=== PATIENT | male | born 1940 | race Caucasian/White ===

== ENCOUNTER → 2016-04-14 | Outpatient (CLI) | payer OTHER ==
[~2016-04-14] MED LIST: ADULT LOW DOSE81 MG PO; ADVAIR 250-501 EACH IH; ADVAIR 250-501 EACH INH; AMBEREN; AMLODIPINE BESYL5 M1 PO; ASPIRIN EC81 M1 PO; ASPIRIN81 M2 PO; ATORVASTATIN CA40 MG PO; B-122500 MCG SUBLING; BACTRIM DS TAB1 EAC1 PO; BENICAR HCT 401 EAC1 PO; BENICAR HCT 401 EACH PO; BENICAR20 MG PO; CATAPRES PO; CHLORIDE; CIPROFLOXACIN500 M1 PO; CLARINEX5 MG; CLARINEX5 MG PO; CLONIDINE HCL0.2 M2 PO; CLONIDINE PO; CLONIDINE0.1 PO; COLACE100 MG PO; CRESTOR20 MG PO; CYCLOBENZAPRINE10 MG PO; DOXYCYCLINE HY100 MG PO; EFFIENT10 MG PO; ELIQUIS5 MG PO; FLEXERIL PO; FLOMAX0.4 MG PO; FLONASE 0.05%50 MCG NASAL; FUROSEMIDE 20 M20 M1 PO; FUROSEMIDE 80 M80 M1 PO; FUROSEMIDE 80 M80 MG PO; GLUCAGON EMERGEN1 MG; GLUCOPHAGE PO; GLUCOPHAGE1000 MG PO; HYDROCODON-ACE1 EAC7; HYDROCODON-ACE1 EAC7 PO; IMDUR PO; IMDUR120 MG PO; ISOMETHEPT-DIC1 EACH PO; ISOSORBIDE MON120 MG PO; K-LOR20 MEQ PO; LASIX 20 MG TAB20 MG PO; LASIX 80 MG TAB80 M1 PO; LEVEMIR; LEVEMIR SQ; LEVEMIR SUBQ; LIPITOR20 MG PO; LISINOPRIL10 MG PO; LISINOPRIL40 MG PO; LOPRESSOR25 PO; METOCLOPRAMIDE10 MG PO; MINIPRIN81 MG PO; MOBIC15 MG PO; MULTIVITAMINS; MULTIVITAMINS PO; NEURONTIN 300300 M1 PO; NEXIUM40 MG PO; NITROQUICK0.4 MG SL; NITROSTAT SL; NITROSTAT0.4 MG SUBLING; NORCO 5-325 TA1 EACH PO; NORTRIPTYLINE H10 M1 PO; NORVASC 5 MG TAB5 MG PO; NORVASC5 MG PO; NOVOLOG100 UNIT/1; NOVOLOG100 UNIT/1 SQ; NOVOLOG100 UNIT/1 SUBQ; OMEPRAZOLE20 M1 PO; OXYBUTYNIN 5 MG5 M1 PO; OXYCODONE-APAP1 EAC6 PO; PAMELOR10 MG PO; PERCOCET 10-321 EACH PO; PLAVIX 75 MG TA75 MG PO; POTASSIUM CHLO20 ME1 PO; POTASSIUM20 PO; PREDNISONE 20 M20 M1 PO; PRILOSEC40 MG PO; PROAIR HFA8.5 GM INH; PROBIOTIC1 EAC1 PO; RANEXA1000 MG PO; SANTYL OINTMENT30 G1 TP; SENNA PO; SINGULAIR 10 MG10 M1 PO; SOTALOL80 MG PO; TAMSULOSIN HCL0.4 M1 PO; TIZANIDINE HCL 22 M1 PO; TOPROL XL100 MG PO; TOPROL XL25 MG PO; TOPROL XL50 MG PO; TOVIAZ8 MG PO; TRAMADOL 50 MG50 MG PO; TYLENOL325 MG PO; ULTRAM 50MG TAB50 MG PO; VITAMIN B 12 SUBLING; VITAMIN B 6 PO; VITAMIN B-6 PO; VITAMIN B-6100 MG PO; VITAMINC500 PO; VYTORIN 10-401 EACH PO; WELLBUTRIN75 MG PO; XOPENEX HF1 UDINHALE IH; ZANAFLEX2 M1 PO; ZANAFLEX2 MG PO; ZPAK PO
== END ==
LOC: RAD 14:27
DX: R06.02 Shortness of breath (principal); I51.7 Cardiomegaly; J98.11 Atelectasis; R05 Cough

== ENCOUNTER → 2016-07-31 | Outpatient (CLI) | payer OTHER ==
[~2016-07-31] VITALS: Ht 167.6 cm; Wt 103.8 kg
[~2016-07-31] MED LIST changes: +PLAVIX 75 MG TA75 M1 PO; +XARELTO20 MG PO
--- NOTE | ~2016-07-31 | HPC ---
[facility] [address] [address] PAIN MANAGEMENT CONSULTATION Name: STEVENCATIA WEST Romy Room #: REG [facility] Debra.#: [id number] Admission: 07/31/16 Attend Phys: Jose Lyman DO Discharge: Date of : 40 Report #: [id number] THIS REPORT FOR: //name// CC: Thomas Lyman The patient is a 76-year-old gentleman, actually he has not been seen in the pain clinic since December. He has been treated for chronic pain concerns including lumbar radiculopathy status post decompressive laminectomy, myofascial pain requiring complex medication management. He has significant atherosclerotic peripheral vascular and coronary artery disease. Continued on Percocet 10/325 p.r.n., gabapentin 300 mg 1 in the morning and 2 at night, tramadol 50 mg p.r.n. with tizanidine for muscle spasm. He is on multiple blood thinners (Plavix, Xarelto). He has been started on Ranexa for ongoing angina. He returns to pain clinic today noting pain is primarily in low back and left knee. His balance is getting worse, he does use a cane or a walker. PHYSICAL EXAMINATION: Shows a pleasant 76-year-old gentleman, somewhat hard of hearing. BMI is 36.9 kg/m2. Vital signs are stable as noted on the EMR. Rises from the chair using armrest. Gait is tandem. Lower extremity strength is diminished. He is becoming more disabled, perhaps 3/5 to all muscle groups tested. Straight leg raise is negative. Patellar and Achilles reflexes are generally preserved. Diffuse low back tenderness. No discrete trigger points are noted. We reviewed the fact that opiate medications are being used to provide analgesia adequate to support activities of daily living, not attempting to achieve a specific pain score on the 0-10 Visual Analog Scale. The current opiate medications are providing sufficient analgesia to allow the patient to participate in activities of daily living. The patient is not exhibiting any aberrant behavior suggestive of drug diversion. The patient is not having any adverse reactions to medications. The patient is not suffering from daytime somnolence or mental acuity changes. The patient is managing opiate-induced constipation with appropriate mglu-guh-zznpaqa agents and dietary considerations. The patient was counseled on concern for caution with operating a motor vehicle while using opiate medications. A physical exam was performed and the patient's functional status was evaluated. All patients with back pain were advised against the bed rest greater than 4 days and were advised to return to normal activities. Pain score assessment was noted and the treatment plan was reviewed with the patient. All current medications, both prescribed and OTC were reviewed and reconciled on the electronic medical record. Tobacco screening was accomplished and smoking cessation was advised when indicated. BMI was noted and diet/exercise modification was recommended for all patients following outside normal parameters. [address] [address] PAIN MANAGEMENT CONSULTATION Name: CATIA HARRIS Romy Room #: REG CL Alfredo#: [id number] Admission: 07/31/16 Attend Phys: Jose Lyman DO Discharge: Date of : 40 Report #: [id number] I reviewed with the patient today their responsibilities to safeguard prescription medications, reviewed their responsibility to utilize medications only as prescribed by the physician. They are to seek and receive pain medications only from 1 physician group ([facility]). They are to use 1 pharmacy and keep the clinic informed if they change pharmacies. Their responsibilities include making followup visits in a timely fashion and to avoid abrupt discontinuation of medication usage. Their responsibilities further include bringing their medications (bottles from the pharmacy with residual pills) to the visit for possible confirmation of pill counts and the patient understands it is their responsibility to submit to random drug screens to ensure both that the medications prescribed are present, and that no other controlled substances are present. All prescriptions provided today were generated electronically. ASSESSMENT: Lumbar radiculopathy status post decompressive laminectomy, axial back pain, myofascial pain requiring complex medication management, comorbidities including atherosclerotic and peripheral vascular disease, on multiple blood thinners. RECOMMENDATION: After a long discussion today, we have elected to continue baseline pain medications unchanged including tizanidine 2 mg up to 4 times a day, oxycodone 10/325 up to t.i.d., tramadol 50 mg t.i.d. for moderate pain and gabapentin 300 mg b.i.d. I have taken the liberty of writing for 2 months of current medications. Follow up at that time, earlier if needed. <ELECTRONICALLY SIGNED> By: Jose Lyman DO 08/03/16 1538 1224 1541 Jose Lyman DO /nt
[2016-07-31 09:51] VITALS: BP 131/52
== END ==
LOC: PAIN 06:47
DX: M54.16 Radiculopathy, lumbar region (principal); M96.1 Postlaminectomy syndrome, not elsewhere classified; M54.5 Low back pain; I70.299 Other atherosclerosis of native arteries of extremities, unspecified extremity; R42 Dizziness and giddiness; M17.0 Bilateral primary osteoarthritis of knee

== ENCOUNTER → 2016-09-03 | Outpatient (CLI) | payer OTHER | LOC: CAT 10:07 | DX: S09.90XA Unspecified injury of head, initial encounter (principal); R60.0 Localized edema; X58.XXXA Exposure to other specified factors, initial encounter; Y93.89 Activity, other specified; Y92.89 Other specified places as the place of occurrence of the external cause; Y99.8 Other external cause status ==

== ENCOUNTER → 2016-10-27 | Outpatient (CLI) | payer OTHER ==
[2016-10-27 08:56] LABS: CREATININE 1.3 mg/dL (0.7-1.3)
== END ==
LOC: CAT 07:51
PROVIDERS: Nurse Practitioner
DX: Z01.818 Encounter for other preprocedural examination (principal); I51.7 Cardiomegaly; N18.3 Chronic kidney disease, stage 3 (moderate)

== ENCOUNTER → 2016-11-05 | Outpatient (CLI) | payer OTHER ==
[~2016-11-05] VITALS: Ht 182.9 cm; Wt 97.5 kg
[~2016-11-05] MED LIST changes: +NEURONTIN600 MG PO; +PROTONIX40 M1 PO
--- NOTE | ~2016-11-05 | CATHLAB ---
[facility] [address] [place] [address] INVASIVE PROCEDURE REPORT Name: CATIA HARRIS Romy Room #: REG [facility]#: [id number] Admission: 11/05/16 Attend Phys: Kishan Gudino MD Discharge: Date of : 40 Date of Service: 11/05/16 1623 Report #: [id number] THIS REPORT FOR: //name// APPROVED REPORT Patient Details Patient Status: In-Patient Room #: The patient is a 76 year-old male Event Personnel Kishan Gudino Broadcast Supervisor, Sofía Heart RN RN, Nahum Breen Monitor, Nahum Breen Monitor, Brett Gracia RN Indication Unstable angina , Valvular heart disease Risk Factors Hypercholesterolemia, Coronary Artery DiseaseHypertension Procedure Narrative The Right Groin^ was infiltrated with 1% Lidocaine subcutaneous anesthesia. A PINNACLE 4FR Sheath #[id number] sheath was inserted into the RFA^. Coronary angiography was performed using coronary diagnostic catheters. The right coronary system was accessed and visualized with a JR4 catheter. The left coronary system was accessed and visualized with a JL4 catheter. The left ventricle was accessed and visualized with a PIGTAIL catheter. Left ventricular/Aortic Valve gradient assessed via catheter pullback. Hemostasis was obtained with manual pressure following sheath removal without any complications. There was no hematoma. Intraoperative Conscious Sedation Sedation start time: 13:15 Case end Time: 13:37 Dose: 9347 mGy Diagnostic Cath Left Main No flow-limiting lesions LAD Patent stents in proximal/mid LAD with mild restenosis. There is mild diffuse disease in the distal LAD. Circumflex 100% proximal occlusion OM1 Patent SALAZAR graft to a moderate sized first OM vessel, supplies multiple branches as it travels down the lateral wall. Right Coronary 100% proximal occlusion [facility] [address] [place] [address] INVASIVE PROCEDURE REPORT Name: CATIA HARRIS Romy Room #: [facility]#: [id number] Admission: 11/05/16 Attend Phys: Kishan Gudino MD Discharge: Date of : 40 Date of Service: 11/05/16 1623 Report #: [id number] PDA Patent SVG with an end to side anastomosis to the PDA. The stents within the vein graft are patent with mild restenosis. After the anastomosis, there is both retrograde and antegrade flow. Left Ventriculography The left ventricular ejection fraction is estimated to be 60%. Hemodynamics The aortic pressure is 176/72 mmHg with a mean of 113 mmHg. The left ventricular pressure is 227/21 mmHg with a mean of mmHg. The left ventricular end diastolic pressure is 24 mmHg. Conclusion 1. Patent [place] LAD stents with mild restenosis. 2. Patent SALAZAR graft to a moderate size OM vessel. 3. Patent saphenous vein graft to a PDA, with mild restenosis within the stented area. 4. Severe aortic stenosis. 5. Normal LV systolic function. <ELECTRONICALLY SIGNED> By: Kishan Gudino MD 11/05/16 1623 22 22 Kishan Gudino MD /INF
--- NOTE | ~2016-11-05 | EKG ---
[address] [place] [address] ELECTROCARDIOGRAM REPORT Name: CATIA HARRIS Room #: REG [facility]#: [id number] Admission: 11/05/16 Attend Phys: Kishan Gudino MD Discharge: Date of : 40 Report #: [id number] THIS REPORT FOR: //name// [facility] Test Date: 2016-11-05 Test Time: 10:20:42 Pat Name: CATIA HARRIS Department: Room: Gender: M Pole Cutter: : 1940 Requested By: Kishan Gudino Order Number: [id number] MD: Anibal Shea Measurements Intervals [place] Rate: 72 P: -54 IA: 198 QRS: 84 QRSD: 110 T: -4 QT: 424 QTc: 465 Interpretive Statements Atrial fibrillation nonspecific ST and T wave abnormality Compared to ECG 03/17/2016 06:52:23 No significant change was found Electronically Signed On 11-06-2016 8:27:47 CDT by Anibal Shea [email or web address] <ELECTRONICALLY SIGNED> By: Anibal Shea MD, [facility] 11/06/16 0827 1020 1020 Anibal Shea MD, FACC /EPI
[2016-11-05 10:31] VITALS: BP 186/84
[2016-11-05 10:42] LABS: HEMATOCRIT 37.8 % (42.0-52.0); HEMOGLOBIN 12.7 gm/dL (14.0-18.0); MCH 29.5 pg (26.0-34.0); MCHC 33.5 g/dL (28.0-37.0); RBC 4.3 mil/uL (4.50-6.00); RDW 15.8 % (10.5-14.5); WBC 7.1 thou/uL (4.0-11.0)
[2016-11-05 11:02] LABS: CALCIUM 9.6 mg/dL (8.5-10.1); CREATININE 1.2 mg/dL (0.7-1.3)
== END | disposition home or self-care (01) ==
LOC: CATH 09:41
PROVIDERS: Internal Medicine Cardiovascular Disease
DX: I25.119 Atherosclerotic heart disease of native coronary artery with unspecified angina pectoris (principal); E78.00 Pure hypercholesterolemia, unspecified; I10 Essential (primary) hypertension

== ENCOUNTER 2016-11-23 05:08 | Inpatient (IN) | payer OTHER ==
[2016-11-17 15:27] LABS: HEMATOCRIT 34.8 % (42.0-52.0); HEMOGLOBIN 12.2 gm/dL (14.0-18.0); MCH 30.6 pg (26.0-34.0); MCHC 35.1 g/dL (28.0-37.0); RDW 15.5 % (10.5-14.5); URINE BILIRUBIN NEGATIVE (Negative); URINE BLOOD TRACE (Negative); URINE COLOR YELLOW; URINE GLUCOSE-RANDOM* NEGATIVE (Negative); URINE KETONES NEGATIVE (Negative); URINE LEUKOCYTES-REFLEX TRACE (Negative); URINE PROTEIN (DIPSTICK) NEGATIVE (Negative); URINE SPECIFIC GRAVITY <= 1.005 (1.003-1.035); URINE UROBILINOGEN 0.2 E.U./dl (0.2-1.0); WBC 7.9 thou/uL (4.0-11.0)
[2016-11-17 15:39] LABS: CALCIUM 9.7 mg/dL (8.5-10.1); POTASSIUM 3.3 mmol/L (3.5-5.1)
[2016-11-17 15:58] LABS: APTT 27.3 Seconds (24.5-32.8); PROTIME 9.8 Seconds (9.3-11.4)
[~2016-11-23] VITALS: Ht 167.6 cm; Wt 108.0 kg
--- NOTE | ~2016-11-23 | EKG ---
[address] [address] ELECTROCARDIOGRAM REPORT Name: CATIA HARRIS Romy Room #: 240-P ADM IN M.R.#: [id number] Admission: 12/01/16 Attend Phys: Ady Gao MD Discharge: Date of : 40 Report #: [id number] THIS REPORT FOR: //name// [facility] Test Date: 2016-12-02 Test Time: 06:36:14 Pat Name: CATIA HARRIS Department: Room: 240 P Gender: M Artist Suspect: ALEKSANDAR : 1940 Requested By: Grace Zhu Order Number: [id number] MD: Anibal Shea Measurements Intervals [place] Rate: 71 P: 0 VA: 196 QRS: 64 QRSD: 97 T: 232 QT: 372 QTc: 405 Interpretive Statements Atrial fibrillation Repol abnrm suggests ischemia, anterolateral Compared to ECG 11/05/2016 10:20:42 No significant change was found Electronically Signed On 12-02-2016 8:44:04 CDT by Anibal Shea [email or web address] <ELECTRONICALLY SIGNED> By: Anibal Shea MD, [facility] 12/02/16 0844 5 5 Anibal Shea MD, [facility] /EPI
--- NOTE | ~2016-11-23 | HC ---
[facility] [address] [place] [address] CONSULTATION Name: CATIA HARRIS Romy Room #: 240-P [facility] IN M.R.#: [id number] Admission: 12/01/16 Attend Phys: Ady Gao MD Discharge: Date of : 40 Report #: [id number] THIS REPORT FOR: //name// CC: Thomas Gao DATE OF SERVICE: 12/03/2016 REFERRING PROVIDER: Dr. Ady Gao REASON FOR CONSULTATION: Respiratory failure. HISTORY OF PRESENT ILLNESS: Our group was asked to see the patient this morning in consultation while hospitalized at [facility] in the ICU. The patient on the ventilator and placed overnight on mechanical ventilatory support relatively urgently. He is unable to give any history. History is taken from review of records and discussion with healthcare providers and sister and brother who are at bedside. He is a 76-year-old male without any significant past pulmonary history, possibly chronic obstructive pulmonary disease in the records who presented for aortic valve replacement due to severe aortic stenosis with valve area of 0.7 cm2. The patient has had prior sternotomy for coronary artery bypass graft prior to this. The patient's procedure was performed 2 days ago. The patient apparently extubated yesterday, developing worsening hypoxemic respiratory failure and altered mental status requiring intubation overnight. Chest radiograph had suggested worsening pulmonary edema. Nursing notes no suggestion of aspiration during the day or during the intubation. Minimal secretions coming from airway. The patient's hypoxemia is somewhat improved post intubation. He has been placed on a furosemide drip with some urine output noted. ALLERGIES: INCLUDE ADHESIVE TAPE, PENICILLINS AND BEXTRA. PAST MEDICAL HISTORY: 1. History of coronary artery disease with coronary artery bypass grafting in 1995. 2. History of aortic stenosis, status post aortic valve replacement on 12/01/2016. 3. History of lumbar laminectomy x 2. 4. History of chronic obstructive pulmonary disease, severity not quantified in the records available. 5. History of obstructive sleep apnea, on nocturnal CPAP by report. 6. History of gastroesophageal reflux disease. 7. Hyperlipidemia. 8. Hypertension. [facility] [address] [place] [address] CONSULTATION Name: CATIA HARRIS Romy Room #: 240-P [facility] IN M.R.#: [id number] Admission: 12/01/16 Attend Phys: Ady Gao MD Discharge: Date of : 40 Report #: [id number] OUTPATIENT MEDICATIONS: Included Toviaz, potassium chloride, probiotic, Colace, metformin, vitamin B12, Nitrostat p.r.n., Lasix 100 daily, Levemir insulin, Flomax, clonidine, p.r.n. albuterol, Advair 250/50 twice daily, Singulair, Flonase, Clarinex, isosorbide mononitrate, amlodipine, olmesartan, Ranexa, metoprolol, gabapentin and tramadol. SOCIAL HISTORY: The patient is a nonsmoker. FAMILY HISTORY: Unobtainable due to current status. REVIEW OF SYSTEMS: Otherwise, unobtainable from the patient due to his current neurologic status. PHYSICAL EXAMINATION: VITAL SIGNS: The patient has been afebrile, pulse in 80s times signs of atrial fibrillation, respiratory rate in the 20s, blood pressure 152/53. GENERAL: This is an elderly male, sedate, on mechanical ventilatory support. EENT: Reveals an 8.[address] with no significant oropharyngeal erythema noted. NECK: Supple, no lymphadenopathy. An IJ introducer in place. LUNGS: Some coarse breath sounds noted. CARDIOVASCULAR: Heart was regular. No murmurs appreciated. ABDOMEN: Soft, nontender. Mediastinal tube is noted to be in place. EXTREMITIES: With diminished pulses, right radial arterial line in place with some lower extremity edema noted. LABORATORY DATA: Chest x-ray revealed tubes and lines in good position. Significant widening of the mediastinum also noted. Some mild pulmonary infiltrates, right greater than left, noted with cephalization of flow suggestive of pulmonary edema and/or superimposed pulmonary infiltrate. White blood cell count is 17,000, hemoglobin 9, hematocrit 29, platelet count 75. Sodium 140, potassium 4.4, chloride 106, bicarbonate 25, BUN 34, creatinine 1.5, glucose 290, calcium is 9.3. Arterial blood gas on assist control, tidal volume of 600, PEEP of 8, rate of 18, FiO2 of 100% revealed pH 7.35, pCO2 of 42, pO2 of 87, bicarbonate 23. IMPRESSION: 1. Acute hypoxemic respiratory failure, likely related to pulmonary edema. Would check echocardiogram to reevaluate postoperative cardiac function given the above, continue with diuretics as planned. Consider the possibility the patient may have superimposed pneumonia. 2. Pulmonary infiltrates most consistent with pulmonary edema. 3. Status post aortic valve replacement. 4. Diabetes mellitus type 2. 5. History of asthma/chronic obstructive pulmonary disease. 6. Nutrition: No nutrition at this time and will withhold for the moment. [facility] [address] [place] [address] CONSULTATION Name: CATIA HARRIS Room #: 240-P ADM IN M.R.#: [id number] Admission: 12/01/16 Attend Phys: Ady Gao MD Discharge: Date of : 40 Report #: [id number] PLAN: As outlined above. We will follow along with you. Thank you for requesting our suggestions. Total critical care time 45 minutes, not including any procedures to this point. <ELECTRONICALLY SIGNED> By: Arslan Dang MD 12/03/16 1338 0927 1045 Arslan Dang MD /nt
--- NOTE | ~2016-11-23 | EKG ---
[address] [address] ELECTROCARDIOGRAM REPORT Name: CATIA HARRIS Romy Room #: 240-P ADM IN M.R.#: [id number] Admission: 12/01/16 Attend Phys: Ady Gao MD Discharge: Date of : 40 Report #: [id number] THIS REPORT FOR: //name// [facility] Test Date: 2016-12-03 Test Time: 02:37:30 Pat Name: CATIA HARRIS Department: Room: 240 P Gender: M Route Supervisor: jreif : 1940 Requested By: Ady Gao Order Number: [id number] MD: Anibal Shea Measurements Intervals [place] Rate: 78 P: AR: QRS: 78 QRSD: 102 T: 267 QT: 385 QTc: 439 Interpretive Statements Atrial fibrillation Nonspecific repol abnormality, diffuse leads Compared to ECG 12/02/2016 06:36:14 No significant change was found Electronically Signed On 12-03-2016 8:01:00 CDT by Anibal Shea [email or web address] <ELECTRONICALLY SIGNED> By: Anibal Shea MD, [facility] 12/03/16 0801 0237 023 Anibal Shea MD, [facility] /EPI
--- NOTE | ~2016-11-23 | HC ---
[facility] [place] [address] [place] [address] CONSULTATION Name: CATIA HARRIS Romy Room #: 207-P [facility] IN .R.#: [id number] Admission: 12/01/16 Attend Phys: Ady Gao MD Discharge: Date of : 40 Report #: [id number] THIS REPORT FOR: //name// CC: Thomas Gao DATE OF SERVICE: 12/11/2016 HISTORY OF PRESENT ILLNESS: The patient is a 76-year-old white male with history of coronary artery disease, prior coronary artery bypass graft 21 years ago with severe aortic stenosis. He was noted to have problems with exertional chest pain and had a fall, question syncope sustaining subdural hematomas 09/2016. He was admitted to [facility] and underwent an aortic valve replacement redo sternotomy 12/01/2016. He ended up needing to be re-intubated. He has been treated for pneumonia, hypernatremia with close involvement of Pulmonary Medicine as well as Nephrology and Infectious Disease. He is noted to have encephalopathy with decreased cognition. We are seeing him in rehabilitation medicine consultation. PAST MEDICAL HISTORY: Includes the prior coronary artery bypass grafting. He has a history of left total knee replacement, right total hip replacement, bilateral shoulder surgery, hypertension, diabetes mellitus with peripheral neuropathy requiring insulin, hyperlipidemia, COPD, GERD, subdural hematoma. MEDICATIONS: Please see the full medication listing. ALLERGIES: ADHESIVE TAPE, PENICILLIN, BEXTRA WITH VALDECOXIB. HABITS: No history of tobacco or alcohol abuse. FAMILY HISTORY: Mother was noted to have leukemia. SOCIAL HISTORY: Lives in a house with his brother, 2 steps in, utilized a walker premorbidly. REVIEW OF SYSTEMS: Did not offer any current complaints of chest pain, shortness of breath or abdominal discomfort. Did not complain of any focal extremity pain. PHYSICAL EXAMINATION: GENERAL: He is a 76-year-old male seen in the intensive care unit. He is in no obvious distress. VITAL SIGNS: Last recorded temperature 98.5, pulse 82, respirations 20, and blood pressure 134/67. NEUROLOGIC: He was sleepy, but was easily arousable. He is on nasal prong O2. He was correct regarding the place, incorrect regarding the year, partial [facility] [address] [place] [address] CONSULTATION Name: CATIA HARRIS Room #: 207-P [facility] IN .R.#: [id number] Admission: 12/01/16 Attend Phys: Ady Gao MD Discharge: Date of : 40 Report #: [id number] correct regarding the President. A bit cankerous, but does follow basic commands without difficulty. There is a definite latency to his responses and some decreased concentration. Facies appeared symmetric. Mid sternal incision is dressed. EXTREMITIES: He has functional range of motion of the upper extremities; 1+ distal upper extremity edema, appeared pitting. Strength is probably a grade 4- to 3+/5. Lower extremities, prior left knee incision. No focal calf swelling. He may have 1+ lower extremity edema. Functionally, he is max assist with sit to stand. Gait, mod assist to 5 steps with a front-wheeled walker. I would grade his lower extremity strength probably a 3+/5. ASSESSMENT: A 76-year-old white male with the following problem list: 1. Metabolic encephalopathy. 2. Severe aortic stenosis, status post bioprosthetic aortic valve replacement. 3. Respiratory arrest needing re-intubation. 4. 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 5. Hypernatremia. 6. Pneumonia. 7. Dysphagia. He is on a pureed diet with nectar-thickened liquids. 8. Coronary artery disease. 9. Hypertension. 10. Chronic obstructive pulmonary disease. PLAN: It is my understanding the patient has been transferred out of the ICU today. We would anticipate that he could be a good inpatient rehabilitation candidate as he further medically stabilizes. At this point, we will continue to follow along with you regarding his rehabilitation therapy needs. Thank you for asking us to assist in this patient's care. By: 1143 0150 Nahum Bonilla MD /
--- NOTE | ~2016-11-23 | O ---
[facility] [place] [address] OPERATIVE REPORT Name: CATIA HARRIS Room #: 207-P [facility] IN ..#: [id number] Admission: 12/01/16 Attend Phys: Ady Gao MD Discharge: 12/13/16 Date of : 40 Report #: [id number] THIS REPORT FOR: //name// CC: Thomas Gao DATE OF SERVICE: 12/01/2016 DATE OF SERVICE: 12/01/2016 PREOPERATIVE DIAGNOSES: 1. Severe aortic stenosis. 2. Severe left ventricular hypertrophy. FINAL DIAGNOSES: 1. Severe aortic stenosis. 2. Severe left ventricular hypertrophy. OPERATIVE PROCEDURE PERFORMED: 1. Redo sternotomy. 2. Aortic valve replacement with 23 mm Durant Magna Ease bovine pericardial bioprosthesis. SURGEON: Ady Gao MD DIESEL MAINTENANCE ELECTRICIAN: Nanda Hernandez MD ANESTHESIA: General. OPERATIVE INDICATIONS: The patient is a very pleasant 76-year-old male who has a known history of coronary artery disease and has undergone prior coronary bypass grafting approximately 21 years ago. The patient is now presented with symptoms of severe dyspnea on exertion and was found to have evidence of severe aortic stenosis. A long preop discussion was performed with the patient, he was amenable to proceeding with redo sternotomy for aortic valve replacement. Preoperative evaluation with left heart catheterization did show patent graft to the obtuse marginal vessel from a patent left internal mammary artery and also a saphenous vein graft to the right coronary artery system. OPERATIVE SUMMARY: The patient was brought to the operating room and placed on the OR table in supine position. After anesthesia was induced via the general endotracheal route and monitoring lines had been positioned, the patient was prepped and draped in sterile fashion with chlorhexidine. We reentered through the prior median sternotomy incision. The wires were dissected free from the [facility] [address] [place] [address] OPERATIVE REPORT Name: STEVENCATIA GONCALVES Room #: 207-P DIS IN [facility].#: [id number] Admission: 12/01/16 Attend Phys: Ady Gao MD Discharge: 12/13/16 Date of : 40 Report #: [id number] bone and were untwisted. We used an oscillating saw to go through the sternum utilizing the wires as a reference for the posterior table of the sternum. We then removed the wires and completed the sternotomy utilizing the oscillating saw. We then dissected the underside of the sternum from the heart. Sternal retractor was placed. Further dissection allowed exposure of the diaphragmatic surface of the heart, the right atrium and the aorta. We also attempted to dissect the pericardium off the anterior surface of the heart, but were ultimately limited by adhesions over on the left side of the heart. Heparin was given to anticoagulate the patient. Cannulae were placed in ascending aorta and one in the right atrium. Cardiopulmonary bypass was begun. Further dissection was performed. An antegrade cardioplegic cannula was positioned and a retrograde cardioplegic cannula was positioned. Under low flow conditions, the aortic crossclamp was placed and the heart was arrested with cold antegrade cardioplegia approximately 1 liter and then cold retrograde cardioplegia. We also cooled the patient to a temperature of 25 degrees Celsius as we elected not to gain control of the left internal mammary artery. Once diastolic arrest was achieved, we then placed our aortic root vent on suction and performed a transverse aortotomy underneath the takeoff of the right coronary artery graft. We exposed the valve. We found a highly calcified valve with fusion of the leaflets and poor leaflet mobility. The leaflets were excised and the annulus was debrided of all calcium. We sized the valve and selected a 23 mm Durant Magna Ease bovine pericardial valve. We then placed 2-0 Ethibond pledgeted sutures from the ventricular to the aortic side of the annulus. We brought the sutures up through the sewing rim of the valve. The valve was seated and then the sutures were securely tied utilizing core knots. We then inspected the valve and found everything to be satisfactory. The aortotomy was then closed in 2 layers with running 4-0 Prolene suture. At this point, during the closure, we began rewarming the patient. The patient was then placed in steep Trendelenburg and we performed de-airing maneuvers through the left ventricular apex with an 18 gauge needle while giving retrograde cardioplegia holding blood in the heart and ventilating the lungs. The retrograde cannula was removed similar de-airing maneuvers were performed again while giving antegrade warm cardioplegia and then under low flow conditions, the aorta crossclamp was released and again de-airing maneuvers were performed as mentioned above. The patient was then placed back in the supine position. Atrial and ventricular pacing wires were positioned. As the heart rewarmed, we were able to pace the heart. Three successive doses of calcium and a single dose of magnesium were given over 3-5 minute intervals. The patient was fully rewarmed to 36.8 degrees centigrade. Lungs were reinflated. De-airing was confirmed and the patient was weaned from cardiopulmonary bypass on a low dose Dobutrex infusion. Protamine was given to reverse the heparin, decannulation was effected. Once satisfactory hemostasis was achieved, we placed two 32-Wallisian chest tubes in the anterior mediastinum bringing them out through separate stab incisions. The sternum was closed with #7 wire. The fascia, subcutaneous and skin were closed in multiple layers with absorbable suture. [facility] [address] [address] OPERATIVE REPORT Name: STEVENCATIA Room #: 207-P [facility] IN M.R.#: [id number] Admission: 12/01/16 Attend Phys: Ady Gao MD Discharge: 12/13/16 Date of : 40 Report #: [id number] The procedure was completed and the patient was taken to the ICU in stable condition. Cardiopulmonary bypass time and crossclamp times are not available to me at the time of this dictation. <ELECTRONICALLY SIGNED> By: Ady Gao MD 12/19/16 1311 1137 1227 Ady Gao MD /nt
--- NOTE | ~2016-11-23 | EKG ---
[address] [address] ELECTROCARDIOGRAM REPORT Name: STEVENCATIA Room #: 240-P ADM IN M.R.#: [id number] Admission: 12/01/16 Attend Phys: Ady Gao MD Discharge: Date of : 40 Report #: [id number] THIS REPORT FOR: //name// [facility] Test Date: 2016-12-11 Test Time: 08:43:09 Pat Name: CATIA HARRIS Department: Room: 240 P Gender: M Area Supervisor: : 1940 Requested By: Grace Richmond Order Number: [id number] MD: Anibal Shea Measurements Intervals [place]son Rate: 84 P: ND: QRS: 54 QRSD: 99 T: 228 QT: 387 QTc: 458 Interpretive Statements Atrial fibrillation Abnormal T, consider ischemia, diffuse leads Compared to ECG 12/03/2016 02:37:30 No significant change was found Electronically Signed On 12-11-2016 8:50:39 CDT by Anibal Shea [email or web address] <ELECTRONICALLY SIGNED> By: Anibal Shea MD, [facility] 12/11/16 0850 2 2 Anibal Shea MD, [facility] /EPI
--- NOTE | ~2016-11-23 | 2DMMODE ---
[facility] [place] [address] 2 D/M-MODE ECHOCARDIOGRAM Name: CATIA HARRIS Romy Room #: 240-P [facility] IN ..#: [id number] Admission: 12/01/16 Attend Phys: Ady Gao, Discharge: Date of : 40 Date of Service: 12/03/16 1620 Report #: [id number] THIS REPORT FOR: //name// APPROVED REPORT Study performed: 12/03/2016 11:26:04 EXAM: Comprehensive 2D, Doppler, and color-flow Echocardiogram Patient Location: ICU Room #: 240 Status: routine BSA: 2.06 HR: 81 bpm BP: 136/43 mmHg Other Information Study Quality: Poor Indications COPD Diabetes CAD Hypertension/HDD S^P AVR 23 mm Durant Magna Ease Bovine valve Echo Enhancing Agent Indication: Endocardial border delineation Agent(s) / Amount(s) Used: Optison 3 cc 2D Dimensions LVOT Diam: 22.94 (18-24mm) Pulmonary Valve PV Peak Yoel.: 0.90 m/s PV Peak Gr.: 3.22 mmHg Left Ventricle The left ventricle is normal size. Unable to assess LV wall thickness. The left ventricular systolic function appears to be grossly normal. Unable to rule out segmental wall motion abnormalities. This study is not technically sufficient to allow evaluation of the LV diastolic function. Right Ventricle The right ventricle is now well visualized [facility] [address] [place] [address] 2 D/M-MODE ECHOCARDIOGRAM Name: CATIA HARRIS Room #: 240-P ADM IN M.R.#: [id number] Admission: 12/01/16 Attend Phys: Ady aGo, Discharge: Date of : 40 Date of Service: 12/03/16 1620 Report #: [id number] Atria Left atrium is not well visualized. Right atrium is not well visualized. Aortic Valve The prosthetic aortic valve is not well visualized but appears to be functioning normal. No aortic regurgitation is present. Mitral Valve Mitral valve is not well visualized. Tricuspid Valve The tricuspid valve is not well visualized. Pulmonic Valve Pulmonic valve is not well visualized. Great Vessels Aortic root is not well visualized. The IVC was not visualized Pericardium There is no pericardial effusion. <Conclusion> Technically difficult study. Limited study. The left ventricle is normal size. The LV systolic function appears grossly normal, unable to rule out segmental wall motion abnormalities. The right ventricle is not well visualized Left atrium is not well visualized. The prosthetic aortic valve is not well visualized but appears to be functioning normal. Mitral valve is not well visualized. There is no pericardial effusion. <ELECTRONICALLY SIGNED> By: Kishan Gudino MD 12/03/16 1620 162 1620 Kishan Gudino MD /MARNIE
--- NOTE | ~2016-11-23 | HC ---
[facility] [place] [address] CONSULTATION Name: STEVENCATIA WEST Romy Room #: 240-P [facility] IN ..#: [id number] Admission: 12/01/16 Attend Phys: Ady Gao MD Discharge: Date of : 40 Report #: [id number] THIS REPORT FOR: //name// CC: Thomas Gao DATE OF SERVICE: 12/07/2016 REASON FOR CONSULTATION: Hypernatremia. HISTORY OF PRESENT ILLNESS: A 76-year-old gentleman was admitted for an aortic valve replacement with bioprosthetic device, performed on 12/01. This had been a redo sternotomy, 21 years status post coronary artery bypass surgery. Two days postoperatively, the patient developed respiratory failure, pulmonary edema, plus minus aspiration, was reintubated and has been on the ventilator in the ICU since that time. Chest x-ray had shown right lower lobe pneumonia. This is gradually improved. He has begun on tube feedings and over the course of several days, his serum sodium went from low normal up to 158 today and renal consultation was called. Of note, renal function has been reasonably stable with a recent serum creatinine of 1.2. Other electrolytes also being relatively unremarkable, although with ongoing IV looped diuretic, the serum CO2 has gone up to 34. PAST MEDICAL HISTORY: He had a previous coronary bypass, history of COPD, history of type 2 diabetes mellitus, the rather severe aortic stenosis as mentioned with aortic valve replacement on 12/01/2016, previous lumbar laminectomy and a history of sleep apnea as well as hypertension. CURRENT MEDICATIONS: List has included furosemide, although that was recently stopped; Flomax, Claritin, Singulair, potassium, tramadol, all on hold; amiodarone 200 mg b.i.d.; aspirin 325 mg daily; Lipitor 40 mg daily; metformin 1000 mg b.i.d.; Lopressor 25 mg b.i.d.; amlodipine 5 mg daily; Ranexa 1000 mg daily. FAMILY HISTORY: Please see old charts. SOCIAL HISTORY: Please see old charts. REVIEW OF SYSTEMS: Cannot be taken, the patient is unresponsive on the ventilator and sedated in the ICU. PHYSICAL EXAMINATION: GENERAL: This is a comatose, sedated patient on the ventilator in the ICU. SKIN: Unremarkable. SKELETAL: Shows him to be well developed, well nourished, nonobese. HEENT: Extraocular movements cannot be tested. Pupils are reactive. [address] [address] CONSULTATION Name: CATIA HARRIS Room #: 240-P [facility] IN [facility]#: [id number] Admission: 12/01/16 Attend Phys: Ady Gao MD Discharge: Date of : 40 Report #: [id number] Endotracheal tube is in place. NECK: Supple. CHEST: Coarse with some rhonchi. HEART: Regular. ABDOMEN: Soft and nontender. EXTREMITIES: Show no edema, no sinuses. LABORATORY DATA: Hemoglobin is 9. Sodium is 158, potassium 4, chloride 118, bicarbonate 34, creatinine 1.2, BUN 33, albumin 3. ASSESSMENT: Hypernatremia. The patient presents as hyperosmolar. He has been getting hypertonic tube feedings. He has not been administered adequate free water. The ability for free water conservation has also been inhibited by the administration of IV furosemide and all this together has led to the hypernatremia. We will try to give him some free water down the orogastric tube, although he has not been absorbing well. Currently, the tube feeds on hold. I will have to give him some D5W. Sugars may be a problem and insulin will have to be adjusted. <ELECTRONICALLY SIGNED> By: Daniel Castro MD 12/09/16 1122 1148 1609 Daniel Castro MD /nt
--- NOTE | ~2016-11-23 | S ---
[facility] [place] [address] SURGICAL PATH RPT PROCEDURE Name: NOEL HARRIS Room #: 240-P ADM IN M.R.#: [id number] Admission: 12/01/16 Date of : 40 Discharge: Report #: [id number] Path Case #: [id number] PATHOLOGY REPORT COLLECTION DATE: 12/01/2016 RECEIVED DATE: 12/01/2016 SUBMITTING PHYS: Dr. Ady Gao OTHER PHYS: Dr. Nanda Hernandez M.D. Dr. Thomas Zuleta SPECIMEN(S) RECEIVED: A.Aortic valve * * * * * * * * * * * * FINAL DIAGNOSIS: Heart valve, aortic, removal: - Portions of heart valve with degenerative changes and calcifications. (SKM/db; 12/04/2016) PATHOLOGIST: Linda Zimmerman M.D. REPORT ELECTRONICALLY SIGNED BY: Linda Zimmerman M.D. DATE/TIME: 12/04/2016 14:52 * * * * * * * * * * * * GROSS PATHOLOGY: The specimen is received in formalin, labeled "Noel Harris, aortic valve" are two intact valve leaflets and multiple fragments of geronimo membranous tissue measuring 4.0 x 2.2 x 0.6 cm in aggregate. Multiple fragments are remarkable for a geronimo-yellow, irregular calcifications measuring up to 1.0 cm in greatest dimension. No additional abnormalities are noted. Litigation Manager sections are submitted in cassette A1 after fixation and decalcification. (JWP; 12/02/2016) CLINICAL HISTORY: Aortic stenosis INITIAL CPT CODE(S): A; 00376, 80362 Professional services performed by [facility], [address] [address]. Technical services performed by [facility], [address] [place] [address], [address], [place] [address]. [address] [address] SURGICAL PATH RPT PROCEDURE Name: NOEL HARRIS Room #: 240-P ADM IN .R.#: [id number] Admission: 12/01/16 Date of : 40 Discharge: Report #: [id number] Path Case #: [id number] [address] PHONE: [phone] DIRECTOR: Allan Ureña M.D. * * * END OF REPORT * * *
--- NOTE | ~2016-11-23 | HC ---
[facility] [place] [address] CONSULTATION Name: CATIA HARRIS Romy Room #: 207-P [facility] IN ..#: [id number] Admission: 12/01/16 Attend Phys: Ady Gao MD Discharge: 12/13/16 Date of : 40 Report #: [id number] THIS REPORT FOR: //name// CC: Thomas Gao INFECTIOUS DISEASES CONSULTATION REASON FOR CONSULTATION: I was asked to evaluate concerning leukocytosis following aortic valve replacement. HISTORY OF PRESENT ILLNESS: The patient is a 76-year-old who was admitted for aortic valve replacement. He underwent bioprosthetic replacement on 12/[address] Ady Gao. He has underlying history of coronary artery disease and COPD along with diabetes. Postoperatively, has failed to come off the ventilator. Yesterday had increased infiltrates in the right lower lobe. He has had intermittent leukocytosis initially after surgery and it improved only to rebound again today. Moderate amount of sputum production. Has central venous catheter in his right neck with chest tubes in place. He has had increased gastric residuals from his NG tube. Remains on an FiO2 of 30%. He has had no skin breakdown. No diarrhea. Has an indwelling Manning catheter. Kidney function has been relatively stable. He has developed hypernatremia, which has improved with fluid changes. He is currently off antibiotics. PAST MEDICAL HISTORY: Coronary artery bypass grafting, coronary artery disease, COPD, diabetes, aortic stenosis, lumbar laminectomy, obstructive sleep apnea. ALLERGIES: ADHESIVE TAPE, PENICILLIN, BEXTRA. MEDICATIONS: As noted on his MAR, which was reviewed. FAMILY HISTORY: Noncontributory. SOCIAL HISTORY: He is a nonsmoker, no significant alcohol intake reported. REVIEW OF SYSTEMS: As noted above with no further additions. The patient was sedated. PHYSICAL EXAMINATION: VITAL SIGNS: Temperature is 100.1 axillary, heart rate 89, blood pressure 150/58, orally intubated on an FiO2 of 30%. The right IJ catheter in place, on propofol and Cardene drip. Sternum dressing intact and dry. Chest tube sites unremarkable. CHEST: Coarse, right greater than left. CARDIOVASCULAR: Heart was regular with crisp valve sounds. ABDOMEN: Mildly distended, no masses or hepatosplenomegaly. EXTREMITIES: Unremarkable. The patient did move all extremities. He was [address] [address] CONSULTATION Name: CATIA HARRIS Room #: [address] [place] [address]#: [id number] Admission: 12/01/16 Attend Phys: Ady Gao MD Discharge: 12/13/16 Date of : 40 Report #: [id number] sedated. LABORATORY STUDIES: Sodium 158, potassium 4.2, bicarb at 34, creatinine 1.2, BUN 33, bilirubin 0.7, alk phos 53, ALT 14, albumin 3. Hemoglobin 9; WBC 14.7; platelet count 149,000; 80% neutrophils; 6% bands. Sputum culture pending. Chest x-ray: Improved right lung base with persistent interstitial changes. IMPRESSION: A 76-year-old, postoperative day #7, bioprosthetic aortic valve replacement for aortic stenosis with respiratory failure. Increased leukocytosis, concerned about aspiration pneumonia as a cause. Other consideration would be intra-abdominal process considering gastroparesis and likely ileus. PLAN: Recommend awaiting sputum culture. We will screen blood cultures, urinalysis and begin empiric antibiotics pending these studies. Follow his CBC. We will adjust medications pending results. <ELECTRONICALLY SIGNED> By: Asa Jay MD 12/16/16 1427 1651 00 Asa Jay MD /nt
[2016-12-01 07:31] LABS: CALCIUM 9.3 mg/dL (8.5-10.1); CREATININE 1.3 mg/dL (0.7-1.3)
[2016-12-01 09:42] VITALS: BP 182/89
[2016-12-01 14:22] LABS: POC BE 5 mmol/L (-2.0 to +3.0); POC CA IONIZED 4.5 mg/dL (4.5-5.3); POC FiO2 80 %; POC GLUCOSE 151 mg/dL (70-99); POC HCO3 28.5 mmol/L (22.0-26.0); POC HEMOGLOBIN 9.5 g/dL (14.0-18.0); POC POTASSIUM 3.3 mmol/L (3.5-5.1); POC SODIUM 138 mmol/L (136-145); POC pCO2 36.1 mmHg (35.0-45.0); POC pH 7.505 (7.360-7.450)
[2016-12-01 14:22] LABS: POC BE 4 mmol/L (-2.0 to +3.0); POC CA IONIZED 4.6 mg/dL (4.5-5.3); POC FiO2 1 %; POC GLUCOSE 178 mg/dL (70-99); POC HCO3 31.4 mmol/L (22.0-26.0); POC HEMOGLOBIN 9.5 g/dL (14.0-18.0); POC POTASSIUM 3.2 mmol/L (3.5-5.1); POC SODIUM 134 mmol/L (136-145); POC pCO2 70.6 mmHg (35.0-45.0); POC pH 7.257 (7.360-7.450)
[2016-12-01 14:22] LABS: POC BE 1 mmol/L (-2.0 to +3.0); POC CA IONIZED 4.8 mg/dL (4.5-5.3); POC FiO2 60 %; POC GLUCOSE 176 mg/dL (70-99); POC HCO3 29.2 mmol/L (22.0-26.0); POC HEMOGLOBIN 9.9 g/dL (14.0-18.0); POC POTASSIUM 3.2 mmol/L (3.5-5.1); POC SODIUM 136 mmol/L (136-145); POC pCO2 72.5 mmHg (35.0-45.0); POC pH 7.213 (7.360-7.450)
[2016-12-01 14:22] LABS: POC BE 6 mmol/L (-2.0 to +3.0); POC CA IONIZED 4.8 mg/dL (4.5-5.3); POC FiO2 100 %; POC GLUCOSE 225 mg/dL (70-99); POC HCO3 30.1 mmol/L (22.0-26.0); POC HEMOGLOBIN 11.2 g/dL (14.0-18.0); POC POTASSIUM 3.8 mmol/L (3.5-5.1); POC SODIUM 135 mmol/L (136-145); POC pCO2 45.8 mmHg (35.0-45.0); POC pH 7.426 (7.360-7.450)
[2016-12-01 14:22] LABS: POC BE 2 mmol/L (-2.0 to +3.0); POC CA IONIZED 5.2 mg/dL (4.5-5.3); POC FiO2 1 %; POC GLUCOSE 193 mg/dL (70-99); POC HCO3 30.5 mmol/L (22.0-26.0); POC HEMOGLOBIN 11.2 g/dL (14.0-18.0); POC POTASSIUM 3.5 mmol/L (3.5-5.1); POC SODIUM 137 mmol/L (136-145); POC pCO2 82.3 mmHg (35.0-45.0); POC pH 7.176 (7.360-7.450)
[2016-12-01 14:27] LABS: POC BE 6 mmol/L (-2.0 to +3.0); POC CA IONIZED 4.5 mg/dL (4.5-5.3); POC FiO2 60 %; POC GLUCOSE 171 mg/dL (70-99); POC HCO3 29.4 mmol/L (22.0-26.0); POC HEMOGLOBIN 9.9 g/dL (14.0-18.0); POC POTASSIUM 3.3 mmol/L (3.5-5.1); POC SODIUM 137 mmol/L (136-145); POC pCO2 40.2 mmHg (35.0-45.0); POC pH 7.473 (7.360-7.450)
[2016-12-01 14:27] LABS: POC BE 5 mmol/L (-2.0 to +3.0); POC CA IONIZED 4.6 mg/dL (4.5-5.3); POC FiO2 40 %; POC GLUCOSE 181 mg/dL (70-99); POC HCO3 29.9 mmol/L (22.0-26.0); POC HEMOGLOBIN 9.2 g/dL (14.0-18.0); POC POTASSIUM 3.5 mmol/L (3.5-5.1); POC SODIUM 137 mmol/L (136-145); POC pCO2 50.9 mmHg (35.0-45.0); POC pH 7.377 (7.360-7.450)
[2016-12-01 14:27] LABS: POC BE 5 mmol/L (-2.0 to +3.0); POC CA IONIZED 4.4 mg/dL (4.5-5.3); POC FiO2 100 %; POC GLUCOSE 135 mg/dL (70-99); POC HCO3 28.6 mmol/L (22.0-26.0); POC HEMOGLOBIN 8.5 g/dL (14.0-18.0); POC POTASSIUM 3.5 mmol/L (3.5-5.1); POC SODIUM 136 mmol/L (136-145); POC pCO2 40.8 mmHg (35.0-45.0); POC pH 7.454 (7.360-7.450)
[2016-12-01 14:27] LABS: POC BE 2 mmol/L (-2.0 to +3.0); POC FiO2 100 %; POC GLUCOSE 114 mg/dL (70-99); POC HCO3 26.3 mmol/L (22.0-26.0); POC HEMOGLOBIN 9.5 g/dL (14.0-18.0); POC POTASSIUM 3.3 mmol/L (3.5-5.1); POC SODIUM 138 mmol/L (136-145); POC pCO2 38.1 mmHg (35.0-45.0); POC pH 7.448 (7.360-7.450)
[2016-12-01 14:27] LABS: POC BE 3 mmol/L (-2.0 to +3.0); POC CA IONIZED 5.9 mg/dL (4.5-5.3); POC FiO2 100 %; POC GLUCOSE 124 mg/dL (70-99); POC HEMOGLOBIN 7.8 g/dL (14.0-18.0); POC POTASSIUM 3.4 mmol/L (3.5-5.1); POC SODIUM 137 mmol/L (136-145); POC pCO2 37.9 mmHg (35.0-45.0); POC pH 7.462 (7.360-7.450)
[2016-12-01 14:27] LABS: POC BE 6 mmol/L (-2.0 to +3.0); POC CA IONIZED 7.5 mg/dL (4.5-5.3); POC FiO2 100 %; POC GLUCOSE 123 mg/dL (70-99); POC HCO3 29.6 mmol/L (22.0-26.0); POC HEMOGLOBIN 7.8 g/dL (14.0-18.0); POC POTASSIUM 3.7 mmol/L (3.5-5.1); POC SODIUM 135 mmol/L (136-145); POC pCO2 43.5 mmHg (35.0-45.0); POC pH 7.441 (7.360-7.450)
[2016-12-01 14:46] LABS: HEMATOCRIT 28.4 % (42.0-52.0); HEMOGLOBIN 9.6 gm/dL (14.0-18.0); MCH 30.2 pg (26.0-34.0); MCV 88.9 fL (80.0-100.0); RBC 3.19 mil/uL (4.50-6.00); RDW 15.8 % (10.5-14.5); WBC 18.2 thou/uL (4.0-11.0)
[2016-12-01 14:55] LABS: CALCIUM 10.6 mg/dL (8.5-10.1); CREATININE 1.3 mg/dL (0.7-1.3); POTASSIUM 3.5 mmol/L (3.5-5.1)
[2016-12-01 15:18] LABS: ABG SAMPLE TYPE ARTERIAL; BE(vivo) -5.1 mmol/L (-2 to +3); HCO3 20.3 mmol/L (22.0-26.0); LACTATE 2.59 mmol/L (0.5-2.0); O2(CT) 13.8 mL/dL (15.0-23.0); PCO2 38.9 mmHg (35.0-45.0); PO2 71.4 mmHg (80.0-100.0); pH 7.336 (7.360-7.450); sO2 93.5 % (92.0-98.0); tCO2 21.5 mmol/L (24.0-30.0)
[2016-12-01 15:19] LABS: ABG COMMENT CMV; STICK SITE ALINE; TIDAL VOLUME 650 ml
[2016-12-01 18:52] LABS: ABG SAMPLE TYPE ARTERIAL; BE(vivo) -3.4 mmol/L (-2 to +3); HCO3 22.3 mmol/L (22.0-26.0); LACTATE 2.82 mmol/L (0.5-2.0); O2(CT) 14.4 mL/dL (15.0-23.0); O2Hb 95.8 % (92.0-98.0); PCO2 42.9 mmHg (35.0-45.0); PO2 102.5 mmHg (80.0-100.0); STICK SITE ALINE; pH 7.334 (7.360-7.450); sO2 97.3 % (92.0-98.0); tCO2 23.6 mmol/L (24.0-30.0)
[2016-12-01 18:53] LABS: ABG COMMENT CMV; TIDAL VOLUME 650 ml
[2016-12-01 18:54] LABS: ABG SAMPLE TYPE VENOUS; BE(vivo) -3.8 mmol/L (-2 to +3); HCO3 22.6 mmol/L (22.0-26.0); LACTATE 2.81 mmol/L (0.5-2.0); O2(CT) 9.6 mL/dL (15.0-23.0); O2Hb VENOUS 63.7 (65.0-85.0); PCO2 VENOUS 46.7 mmHg (41.0-51.0); PO2 VENOUS 37.4 mmHg (35.0-45.0); sO2 VENOUS 65.3 % (65.0-85.0); tCO2 24.1 mmol/L (24.0-30.0)
[2016-12-01 18:55] LABS: ABG COMMENT CMV; STICK SITE CVP; TIDAL VOLUME 650 ml
[2016-12-01 19:16] LABS: APTT 27.6 Seconds (24.5-32.8); INR 1.1; PROTIME 10.8 Seconds (9.3-11.4)
[2016-12-01 19:29] LABS: ABG SAMPLE TYPE ARTERIAL; BE(vivo) -4.9 mmol/L (-2 to +3); HCO3 20.8 mmol/L (22.0-26.0); LACTATE 2.85 mmol/L (0.5-2.0); O2(CT) 14.2 mL/dL (15.0-23.0); O2Hb 94.5 % (92.0-98.0); PCO2 40.9 mmHg (35.0-45.0); PO2 88.3 mmHg (80.0-100.0); sO2 96.1 % (92.0-98.0)
[2016-12-01 19:32] LABS: Pressure Support 6 cm H20; STICK SITE ALINE; pH 7.324 (7.360-7.450)
[2016-12-01 19:42] LABS: HEMATOCRIT 29.3 % (42.0-52.0); HEMOGLOBIN 10.2 gm/dL (14.0-18.0); MCH 30.7 pg (26.0-34.0); MCHC 34.6 g/dL (28.0-37.0); MCV 88.5 fL (80.0-100.0); RBC 3.31 mil/uL (4.50-6.00); RDW 15.7 % (10.5-14.5); WBC 16.1 thou/uL (4.0-11.0)
[2016-12-01 19:53] LABS: CALCIUM 10.1 mg/dL (8.5-10.1); CREATININE 1.6 mg/dL (0.7-1.3); POTASSIUM 4.3 mmol/L (3.5-5.1)
[2016-12-01 20:44] LABS: ABG SAMPLE TYPE ARTERIAL; BE(vivo) -2.7 mmol/L (-2 to +3); LACTATE 2.68 mmol/L (0.5-2.0); O2(CT) 13.3 mL/dL (15.0-23.0); O2Hb 88.9 % (92.0-98.0); PO2 64.7 mmHg (80.0-100.0); pH 7.337 (7.360-7.450); sO2 91.4 % (92.0-98.0); tCO2 24.4 mmol/L (24.0-30.0)
[2016-12-01 20:45] LABS: STICK SITE ALINE
[2016-12-02] VITALS (18 sets, daily range): BP systolic 85–149; BP diastolic 44–104
[2016-12-02 05:21] LABS: HEMATOCRIT 29.8 % (42.0-52.0); HEMOGLOBIN 9.8 gm/dL (14.0-18.0); MCH 29.6 pg (26.0-34.0); MCHC 32.8 g/dL (28.0-37.0); MCV 90.1 fL (80.0-100.0); RBC 3.3 mil/uL (4.50-6.00); RDW 16.2 % (10.5-14.5); WBC 15.6 thou/uL (4.0-11.0)
[2016-12-02 05:36] LABS: CALCIUM 9.9 mg/dL (8.5-10.1); CREATININE 1.4 mg/dL (0.7-1.3); POTASSIUM 4.4 mmol/L (3.5-5.1)
[2016-12-02 07:32] LABS: ABG SAMPLE TYPE ARTERIAL; BE(vivo) -2.7 mmol/L (-2 to +3); HCO3 22.7 mmol/L (22.0-26.0); O2(CT) 13.9 mL/dL (15.0-23.0); O2Hb 90.4 % (92.0-98.0); PCO2 41.4 mmHg (35.0-45.0); PO2 66.9 mmHg (80.0-100.0); pH 7.356 (7.360-7.450); sO2 92.6 % (92.0-98.0); tCO2 23.9 mmol/L (24.0-30.0)
[2016-12-02 07:33] LABS: Face Shield 80 %; STICK SITE LINE
[2016-12-02 20:38] LABS: ABG SAMPLE TYPE ARTERIAL; BE(vivo) -1.4 mmol/L (-2 to +3); HCO3 22.3 mmol/L (22.0-26.0); O2(CT) 12.8 mL/dL (15.0-23.0); O2Hb 85.6 % (92.0-98.0); PCO2 33.8 mmHg (35.0-45.0); PO2 50.8 mmHg (80.0-100.0); STICK SITE LINE; pH 7.437 (7.360-7.450); sO2 87.6 % (92.0-98.0); tCO2 23.3 mmol/L (24.0-30.0)
[2016-12-03] VITALS (27 sets, daily range): BP systolic 89–154; BP diastolic 42–87
[2016-12-03 01:07] LABS: GLYCOHEMOGLOBIN (HGB A1C) 6.3 % (4.8-5.6)
[2016-12-03 01:34] LABS: ABG SAMPLE TYPE ARTERIAL; BE(vivo) -2.9 mmol/L (-2 to +3); HCO3 22.3 mmol/L (22.0-26.0); LACTATE 1.39 mmol/L (0.5-2.0); O2(CT) 11.9 mL/dL (15.0-23.0); PCO2 40.7 mmHg (35.0-45.0); pH 7.357 (7.360-7.450); sO2 80.3 % (92.0-98.0); tCO2 23.6 mmol/L (24.0-30.0)
[2016-12-03 01:35] LABS: Face Shield 80 %; O2Hb 77.4 % (92.0-98.0); STICK SITE LINE
[2016-12-03 03:12] LABS: ABG SAMPLE TYPE ARTERIAL; BE(vivo) -4.8 mmol/L (-2 to +3); HCO3 21.4 mmol/L (22.0-26.0); LACTATE 1.66 mmol/L (0.5-2.0); O2(CT) 13.2 mL/dL (15.0-23.0); O2Hb 90.7 % (92.0-98.0); PCO2 44.5 mmHg (35.0-45.0); PO2 71.2 mmHg (80.0-100.0); sO2 92.7 % (92.0-98.0); tCO2 22.8 mmol/L (24.0-30.0)
[2016-12-03 03:13] LABS: STICK SITE LINE; TIDAL VOLUME 550 ml
[2016-12-03 05:07] LABS: ABG SAMPLE TYPE ARTERIAL; BE(vivo) -2.5 mmol/L (-2 to +3); HCO3 22.9 mmol/L (22.0-26.0); LACTATE 1.99 mmol/L (0.5-2.0); O2(CT) 13.6 mL/dL (15.0-23.0); O2Hb 94.9 % (92.0-98.0); PCO2 42.1 mmHg (35.0-45.0); pH 7.353 (7.360-7.450); sO2 96.2 % (92.0-98.0); tCO2 24.2 mmol/L (24.0-30.0)
[2016-12-03 05:08] LABS: STICK SITE LINE; TIDAL VOLUME 600 ml
[2016-12-03 05:55] LABS: HEMATOCRIT 28.5 % (42.0-52.0); HEMOGLOBIN 9.2 gm/dL (14.0-18.0); MCH 29.6 pg (26.0-34.0); MCHC 32.4 g/dL (28.0-37.0); MCV 91.4 fL (80.0-100.0); RBC 3.12 mil/uL (4.50-6.00); RDW 16.6 % (10.5-14.5)
[2016-12-03 06:11] LABS: CALCIUM 9.3 mg/dL (8.5-10.1); CREATININE 1.5 mg/dL (0.7-1.3); POTASSIUM 4.4 mmol/L (3.5-5.1)
[2016-12-03 10:36] LABS: ABG SAMPLE TYPE ARTERIAL; BE(vivo) -3.2 mmol/L (-2 to +3); HCO3 22.9 mmol/L (22.0-26.0); LACTATE 2.06 mmol/L (0.5-2.0); O2(CT) 14.8 mL/dL (15.0-23.0); O2Hb 98.5 % (92.0-98.0); PCO2 46.2 mmHg (35.0-45.0); PO2 280.2 mmHg (80.0-100.0); sO2 99.6 % (92.0-98.0); tCO2 24.4 mmol/L (24.0-30.0)
[2016-12-03 10:38] LABS: STICK SITE LINE; pH 7.314 (7.360-7.450)
[2016-12-03 10:40] LABS: TIDAL VOLUME 500 ml
[2016-12-03 11:47] LABS: CALCIUM 9.2 mg/dL (8.5-10.1); CREATININE 1.7 mg/dL (0.7-1.3); MAGNESIUM 2.2 mg/dL (1.8-2.4); POTASSIUM 4.6 mmol/L (3.5-5.1)
[2016-12-03 17:35] LABS: CALCIUM 9.1 mg/dL (8.5-10.1); CREATININE 1.7 mg/dL (0.7-1.3); POTASSIUM 4.5 mmol/L (3.5-5.1)
[2016-12-04] VITALS (25 sets, daily range): BP systolic 101–157; BP diastolic 49–93
[2016-12-04 04:43] LABS: HEMOGLOBIN 8.7 gm/dL (14.0-18.0); MCH 30.6 pg (26.0-34.0); MCHC 33.6 g/dL (28.0-37.0); MCV 91.1 fL (80.0-100.0); RBC 2.85 mil/uL (4.50-6.00); RDW 16.8 % (10.5-14.5); WBC 11.6 thou/uL (4.0-11.0)
[2016-12-04 04:54] LABS: CALCIUM 8.9 mg/dL (8.5-10.1); CREATININE 1.6 mg/dL (0.7-1.3); MAGNESIUM 2.1 mg/dL (1.8-2.4); POTASSIUM 3.8 mmol/L (3.5-5.1)
[2016-12-04 07:41] LABS: ABG SAMPLE TYPE ARTERIAL; BE(vivo) -0.4 mmol/L (-2 to +3); HCO3 25.3 mmol/L (22.0-26.0); LACTATE 1.18 mmol/L (0.5-2.0); O2(CT) 13.6 mL/dL (15.0-23.0); O2Hb 97.8 % (92.0-98.0); PO2 147.2 mmHg (80.0-100.0); STICK SITE LINE; TIDAL VOLUME 500 ml; pH 7.358 (7.360-7.450); sO2 98.8 % (92.0-98.0); tCO2 26.7 mmol/L (24.0-30.0)
[2016-12-05] VITALS (8 sets, daily range): BP systolic 109–157; BP diastolic 55–77
[2016-12-05 04:48] LABS: ABG SAMPLE TYPE ARTERIAL; BE(vivo) 1.6 mmol/L (-2 to +3); HCO3 27.1 mmol/L (22.0-26.0); O2(CT) 12.9 mL/dL (15.0-23.0); O2Hb 96.4 % (92.0-98.0); PO2 109.3 mmHg (80.0-100.0); pH 7.379 (7.360-7.450); sO2 97.9 % (92.0-98.0); tCO2 28.6 mmol/L (24.0-30.0)
[2016-12-05 04:49] LABS: STICK SITE ALINE; TIDAL VOLUME 500 ml
[2016-12-05 05:21] LABS: HEMATOCRIT 24.2 % (42.0-52.0); HEMOGLOBIN 8.3 gm/dL (14.0-18.0); MCHC 34.4 g/dL (28.0-37.0); MCV 89.9 fL (80.0-100.0); RBC 2.69 mil/uL (4.50-6.00); RDW 16.6 % (10.5-14.5); WBC 7.9 thou/uL (4.0-11.0)
[2016-12-05 05:34] LABS: CALCIUM 9.1 mg/dL (8.5-10.1); CREATININE 1.4 mg/dL (0.7-1.3); POTASSIUM 3.7 mmol/L (3.5-5.1)
[2016-12-06] VITALS (31 sets, daily range): BP systolic 101–173; BP diastolic 49–87
[2016-12-06 05:14] LABS: HEMATOCRIT 24.3 % (42.0-52.0); HEMOGLOBIN 8.1 gm/dL (14.0-18.0); MCH 30.4 pg (26.0-34.0); MCHC 33.5 g/dL (28.0-37.0); MCV 90.8 fL (80.0-100.0); RBC 2.67 mil/uL (4.50-6.00); RDW 16.4 % (10.5-14.5); WBC 8.6 thou/uL (4.0-11.0)
[2016-12-06 05:23] LABS: CALCIUM 9.1 mg/dL (8.5-10.1); CREATININE 1.1 mg/dL (0.7-1.3); POTASSIUM 3.5 mmol/L (3.5-5.1)
[2016-12-06 11:38] LABS: ABG COMMENT C-PAP; ABG SAMPLE TYPE ARTERIAL; BE(vivo) 3.6 mmol/L (-2 to +3); LACTATE 1.42 mmol/L (0.5-2.0); O2(CT) 13.2 mL/dL (15.0-23.0); O2Hb 92.6 % (92.0-98.0); PCO2 36.2 mmHg (35.0-45.0); PO2 68.6 mmHg (80.0-100.0); Pressure Support 5 cm H20; STICK SITE LINE; pH 7.491 (7.360-7.450); sO2 95.1 % (92.0-98.0); tCO2 28.1 mmol/L (24.0-30.0)
[2016-12-07] VITALS (41 sets, daily range): BP systolic 121–168; BP diastolic 50–82
[2016-12-07 05:13] LABS: ABG SAMPLE TYPE ARTERIAL; BE(vivo) 6.8 mmol/L (-2 to +3); LACTATE 1.29 mmol/L (0.5-2.0); O2(CT) 12.4 mL/dL (15.0-23.0); O2Hb 95.2 % (92.0-98.0); PO2 84.5 mmHg (80.0-100.0); pH 7.476 (7.360-7.450); sO2 96.9 % (92.0-98.0); tCO2 32.3 mmol/L (24.0-30.0)
[2016-12-07 05:14] LABS: STICK SITE LINE; TIDAL VOLUME 500 ml
[2016-12-07 05:48] LABS: HEMATOCRIT 25.8 % (42.0-52.0); HEMOGLOBIN 8.5 gm/dL (14.0-18.0); MCV 90.9 fL (80.0-100.0); RBC 2.84 mil/uL (4.50-6.00); RDW 16.3 % (10.5-14.5); WBC 9.9 thou/uL (4.0-11.0)
[2016-12-07 05:54] LABS: CALCIUM 9.1 mg/dL (8.5-10.1); CREATININE 1.1 mg/dL (0.7-1.3); POTASSIUM 3.5 mmol/L (3.5-5.1)
[2016-12-08] VITALS (43 sets, daily range): BP systolic 117–166; BP diastolic 49–87
[2016-12-08 05:29] LABS: ABG SAMPLE TYPE ARTERIAL; BE(vivo) 6.5 mmol/L (-2 to +3); HCO3 29.7 mmol/L (22.0-26.0); LACTATE 1.23 mmol/L (0.5-2.0); O2(CT) 13.7 mL/dL (15.0-23.0); O2Hb 93.9 % (92.0-98.0); PCO2 37.3 mmHg (35.0-45.0); PO2 73.4 mmHg (80.0-100.0); STICK SITE L.BRACHIAL; pH 7.519 (7.360-7.450); sO2 96.1 % (92.0-98.0); tCO2 30.9 mmol/L (24.0-30.0)
[2016-12-08 05:30] LABS: TIDAL VOLUME 500 ml
[2016-12-08 05:42] LABS: HEMATOCRIT 27.4 % (42.0-52.0); MCH 29.7 pg (26.0-34.0); MCV 90.1 fL (80.0-100.0); PLATELET COUNT 149 thou/uL (150-400); RBC 3.04 mil/uL (4.50-6.00); RDW 16.8 % (10.5-14.5); WBC 14.7 thou/uL (4.0-11.0)
[2016-12-08 05:44] LABS: MANUAL DIFF YES
[2016-12-08 05:50] LABS: CREATININE 1.2 mg/dL (0.7-1.3); TOTAL BILIRUBIN 0.7 mg/dL (<0.1-1.0); TOTAL PROTEIN 6.9 g/dL (6.4-8.2)
[2016-12-08 08:42] LABS: ABSOLUTE NEUTROPHILS 12.6 thou/uL (1.4-8.2); METAMYELOCYTES 1 %; TOTAL CELL COUNT 100
[2016-12-08 08:43] LABS: ANISOCYTOSIS 1+; HYPOCHROMASIA 2+; PLATELET ESTIMATE NORMAL; POLYCHROMASIA 2+
[2016-12-08 17:52] LABS: URINE BILIRUBIN NEGATIVE (Negative); URINE BLOOD 3+ (Negative); URINE COLOR YELLOW; URINE GLUCOSE-RANDOM* NEGATIVE (Negative); URINE KETONES TRACE (Negative); URINE LEUKOCYTES-REFLEX NEGATIVE (Negative); URINE PROTEIN (DIPSTICK) 1+ (Negative); URINE UROBILINOGEN 0.2 E.U./dl (0.2-1.0)
[2016-12-08 18:01] LABS: CASTS None Seen /LPF (None Seen); CRYSTALS None Seen /LPF (None Seen); SQUAMOUS 0-3 Few /LPF (0-3); URINE RBC >20 Many /HPF (0-2); URINE WBC-REFLEX 6-15 Few /HPF (0-5)
[2016-12-09] VITALS (64 sets, daily range): BP systolic 112–164; BP diastolic 52–128
[2016-12-09 05:23] LABS: HEMATOCRIT 27.4 % (42.0-52.0); HEMOGLOBIN 8.8 gm/dL (14.0-18.0); MCH 29.3 pg (26.0-34.0); MCHC 32.2 g/dL (28.0-37.0); MCV 90.9 fL (80.0-100.0); RBC 3.01 mil/uL (4.50-6.00); RDW 16.5 % (10.5-14.5); WBC 12.1 thou/uL (4.0-11.0)
[2016-12-09 05:30] LABS: ABG SAMPLE TYPE ARTERIAL; BE(vivo) 7.2 mmol/L (-2 to +3); HCO3 30.4 mmol/L (22.0-26.0); LACTATE 1.51 mmol/L (0.5-2.0); O2(CT) 12.7 mL/dL (15.0-23.0); O2Hb 92.9 % (92.0-98.0); PCO2 37.6 mmHg (35.0-45.0); PO2 69.9 mmHg (80.0-100.0); pH 7.526 (7.360-7.450); sO2 95.6 % (92.0-98.0); tCO2 31.6 mmol/L (24.0-30.0)
[2016-12-09 05:31] LABS: STICK SITE R.RADIAL
[2016-12-09 05:32] LABS: FIO2 30 %; TIDAL VOLUME 0.509 ml
[2016-12-09 05:53] LABS: ALBUMIN 2.7 g/dL (3.4-5.0); CALCIUM 9.6 mg/dL (8.5-10.1); CREATININE 1.1 mg/dL (0.7-1.3); PHOSPHORUS 3.3 mg/dL (2.5-4.9); POTASSIUM 3.9 mmol/L (3.5-5.1)
[2016-12-09 09:14] LABS: ABG SAMPLE TYPE ARTERIAL; BE(vivo) 7.5 mmol/L (-2 to +3); HCO3 31.1 mmol/L (22.0-26.0); LACTATE 2.14 mmol/L (0.5-2.0); O2(CT) 12.8 mL/dL (15.0-23.0); PO2 73.9 mmHg (80.0-100.0); STICK SITE R.RADIAL; pH 7.509 (7.360-7.450); tCO2 32.4 mmol/L (24.0-30.0)
[2016-12-09 09:15] LABS: ABG COMMENT CPAP X 1 HR; Pressure Support 8 cm H20
[2016-12-10] VITALS (26 sets, daily range): BP systolic 111–161; BP diastolic 47–125
[2016-12-10 05:22] LABS: ABG SAMPLE TYPE ARTERIAL; BE(vivo) 4.4 mmol/L (-2 to +3); HCO3 28.6 mmol/L (22.0-26.0); LACTATE 1.25 mmol/L (0.5-2.0); PO2 86.1 mmHg (80.0-100.0); Pressure Support 12 cm H20; STICK SITE R.BRACHIAL; pH 7.461 (7.360-7.450); tCO2 29.8 mmol/L (24.0-30.0)
[2016-12-10 06:23] LABS: HEMATOCRIT 25.2 % (42.0-52.0); HEMOGLOBIN 8.4 gm/dL (14.0-18.0); MCH 30.1 pg (26.0-34.0); MCHC 33.2 g/dL (28.0-37.0); MCV 90.6 fL (80.0-100.0); RBC 2.78 mil/uL (4.50-6.00); RDW 16.4 % (10.5-14.5); WBC 9.4 thou/uL (4.0-11.0)
[2016-12-10 06:42] LABS: ALBUMIN 2.5 g/dL (3.4-5.0); CALCIUM 8.8 mg/dL (8.5-10.1); CREATININE 1.1 mg/dL (0.7-1.3); PHOSPHORUS 3.9 mg/dL (2.5-4.9); POTASSIUM 3.7 mmol/L (3.5-5.1)
[2016-12-11] VITALS (22 sets, daily range): BP systolic 128–194; BP diastolic 37–79
[2016-12-11 05:21] LABS: HEMATOCRIT 26.6 % (42.0-52.0); HEMOGLOBIN 8.5 gm/dL (14.0-18.0); MCH 29.1 pg (26.0-34.0); MCHC 32.1 g/dL (28.0-37.0); MCV 90.7 fL (80.0-100.0); RBC 2.93 mil/uL (4.50-6.00); RDW 16.1 % (10.5-14.5); WBC 10.1 thou/uL (4.0-11.0)
[2016-12-11 05:33] LABS: CALCIUM 8.4 mg/dL (8.5-10.1); CREATININE 1.3 mg/dL (0.7-1.3); POTASSIUM 3.2 mmol/L (3.5-5.1)
[2016-12-12 02:51] LABS: HEMATOCRIT 26.5 % (42.0-52.0); HEMOGLOBIN 8.6 gm/dL (14.0-18.0); MCH 29.1 pg (26.0-34.0); MCHC 32.4 g/dL (28.0-37.0); MCV 89.8 fL (80.0-100.0); RBC 2.95 mil/uL (4.50-6.00); RDW 15.9 % (10.5-14.5); WBC 12.1 thou/uL (4.0-11.0)
[2016-12-12 03:05] LABS: ALBUMIN 2.4 g/dL (3.4-5.0); CALCIUM 8.4 mg/dL (8.5-10.1); CREATININE 1.2 mg/dL (0.7-1.3); PHOSPHORUS 2.9 mg/dL (2.5-4.9); POTASSIUM 3.5 mmol/L (3.5-5.1)
[2016-12-12 03:08] VITALS: BP 142/40
[2016-12-12 07:50] VITALS: BP 145/64
[2016-12-12 11:55] VITALS: BP 94/55
[2016-12-12 15:20] VITALS: BP 145/86
[2016-12-12 19:33] VITALS: BP 174/65
[2016-12-12 23:25] VITALS: BP 157/67
[2016-12-13 04:03] VITALS: BP 163/46
[2016-12-13 07:40] VITALS: BP 135/66
[2016-12-13 11:30] VITALS: BP 155/43
[2016-12-13] MEDS ORDERED: LASIX 40 MG TAB40 M1 PO (13:20)
[2016-12-13] MEDS ORDERED: LOPRESSOR25 PO (13:20)
[2016-12-13] MEDS ORDERED: K-DUR 20 MEQ T20 MEQ PO (13:20)
[2016-12-13] MEDS ORDERED: ASPIRIN325 PO (13:20)
[2016-12-13] MEDS ORDERED: LANTUS SUBQ (13:20)
[2016-12-13] MEDS ORDERED: AMLODIPINE BESY10 MG PO (13:20)
== END 2016-12-13 14:54 | DRG 219 ==
LOC: TBA 05:08 → PRE 05:08 → ICU 12-01 05:08 → TBA 12-01 05:08 → PRE 12-01 09:28 → ICU 12-01 15:43 → 2N 12-11 18:19
PROVIDERS: Family Medicine; Internal Medicine Nephrology; Internal Medicine Pulmonary Disease; Nurse Practitioner; Specialist; Student in an Organized Health Care Education/Training Program; Thoracic Surgery (Cardiothoracic Vascular Surgery)
PROC: 0BH17EZ Insertion of Endotracheal Airway into Trachea, Via Natural or Artificial Opening (ICD-10-PCS; principal; 2016-12-01)
PROC: 30233L1 Transfusion of Nonautologous Fresh Plasma into Peripheral Vein, Percutaneous Approach (ICD-10-PCS; principal; 2016-12-01)
PROC: 30233K1 Transfusion of Nonautologous Frozen Plasma into Peripheral Vein, Percutaneous Approach (ICD-10-PCS; principal; 2016-12-01)
PROC: 5A1955Z Respiratory Ventilation, Greater than 96 Consecutive Hours (ICD-10-PCS; principal; 2016-12-01)
PROC: 02RF08Z Replacement of Aortic Valve with Zooplastic Tissue, Open Approach (ICD-10-PCS; principal; 2016-12-01)
PROC: 5A09457 Assistance with Respiratory Ventilation, 24-96 Consecutive Hours, Continuous Positive Airway Pressure (ICD-10-PCS; 2016-12-09)
PROC: 02HV33Z Insertion of Infusion Device into Superior Vena Cava, Percutaneous Approach (ICD-10-PCS; 2016-12-10)
DX: I35.0 Nonrheumatic aortic (valve) stenosis (principal); G93.41 Metabolic encephalopathy; J69.0 Pneumonitis due to inhalation of food and vomit; J96.01 Acute respiratory failure with hypoxia; E87.0 Hyperosmolality and hypernatremia; N17.9 Acute kidney failure, unspecified; D62 Acute posthemorrhagic anemia; J44.9 Chronic obstructive pulmonary disease, unspecified; Z96.652 Presence of left artificial knee joint; Z96.641 Presence of right artificial hip joint; E11.42 Type 2 diabetes mellitus with diabetic polyneuropathy; E78.5 Hyperlipidemia, unspecified; K21.9 Gastro-esophageal reflux disease without esophagitis; R13.10 Dysphagia, unspecified; N40.0 Benign prostatic hyperplasia without lower urinary tract symptoms; I25.119 Atherosclerotic heart disease of native coronary artery with unspecified angina pectoris; H91.90 Unspecified hearing loss, unspecified ear; R26.9 Unspecified abnormalities of gait and mobility; I50.9 Heart failure, unspecified; I11.0 Hypertensive heart disease with heart failure; D69.6 Thrombocytopenia, unspecified; I48.0 Paroxysmal atrial fibrillation; D72.829 Elevated white blood cell count, unspecified; Z95.1 Presence of aortocoronary bypass graft; G47.33 Obstructive sleep apnea (adult) (pediatric); Z91.048 Other nonmedicinal substance allergy status; Z79.4 Long term (current) use of insulin; Z79.84 Long term (current) use of oral hypoglycemic drugs; Z79.82 Long term (current) use of aspirin; Z79.51 Long term (current) use of inhaled steroids; Z79.899 Other long term (current) drug therapy; Z95.5 Presence of coronary angioplasty implant and graft; Z90.49 Acquired absence of other specified parts of digestive tract; Z91.81 History of falling; Z88.0 Allergy status to penicillin; Z88.8 Allergy status to other drugs, medicaments and biological substances; Z80.6 Family history of leukemia
CPT/HCPCS: 10078; 10081; 27000; 47000; 47001; 47002; 47297; 47335; 48888; 50010; 50011; 50409; 50456; 50497; 50662; 51932; 52131; 52314; 53000; 53327; 53358; 55022; 56524; 56525; 56526; 56527; 56528; 56531; 56533; 56534; 56660; 57080; 57081; 57093; 62110; 62950; 64029; 65002; 65003; 65020; 65043; 65090; 83006

== ENCOUNTER 2016-12-13 10:23 | Inpatient (IN) | payer OTHER ==
[~2016-12-13] VITALS: Ht 182.9 cm; Wt 96.6 kg
--- NOTE | ~2016-12-13 | 2DMMODE ---
[facility] [address] [place] [address] 2 D/M-MODE ECHOCARDIOGRAM Name: CATIA HARRIS Room #: 514-P [facility] IN ..#: [id number] Admission: 12/13/16 Attend Phys: Nahum Bonilla, Discharge: Date of : 40 Date of Service: 12/16/16 1452 Report #: [id number] THIS REPORT FOR: //name// APPROVED REPORT Study performed: 12/16/2016 11:14:47 EXAM: Comprehensive 2D, Doppler, and color-flow Echocardiogram Patient Location: Echo lab Room #: [facility] Status: routine BSA: 2.20 HR: 81 bpm BP: 123/57 mmHg Other Information Study Quality: Fair Indications AVR 2D Dimensions RVDd: 43.94 mm LVEF(%): 61.20 (>50%) IVSd: 14.87 (7-11mm) LVOT Diam: 23.06 (18-24mm) LVDd: 47.75 mm PWd: 15.03 (7-11mm) Ascending Ao: 34.01 (22-36mm) LVDs: 32.08 (25-40mm) Aortic Root: 28.75 mm IVC: 22.00 mm Arteaga's LVEF: 61.20 % Volumes Left Atrial Volume (Systole) Single Plane 4CH: 126.93 mL Single Plane 2CH: 85.57 mL LA ESV Index: 55.00 mL/m2 Aortic Valve AoV Peak Yoel.: 3.39 m/s AO Peak Gr.: 37.77 mmHg LVOT Max P.95 mmHg AO Mean Gr.: 19.25 mmHg LVOT Mean P.43 mmHg AO V2 Mean: 2.13 m/s LVOT Max V: 1.41 m/s AO V2 VTI: 56.34 cm LVOT Mean V: 0.97 m/s ERIK (VTI): 2.11 cm2 LVOT V1 VTI: 28.54 cm ERIK Vmax: 1.73 cm2 SV (LVOT): 119.14 mL [facility] [email or web address] [address] 2 D/M-MODE ECHOCARDIOGRAM Name: CATIA HARRIS Room #: 514-P [facility].#: [id number] Admission: 12/13/16 Attend Phys: Nahum Bonilla, Discharge: Date of : 40 Date of Service: 12/16/16 1452 Report #: [id number] Mitral Valve MV Decel. Time: 178.98 ms MV E Max Yoel.: 1.16 m/s IVRT: 87.66 ms Pulmonary Valve PV Peak Yoel.: 1.42 m/s PV Peak Gr.: 8.09 mmHg Pulmonary Vein P Vein S: 0.17 m/s P Vein A: 0.16 m/s P Vein D: 0.55 m/s P Vein A Dur.: 83.0 msec P Vein S/D Ratio: 0.31 Tricuspid Valve TR Peak Yoel.: 3.08 m/s RAP Estimate: 10.00 mmHg TR Peak Gr.: 38.21 mmHg PA Pressure: 48.00 mmHg Left Ventricle The left ventricle is normal size. Moderate concentric left ventricular hypertrophy. Left ventricular systolic function is normal. LVEF is 65-70%. This study is not technically sufficient to allow evaluation of the LV diastolic function. Right Ventricle Right ventricle is dilated. The right ventricular systolic function is normal. Atria Left atrium is dilated. Right atrium is dilated. Aortic Valve 23 mm Durant Magna Ease Bovine Pericardial valve Trace aortic regurgitation. Mitral Valve The mitral valve is normal in structure. Mild mitral regurgitation. No evidence of mitral valve stenosis. Tricuspid Valve The tricuspid valve is normal in structure. There is trace to mild tricuspid regurgitation. The right atrial pressure is estimated at 10 mmHg. There is moderate pulmonary hypertension. Pulmonic Valve The pulmonary valve is normal in structure. Trace pulmonic [place] [id number] 2 D/M-MODE ECHOCARDIOGRAM Name: CATIA HARRIS Romy Room #: 514-P [facility] IN M.R.#: [id number] Admission: 12/13/16 Attend Phys: Nahum Bonilla, Discharge: Date of : 40 Date of Service: 12/16/16 1452 Report #: [id number] regurgitation. Estimated PAP was 48 mmHg. Great Vessels The aortic root is normal in size. IVC is dilated and collapses <50% with inspiration. Pericardium There is no pericardial effusion. <Conclusion> The left ventricle is normal size. Moderate concentric left ventricular hypertrophy. Left ventricular systolic function is normal. Right ventricle is dilated. Left atrium is dilated. 23 mm Durant Magna Ease Bovine Pericardial valve Trace aortic regurgitation. Mild mitral regurgitation. There is trace to mild tricuspid regurgitation. The right atrial pressure is estimated at 10 mmHg. There is moderate pulmonary hypertension. <ELECTRONICALLY SIGNED> By: Kishan Gudino MD 12/16/16 1452 145 145 Kishan Gudino MD /INF
--- NOTE | ~2016-12-13 | EKG ---
[address] [facility] [place] [address] ELECTROCARDIOGRAM REPORT Name: CATIA HARRIS Room #: 514-P ADM IN M.R.#: [id number] Admission: 12/13/16 Attend Phys: Nahum Bonilla MD Discharge: Date of : 40 Report #: [id number] THIS REPORT FOR: //name// [facility] Test Date: 2016-12-17 Test Time: 10:02:49 Pat Name: CATIA HARRIS Department: Room: 514 P Gender: M Patient Service Rep: ALEKSANDAR : 1940 Requested By: Kishan Gudino Order Number: [id number] MD: Measurements Intervals Oriental Rate: 81 P: WI: QRS: 61 QRSD: 98 T: 246 QT: 381 QTc: 443 Interpretive Statements Atrial fibrillation Repol abnrm suggests ischemia, lateral leads Compared to ECG 12/11/2016 08:43:09 Early repolarization now present T-wave abnormality no longer present Possible ischemia still present [email or web address] By: 1002 1002 Epiphany EpiphanyMD /EPI
--- NOTE | ~2016-12-13 | PLAN ---
[facility] [place] [address] REHAB UNIT PLAN OF CARE Name: CATIA HARRIS Romy Room #: 511-P [facility] IN M.R.#: [id number] Admission: 12/13/16 Attend Phys: Nahum Bonilla MD Discharge: 12/29/16 Date of : 40 Report #: [id number] THIS REPORT FOR: //name// CC: Nahum Zuleta DATE OF SERVICE: 12/16/2016 SUBJECTIVE: The patient is seen back today in followup. He had some increased shortness of breath with some pulmonary infiltrates yesterday, thought to be consistent with congestive heart failure. His therapy was held as per Cardiology, he was given some IV Lasix. He is feeling better today. OBJECTIVE: Last recorded temperature 37, pulse 75, respirations 18, blood pressure 138/54. He is alert, pleasant. Sternal incision appears to be intact. No focal calf swelling. He is moderate assist to [id number]-qf-[id number] transfers. He last ambulated 5 feet moderate assist with a front-wheeled walker. In occupational therapy, lower body dressing was max assist. In speech therapy, he was noted to have moderate comprehensive deficits and he is on a pureed diet with nectar thickened liquids. ASSESSMENT: 1. Metabolic encephalopathy. 2. Severe aortic stenosis, status post bioprosthetic aortic valve replacement. 3. Dysphagia, still on thickened liquids. 4. Congestive heart failure, given IV Lasix yesterday. 5. Respiratory arrest, which needed reintubation acutely. 6. 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 7. Hypernatremia. 8. Pneumonia. 9. Chronic obstructive pulmonary disease. 10. Hypertension. PLAN: The overall plan of care is based on the preadmission screen, post-admission physician evaluation and information garnered from therapy assessments: 1. Estimated length of stay is probably at least 2 weeks and likely longer. 2. Medical prognosis is reasonably good. 3. Anticipated interventions includes the interdisciplinary acute inpatient rehabilitation program with PT, OT, Speech, rehab nursing assisting regarding medication management, skin care prophylaxis, bowel and bladder issues and nursing education. The multiple industrial rehabilitation consultant physicians are following as well as the rest of the interdisciplinary rehabilitation team. 4. Anticipated functional outcomes would be for the patient to become modified independent with transfers, mobility, ADLs, cognition as well as swallowing, so that he can [place] [address] REHAB UNIT PLAN OF CARE Name: CATIA HARRIS Romy Room #: 511-P [facility] IN ..#: [id number] Admission: 12/13/16 Attend Phys: Nahum Bonilla MD Discharge: 12/29/16 Date of : 40 Report #: [id number] 5. Discharge destination would be back home where he lives in a house with his brother. 6. Expected therapy by discipline includes PT, OT and Speech 1 hour per day, each five days a week throughout the duration of the acute inpatient rehabilitation stay. Again he did miss some therapy yesterday 12/15/2016 secondary to the congestive heart failure. <ELECTRONICALLY SIGNED> By: Nahum Bonilla MD 12/30/16 1232 0908 0004 Nahum Bonilla MD /[facility]
--- NOTE | ~2016-12-13 | H ---
[facility] [place] [address] HISTORY AND PHYSICAL Name: CATIA HARRIS Romy Room #: 511-P [facility] IN ..#: [id number] Admission: 12/13/16 Attend Phys: Nahum Bonilla MD Discharge: 12/29/16 Date of : 40 Report #: [id number] THIS REPORT FOR: //name// CC: Nahum Zuleta DATE OF SERVICE: 12/13/2016 HISTORY AND PHYSICAL/POST-ADMISSION PHYSICIAN EVALUATION HISTORY OF PRESENT ILLNESS: The patient is a 76-year-old white male with a prior history of coronary artery disease, coronary artery bypass grafting 21 years ago with severe aortic stenosis. He was noted to have problems with exertional chest pain and was admitted to [facility] and ended up undergoing an aortic valve replacement with redo sternotomy on 12/01/2016. He needed to be reintubated and was treated for pneumonia, hypernatremia with close involvement of Pulmonary Medicine as well as Nephrology and Infectious Disease. He was noted to have an encephalopathy with decreased cognition. He was noted to have significant functional mobility and ADL deficits as well as cognitive and swallowing deficits with dysphagia, on a pureed diet with nectar thickened liquids. He has now been admitted for acute in-hospital inpatient rehabilitation. PAST MEDICAL HISTORY: Includes the prior coronary artery bypass grafting. He has a history of a left total knee replacement, right total hip replacement, bilateral shoulder surgery, hypertension, diabetes mellitus with peripheral neuropathy requiring insulin, hyperlipidemia, COPD, GERD, subdural hematoma apparently back in 09/2015. PAST SURGICAL HISTORY: As noted above. MEDICATIONS: Please see the full medication listing. Each of these medications was individually reconciled and included his vitamins, herbal supplements, etc. ALLERGIES: ADHESIVE TAPE, PENICILLIN, BEXTRA. HABITS: No history of tobacco or alcohol abuse. FAMILY HISTORY: Mother was noted to have leukemia. SOCIAL HISTORY: Lives in a house with his brother, 2 steps in. Utilized a walker premorbidly. REVIEW OF SYSTEMS: Did not offer any current complaints of chest pain, shortness of breath or abdominal discomfort. Did not complain of any focal extremity pain. [facility] [address] [place] [address] HISTORY AND PHYSICAL Name: CATIA HARRIS Romy Room #: 511-P [facility] IN [facility].#: [id number] Admission: 12/13/16 Attend Phys: Nahum Bonilla MD Discharge: 12/29/16 Date of : 40 Report #: [id number] PHYSICAL EXAMINATION: GENERAL: A 76-year-old white male in no obvious distress. He is alert this morning. VITAL SIGNS: Last recorded temperature is 98.1, pulse 62, respirations 18, blood pressure 122/51. HEENT: Appeared to be benign. NEUROLOGIC: There is a definite latency to his responses, somewhat easily distractable. We will follow basic 1 step commands. CHEST: Sounded clear overall to auscultation, midline sternal incision appears to be healing well. CARDIOVASCULAR: Sounded regular rate and rhythm. ABDOMEN: Bowel sounds positive, nontender, somewhat obese. GENITOURINARY AND RECTAL: Deferred. EXTREMITIES: Functional range of motion of the upper extremities. Strength is grade 4-/5. DTRs are trace to 1. In his lower extremities, there is functional range of motion, strength is a grade 4-/5. He is transferring with assistance. He does need some cues with functional mobility. ASSESSMENT: 1. Metabolic encephalopathy. 2. Severe aortic stenosis status post bioprosthetic aortic valve replacement. 3. Dysphagia. 4. Respiratory arrest, needing reintubation. 5. Diabetes mellitus with history of peripheral neuropathy, insulin dependent. 6. Hypernatremia. 7. Pneumonia. 8. Chronic obstructive pulmonary disease. 9. Hypertension. 10. Pureed diet with nectar thickened liquids. PLAN: The patient is admitted for acute in-hospital inpatient rehabilitation. From a post-admission physician evaluation perspective, there are no relevant changes since the preadmission screening. Please see the review of prior medical and functional conditions and comorbidities. As far as his current functional condition, he is at a much lower functional level and has been needing max assist with basic transfers up to max assist of 2. He is currently being assessed here on the rehab [place]. As far as risk of complications, please see the above comorbidities. My initial plan of care involves the interdisciplinary acute inpatient rehabilitation program with the goal of maximizing the patient's functional independence, so that he can hopefully return back to his prior living situation. Measurable functional goals would be for the patient to become modified independent with transfers, mobility and ADLs at least at a walker level as he was before as well as improvement of his cognition and swallowing. Prognosis is reasonably good [address] [address] HISTORY AND PHYSICAL Name: STEVENCATIA WEST Romy Room #: 511-P [facility] IN ..#: [id number] Admission: 12/13/16 Attend Phys: Nahum Bonilla MD Discharge: 12/29/16 Date of : 40 Report #: [id number] with estimated length of stay probably at least 2 weeks. We will need to see how he does. Potential barriers would include his multiple medical comorbidities and decreased functional status. The patient meets diagnostic criteria for an acute in-hospital inpatient rehabilitation stay. He meets medical necessity criteria and has the multiple medical comorbidities as noted above. He does have the tolerance for an acute in-hospital inpatient rehabilitation stay and has appropriate discharge goals back to the home setting. <ELECTRONICALLY SIGNED> By: Nahum Bonilla MD 12/30/16 1227 0826 1145 Nahum Bonilla MD /[facility]
--- NOTE | ~2016-12-13 | HC ---
[facility] [place] [address] CONSULTATION Name: CATIA HARRIS Room #: 511-P [facility] IN ..#: [id number] Admission: 12/13/16 Attend Phys: Nahum Bonilla MD Discharge: Date of : 40 Report #: [id number] THIS REPORT FOR: //name// CC: Nahum Zuleta DATE OF SERVICE: 12/19/2016 AGE: 76. ATTENDING PHYSICIAN: Nahum Bonilla M.D. CUT LACE MACHINE OPERATOR: Cristian Mitchell, Ph.D. CLINICAL PRESENTATION: The patient is a 76-year-old male admitted to the rehab unit at [facility] for comprehensive inpatient rehabilitation program to improve functional mobility and activities of daily living and self-care and mental status secondary to impairment from a metabolic encephalopathy. He was admitted to the hospital and underwent an aortic valve replacement with redo of sternotomy on 12/01/2016. The patient required reintubation and treated for pneumonia and hypernatremia. His diagnoses include encephalopathy with variability in cognitive functioning. PAST MEDICAL HISTORY: Includes prior coronary artery bypass grafting, history of left total knee replacement, right total hip replacement, bilateral shoulder surgery, hypertension, diabetes mellitus with peripheral neuropathy, hyperlipidemia, COPD, GERD and a subdural hematoma in September 2015. A complete description of his medical condition and history along with medications can be found in his medical record. Neuropsychological consultation was requested to provide assistance in the assessment of cognitive and emotional status and to provide recommendations and services. The patient has been living with his brother. He has an 8th grade education. He had no and has no children. 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 He reports longstanding difficulty with reading. TECHNIQUES UTILIZED: Clinical interview, review of medical records, staff consultation and behavioral observation, mini mental status exam 2 standard version and clock drawing. EXAMINATION FINDINGS: The patient was alert and cooperative with the assessment. There is no evidence of aphasia. His thoughts are logical and goal oriented. There is no evidence of thought disorder. He does not report auditory or visual hallucinations. He denies subjective anxiety or depression. He indicates that his appetite, energy level and cognition are within normal [facility] [address] [place] [address] CONSULTATION Name: CATIA HARRIS Room #: 511-P [facility] IN .R.#: [id number] Admission: 12/13/16 Attend Phys: Nahum Bonilla MD Discharge: Date of : 40 Report #: [id number] limits. The patient had a good memory of events leading up to his heart surgery. Approximately 10-day period of amnesia in which he does not her remember daily or current events at that time. He reports being alert and oriented at this time and able to indicate his current location. His performance on the MMSE 2 brief version is within normal limits with a raw score of 15/16. He was 3/3 for initial registration and 5/5 for orientation to time and place. He was 2/3 correct for immediate recall after a brief time delay and distraction. Performance on the MMSE 2 was within normal limits with a raw score of 24/26. The patient was 1/5 for serial 7's. He was unable to copy a simple geometric design. The patient also indicates having an inability to read. He was able to accurately dictate a sentence. TECHNIQUES UTILIZED: Mild neurocognitive disorder, unspecified, without behavior disorder. RECOMMENDATIONS: The patient was driving. However, at this time, visual-spatial functioning appears very poor. Driving should be delayed pending a behind the wheel driving evaluation. Deficits in visual spatial organization, attention/concentration and executive functioning are suggested. Thank you very much for allowing me to provide the consultation on this patient. <ELECTRONICALLY SIGNED> By: Cristian Mitchell, PhD 12/26/16 1300 1323 0416 Cristian Mithcell, PhD /nt
[2016-12-13] MEDS ORDERED: K-DUR 20 MEQ T20 MEQ PO (13:20)
[2016-12-13] MEDS ORDERED: LANTUS SUBQ (13:20)
[2016-12-13] MEDS ORDERED: LOPRESSOR25 PO (13:20)
[2016-12-13] MEDS ORDERED: LASIX 40 MG TAB40 M1 PO (13:20)
[2016-12-13] MEDS ORDERED: ASPIRIN325 PO (13:20)
[2016-12-13] MEDS ORDERED: AMLODIPINE BESY10 MG PO (13:20)
[2016-12-13 15:55] LABS: ALBUMIN 2.9 g/dL (3.4-5.0); CALCIUM 9.2 mg/dL (8.5-10.1); CREATININE 1.1 mg/dL (0.7-1.3); PHOSPHORUS 2.5 mg/dL (2.5-4.9)
[2016-12-13 19:16] VITALS: BP 152/58
[2016-12-13 21:32] VITALS: BP 147/72
[2016-12-14 05:03] VITALS: BP 122/51
[2016-12-14 06:39] LABS: HEMATOCRIT 24.4 % (42.0-52.0); HEMOGLOBIN 8.2 gm/dL (14.0-18.0); MCHC 33.5 g/dL (28.0-37.0); MCV 89.7 fL (80.0-100.0); RBC 2.72 mil/uL (4.50-6.00); RDW 16.1 % (10.5-14.5)
[2016-12-14 06:47] LABS: CALCIUM 8.7 mg/dL (8.5-10.1); POTASSIUM 4.2 mmol/L (3.5-5.1)
[2016-12-14 20:00] VITALS: BP 149/49
[2016-12-14 20:45] VITALS: BP 142/69
[2016-12-15 20:32] VITALS: BP 138/54
[2016-12-16 06:52] LABS: HEMATOCRIT 24.4 % (42.0-52.0); HEMOGLOBIN 8.3 gm/dL (14.0-18.0); MCH 30.4 pg (26.0-34.0); MCHC 34.2 g/dL (28.0-37.0); MCV 88.8 fL (80.0-100.0); PLATELET COUNT 190 thou/uL (150-400); RBC 2.75 mil/uL (4.50-6.00); RDW 15.9 % (10.5-14.5); WBC 11.1 thou/uL (4.0-11.0)
[2016-12-16 06:58] LABS: MANUAL DIFF YES
[2016-12-16 07:07] LABS: ALBUMIN 2.8 g/dL (3.4-5.0); CALCIUM 9.4 mg/dL (8.5-10.1); CREATININE 1.1 mg/dL (0.7-1.3); MAGNESIUM 1.7 mg/dL (1.8-2.4); POTASSIUM 4.5 mmol/L (3.5-5.1); TOTAL BILIRUBIN 0.5 mg/dL (<0.1-1.0); TOTAL PROTEIN 6.5 g/dL (6.4-8.2)
[2016-12-16 08:00] VITALS: BP 123/57
[2016-12-16 08:25] LABS: ABSOLUTE NEUTROPHILS 8.3 thou/uL (1.4-8.2); ATYPICAL LYMPHS 1 %; METAMYELOCYTES 1 %; MYELOCYTES 1 %; NUCLEATED RBCS 1 /100WBC; POLYCHROMASIA 1+; TOTAL CELL COUNT 100
[2016-12-16 08:26] LABS: ANISOCYTOSIS 2+; MACROCYTES 1+; MICROCYTES 1+
[2016-12-16] MEDS ORDERED: CEFDINIR300 MG PO (13:44)
[2016-12-16] MEDS ORDERED: LASIX 40 MG TAB40 M1 PO (13:44)
[2016-12-16 20:03] VITALS: BP 141/59
[2016-12-17 06:18] LABS: CALCIUM 9.6 mg/dL (8.5-10.1); POTASSIUM 4.4 mmol/L (3.5-5.1)
[2016-12-17 08:00] VITALS: BP 118/60
[2016-12-17 20:00] VITALS: BP 140/44
[2016-12-18 06:36] LABS: MCV 89.1 fL (80.0-100.0); RDW 16.8 % (10.5-14.5); WBC 10.9 thou/uL (4.0-11.0)
[2016-12-18 06:38] LABS: HEMATOCRIT 25.5 % (42.0-52.0); HEMOGLOBIN 8.7 gm/dL (14.0-18.0); MCH 30.4 pg (26.0-34.0); MCHC 34.2 g/dL (28.0-37.0); PLATELET COUNT 193 thou/uL (150-400); RBC 2.86 mil/uL (4.50-6.00)
[2016-12-18 06:41] LABS: MANUAL DIFF YES
[2016-12-18 06:46] LABS: ALBUMIN 2.9 g/dL (3.4-5.0); CALCIUM 9.5 mg/dL (8.5-10.1); CREATININE 1.2 mg/dL (0.7-1.3); MAGNESIUM 1.6 mg/dL (1.8-2.4); POTASSIUM 4.1 mmol/L (3.5-5.1); TOTAL BILIRUBIN 0.4 mg/dL (<0.1-1.0); TOTAL PROTEIN 6.5 g/dL (6.4-8.2)
[2016-12-18 08:08] LABS: ABSOLUTE NEUTROPHILS 8.4 thou/uL (1.4-8.2); METAMYELOCYTES 3 %; TOTAL CELL COUNT 100
[2016-12-18 08:09] LABS: ANISOCYTOSIS 1+; POLYCHROMASIA SLIGHT
[2016-12-18 13:11] LABS: CALCIUM 9.8 mg/dL (8.5-10.1); CREATININE 1.4 mg/dL (0.7-1.3); POTASSIUM 4.5 mmol/L (3.5-5.1)
[2016-12-18 20:00] VITALS: BP 121/48
[2016-12-18 20:15] VITALS: BP 121/48
[2016-12-19 07:36] VITALS: BP 138/40
[2016-12-19 20:41] VITALS: BP 141/66
[2016-12-20 08:00] VITALS: BP 153/60
[2016-12-20 10:46] VITALS: BP 153/60
[2016-12-20 14:39] LABS: CALCIUM 8.8 mg/dL (8.5-10.1); CREATININE 1.3 mg/dL (0.7-1.3); POTASSIUM 4.1 mmol/L (3.5-5.1)
[2016-12-20 19:07] VITALS: BP 142/58
[2016-12-21 04:01] LABS: HEMATOCRIT 26.4 % (42.0-52.0); HEMOGLOBIN 8.8 gm/dL (14.0-18.0); MCH 29.6 pg (26.0-34.0); MCHC 33.2 g/dL (28.0-37.0); PLATELET COUNT 187 thou/uL (150-400); RBC 2.97 mil/uL (4.50-6.00); RDW 17.2 % (10.5-14.5); WBC 7.7 thou/uL (4.0-11.0)
[2016-12-21 04:04] LABS: MANUAL DIFF YES
[2016-12-21 04:08] LABS: CALCIUM 8.9 mg/dL (8.5-10.1); CREATININE 1.1 mg/dL (0.7-1.3)
[2016-12-21 08:00] VITALS: BP 108/47
[2016-12-21 08:25] LABS: ABSOLUTE NEUTROPHILS 5.9 thou/uL (1.4-8.2); ANISOCYTOSIS SLIGHT; OVALOCYTES FEW; POIKILOCYTOSIS SLIGHT; POLYCHROMASIA SLIGHT; TOTAL CELL COUNT 100
[2016-12-21 19:44] VITALS: BP 137/60
[2016-12-22 08:00] VITALS: BP 135/61
[2016-12-22 20:32] VITALS: BP 145/70
[2016-12-23 07:37] VITALS: BP 129/55
[2016-12-23 20:10] VITALS: BP 147/72
[2016-12-24 08:34] VITALS: BP 135/61
[2016-12-24 20:00] VITALS: BP 162/69
[2016-12-25 09:08] VITALS: BP 137/45
[2016-12-25 15:21] VITALS: BP 121/66
[2016-12-25 19:33] VITALS: BP 120/87
[2016-12-26 08:00] VITALS: BP 128/45
[2016-12-26 20:08] VITALS: BP 112/50
[2016-12-27 05:06] LABS: HEMATOCRIT 24.9 % (42.0-52.0); HEMOGLOBIN 8.4 gm/dL (14.0-18.0); MCH 29.8 pg (26.0-34.0); MCHC 33.6 g/dL (28.0-37.0); MCV 88.6 fL (80.0-100.0); RBC 2.82 mil/uL (4.50-6.00); RDW 17.1 % (10.5-14.5); WBC 5.3 thou/uL (4.0-11.0)
[2016-12-27 05:22] LABS: ALBUMIN 2.9 g/dL (3.4-5.0); CALCIUM 8.8 mg/dL (8.5-10.1); CREATININE 1.1 mg/dL (0.7-1.3); PHOSPHORUS 4.3 mg/dL (2.5-4.9); POTASSIUM 4.1 mmol/L (3.5-5.1)
[2016-12-27 08:00] VITALS: BP 117/51
[2016-12-27 19:34] VITALS: BP 128/52
[2016-12-28 08:51] VITALS: BP 143/66
[2016-12-28] MEDS ORDERED: ATORVASTATIN CA40 MG PO (12:05)
[2016-12-28] MEDS ORDERED: ALBUTEROL2.5 MG/31 INH (12:05)
[2016-12-28] MEDS ORDERED: PULMICORT0.5 MG/21 INH (12:05)
[2016-12-28] MEDS ORDERED: DEMADEX 2020 MG/1 TA PO (12:05)
[2016-12-28 14:12] VITALS: BP 143/66
[2016-12-28 14:41] VITALS: BP 143/66
[2016-12-28 20:17] VITALS: BP 172/74
[2016-12-29 09:07] VITALS: BP 136/91
[2016-12-29] MEDS ORDERED: NEBULIZER (15:26)
[2016-12-29 15:58] VITALS: BP 143/66
[2016-12-30] MEDS ORDERED: PERCOCET 10-321 EACH PO (13:08)
== END 2016-12-29 15:58 | disposition home health service (06) | DRG 70 ==
LOC: ENTRNSPT 12-29 15:35 → EDTRNSPTSTS 12-29 15:40
PROVIDERS: Hospitalist; Internal Medicine Cardiovascular Disease; Internal Medicine Endocrinology, Diabetes & Metabolism; Nurse Practitioner; Nurse Practitioner Family; Physical Medicine & Rehabilitation
DX: G93.41 Metabolic encephalopathy (principal); J96.01 Acute respiratory failure with hypoxia; J15.6 Pneumonia due to other Gram-negative bacteria; E87.0 Hyperosmolality and hypernatremia; J44.0 Chronic obstructive pulmonary disease with (acute) lower respiratory infection; J98.11 Atelectasis; E46 Unspecified protein-calorie malnutrition; I50.30 Unspecified diastolic (congestive) heart failure; I35.0 Nonrheumatic aortic (valve) stenosis; R13.10 Dysphagia, unspecified; E11.42 Type 2 diabetes mellitus with diabetic polyneuropathy; I11.0 Hypertensive heart disease with heart failure; G31.84 Mild cognitive impairment of uncertain or unknown etiology; I25.10 Atherosclerotic heart disease of native coronary artery without angina pectoris; Z96.652 Presence of left artificial knee joint; Z96.641 Presence of right artificial hip joint; E78.5 Hyperlipidemia, unspecified; K21.9 Gastro-esophageal reflux disease without esophagitis; G47.33 Obstructive sleep apnea (adult) (pediatric); E83.42 Hypomagnesemia; I48.0 Paroxysmal atrial fibrillation; K59.00 Constipation, unspecified; D64.9 Anemia, unspecified; Z79.4 Long term (current) use of insulin; Z95.2 Presence of prosthetic heart valve; Z95.1 Presence of aortocoronary bypass graft; Z88.8 Allergy status to other drugs, medicaments and biological substances; Z88.0 Allergy status to penicillin; Z80.6 Family history of leukemia; Z68.28 Body mass index [BMI] 28.0-28.9, adult
CPT/HCPCS: 10092; 10112

== ENCOUNTER → 2017-01-13 | Outpatient (CLI) | payer OTHER ==
[~2017-01-13] MED LIST changes: +ALBUTEROL2.5 MG/31 INH; +AMLODIPINE BESY10 MG PO; +ASPIRIN325 PO; +CEFDINIR300 MG PO; +DEMADEX 2020 MG/1 TA PO; +K-DUR 20 MEQ T20 MEQ PO; +LANTUS SUBQ; +LASIX 40 MG TAB40 M1 PO; +NEBULIZER; +PULMICORT0.5 MG/21 INH
== END ==
LOC: RAD 07:24
DX: I50.9 Heart failure, unspecified (principal); I51.7 Cardiomegaly; J44.9 Chronic obstructive pulmonary disease, unspecified; Z95.2 Presence of prosthetic heart valve

== ENCOUNTER → 2017-06-14 | Outpatient (CLI) | payer OTHER ==
[~2017-06-14] MED LIST changes: +ASPIR 8181 MG PO; +CLOPIDOGREL75 MG PO; +COREG25 MG PO; +OLMESARTAN-HCT1 EAC2 PO; +TRIAMCINOLONE A80 G2 TOP; +VALACYCLOVIR1000 MG PO; +XARELTO15 MG PO
== END ==
LOC: NUC 11:26
DX: I20.8 Other forms of angina pectoris (principal); I11.0 Hypertensive heart disease with heart failure; I50.9 Heart failure, unspecified; E78.5 Hyperlipidemia, unspecified; I48.91 Unspecified atrial fibrillation; E11.9 Type 2 diabetes mellitus without complications

== ENCOUNTER → 2017-06-16 | Outpatient (CLI) | payer OTHER ==
[~2017-06-16] VITALS: Ht 180.3 cm; Wt 90.7 kg
--- NOTE | ~2017-06-16 | CATHLAB ---
[facility] [place] [address] INVASIVE PROCEDURE REPORT Name: CATIA HARRIS Romy Room #: REG [facility]#: [id number] Admission: 06/16/17 Attend Phys: Kishan Gudino MD Discharge: Date of : 40 Date of Service: 06/16/17 1459 Report #: [id number] THIS REPORT FOR: //name// APPROVED REPORT Patient Details Patient Status: Out-Patient Room #: The patient is a 77 year-old male Event Personnel Nicolette Palma RN RN, Bibiana Finch RN RN, Nahum Breen [place], Nancy RTR, MELT ROOM OPERATOR Monitor, Kishan Gudino Manager Of Community Relations Procedures Performed Art Access - R femoral artery* 83085 Initial Mod Sed Same Phys/QHP Gr5y 475213 Left Heart Cath Coronaries, Bypass Grafts [id number] LHCCORCABG Hemostasis with Manual pressure Indication Positive stress test, Chest pain Risk Factors Peripheral Vascular Disease, Hypercholesterolemia, Coronary Artery DiseaseHypertension, Diabetes Previous Procedures/Diagnoses Previous CABGPrevious PCI, Previous Valve Surgery, Previous LA Procedure Narrative The Right Groin^ was infiltrated with 1% Lidocaine subcutaneous anesthesia. A PINNACLE 4FR Sheath #[id number] sheath was inserted into the RFA^. Coronary angiography was performed using coronary diagnostic catheters. The right coronary system was accessed and visualized with a JR4 catheter. The left coronary system was accessed and visualized with a JL4 catheter. Left ventricular/Aortic Valve gradient assessed via catheter pullback. Hemostasis was obtained with manual pressure following sheath removal without any complications. The patient tolerated the procedure well and there were no complications associated with the procedure. There was no hematoma. Intraoperative Conscious Sedation Sedation start time: 09:34 Case end Time: 09:55 [facility] [address] [place] [address] INVASIVE PROCEDURE REPORT Name: CATIA HARRIS Romy Room #: REG [facility]#: [id number] Admission: 06/16/17 Attend Phys: Kishan Gduino MD Discharge: Date of : 40 Date of Service: 06/16/17 1459 Report #: [id number] Fentanyl 25 mcg Versed 1 mg Fluoro Time: 7.10 minutes Dose: DAP 8143.70 cGycm2 1110 mGy Contrast Type and Amount: Visipaque 70 ml Diagnostic Cath LAD The proximal LAD has prior stents, patent with mild restenosis, 30%. There is mild disease in the mid segment, but no evidence for flow limiting lesions throughout the LAD. Diagonal 1 Small-caliber vessel, mild disease. Circumflex Occluded proximally. OM1 There is a patent SALAZAR graft with an end-to-side anastomosis to OM1, antegrade flow fills several branches originating from OM1. Right Coronary Occluded proximally. There is a patent saphenous vein graft with an end to side anastomosis to the PDA. There are multiple stents throughout the vein graft, generally appears to be patent with mild to moderate restenosis, 30-40%. The ostium of the vein graft has a moderate occlusion, 40%. After the anastomosis, there is both antegrade flow to the distal PDA and retrograde flow to several posterior lateral branches. Left Ventriculography Left Ventriculography was not performed. An LVEDP was measured and there is no gradient across the bioprosthetic aortic valve. Hemodynamics The aortic pressure is 170/71 mmHg with a mean of 108 mmHg. The left ventricular pressure is 168/18 mmHg with a mean of mmHg. The left ventricular end diastolic pressure is 30 mmHg. Conclusion 1. Patent stents in the [place] LAD with mild restenosis. 2. Patent SALAZAR graft with an end to side anastomosis to OM1. 3. Patent stents in the saphenous vein graft to the PDA/RPL, with mild to moderate restenosis. 4. Recommend medical therapy. <ELECTRONICALLY SIGNED> By: Kishan Gudino MD 06/16/17 1459 1459 1459 Kishan Gudino MD /INF
--- NOTE | ~2017-06-16 | EKG ---
[address] [employer] [place] [address] ELECTROCARDIOGRAM REPORT Name: CATIA HARRIS Room #: REG [facility]#: [id number] Admission: 06/16/17 Attend Phys: Kishan Gudino MD Discharge: Date of : 40 Report #: [id number] THIS REPORT FOR: //name// [facility] Test Date: 2017-06-16 Test Time: 07:15:32 Pat Name: CATIA HARIRS Department: Room: Gender: Meter Tester Primary: Amarilys PRO : 1940 Requested By: Kishan Gudino Order Number: [id number] MD: Anibal Shea Measurements Intervals [place] Rate: 66 P: [place]: QRS: 70 QRSD: 106 T: -31 QT: 429 QTc: 450 Interpretive Statements Atrial fibrillation Borderline T abnormalities, inferior leads Compared to ECG 02/24/2017 10:32:02 No significant changes Electronically Signed On 06-16-2017 8:19:09 WILL CALL CLERK by Anibal Shea [email or web address] <ELECTRONICALLY SIGNED> By: Anibal Shea MD, MERGED WITH [facility] 06/16/17 0819 4 4 Anibal Shea MD, FACC /EPI
[2017-06-16 07:15] VITALS: BP 152/73
[2017-06-16 07:29] LABS: HEMATOCRIT 34.4 % (42.0-52.0); HEMOGLOBIN 11.5 gm/dL (14.0-18.0); MCH 29.3 pg (26.0-34.0); MCHC 33.3 g/dL (28.0-37.0); MCV 87.9 fL (80.0-100.0); RBC 3.91 mil/uL (4.50-6.00); WBC 5.6 thou/uL (4.0-11.0)
[2017-06-16 07:39] LABS: CALCIUM 9.7 mg/dL (8.5-10.1); CREATININE 1.3 mg/dL (0.7-1.3); POTASSIUM 4.1 mmol/L (3.5-5.1)
== END | disposition home or self-care (01) ==
LOC: CATH 06:53
PROVIDERS: Internal Medicine Cardiovascular Disease
DX: I25.118 Atherosclerotic heart disease of native coronary artery with other forms of angina pectoris (principal); E11.51 Type 2 diabetes mellitus with diabetic peripheral angiopathy without gangrene; E78.00 Pure hypercholesterolemia, unspecified; I10 Essential (primary) hypertension; Z95.1 Presence of aortocoronary bypass graft; I21.3 ST elevation (STEMI) myocardial infarction of unspecified site; Z98.890 Other specified postprocedural states; Z95.5 Presence of coronary angioplasty implant and graft; Z90.49 Acquired absence of other specified parts of digestive tract; J44.9 Chronic obstructive pulmonary disease, unspecified; Z82.49 Family history of ischemic heart disease and other diseases of the circulatory system; E66.9 Obesity, unspecified; I48.91 Unspecified atrial fibrillation; I35.8 Other nonrheumatic aortic valve disorders

== ENCOUNTER 2017-07-19 09:19 | Observation (INO) | payer OTHER ==
[~2017-07-19] VITALS: Ht 182.9 cm; Wt 93.0 kg
--- NOTE | ~2017-07-19 | EKG ---
[address] [address] ELECTROCARDIOGRAM REPORT Name: CATIA HARRIS Room #: REG [facility]#: [id number] Admission: 07/19/17 Attend Phys: Kishan Gudino MD Discharge: Date of : 40 Report #: [id number] THIS REPORT FOR: //name// [facility] Test Date: 2017-07-19 Test Time: 13:53:36 Pat Name: CATIA HARRIS Department: Room: Gender: Learning Specialist: Amarilys PRO : 1940 Requested By: Kishan Gudino Order Number: [id number] MD: Oscar Cueto Measurements Intervals [place] Rate: 75 P: [place]: QRS: 83 QRSD: 101 T: 40 QT: 395 QTc: 442 Interpretive Statements Atrial fibrillation Borderline right axis deviation Borderline repolarization abnormality Baseline wander in lead(s) V3 Compared to ECG 06/16/2017 07:15:32 T-wave abnormality no longer present Electronically Signed On 07-19-2017 17:13:32 CDT by Oscar Cueto [email or web address] <ELECTRONICALLY SIGNED> By: Oscar Cueto MD 07/19/17 1713 1353 1353 Oscar Cueto MD /EPI
--- NOTE | ~2017-07-19 | EKG ---
[address] [address] ELECTROCARDIOGRAM REPORT Name: CATIA HARRIS Room #: REG [facility]#: [id number] Admission: 07/19/17 Attend Phys: Kishan Gudino MD Discharge: Date of : 40 Report #: [id number] THIS REPORT FOR: //name// [facility] Test Date: 2017-07-19 Test Time: 09:58:44 Pat Name: CATIA HARRIS Department: Room: Gender: M Equipment Engineer: : 1940 Requested By: Kishan Gudino Order Number: [id number] MD: Oscar Cueto Measurements Intervals [place] Rate: 61 P: [place]: QRS: 85 QRSD: 101 T: QT: 385 QTc: 388 Interpretive Statements Atrial fibrillation Borderline right axis deviation Borderline repolarization abnormality Compared to ECG 06/16/2017 07:15:32 T-wave abnormality no longer present Electronically Signed On 07-19-2017 17:11:20 CDT by Oscar Cueto [email or web address] <ELECTRONICALLY SIGNED> By: Oscar Cueto MD 07/19/17 1711 D: [id number] Oscar Cueto MD /[facility]
--- NOTE | ~2017-07-19 | CATHLAB ---
[facility] [address] [place] [address] INVASIVE PROCEDURE REPORT Name: CATIA HARRIS Room #: REG [facility]#: [id number] Admission: 07/19/17 Attend Phys: Kishan Gudino MD Discharge: Date of : 40 Date of Service: 07/19/17 1433 Report #: [id number] THIS REPORT FOR: //name// APPROVED REPORT Study performed: 07/19/2017 10:21:34 Patient Details Patient Status: Out-Patient Room #: The patient is a 77 year-old male Event Personnel Kishan Gudino Claims Examiner, Brett Gracia RN, Nahum Breen Monitor, Lesli Trejo Scrub Procedures Performed JORDIN Revasc Graft Single RCA C9604 SVGREVSING Indication Unstable angina , Chest pain Risk Factors Obesity, Peripheral Vascular Disease, HypercholesterolemiaPhysical Activity, Coronary Artery DiseaseHypertension, Diabetes Previous Procedures/Diagnoses Previous CABGPrevious PCI, Previous Valve Surgery Procedure Narrative The Right Wrist^ was infiltrated with 1% Lidocaine subcutaneous anesthesia. A TRANSRADIAL SLENDER 6F GLIDESHEATH KIT #[id number] sheath was inserted into the Right Radial Artery^. Coronary angiography was performed using coronary diagnostic catheters. The right coronary system was accessed and visualized with a LAUNCHER 6FR AL2 #[id number] catheter. Closure device was deployed with a Fr REG VASC BAND. The patient tolerated the procedure well and there were no complications associated with the procedure. There was no hematoma. The diagnostic cardiac catheterization was performed on June 16, 2017. Please review the report for full details of his coronary anatomy. He presents for staged angioplasty involving the saphenous vein graft to the PDA secondary to ongoing angina despite maximal antianginal therapy. Intraoperative Conscious Sedation Sedation start time: 11 Case end Time: [facility] [address] [email or web address] [address] INVASIVE PROCEDURE REPORT Name: STEVENCATIA Romy Room #: [facility]#: [id number] Admission: 07/19/17 Attend Phys: Kishan Gudino MD Discharge: Date of : 40 Date of Service: 07/19/17 1433 Report #: [id number] 12.34 Fentanyl 100 mcg Versed 2 mg Fluoro Time: 20.41 minutes Dose: 2652 mGy Contrast Type and Amount: Omnipaque 190 ml Hemodynamics The aortic pressure is 178/72 mmHg with a mean of 112 mmHg. PCI Technique Lesion Anticoagulation was achieved with Angiomax. Patient was preloaded with Plavix. Percutaneous coronary intervention was performed on the distal anastomotic site of the SVG to PDA. The lesion stenosis prior to intervention was 85% with STUART 3 flow. A LAUNCHER 6FR AL2 #[id number] Guide Catheter was used to engage the ostium. A Luge Wire .014 x 182CM #[id number] Interventional Guidewire was used to cross the lesion. BALLOON DILATION A Balloon catheter Euphora RX 2.5 x 10 #[id number] was inserted and inflated up to 8.00atm for 19seconds. Additional Inflation: 8.00atm for 13seconds. STENT DEPLOYMENT A drug-eluting stent RESOLUTE RX 2.5 X 12 #[id number] was inserted and inflated up to 10.00atm for 24seconds. POST STENT DEPLOYMENT BALLOON DILATION A Balloon catheter Euphora NC RX 2.5 x 8 #[id number] was inserted and inflated up to 18.00atm for 28seconds. Additional Inflation: 18.00atm for 19seconds. Final angiography reveals 5 % stenosis with STUART 3 flow. PCI Technique Lesion 2 Percutaneous Coronary Intervention was performed on the Ostium of the SVG to the PDA.. Patient was preloaded with Plavix. Percutaneous coronary intervention was performed on the ostium of the SVG to the PDA.. The lesion stenosis prior to intervention was 70% with STUART 3 flow. A LAUNCHER 6FR AL2 #861884 Guide Catheter was used to engage the ostium. A Luge Wire .014 x 182CM #[id number] Interventional Guidewire was used to cross the lesion. Stent Deployment A drug-eluting stent RESOLUTE RX 3.0 X 12 #[id number] was inserted and [address] [address] INVASIVE PROCEDURE REPORT Name: CATIA HARRIS [id number] Admission: 07/19/17 Attend Phys: Kishan Gudino MD Discharge: Date of : 40 Date of Service: 07/19/17 1433 Report #: [id number] inflated up to 12.00atm for 23seconds. Additional Inflation: 18 atmatm for 18seconds. After the initial inflation, the balloon was removed slightly to dilate the ostium, inflated up to 18 luis felipe. Final angiography reveals 5 % stenosis with STUART 3 flow. Conclusion 1. Successful insertion of a drug-eluting stent into the distal anastomotic site of the SVG to the PDA. 2. Successful insertion of a drug-eluting stent into the ostium of the SVG to the PDA. 3. Recommend dual antiplatelet therapy. <ELECTRONICALLY SIGNED> By: Kishan Gudino MD 07/19/17 1433 1433 1433 Kishan Gudino MD /INF
--- NOTE | ~2017-07-19 | EKG ---
[address] [address] ELECTROCARDIOGRAM REPORT Name: STEVENCATIA Room #: 202-[facility].#: [id number] Admission: 07/19/17 Attend Phys: Kishan Gudino MD Discharge: 07/20/17 Date of : 40 Report #: [id number] THIS REPORT FOR: //name// [facility] Test Date: 2017-07-20 Test Time: 06:24:29 Pat Name: CATIA HARRIS Department: Room: 202 Gender: M Senior Benefits Manager: ALEKSANDAR : 1940 Requested By: Kishan Gudino Order Number: [id number] MD: Anibal Shea Measurements Intervals [place] Rate: 66 P: CT: QRS: 88 QRSD: 100 T: 257 QT: 414 QTc: 434 Interpretive Statements Atrial fibrillation Borderline right axis deviation Nonspecific ST segment abnormality Compared to ECG 07/19/2017 13:53:36 No significant change was found Electronically Signed On 07-20-2017 17:43:19 CDT by Anibal Shea [email or web address] <ELECTRONICALLY SIGNED> By: Anibal Shea MD, [facility] 07/20/17 1743 3 3 Anibal Shea MD, [facility] /EPI
--- NOTE | ~2017-07-19 | D ---
[facility] [place] [address] DISCHARGE SUMMARY Name: CATIA HARRIS Romy Room #: 202-P [facility] M.R.#: [id number] Admission: 07/19/17 Attend Phys: Kishan Gudino MD Discharge: Date of : 40 Report #: [id number] THIS REPORT FOR: //name// CC: Thomas Gudino DATE OF SERVICE: 07/20/2017 FINAL DIAGNOSES: 1. Unstable angina, status post percutaneous coronary intervention. 2. History of aortic stenosis, status post AVR. 3. Coronary artery disease, status post coronary artery bypass graft. 4. Diabetes mellitus. 5. Hypertension. 6. Atrial fibrillation. 7. History of subdural hematoma, attributed to gait instability. 8. Sleep apnea. 9. Esophageal stricture, status post dilatation. HOSPITAL COURSE: Please see the diagnostic cardiac catheterization from June for full details of his coronary anatomy. He was found to have a severe occlusion of the vein graft to the PDA, medical therapy was initially recommended. He had been on maximal antianginal agents, but still reported having chest discomfort with mild levels of physical exertion. He was brought in electively for a staged angioplasty. He underwent placement of a stent to the distal anastomotic site of the SVG to the PDA. The ostium of the vein graft also had a severe occlusion, undergoing placement of a drug-eluting stent. This was all done via the right radial artery approach. He remains clinically stable overnight, denies any chest pains. The plan is to discharge the patient on same medications. However, he has a history of subdural hematoma, attributed to gait instability and falling at home and hitting a cabinet. He had been on aspirin and anticoagulation therapy at that time, which was discontinued upon discharge. He will be sent home on aspirin and Plavix due to his stent. He will continue his other medications including metformin, albuterol, metoprolol, amlodipine, insulin, atorvastatin, torsemide, Ranexa and other medications. He is given instructions for followup in the office. <ELECTRONICALLY SIGNED> By: Kishan Gudino MD 07/20/17 0849 0821 0846 Kishan Gudino MD /nt
[~2017-07-19 09:19] MED LIST changes: -ASPIR 8181 MG PO; -CLOPIDOGREL75 MG PO; -COREG25 MG PO; -OLMESARTAN-HCT1 EAC2 PO; -TRIAMCINOLONE A80 G2 TOP; -VALACYCLOVIR1000 MG PO
[2017-07-19 09:41] VITALS: BP 163/71
[2017-07-19 10:02] LABS: HEMATOCRIT 33.4 % (42.0-52.0); HEMOGLOBIN 11.2 gm/dL (14.0-18.0); MCHC 33.6 g/dL (28.0-37.0); MCV 89.2 fL (80.0-100.0); RBC 3.75 mil/uL (4.50-6.00); RDW 16.6 % (10.5-14.5); WBC 7.9 thou/uL (4.0-11.0)
[2017-07-19 10:10] LABS: CALCIUM 9.9 mg/dL (8.5-10.1); CREATININE 1.1 mg/dL (0.7-1.3); POTASSIUM 4.4 mmol/L (3.5-5.1)
[2017-07-19 10:12] LABS: INR 1.1; PROTIME 11.2 Seconds (9.3-11.4)
[2017-07-19 20:45] VITALS: BP 162/75
[2017-07-20 04:55] VITALS: BP 152/70
[2017-07-20 05:32] LABS: ALBUMIN 3.4 g/dL (3.4-5.0); CALCIUM 9.5 mg/dL (8.5-10.1); CREATININE 1.1 mg/dL (0.7-1.3); POTASSIUM 3.9 mmol/L (3.5-5.1); TOTAL BILIRUBIN 0.6 mg/dL (<0.1-1.0); TOTAL PROTEIN 6.5 g/dL (6.4-8.2); TROPONIN-I 0.25 ng/mL (<0.06)
[2017-07-20 05:34] LABS: HEMATOCRIT 32.3 % (42.0-52.0); MCH 30.3 pg (26.0-34.0); MCHC 34.1 g/dL (28.0-37.0); MCV 88.8 fL (80.0-100.0); RBC 3.64 mil/uL (4.50-6.00); RDW 16.8 % (10.5-14.5); WBC 8.6 thou/uL (4.0-11.0)
[2017-07-20] MEDS ORDERED: CLOPIDOGREL75 MG PO (08:08)
[2017-07-20] MEDS ORDERED: XARELTO15 MG PO (08:10)
[2017-07-20] MEDS ORDERED: ASPIR 8181 MG PO (08:10)
[2017-07-20 08:30] VITALS: BP 141/72
[2017-07-20 10:43] VITALS: BP 141/72
== END 2017-07-20 11:26 | disposition home or self-care (01) ==
LOC: CATH 09:19 → 2N 20:44 → ENTRNSPT 07-20 11:18 → EDTRNSPTSTS 07-20 11:22 → 2N 07-20 11:26
PROVIDERS: Internal Medicine Cardiovascular Disease
DX: I25.110 Atherosclerotic heart disease of native coronary artery with unstable angina pectoris (principal); I10 Essential (primary) hypertension; K22.2 Esophageal obstruction; E78.00 Pure hypercholesterolemia, unspecified; R60.9 Edema, unspecified; I48.0 Paroxysmal atrial fibrillation; E11.42 Type 2 diabetes mellitus with diabetic polyneuropathy; K21.9 Gastro-esophageal reflux disease without esophagitis; E78.5 Hyperlipidemia, unspecified; R26.9 Unspecified abnormalities of gait and mobility; G47.33 Obstructive sleep apnea (adult) (pediatric); Z99.89 Dependence on other enabling machines and devices; Z95.1 Presence of aortocoronary bypass graft; Z95.2 Presence of prosthetic heart valve
CPT/HCPCS: 10081

== ENCOUNTER 2018-03-29 06:44 | Observation (INO) | payer OTHER ==
[~2018-03-29] VITALS: Ht 182.9 cm; Wt 109.3 kg
--- NOTE | ~2018-03-29 | EKG ---
[address] [address] ELECTROCARDIOGRAM REPORT Name: CATIA HARRIS Room #: 201-[facility].#: [id number] Admission: 03/29/18 Attend Phys: Kishan Gudino MD Discharge: Date of : 40 Report #: [id number] THIS REPORT FOR: //name// [facility] Test Date: 2018-03-29 Test Time: 12:59:30 Pat Name: CATIA HARRIS Department: Room: 201 P Gender: M Bullard Machine Operator: Amarilys PRO : 1940 Requested By: Kishan Gudino Order Number: [id number] MD: Anibal Shea Measurements Intervals [place] Rate: 93 P: [place]: QRS: 92 QRSD: 108 T: -48 QT: 393 QTc: 489 Interpretive Statements Atrial fibrillation Right axis deviation Nonspecific ST and T wave abnormality Borderline prolonged QT interval Compared to ECG 03/29/2018 07:15:24 No significant change was found Electronically Signed On 03-29-2018 17:23:57 HYDRAULIC JACK OPERATOR by Anibal Shea [email or web address] <ELECTRONICALLY SIGNED> By: Anibal Shea MD, [facility] 03/29/18 1723 1259 1259 Anibal Shea MD, [facility] /EPI
--- NOTE | ~2018-03-29 | EKG ---
[address] [address] ELECTROCARDIOGRAM REPORT Name: CATIA HARRIS Romy Room #: [facility]#: [id number] Admission: 03/29/18 Attend Phys: Kishan Gudino MD Discharge: Date of : 40 Report #: [id number] THIS REPORT FOR: //name// [facility] Test Date: 2018-03-29 Test Time: 07:15:24 Pat Name: CATIA HARRIS Department: Room: Gender: Senior Cyber Security Analyst: Amarilys PRO : 1940 Requested By: Kishan Gudino Order Number: [id number] MD: Anibal Shea Measurements Intervals [place] Rate: 65 P: [place]: QRS: 84 QRSD: 106 T: -42 QT: 442 QTc: 460 Interpretive Statements Atrial fibrillation Nonspecific ST segment abnormality Compared to ECG 07/20/2017 06:24:29 No significant change was found Electronically Signed On 03-29-2018 8:34:38 TESTER OPERATOR HELPER by Anibal Shea [email or web address] <ELECTRONICALLY SIGNED> By: Anibal Shea MD, [facility] 03/29/18 0834 0715 4 Anibal Shea MD, [facility] /EPI
--- NOTE | ~2018-03-29 | CATHLAB ---
[facility] [address] [employer] [place] [place] [address] INVASIVE PROCEDURE REPORT Name: CATIA HARRIS Romy Room #: 201-P [facility]#: [id number] Admission: 03/29/18 Attend Phys: Kishan Gudino MD Discharge: Date of : 40 Date of Service: 03/29/18 1730 Report #: [id number] THIS REPORT FOR: //name// APPROVED REPORT Study performed: 03/29/2018 07:12:39 Patient Details Patient Status: Out-Patient Room #: The patient is a 77 year-old male Event Personnel Kishan Gudino Zipper Joiner, Chase Harris RN RN, Lesli Trejo Sandifer, David Monitor Procedures Performed Left Heart Cath Coronaries, Bypass Grafts 2062105 LHCCORCABG JORDIN Revasc Graft Single PDA C9604 SVGREVSING Indication Dyspnea, Unstable angina , Chest pain Risk Factors Peripheral Vascular Disease, HypercholesterolemiaPhysical Activity, Coronary Artery DiseaseHypertension, Diabetes Previous Procedures/Diagnoses Previous CABGPrevious PCI, Previous Valve Surgery Procedure Narrative The Right Groin^ was infiltrated with 1% Lidocaine subcutaneous anesthesia. A PINNACLE 4FR Sheath #[id number] sheath was inserted into the RFA^. Coronary angiography was performed using coronary diagnostic catheters. The right coronary system was accessed and visualized with a JR4 catheter. The left coronary system was accessed and visualized with a JL4 catheter. Left ventricular/Aortic Valve gradient assessed via catheter pullback. Closure device was deployed with a 6 Fr MYNXGRIP 6/7F #[id number]. Intraoperative Conscious Sedation Sedation start time: 8.37 Case end Time: 10.10 Fentanyl 50 mcg Versed 1 mg Fluoro Time: 32.17 minutes [address] [place] [address] [place] [address] INVASIVE PROCEDURE REPORT Name: CATIA HARRIS Room #: 201-P [facility].#: [id number] Admission: 03/29/18 Attend Phys: Kishan Gudino MD Discharge: Date of : 40 Date of Service: 03/29/18 1730 Report #: [id number] Dose: DAP 80677 cGycm2 3445 mGy Contrast Type and Amount: Omnipaque 240 ml Coronary Angiography The patient's coronary anatomy is right dominant. Diagnostic Cath LAD There are stents in the proximal segment of the LAD, patent with mild restenosis. The remaining segments of the LAD did not have any flow-limiting lesions. Diagonal 1 Small-caliber vessel. Circumflex Occluded at the proximal segment. OM1 There is a patent SALAZAR graft with an end-to-side anastomosis to OM1. After the anastomosis, the OM vessel is patent and supplies several branches as it travels down the lateral wall. Right Coronary Occluded at the proximal segment. R PDA There is a saphenous vein graft with an end to side anastomosis to the proximal PDA. There are patent stents in the ostial/proximal and mid segments of the vein graft. There is a stent at the distal anastomotic site with severe restenosis, at least 80-90%. RPLV This is filled via retrograde blood flow from the vein graft to the PDA. Left Ventriculography Left Ventriculography was not performed. An LVEDP was measured and there is no gradient across the outflow tract. Hemodynamics The aortic pressure is 203/91 mmHg with a mean of 124 mmHg. The left ventricular pressure is 213/32 mmHg with a mean of mmHg. The left ventricular end diastolic pressure is 37 mmHg. There was no gradient across the aortic valve upon pullback. Pullback from the left ventricle to the aorta revealed no gradient across the aortic valve. PCI Technique Lesion Anticoagulation was achieved with Angiomax Drip. Percutaneous coronary intervention was performed on the distal anastomotic site of the SVG to PDA. The lesion stenosis prior to intervention was 90% with STUART 3 flow. A LAUNCHER 6FR MP1 #044524 Guide Catheter was used to engage the ostium. A Luge Wire .014 x 182CM #115124 Interventional Guidewire was used to cross the lesion. BALLOON DILATION A Balloon catheter Sprinter OTW 2.5 x 12 #[id number] was inserted and [facility] [address] [place] [address] INVASIVE PROCEDURE REPORT Name: CATIA HARRIS Room #: 201-P [facility] IN ..#: [id number] Admission: 03/29/18 Attend Phys: Kishan Gudino MD Discharge: Date of : 40 Date of Service: 03/29/18 1730 Report #: [id number] inflated up to 18.00atm for 37seconds. Additional Inflation: 12.00atm for 19seconds. The stent is located at the distal segment of the SVG and extends into the PDA. STENT DEPLOYMENT A drug-eluting stent 2.75mm x 15mm EluNir RX was inserted and inflated up to 10.00atm for 17seconds. Additional Inflation: 15.00atm for 13seconds. POST STENT DEPLOYMENT BALLOON DILATION A Balloon catheter Euphora NC RX 2.75 x 8 #[id number] was inserted and inflated up to 18.00atm for 22seconds. Additional Inflation: 20.00atm for 16seconds. Final angiography reveals 5 % stenosis with STUART 3 flow. Conclusion 1. Successful insertion of a drug-eluting stent into the severe, restenotic lesion at the distal anastomotic site of the SVG to the PDA. 2. Patent stents in the proximal LAD with mild restenosis. 3. Patent SALAZAR graft to OM1. 4. Recommend dual antiplatelet therapy and aggressive risk factor management. <ELECTRONICALLY SIGNED> By: Kishan Gudino MD 03/29/181729 29 29 Kishan Gudino MD /INF
--- NOTE | ~2018-03-29 | EKG ---
[address] [address] ELECTROCARDIOGRAM REPORT Name: CATIA HARRIS Room #: 201-P [facility]..#: [id number] Admission: 03/29/18 Attend Phys: Kishan Gudino MD Discharge: Date of : 40 Report #: [id number] THIS REPORT FOR: //name// [facility] Test Date: 2018-03-30 Test Time: 07:27:57 Pat Name: CATIA HARRIS Department: Room: 201 P Gender: M Freight Dispatcher: GR : 1940 Requested By: Kishan Gudino Order Number: [id number] MD: Anibal Shea Measurements Intervals [place] Rate: 68 P: [place]: QRS: 87 QRSD: 112 T: QT: 440 QTc: 469 Interpretive Statements Atrial fibrillation Ventricular premature complex Nonspecific ST segment abnormality Compared to ECG 03/29/2018 12:59:30 Ventricular premature complex(es) now present Electronically Signed On 03-30-2018 8:00:09 SOLE BLACKER by Anibal Shea [email or web address] <ELECTRONICALLY SIGNED> By: Anibal Shea MD, [facility] 03/30/18 0800 D: 12/726 6 Anibal Shea MD, FACC /EPI
--- NOTE | ~2018-03-29 | D ---
[facility] [place] [address] DISCHARGE SUMMARY Name: CATIA HARRIS Romy Room #: 201-P [facility]venido Fuentes#: [id number] Admission: 03/29/18 Attend Phys: Kishan Gudino MD Discharge: 03/30/18 Date of : 40 Report #: [id number] THIS REPORT FOR: //name// CC: Thomas Gudino DATE OF SERVICE: 03/30/2018 FINAL DIAGNOSES: 1. Unstable angina, status post coronary intervention. 2. History of coronary artery bypass grafting. 3. Coronary artery disease with multiple coronary angioplasty procedures. 4. Aortic valve replacement. 5. Paroxysmal atrial fibrillation. 6. Subdural hematoma. 7. Diabetes mellitus. 8. Gait instability with falls. 9. Hypertension. 10. Hypercholesterolemia. 11. Restrictive lung disease. HOSPITAL COURSE: Please see the original H and P for full details. The patient presented with recurrent unstable angina. Please see the cardiac catheterization report for full details. There was a patent SALAZAR graft to a moderate size OM1 vessel. The [place] LAD is patent with stents in the proximal segment. The stents are patent with mild restenosis. There are multiple stents in the vein graft to the PDA that are patent. However, there is a stent at the distal anastomotic site that was severely restenosed. Angioplasty was performed with placement of a drug-eluting stent. He remained stable overnight and will be discharged home today. DISPOSITION: He will continue with aspirin and Plavix, Lipitor 40 mg, Coreg 25 b.i.d., clonidine 0.1 b.i.d., torsemide 40 mg daily, Imdur 60 mg, Ranexa therapy and insulin. He is given instructions for followup in the office. <ELECTRONICALLY SIGNED> By: Kishan Gudino MD 04/01/1822 Kishan Gudino MD /nt
[~2018-03-29 06:44] MED LIST changes: +ASPIR 8181 MG PO; +CLOPIDOGREL75 MG PO; +COREG25 MG PO; +OLMESARTAN-HCT1 EAC2 PO; +TRIAMCINOLONE A80 G2 TOP; +VALACYCLOVIR1000 MG PO
[2018-03-29] MEDS ORDERED: CLONIDINE0.1 PO (07:25)
[2018-03-29] MEDS ORDERED: IMDUR 60 MG TAB60 M1 PO (07:26)
[2018-03-29] MEDS ORDERED: NITROGLYCERIN0.4 MG SUBLING (07:29)
[2018-03-29 07:46] VITALS: BP 167/74
[2018-03-29 10:45] VITALS: BP 159/90
[2018-03-29 15:31] VITALS: BP 139/60
[2018-03-29 16:02] VITALS: BP 154/79
[2018-03-29 19:07] VITALS: BP 167/65
[2018-03-29 20:45] VITALS: BP 139/60
[2018-03-30 00:45] VITALS: BP 157/49
[2018-03-30 04:30] VITALS: BP 169/74
[2018-03-30 04:44] LABS: ALBUMIN 3.4 g/dL (3.4-5.0); CALCIUM 9.7 mg/dL (8.5-10.1); CREATININE 1.3 mg/dL (0.7-1.3); POTASSIUM 3.9 mmol/L (3.5-5.1); TOTAL BILIRUBIN 0.5 mg/dL (<0.1-1.0); TOTAL PROTEIN 6.8 g/dL (6.4-8.2); TROPONIN-I 0.44 ng/mL (<0.06)
[2018-03-30 04:57] LABS: MCHC 33.3 g/dL (28.0-37.0); MCV 90.1 fL (80.0-100.0); RDW 16.4 % (10.5-14.5); WBC 8.4 thou/uL (4.0-11.0)
[2018-03-30 07:35] VITALS: BP 154/70
[2018-03-30 10:19] VITALS: BP 169/74
== END 2018-03-30 11:54 | disposition home or self-care (01) ==
LOC: CATH 06:44 → 2N 10:55 → CATH 12:18 → ENTRNSPT 03-30 11:00 → EDTRNSPTSTS 03-30 11:27 → 2N 03-30 11:54
PROVIDERS: Internal Medicine Cardiovascular Disease
DX: I25.110 Atherosclerotic heart disease of native coronary artery with unstable angina pectoris (principal); I48.0 Paroxysmal atrial fibrillation; E11.9 Type 2 diabetes mellitus without complications; S06.5X9A Traumatic subdural hemorrhage with loss of consciousness of unspecified duration, initial encounter; X58.XXXA Exposure to other specified factors, initial encounter; Y93.89 Activity, other specified; Y92.89 Other specified places as the place of occurrence of the external cause; Y99.8 Other external cause status; R26.9 Unspecified abnormalities of gait and mobility; I10 Essential (primary) hypertension; E78.00 Pure hypercholesterolemia, unspecified; J98.4 Other disorders of lung; Z95.2 Presence of prosthetic heart valve; Z95.1 Presence of aortocoronary bypass graft

== ENCOUNTER 2018-08-30 06:52 | Observation (INO) | payer OTHER ==
[~2018-08-30] VITALS: Ht 180.3 cm; Wt 90.2 kg
[~2018-08-30 06:52] MED LIST changes: +IMDUR 60 MG TAB60 M1 PO; +NITROGLYCERIN0.4 MG SUBLING
[2018-08-30 07:32] LABS: HEMATOCRIT 38.3 % (42.0-52.0); HEMOGLOBIN 12.8 gm/dL (14.0-18.0); MCH 30.7 pg (26.0-34.0); MCHC 33.5 g/dL (28.0-37.0); MCV 91.7 fL (80.0-100.0); RBC 4.18 mil/uL (4.50-6.00); WBC 6.6 thou/uL (4.0-11.0)
[2018-08-30 07:41] LABS: CALCIUM 10.4 mg/dL (8.5-10.1); CREATININE 1.4 mg/dL (0.7-1.3); POTASSIUM 4.2 mmol/L (3.5-5.1)
[2018-08-30] MEDS ORDERED: LEVEMIR SUBQ (07:42)
[2018-08-30] MEDS ORDERED: LOPRESSOR25 PO (07:45)
[2018-08-30] MEDS ORDERED: MULTIPLE VITAM1 EAC2 PO (07:48)
[2018-08-30 07:59] VITALS: BP 161/65
--- NOTE | 2018-08-30 08:03 | EKG ---
[address] [address] ELECTROCARDIOGRAM REPORT Name: STEVENCATIA GONCALVES Room #: REG [facility]#: [id number] ������������������ Admission: 08/30/18 ������������������ Attend Phys: Kishan Gudino MD Discharge: ������������������ Date of : 40 Report #: [id number] ����������������������������������������������������������������� [id number] THIS REPORT FOR: //name// [facility] Test Date: 2018-08-30 Test Time: 07:25:29 Pat Name: CATIA HARRIS Department: Room: Gender: M Movie Theater Usher: [facility] : 1940 Requested By: Kishan Gudino Order Number: [id number] MD: Oscar Cueto Measurements Intervals [place] Rate: 69 P: [place]: QRS: 62 QRSD: 107 T: 33 QT: 416 QTc: 446 Interpretive Statements Atrial fibrillation Ventricular premature complex Compared to ECG 03/30/2018 07:27:57 No significant changes Electronically Signed On 08-30-2018 8:03:21 CDT by Oscar Cueto [email or web address] ��������������������������������������������� <ELECTRONICALLY SIGNED> ���������������������������������������� By: Oscar Cueto MD ��������������������������������������������� 08/30/18 08 0725 4 Oscar Cueto MD /MAYI
--- NOTE | 2018-08-30 18:48 | NUR ---
TO UNIT AT 1340, AMBULATED FROM STRETCHER TO BED. PLACED ON MONITOR, AFIB IN 50'S. R GROIN SITE CDI, NO HEMATOMA NOTES. NO COMPLAINTS OF PAIN, NAUSEA OR DIZZINESS. VOIDS PER URINAL WITHOUT DIFFICULTY.
--- NOTE | 2018-08-30 18:51 | NUR ---
RIGHT GROIN SITE IS CDI, NO HEMATOMA. PATIENT ABLE TO GET OOB TO CHAIR WITHOUT DIFFICULTY. USES CANE FOR STABILITY. AFIB ON MONITOR. NO COMPLAINTS OF PAIN, NAUSEA OR DIZZINESS
[2018-08-30 20:00] VITALS: BP 162/49
[2018-08-31 00:27] VITALS: BP 142/64
--- NOTE | 2018-08-31 03:51 | NUR ---
ASSUMED PT CARE AT 1900. PT A/OX4, VITAL SIGNS STABLE, SBP ELEVATED IN 160'S, MEDICATION GIVEN. ASSESSMENT CHARTED. NO COMPLAINTS OF PAIN. RIGHT GROIN SITE CLEAN, DRY, INTACT. WALKED IN HALLWAY BEFORE BED. TOLERATED ACTIVITY APPROPRIATELY. RESTED WELL THROUGH THE NIGHT. CALLS APPROPRIATELY. PROGRESSING WELL TOWARD PLAN OF CARE. WILL CONTINUE TO MONITOR.
[2018-08-31 04:45] VITALS: BP 166/43
[2018-08-31 04:54] LABS: HEMATOCRIT 35.7 % (42.0-52.0); MCH 31.1 pg (26.0-34.0); MCHC 33.6 g/dL (28.0-37.0); MCV 92.5 fL (80.0-100.0); RBC 3.86 mil/uL (4.50-6.00); RDW 16.1 % (10.5-14.5); WBC 8.4 thou/uL (4.0-11.0)
[2018-08-31 05:09] LABS: ALBUMIN 3.6 g/dL (3.4-5.0); CALCIUM 9.6 mg/dL (8.5-10.1); CREATININE 1.3 mg/dL (0.7-1.3); POTASSIUM 3.9 mmol/L (3.5-5.1); TOTAL BILIRUBIN 0.5 mg/dL (<0.1-1.0); TOTAL PROTEIN 6.7 g/dL (6.4-8.2)
[2018-08-31 07:38] VITALS: BP 161/64
--- NOTE | 2018-08-31 08:14 | CATHLAB ---
[facility] [address] [place] [address] INVASIVE PROCEDURE REPORT Name: STEVENCATIA Room #: 211-P [facility] IN ..#: [id number] ������������� Admission: 08/30/18 ������������� Attend Phys: Kishan Gudino MD Discharge: ��� ������������� ��� Date of : 40 Date of Service: 08/31/18 0813 �� Report #: [id number] �������� ��������������������������������������������[id number] THIS REPORT FOR: //name// APPROVED REPORT Study performed: 08/30/2018 09:18:27 Patient Details Patient Status: Out-Patient Room #: The patient is a 78 year-old male Event Personnel Kishan Gudino Paint Factory Worker, Brett Gracia RN, Maya, Lesli Monitor, Heraclio Doe RTR Scrub Procedures Performed Art Access - R femoral artery* 01641 Initial Mod Sed Same Phys/QHP Gr5y 016973 86085 Mod Sed Same Phys/QHP Ea 653376 Left Heart Cath Coronaries, Bypass Grafts 4593058 LHCCORCABG JORDIN Place w/wo Plasty Single LAD 789277 Hemostasis w/ Mynx Indication Dyspnea, Unstable angina , Chest pain Risk Factors Hypercholesterolemia, Coronary Artery DiseaseHypertension, Diabetes Previous Procedures/Diagnoses Previous CABGPrevious PCI, Previous Valve Surgery Procedure Narrative The patient was brought electively to the Cardiac Catheterization Laboratory and was prepped and draped in a sterile manner. The Right Groin^ was infiltrated with 1% Lidocaine subcutaneous anesthesia. A PINNACLE 4FR Sheath #[id number] sheath was inserted into the RFA^. Coronary angiography was performed using coronary diagnostic catheters. The left coronary system was accessed and visualized with a JL 4 catheter. The left ventricle was accessed and visualized with a 4FR MP A2 #[id number] catheter. Left ventricular/Aortic Valve gradient assessed via catheter pullback. Pre-demployment femoral angiogram was performed . Closure device was deployed with a 6 Fr Mynx. The patient tolerated the procedure well and there were no complications associated with the procedure. There was no hematoma. Intraoperative Conscious Sedation [facility] [address] [place] [address] INVASIVE PROCEDURE REPORT Name: CATIA HARRIS Romy Room #: 211-P [facility] IN [facility]#: [id number] ������������� Admission: 08/30/18 ������������� Attend Phys: Kishan Gudino MD Discharge: ��� ������������� ��� Date of : 40 Date of Service: 08/31/18 0813 �� Report #: [id number] �������� ��������������������������������������������[id number] Sedation start time: 09:29 Case end Time: 10:26 Fentanyl 100 mcg Versed 2 mg Fluoro Time: 17.17 minutes Dose: DAP 84178.00 cGycm2 1915 mGy Contrast Type and Amount: Visipaque 190 ml Coronary Angiography The patient's coronary anatomy is right dominant. Diagnostic Cath LAD There are overlapping stents in the proximal segment of the LAD with moderate restenosis, 50%. In the mid segment of LAD, there is a severe, de kimnai stenosis, of 80%. Circumflex This vessel is occluded at the proximal segment. OM1 There is a patent SALAZAR graft with an end to side anastomosis to the first obtuse marginal artery. After the anastomosis, there is both retrograde and antegrade flow. Right Coronary The RCA is a dominant vessel, known to have a total occlusion. R PDA There is a patent saphenous vein graft with an end-to-side anastomosis to the PDA. After the anastomosis, there is both retrograde and antegrade filling of the distal RCA branches. Within the vein graft, there are multiple stents in the proximal, mid and distal segments with mild to moderate restenosis, 40%. Left Ventriculography Left Ventriculography was not performed. Ejection Fraction was 60% based off patient's Nuclear Cardiac Stress Test. An LVEDP was measured and there is no gradient across the outflow tract. Hemodynamics The aortic pressure is 181/71 mmHg with a mean of 77 mmHg. The left ventricular pressure is 198/16 mmHg with a mean of mmHg. The left ventricular end diastolic pressure is 21 mmHg. PCI Technique Lesion Percutaneous coronary intervention was performed on the mid left anterior descending artery segment. The lesion stenosis prior to intervention was 80% with STUART 3 flow. A VISTA 6FR XB 3.5 #722702 Guide Catheter was used to engage the ostium. A Luge Wire .014 x 182CM #[id number] Interventional Guidewire was used to cross the lesion. [facility] [address] [place] [address] INVASIVE PROCEDURE REPORT Name: CATIA HARRIS Room #: 211-P [facility] IN M.R.#: [id number] ������������� Admission: 08/30/18 ������������� Attend Phys: Kishan Gudino MD Discharge: ��� ������������� ��� Date of : 40 Date of Service: 08/31/18 0813 �� Report #: [id number] �������� ��������������������������������������������[id number] BALLOON DILATION A Balloon catheter Euphora RX 2.0 x12 #[id number] was inserted and inflated up to 8.00atm for 10seconds. Additional Inflation: 8.00atm for 17seconds. Additional Inflation: 8.00atm for 30seconds. STENT DEPLOYMENT A drug-eluting stent RESOLUTE BERTIN RX 2.5 X 18 #[id number] was inserted and inflated up to 12.00atm for 22seconds. Additional Inflation: 16.00atm for 13seconds. POST STENT DEPLOYMENT BALLOON DILATION A Balloon catheter Euphora NC RX 2.75 x 12 #[id number] was inserted and inflated up to 16.00atm for 20seconds. Additional Inflation: 18.00atm for 10seconds. Final angiography reveals 0 % stenosis with STUART 3 flow. Conclusion 1. Successful insertion of a drug-eluting stent into the mid segment of the LAD. 2. Moderate restenosis in the proximal LAD stents. 3. Patent SALAZAR graft to OM1. 4. Patent SVG to the PDA, with mild to moderate restenosis. 5. Recommend dual antibiotic therapy and aggressive risk factor management. ��������������������������������������������� <ELECTRONICALLY SIGNED> ���������������������������������������� By: Kishan Gudino MD ��������������������������������������������� 08/31/18812 2 2 Kishan Gudino MD /INF
--- NOTE | 2018-08-31 09:37 | EKG ---
[address] [address] ELECTROCARDIOGRAM REPORT Name: CATIA HARRIS Room #: 211-P [facility]..#: [id number] ������������������ Admission: 08/30/18 ������������������ Attend Phys: Kishan Gudino MD Discharge: ������������������ Date of : 40 Report #: [id number] ����������������������������������������������������������������� [id number] THIS REPORT FOR: //name// [facility] Test Date: 2018-08-30 Test Time: 18:33:09 Pat Name: CATIA HARRIS Department: Room: 211 P Gender: M Material Crew Supervisor: Brent YOST : 1940 Requested By: Kishan Gudino Order Number: [id number] MD: Kishan Gudino Measurements Intervals [place] Rate: 50 P: [place]: QRS: 89 QRSD: 106 T: 40 QT: 485 QTc: 443 Interpretive Statements Atrial fibrillation Borderline right axis deviation Nonspecific ST segment abnormalities Compared to ECG 08/30/2018 07:25:29 Ventricular premature complex(es) no longer present Electronically Signed On 08-31-2018 9:37:14 CDT by Kishan Gudino [email or web address] ��������������������������������������������� <ELECTRONICALLY SIGNED> ���������������������������������������� By: Kishan Gudino MD ��������������������������������������������� 08/31/18 0937 D: [id number] 32 Kishan Gudino MD /MAYI
--- NOTE | 2018-08-31 09:39 | EKG ---
[address] [address] ELECTROCARDIOGRAM REPORT Name: CATIA HARRIS Room #: 211-P [facility]..#: [id number] ������������������ Admission: 08/30/18 ������������������ Attend Phys: Kishan Gudino MD Discharge: ������������������ Date of : 40 Report #: [id number] ����������������������������������������������������������������� [id number] THIS REPORT FOR: //name// [facility] Test Date: 2018-08-31 Test Time: 07:23:00 Pat Name: CATIA HARRIS Department: Room: 211 P Gender: M Profile Grinder: SAMM : 1940 Requested By: Kishan Gudino Order Number: [id number] MD: Kishan Gudino Measurements Intervals [place] Rate: 65 P: [place]: QRS: 87 QRSD: 105 T: 109 QT: 452 QTc: 470 Interpretive Statements Atrial fibrillation Ventricular premature complex Probable left ventricular hypertrophy Nonspecific T abnormalities, lateral leads Compared to ECG 08/30/2018 07:25:29 T-wave abnormality now present Electronically Signed On 08-31-2018 9:38:59 CDT by Kishan Gudino [email or web address] ��������������������������������������������� <ELECTRONICALLY SIGNED> ���������������������������������������� By: Kishan Gudino MD ��������������������������������������������� 08/31/18 0938 0723 2 Kishan Gudino MD /MAYI
[2018-08-31 11:39] VITALS: BP 89/44
[2018-08-31 11:52] VITALS: BP 89/44
--- NOTE | 2018-08-31 13:26 | NUR ---
Assumed pt care at 7am.Pt in bed resting without c/o.Assessment completed.vss. Am meds given with breakfast and well tolerated.Dr Gudino here, dc order noted. Pt wanted to go home after lunch.Dc summary compiled and reviewed with pt. Pt c/o headache hydrocodone given with relief.Saline lock dc'd and at 1335,pt dc home in [place] with family.
--- NOTE | 2018-09-01 15:10 | D ---
[facility] [place] [address] [place] [address] DISCHARGE SUMMARY Name: STEVENCATIA WEST Romy Room #: 211-P [facility] B[facility] Fuentes#: [id number] Admission: 08/30/18 ������������������ Attend Phys: Kishan Gudino MD Discharge: 08/31/18 ������������������ Date of : 40 Report #: [id number] THIS REPORT FOR: //name// CC: Thomas Gudino DATE OF SERVICE: 08/31/2018 FINAL DIAGNOSES: 1. Unstable angina, status post percutaneous coronary intervention. 2. Coronary artery disease with previous coronary artery bypass graft and previous PCI procedures. 3. History of aortic valve replacement. 4. Atrial fibrillation. 5. Congestive heart failure/diastolic dysfunction. 6. History of diabetes mellitus. 7. History of hypertension. 8. History of hypercholesterolemia. 9. Gait instability, history of fall with subsequent subdural hematoma. 10. History of restrictive lung disease. HOSPITAL COURSE: Please see the original H and P for full details. The patient has a history of multiple PCI procedures and bypass surgery. He again presented with unstable angina. Please see the cardiac catheterization report for full details. There is a severe, de kimani lesion in the mid segment of the LAD. Angioplasty was performed with placement of one drug-eluting stent. He has remained stable overnight with ambulation. He denies any further episodes of chest pains. He will continue with aspirin and Plavix therapy. FINAL DISPOSITION: He will continue with his other medications listed in his MAR. He is given instructions for followup in the office within the next few weeks. ��������������������������������������������� <ELECTRONICALLY SIGNED> ���������������������������������������� By: Kishan Gudino MD ��������������������������������������������� 09/01/18 1510 0834 0926 Kishan Gudino MD /nt
== END 2018-08-31 13:20 | disposition home or self-care (01) ==
LOC: CATH 06:52 → 2N 15:43 → ENTRNSPT 08-31 13:13 → 2N 08-31 13:20
PROVIDERS: ADMIT Internal Medicine Cardiovascular Disease
DX: I25.110 Atherosclerotic heart disease of native coronary artery with unstable angina pectoris (principal); I48.91 Unspecified atrial fibrillation; I11.0 Hypertensive heart disease with heart failure; I50.9 Heart failure, unspecified; E11.9 Type 2 diabetes mellitus without complications; E78.00 Pure hypercholesterolemia, unspecified; R26.89 Other abnormalities of gait and mobility; R06.00 Dyspnea, unspecified; Z95.4 Presence of other heart-valve replacement; Z87.09 Personal history of other diseases of the respiratory system

== ENCOUNTER → 2018-12-15 | Outpatient (CLI) | payer OTHER ==
[~2018-12-15] VITALS: Ht 180.3 cm; Wt 90.7 kg
[~2018-12-15] MED LIST changes: +HUMALOG100 UNIT/1 SUBQ; +MULTIPLE VITAM1 EAC2 PO
[2018-12-15 07:38] VITALS: BP 183/75
[2018-12-15 07:59] LABS: HEMATOCRIT 35.3 % (42.0-52.0); HEMOGLOBIN 11.9 gm/dL (14.0-18.0); MCH 31.3 pg (26.0-34.0); MCHC 33.7 g/dL (28.0-37.0); MCV 92.9 fL (80.0-100.0); RBC 3.8 mil/uL (4.50-6.00); RDW 15.1 % (10.5-14.5); WBC 6.6 thou/uL (4.0-11.0)
[2018-12-15 08:06] LABS: CALCIUM 9.6 mg/dL (8.5-10.1); CREATININE 1.6 mg/dL (0.7-1.3); POTASSIUM 4.5 mmol/L (3.5-5.1)
--- NOTE | 2018-12-15 08:37 | EKG ---
[place] [address] [facility] [employer] [place] [address] ELECTROCARDIOGRAM REPORT Name: STEVENCATIA GONCALVES Room #: REG [facility]#: [id number] ������������������ Admission: 12/15/18 ������������������ Attend Phys: Kishan Gudino MD Discharge: ������������������ Date of : 40 Report #: [id number] ����������������������������������������������������������������� [id number] THIS REPORT FOR: //name// [facility] Test Date: 2018-12-15 Test Time: 07:44:27 Pat Name: CATIA HARRIS Department: Room: Gender: M Certified Cytotechnologist: [facility] : 1940 Requested By: Kishan Gudino Order Number: [id number] MD: Anibal Shea Measurements Intervals [place] Rate: 61 P: ID: QRS: 72 QRSD: 109 T: -13 QT: 451 QTc: 455 Interpretive Statements Sinus rhythm Nonspecific ST segment abnormality Compared to ECG 08/31/2018 07:23:00 Ventricular premature complex(es) no longer present Electronically Signed On 12-15-2018 8:37:42 CDT by Anibal Shea [email or web address] ��������������������������������������������� <ELECTRONICALLY SIGNED> ���������������������������������������� By: Anibal Shea MD, [facility] ��������������������������������������������� 12/15/18 0837 0744 3 Anibal Shea MD, FACC /EPI
--- NOTE | 2018-12-15 16:23 | CATHLAB ---
[facility] [place] [address] INVASIVE PROCEDURE REPORT Name: STEVENCATIA Room #: REG [facility]#: [id number] ������������� Admission: 12/15/18 ������������� Attend Phys: Kishan Gudino MD Discharge: ��� ������������� ��� Date of : 40 Date of Service: 12/15/18 1623 �� Report #: [id number] �������� ��������������������������������������������[id number] THIS REPORT FOR: //name// APPROVED REPORT Study performed: 12/15/2018 09:24:07 Patient Details Patient Status: Out-Patient Room #: The patient is a 78 year-old male Event Personnel Kishan Gudino Skilled Nursing Facility Counselor, Pam Ricks RN RN, Marcelo Mancera RTR Scrub, Francine Arias RTR Scrub, Adrianne Potter RTR Monitor Procedures Performed Art Access - R femoral artery* Coronaries Angiography and Bypass Grafts 597597 CORCABG 71522 Initial Mod Sed Same Phys/QHP Gr5y 494014 98199 Mod Sed Same Phys/QHP Ea 626206 Indication Dyspnea, Unstable angina , Chest pain Risk Factors Cerebrovascular DiseasePeripheral Vascular Disease, Chronic Lung DiseaseHypercholesterolemiaPhysical Activity, Coronary Artery DiseaseHypertension, Diabetes Previous Procedures/Diagnoses Previous CABGPrevious CVAPrevious PCI, Previous [place] Procedure Narrative The Right Groin^ was infiltrated with 1% Lidocaine subcutaneous anesthesia. A PINNACLE 4FR Sheath #[id number] sheath was inserted into the RFA^. Coronary angiography was performed using coronary diagnostic catheters. The left coronary system was accessed and visualized with a JL4 catheter. Hemostasis was obtained with manual pressure following sheath removal without any complications. The patient tolerated the procedure well and there were no complications associated with the procedure. There was no hematoma. Intraoperative Conscious Sedation Sedation start time: 9:47 Case end Time: 10:[address] [address] INVASIVE PROCEDURE REPORT Name: CATIA HARRIS Room #: [facility]#: [id number] ������������� Admission: 12/15/18 ������������� Attend Phys: Kishan Gudino MD Discharge: ��� ������������� ��� Date of : 40 Date of Service: 12/15/18 1623 �� Report #: [id number] �������� ��������������������������������������������[id number] Fentanyl 50 mcg Versed 1 mg Fluoro Time: 8.10 minutes Dose: DAP 8450.00 cGycm2 2422 mGy Contrast Type and Amount: Visipaque 90 ml Coronary Angiography The patient's coronary anatomy is right dominant. [place] Artery Percent Stenosis Left Main: % Prox LAD: % Mid/Distal LAD: % Circumflex: 100 % RCA: 100 % Ramus: % Diagnostic Cath Left Main There is a large caliber vessel, patent with no flow-limiting lesions. LAD There are overlapping stents in the ostial/proximal segment, with moderate restenosis, 50-60%. There is a patent stent in the midsegment of the LAD. OM1 There is a patent SALAZAR graft with an end to side anastomosis to OM1. After the anastomosis, there is antegrade flow to a moderate size OM1 vessel, which supplies multiple branches as it travels a lateral wall. R PDA There is an SVG with an end-to-side anastomosis to the PDA. There are multiple stents throughout the vein graft. There is a stent in the ostium of the vein graft with severe restenosis, 90%. The distal anastomotic site, there is a severe restenotic lesion, 90%. Left Ventriculography Left Ventriculography was not performed. Hemodynamics The aortic pressure is 190/73 mmHg with a mean of 65 mmHg. Conclusion 1. Severe restenotic lesions involving the ostial/proximal segment and distal anastomotic segment of the SVG to the PDA. Recommend laser atherectomy. 2. Patent SALAZAR graft to OM1. 3. Moderate stenosis in the stents in the ostial/proximal segment of the LAD. 4. There is a patent stent in the mid segment of the LAD. [address] [address] INVASIVE PROCEDURE REPORT Name: CATIA HARRIS Room #: REG [facility]#: [id number] ������������� Admission: 12/15/18 ������������� Attend Phys: Kishan Gudino MD Discharge: ��� ������������� ��� Date of : 40 Date of Service: 12/15/18 1623 �� Report #: [id number] �������� ��������������������������������������������[id number] 5. Recommend aggressive risk factor management. The patient will return for a staged laser atherectomy procedure. ��������������������������������������������� <ELECTRONICALLY SIGNED> ���������������������������������������� By: Kishan Gudino MD ��������������������������������������������� 12/15/18 1623 1623 1623 Kishan Gudino MD /INF
== END | disposition home or self-care (01) ==
LOC: CATH 06:35
PROVIDERS: Internal Medicine Cardiovascular Disease
DX: I25.700 Atherosclerosis of coronary artery bypass graft(s), unspecified, with unstable angina pectoris (principal); T82.855A Stenosis of coronary artery stent, initial encounter; I11.0 Hypertensive heart disease with heart failure; I50.9 Heart failure, unspecified; E11.40 Type 2 diabetes mellitus with diabetic neuropathy, unspecified; E78.00 Pure hypercholesterolemia, unspecified; J44.9 Chronic obstructive pulmonary disease, unspecified; I73.9 Peripheral vascular disease, unspecified; D64.9 Anemia, unspecified; I25.2 Old myocardial infarction; G47.30 Sleep apnea, unspecified; E78.5 Hyperlipidemia, unspecified; N40.0 Benign prostatic hyperplasia without lower urinary tract symptoms; K21.9 Gastro-esophageal reflux disease without esophagitis; I48.91 Unspecified atrial fibrillation; I48.92 Unspecified atrial flutter; Z79.01 Long term (current) use of anticoagulants; Z79.4 Long term (current) use of insulin; E66.09 Other obesity due to excess calories; Z90.49 Acquired absence of other specified parts of digestive tract; Z95.1 Presence of aortocoronary bypass graft; Z98.890 Other specified postprocedural states; Z96.641 Presence of right artificial hip joint; Z79.899 Other long term (current) drug therapy; Z96.652 Presence of left artificial knee joint; Z88.0 Allergy status to penicillin; Z88.8 Allergy status to other drugs, medicaments and biological substances; Z79.82 Long term (current) use of aspirin

== ENCOUNTER 2018-12-20 07:05 | Observation (INO) | payer OTHER ==
[~2018-12-20] VITALS: Ht 167.6 cm; Wt 97.5 kg
[2018-12-20 07:41] LABS: HEMATOCRIT 35.8 % (42.0-52.0); MCH 30.8 pg (26.0-34.0); MCHC 33.6 g/dL (28.0-37.0); MCV 91.7 fL (80.0-100.0); RBC 3.9 mil/uL (4.50-6.00); RDW 14.9 % (10.5-14.5); WBC 5.7 thou/uL (4.0-11.0)
[2018-12-20 07:46] VITALS: BP 182/86
[2018-12-20 07:51] LABS: CALCIUM 9.4 mg/dL (8.5-10.1); CREATININE 1.6 mg/dL (0.7-1.3); POTASSIUM 4.3 mmol/L (3.5-5.1)
[2018-12-20 07:54] LABS: PROTIME 10.4 Seconds (9.3-11.4)
--- NOTE | 2018-12-20 16:41 | CATHLAB ---
[facility] [address] [place] [address] INVASIVE PROCEDURE REPORT Name: STEVENCATIA Romy Room #: [facility]#: [id number] ������������� Admission: 12/20/18 ������������� Attend Phys: Kishan Gudino MD Discharge: ��� ������������� ��� Date of : 40 Date of Service: 12/20/18 1641 �� Report #: [id number] �������� ��������������������������������������������[id number] THIS REPORT FOR: //name// APPROVED REPORT Study performed: 12/20/2018 09:48:10 Patient Details Patient Status: Out-Patient Room #: The patient is a 78 year-old male Event Personnel Kishan Gudino Transportation Planning Technician, Brett Gracia RN, Tawanna Lyman RN RN, Zachary Doe RTR Jamshid Lozano David Monitor Procedures Performed Atherectomy w/wo Plasty Addl PDA [id number] ATHADDL JORDIN Revasc Graft Single PDA C9604 SVGREVSING Indication Dyspnea, Unstable angina , Chest pain Risk Factors Cerebrovascular DiseasePeripheral Vascular Disease, HypercholesterolemiaPhysical Activity, Coronary Artery DiseaseHypertensionRenal Failure, Diabetes Previous Procedures/Diagnoses Previous CABGPrevious PCI, Previous Femoral Procedure, Previous [place] Procedure Narrative The Right Groin^ was infiltrated with 1% Lidocaine subcutaneous anesthesia. A PINNACLE 6FR Sheath #[id number] sheath was inserted into the RFA^. Coronary angiography was performed using coronary diagnostic catheters. The patient tolerated the procedure well and there were no complications associated with the procedure. Intraoperative Conscious Sedation Fentanyl mcg Versed mg Fluoro Time: 27.22 minutes Dose: DAP 08679.[address] [address] INVASIVE PROCEDURE REPORT Name: STEVENCATIA GONCALVES Room #: REG CL [facility]#: [id number] ������������� Admission: 12/20/18 ������������� Attend Phys: Kishan Gudino MD Discharge: ��� ������������� ��� Date of : 40 Date of Service: 12/20/18 1641 �� Report #: [id number] �������� ��������������������������������������������[id number] Coronary Angiography The patient's coronary anatomy is right dominant. Diagnostic Cath Right Coronary The patient had a recent cardiac catheterization performed for unstable angina. Angiography revealed severe restenotic lesions involving the ostium and distal anastomosis of the saphenous vein graft to the PDA. He presents today for a staged angioplasty procedure involving laser atherectomy and stent placement. Hemodynamics The aortic pressure is 142/55 mmHg with a mean of 87 mmHg. PCI Technique Lesion Percutaneous coronary intervention was performed on the distal anastomotic site of the SVG to the PDA.. The lesion stenosis prior to intervention was 95% with STUART 3 flow. A VISTA 6FR MPA 1 #379880 Guide Catheter was used to engage the ostium. A Luge Wire .014 x 182CM #[id number] Interventional Guidewire was used to cross the lesion. BALLOON DILATION 0.9 LASER WAS USED WITH 2 PASSES AT THE LESION SITE AT THE DISTAL ANASTOMOSIS. STENT DEPLOYMENT A drug-eluting stent XIENCE VERONIQUE RX 2.5 X 12 #[id number] was inserted and inflated up to 12atm for 11seconds. Additional Inflation: 16.00atm for 13seconds. POST STENT DEPLOYMENT BALLOON DILATION A Balloon catheter Euphora NC RX 2.75 x 12 #[id number] was inserted and inflated up to 18.00atm for 18seconds. Additional Inflation: 20atm for 36seconds. Final angiography reveals 5 % stenosis with STUART 3 flow. PCI Technique Lesion 2 Percutaneous coronary intervention was performed on the ostial/proximal segment of the SVG to the PDA.. The lesion stenosis prior to intervention was 90% with STUART 3 flow. A VISTA 6FR MPA 1 #417877 Guide Catheter was used to engage the ostium. A Luge Wire .014 x 182CM #563893 Interventional Guidewire was used to cross the lesion. [facility] [address] [place] [address] INVASIVE PROCEDURE REPORT Name: CATIA HARRIS Room #: REG [facility]#: [id number] ������������� Admission: 12/20/18 ������������� Attend Phys: Kishan Gudino MD Discharge: ��� ������������� ��� Date of : 40 Date of Service: 12/20/18 1641 �� Report #: [id number] �������� ��������������������������������������������[id number] Balloon Dilation A Balloon catheter ANGIOSCULPT RX 3.0MM X 10MM SCORING BALLOON #[id number] was inserted and inflated up to 18.00atm for 61seconds. Additional Inflation: 18.00atm for 48seconds. 0.9 LASER ATHERECTOMY WAS PERFORMED WITH MULTIPLE PASSES AT THE OSTIAL/PROXIMAL SITE. An angiosculpt balloon was inflated at the lesion site. Stent Deployment A drug-eluting stent XIENCE VERONIQUE RX 4.0 X 12 #[id number] was inserted and inflated up to 14.00atm for 28seconds. Additional Inflation: 18.00atm for 20seconds. Final angiography reveals 0 % stenosis with STUART 3 flow. PCI Technique Lesion 3 Percutaneous coronary intervention was performed on the midsegment of the SVG to the PDA.. The lesion stenosis prior to intervention was 70% with STUART 3 flow. A VISTA 6FR MPA 1 #023084 Guide Catheter was used to engage the ostium. A Luge Wire .014 x 182CM #398524 Interventional Guidewire was used to cross the lesion. Stent Deployment A drug-eluting stent XIENCE VERONIQUE RX 3.0 X 15 #[id number] was inserted and inflated up to 20atm for 26seconds. Final angiography reveals 0 % stenosis with STUART 3 flow. Conclusion 1. Successful PCI involving laser atherectomy and placement of drug-eluting stents into the ostial/proximal and distal anastomotic site of the SVG to the PDA. 2. The patient remained hemodynamically stable during the procedure. 3. Recommend dual antiplatelet therapy and aggressive risk factor management. ��������������������������������������������� <ELECTRONICALLY SIGNED> ���������������������������������������� By: Kishan Gudino MD ��������������������������������������������� 12/20/181640 40 40 Kishan Gudino MD /INF
[2018-12-20 17:00] VITALS: BP 171/70
--- NOTE | 2018-12-20 19:12 | NUR ---
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 Jovany BAEZ CDI. NO COMPLAINTS OF PAIN, POST CATH VITAL SIGN FLOW SHEET IN CHART, WILL CONTINUE TO MONITOR
[2018-12-20 19:58] VITALS: BP 137/59
--- NOTE | 2018-12-21 03:00 | NUR ---
ASSESSMENT CHARTED. VSS. SR-SB ON MONITOR. PT DENIES CP, N/V, DIZZINESS, SOA. OFF BED REST. ST BY WITH WALKER TO BATHROOM STEADY. R GROIN CDI NO HEMATOMA. SLEEPING WELL. WILL CONTINUE TO MONITOR AND WITH POC.
[2018-12-21 04:45] VITALS: BP 134/49
[2018-12-21 05:44] LABS: HEMATOCRIT 35.9 % (42.0-52.0); HEMOGLOBIN 12.1 gm/dL (14.0-18.0); MCHC 33.6 g/dL (28.0-37.0); MCV 92.3 fL (80.0-100.0); RBC 3.89 mil/uL (4.50-6.00); RDW 15.3 % (10.5-14.5); WBC 8.1 thou/uL (4.0-11.0)
[2018-12-21 06:09] LABS: ALBUMIN 3.5 g/dL (3.4-5.0); CALCIUM 9.3 mg/dL (8.5-10.1); CREATININE 1.4 mg/dL (0.7-1.3); POTASSIUM 3.8 mmol/L (3.5-5.1); TOTAL BILIRUBIN 0.5 mg/dL (<0.1-1.0); TOTAL PROTEIN 7.2 g/dL (6.4-8.2)
[2018-12-21 06:12] LABS: TROPONIN-I 3.01 ng/mL (<0.06)
[2018-12-21 07:31] VITALS: BP 146/79
--- NOTE | 2018-12-21 07:55 | EKG ---
[address] [place] [address] ELECTROCARDIOGRAM REPORT Name: CATIA HARRIS Room #: 202-P [facility]#: [id number] ������������������ Admission: 12/20/18 ������������������ Attend Phys: Kishan Gudino MD Discharge: ������������������ Date of : 40 Report #: [id number] ����������������������������������������������������������������� [id number] THIS REPORT FOR: //name// [facility] Test Date: 2018-12-20 Test Time: 07:31:09 Pat Name: CATIA HARRIS Department: Room: [facility] Gender: M Pet Groomer: Amarilys PRO : 1940 Requested By: Kishan Gudino Order Number: [id number] MD: Anibal Shea Measurements Intervals [place] Rate: 69 P: [place]: QRS: 81 QRSD: 113 T: -51 QT: 436 QTc: 467 Interpretive Statements Atrial fibrillation Nonspecific ST segment abnormality No previous ECGs available for comparison Electronically Signed On 12-21-2018 7:55:09 CDT by Anibal Shea [email or web address] ��������������������������������������������� <ELECTRONICALLY SIGNED> ���������������������������������������� By: Anibal Shea MD, [facility] ��������������������������������������������� 12/21/18 0755 0731 07 Anibal Shea MD, FACC /EPI
--- NOTE | 2018-12-21 08:15 | EKG ---
[address] [place] [address] ELECTROCARDIOGRAM REPORT Name: CATIA HARRIS Room #: 202-P [facility]#: [id number] ������������������ Admission: 12/20/18 ������������������ Attend Phys: Kishan Gudino MD Discharge: ������������������ Date of : 40 Report #: [id number] ����������������������������������������������������������������� [id number] THIS REPORT FOR: //name// [facility] Test Date: 2018-12-20 Test Time: 15:43:51 Pat Name: CATIA HARRIS Department: Room: [facility] Gender: M Resident Services Director: Brent YOST : 1940 Requested By: Kishan Gudino Order Number: [id number] MD: Anibal Shea Measurements Intervals [place] Rate: 82 P: [place]: QRS: 97 QRSD: 117 T: -22 QT: 411 QTc: 480 Interpretive Statements Atrial fibrillation with occasional premature ventricular complexes Nonspecific ST segment abnormality Compared to ECG 12/15/2018 07:44:27 Premature ventricular complexes are now present Electronically Signed On 12-21-2018 8:14:41 CDT by Anibal Shea [email or web address] ��������������������������������������������� <ELECTRONICALLY SIGNED> ���������������������������������������� By: Anibal Shea MD, [facility] ��������������������������������������������� 12/21/18 0814 1543 1543 Anibal Shea MD, [facility] /EPI
--- NOTE | 2018-12-21 08:24 | EKG ---
[address] [place] [address] ELECTROCARDIOGRAM REPORT Name: CATIA HARRIS Room #: 202-P [facility]..#: [id number] ������������������ Admission: 12/20/18 ������������������ Attend Phys: Kishan Gudino MD Discharge: ������������������ Date of : 40 Report #: [id number] ����������������������������������������������������������������� [id number] THIS REPORT FOR: //name// [facility] Test Date: 2018-12-21 Test Time: 07:45:15 Pat Name: CATIA HARRIS Department: Room: 202 P Gender: M Outside Cutter: SAMM : 1940 Requested By: Kishan Gudino Order Number: [id number] MD: Anibal Shea Measurements Intervals [place] Rate: 69 P: [place]: QRS: 75 QRSD: 115 T: -9 QT: 426 QTc: 457 Interpretive Statements Atrial fibrillation Probable LVH with secondary repol abnrm Compared to ECG 12/15/2018 07:44:27 Premature ventricular complexes are no longer present Electronically Signed On 12-21-2018 8:24:11 CDT by Anibal Shea [email or web address] ��������������������������������������������� <ELECTRONICALLY SIGNED> ���������������������������������������� By: Anibal Shea MD, [facility] ��������������������������������������������� 12/21/1824 4 Anibal Shea MD, [facility] /EPI
[2018-12-21 10:49] VITALS: BP 146/79
--- NOTE | 2018-12-21 11:04 | NUR ---
ASSESSMENT CHARTED - MEDS PER JUN - SSI INSULIIN GIVEN ORDERED FOR BLOOD SUGAR. [facility] DIET AND FLUIDS. NO CO'S OF PAIN OR NAUSEA. GROIN SITE STABLE. SEEN BY [facility] NURSE THIS AM - PT HOME - MIONITOR AND IV REMOVED PRIOR TO DISCHARGE - PT LEAVING UNIT VIA WHEELCHAIR - HOME VIA PVT VEHICLE ACCOMPANIED BY BROTHER . NO CO'S AT TIME OF D/C.
--- NOTE | 2018-12-22 08:55 | HC ---
[facility] [place] [address] CONSULTATION Name: CATIA HARRIS Romy Room #: 202-P [facility] Bienvenido Fuentes#: [id number] Admission: 12/20/18 ������������������ Attend Phys: Kishan Gudino MD Discharge: 12/21/18 ������������������ Date of : 40 Report #: [id number] THIS REPORT FOR: //name// CC: ADONAY Gudino DATE OF SERVICE: 12/21/2018 CONSULTING PHYSICIAN: Dr. Diaz. REASON FOR CONSULTATION: Uncontrolled type 2 diabetes mellitus. HISTORY OF PRESENT ILLNESS: This is a 78-year-old male patient who has medical background significant for multiple medical issues including type 2 diabetes mellitus, hypertension, hyperlipidemia as well as coronary artery disease. The patient seems to have had multiple coronary arterial stent placements in the past and was admitted yesterday where 3 stents were placed as well. When questioned about his diabetes history, he indicated that he has had diabetes mellitus for over 30 years and indicated that his home based regimen consists of Levemir insulin at a dose of 8 units q.p.m. in addition to Humalog insulin and going by sliding scale before meals and ranging between 8 and 12 units before meals. Additionally, the patient takes metformin 500 mg b.i.d. The patient notes that his morning blood glucose values are typically well controlled and tend to be around 100 mg/dL. He notes that his blood glucose values during the day tend to remain under 180 mg/dL. The patient does seem to recall having had occasional episodes of hypoglycemia, some of which sounded severe enough to warrant hospitalization or at least on ER presentation. The patient is not aware of issues pertaining to diabetic retinopathy, but appears to have had difficulties with cataract. The patient is not aware of history of diabetic nephropathy and denies dealing with paresthesias or numbness affecting his upper or lower extremities. The patient is also known to have hypertension and hyperlipidemia. REVIEW OF SYSTEMS: CONSTITUTIONAL: Occasional issues with fatigue and tiredness, but no fever, chills or changes in body weight. HEENT: Negative for sinus pain, earaches or ear drainage. PULMONARY: Negative for cough, hemoptysis, but noted for occasional shortness of breath. CARDIAC: Intermittent chest discomfort, palpitations, but not syncope or presyncope. GASTROINTESTINAL: No abdominal pain, nausea, vomiting or significant change in bowel movement frequency. NEUROLOGY: Negative for loss of consciousness, headaches and seizure activity. [address] [address] CONSULTATION Name: CATIA HARRIS Room #: 202-P [facility] Bienvenido Fuentes#: [id number] Admission: 12/20/18 ������������������ Attend Phys: Kishan Gudino MD Discharge: 12/21/18 ������������������ Date of : 40 Report #: [id number] PSYCHIATRIC: Negative for delusions, hallucinations. SKIN: Negative for ulceration, itching or discoloration. Otherwise, review of systems noncontributory other than those mentioned in HPI. PAST MEDICAL HISTORY: Type 2 diabetes mellitus as noted above, cataract, eye disease, hypertension, hyperlipidemia, chronic kidney disease, coronary artery disease, status post stent placement as noted above. Atrial fibrillation, history of aortic valve replacement, congestive heart failure, diastolic dysfunction, history of subdural hematoma due to a fall. History of restrictive lung disease. CURRENT MEDICATIONS: Aspirin 81 mg daily, atorvastatin 40 mg daily, carvedilol 25 mg b.i.d., Plavix 75 mg daily, Demadex 40 mg daily, Flomax 0.4 mg b.i.d., Humalog supplemental scale, Imdur 60 mg daily, losartan 100 mg daily, Singulair 10 mg daily, Norvasc 10 mg daily, pantoprazole 40 mg daily. At home, the patient takes Levemir insulin 8 units q.p.m., Humalog at a dose of 8-12 units t.i.d. a.c. based on sliding scale as well as metformin 500 mg b.i.d. ALLERGIES: No known drug allergies. FAMILY HISTORY: Noted for a form of skin cancer. SOCIAL HISTORY: The patient has never been , has no children. Denies use of tobacco or alcohol. He lives with his brother. PHYSICAL EXAMINATION: GENERAL: Pleasant male patient who is not in apparent distress. He was sitting up having breakfast. VITAL SIGNS: Blood pressure is 146/79 mmHg, heart rate is 55 beats per minute, respirations 18 per minute, temperature 36.7 degrees. CONSTITUTIONAL: He appears comfortable, not in apparent distress. HEENT: Anicteric sclerae. Intact extraocular motions. NECK: Supple without JVD, carotid bruits or lymphadenopathy. I do not appreciate thyromegaly. CHEST: Noted for limited air entry bilaterally with scattered rales, but no wheezes or rhonchi. HEART: Regular rate and rhythm without murmurs or gallops. ABDOMEN: Soft and lax without tenderness or organomegaly, has active bowel sounds. EXTREMITIES: Lower extremities is noted for trace ankle edema, some stasis dermatitis changes over both lower extremities, faint pedal pulses, but no skin breaks, ulcerations or other deformities. NEUROLOGIC: Awake, alert and oriented to time, place and person. The remainder of his examination is nonfocal. PSYCHIATRIC: Appropriate and interactive. Normal mood and affect. MUSCULOSKELETAL: No deformities and apparent full range of motion. [facility] [address] [place] [address] CONSULTATION Name: CATIA HARRIS Room #: 202-P [facility]#: [id number] Admission: 12/20/18 ������������������ Attend Phys: Kishan Gudino MD Discharge: 12/21/18 ������������������ Date of : 40 Report #: [id number] LABORATORY DATA: White blood count 8.1, hemoglobin 12.1, hematocrit 35.9, platelets 179. Sodium 140, potassium 3.8, chloride 104, carbon dioxide 27, anion gap 9, BUN 33, creatinine 1.4, GFR 49, glucose 80, calcium 9.3, total bilirubin 0.5, AST 13, alkaline phosphatase 48. Troponin 3.01, albumin 3.5, yesterday's glucose was 241 and 334. ASSESSMENT AND PLAN: 1. Type 2 diabetes mellitus. As noted above, the patient has a fairly longstanding history of type 2 diabetes mellitus, but with seemingly good level of control at home as per his reported blood glucose values. During this admission, the patient was understandably taken off his usual regimen and covered only with Humalog supplemental scale. Yesterday, he was noted to have severe hyperglycemia, but again this is happening in the context of not being on his usual regimen. That said, I am inclined to maintain the patient on the same home based regimen of Levemir insulin 8 units q.p.m., Humalog meal coverage with scale approach at the same rate as well as metformin 500 mg b.i.d., especially that his GFR has mostly been above 60 over the past few years. I asked the patient to monitor his blood glucose closely at home and document these so that we can review when he returns to follow up in 2-3 weeks from now in the office setting. I would likely do a hemoglobin A1c at that point in time to figure out more about his overall level of control. 2. Hypertension. The patient's level of blood pressure control is adequate on the current regimen. He is to continue with that as per the recommendations of Cardiology. 3. Hyperlipidemia. The patient is currently on atorvastatin therapy at 40 mg daily. He is certainly warranted for aggressive lipid control on the basis of his diabetic state and significant background for coronary artery disease. I certainly appreciate this consultation by Dr. Diaz. ��������������������������������������������� <ELECTRONICALLY SIGNED> ���������������������������������������� By: Huseyin Hannon MD ��������������������������������������������� 12/22/18 0855 0855 2314 Huseyin Hannon MD /nt
--- NOTE | 2018-12-23 08:32 | D ---
[facility] [place] [address] DISCHARGE SUMMARY Name: CATIA HARRIS Romy Room #: 202-P [facility] Bienvenido Fuentes#: [id number] Admission: 12/20/18 ������������������ Attend Phys: Kishan Gudino MD Discharge: 12/21/18 ������������������ Date of : 40 Report #: [id number] THIS REPORT FOR: //name// CC: Thomas Gudino DATE OF SERVICE: 12/21/2018 FINAL DIAGNOSES: 1. Unstable angina, status post percutaneous coronary intervention. 2. History of coronary artery bypass grafting and multiple PCI procedures. 3. Diabetes mellitus. 4. Chronic atrial fibrillation. 5. Intracranial hemorrhage. 6. Gait instability. 7. Hypertension. 8. Hypercholesterolemia. 9. Chronic kidney disease. HOSPITAL COURSE: Please see the original H and P for full details. The patient presented with unstable angina. He had a recent cardiac catheterization revealing severe restenotic lesions involving the ostium and distal anastomosis of the SVG to the PDA. He presented electively for a staged angioplasty procedure. He underwent laser atherectomy of both areas and placement of drug-eluting stents. He has remained stable overnight. He will be discharged home on metformin, insulin, tamsulosin, albuterol, Advair, Singulair, Flonase, amlodipine, Lipitor 40 mg daily, Lasix 40 mg daily, Ranexa, Plavix 75 mg daily, aspirin once a day, Coreg 25 mg b.i.d., olmesartan, Imdur and insulin. He is scheduled for followup in the office. ��������������������������������������������� <ELECTRONICALLY SIGNED> ���������������������������������������� By: Kishan Gudino MD ��������������������������������������������� 12/23/18 0832 0810 1621 Kishan Gudino MD /nt
== END 2018-12-21 11:16 | disposition home or self-care (01) ==
LOC: CATH 07:05 → 2N 16:58 → ENTRNSPT 12-21 11:04 → EDTRNSPTSTS 12-21 11:08 → 2N 12-21 11:16
PROVIDERS: ADMIT Internal Medicine Cardiovascular Disease
DX: I25.110 Atherosclerotic heart disease of native coronary artery with unstable angina pectoris (principal); E11.9 Type 2 diabetes mellitus without complications; I10 Essential (primary) hypertension; E78.5 Hyperlipidemia, unspecified; Z79.82 Long term (current) use of aspirin; Z79.01 Long term (current) use of anticoagulants; Z79.4 Long term (current) use of insulin

== ENCOUNTER 2018-12-28 08:01 | Outpatient (CLI) | payer OTHER ==
[~2018-12-28] VITALS: Ht 182.9 cm; Wt 96.3 kg
[2018-12-28] VITALS (7 sets, daily range): BP systolic 140–181; BP diastolic 62–84
[2018-12-28 08:53] LABS: HEMATOCRIT 33.7 % (42.0-52.0); HEMOGLOBIN 11.3 gm/dL (14.0-18.0); MCH 30.9 pg (26.0-34.0); MCHC 33.5 g/dL (28.0-37.0); MCV 92.3 fL (80.0-100.0); RBC 3.65 mil/uL (4.50-6.00); RDW 15.3 % (10.5-14.5); WBC 5.7 thou/uL (4.0-11.0)
--- NOTE | 2018-12-28 08:57 | EKG ---
[address] [address] ELECTROCARDIOGRAM REPORT Name: CATIA HARRIS Room #: [facility]#: [id number] Admission: 12/28/18 Attend Phys: Kishan Gudino MD Discharge: Date of : 40 Report #: [id number] THIS REPORT FOR: //name// [facility] Test Date: 2018-12-28 Test Time: 08:37:15 Pat Name: CATIA HARRIS Department: Room: Gender: Avionics Supervisor: Amarilys PRO : 1940 Requested By: Kishan Gudino Order Number: [id number] MD: Anibal Shea Measurements Intervals [place] Rate: 75 P: -56 [place]: 300 QRS: 77 QRSD: 126 T: -57 QT: 432 QTc: 483 Interpretive Statements Atrial fibrillation Nonspecific intraventricular conduction delay Compared to ECG 12/21/2018 07:45:15 No significant change was found Electronically Signed On 12-28-2018 8:57:14 CDT by Anibal Shea [email or web address] <ELECTRONICALLY SIGNED> By: Anibal Shea MD, [facility] 12/28/18 0857 D: 09836 6 Anibal Shea MD, FACC /EPI
[2018-12-28 09:01] LABS: CALCIUM 9.8 mg/dL (8.5-10.1); CREATININE 1.8 mg/dL (0.7-1.3); POTASSIUM 4.2 mmol/L (3.5-5.1)
--- NOTE | 2018-12-28 17:16 | CATHLAB ---
[facility] [address] [place] [address] INVASIVE PROCEDURE REPORT Name: CATIA HARRIS Room #: 214-P [facility]#: [id number] Admission: 12/28/18 Attend Phys: Kishan Gudino MD Discharge: Date of : 40 Report #: [id number] THIS REPORT FOR: //name// APPROVED REPORT Study performed: 12/28/2018 13:44:34 Patient Details Patient Status: Out-Patient Room #: The patient is a 78 year-old male Event Personnel Kishan Gudino Software Development Manager, Brett Gracia RN, Zachary Doe RTR Scrub, Mita Martinez RTR Scrub, Nahum Breen Monitor Procedures Performed Coronaries Angiography and Bypass Grafts 907741 CORCABG Atherectomy w/wo Plasty Sgl LAD 9060259 ATHSINGLE JORDIN Place w/wo Plasty Single LAD 003867 Indication Dyspnea, Unstable angina , Chest pain Risk Factors Chronic Lung DiseaseHypercholesterolemiaPhysical Activity, Coronary Artery DiseaseHypertensionRenal Failure, Diabetes Previous Procedures/Diagnoses Previous CABGPrevious CVAPrevious PCI, Previous Femoral ProcedurePrevious Valve Surgery, Previous NV Procedure Narrative The Left Wrist^ was infiltrated with 1% Lidocaine subcutaneous anesthesia. A PINNACLE 6FR Sheath #[id number] sheath was inserted into the LFA^. Coronary angiography was performed using coronary diagnostic catheters. The right coronary system was accessed and visualized with a 5FR IM #[id number] AR MOD #[id number] catheter. Closure device was deployed with a 6 Fr MYNXGRIP 6/7F #[id number]. The patient tolerated the procedure well and there were no complications associated with the procedure. Intraoperative Conscious Sedation Sedation start time: 14.15 Case end Time: 15.20 [facility] [place] [address] INVASIVE PROCEDURE REPORT Name: STEVEN,CATIA Romy Room #: 214-P [facility]#: [id number] Admission: 12/28/18 Attend Phys: Kishan Gudino MD Discharge: Date of : 40 Report #: [id number] Fentanyl 100 mcg Versed 2 mg Fluoro Time: 20.41 minutes Dose: DAP 57814 cGycm2 2348 mGy Contrast Type and Amount: Visipaque 190 ml Diagnostic Cath LAD There is a severe restenosis in the proximal LAD stent. OM1 There is a patent SALAZAR graft with an end-to-side anastomosis to OM1. R PDA There is a patent SVG with an end-to-side anastomosis to the PDA. Left Ventriculography Left Ventriculography was not performed. Hemodynamics The aortic pressure is 175/72 mmHg with a mean of 104 mmHg. PCI Technique Lesion Percutaneous coronary intervention was performed on the proximal left anterior descending artery segment. The lesion stenosis prior to intervention was 80% with STUART 3 flow. A VISTA 6FR XB 3.5 #[id number] Guide Catheter was used to engage the ostium. A Luge Wire .014 x 182CM #[id number] Interventional Guidewire was used to cross the lesion. BALLOON DILATION A Balloon catheter ANGIOSCULPT OTW 3.0MM X 100MM SCORING BALLOON #[id number] was inserted and inflated up to 18.00atm for 46seconds. Additional Inflation: 18.00atm for 42seconds. Prior to balloon angioplasty, laser atherectomy was performed 0.9,LASER-2 PASSES 80/80, 1 PASS 80/80 30% CONTRAST STENT DEPLOYMENT A drug-eluting stent XIENCE VERONIQUE RX 3.25 X 18 #[id number] was inserted and inflated up to 18.00atm for 21seconds. POST STENT DEPLOYMENT BALLOON DILATION A Balloon catheter TREK NC RX 3.5 X 15 #[id number] was inserted and inflated up to 18.00atm for 23seconds. Additional Inflation: 18.00atm for 22seconds. Final angiography reveals 10 % stenosis with STUART 3 flow. [facility] [address] [place] [address] INVASIVE PROCEDURE REPORT Name: CATIA HARRIS Room #: 214-P [facility]#: [id number] Admission: 12/28/18 Attend Phys: Kishan Gudino MD Discharge: Date of : 40 Report #: [id number] Conclusion 1. Successful laser atherectomy, angiosculpt scoring balloon and placement of a drug-eluting stent into the proximal LAD restenotic lesion. 2. Patent SALAZAR graft to OM1. 3. Patent SVG to the PDA. 4. Recommend dual antiplatelet therapy and aggressive risk factor management. <ELECTRONICALLY SIGNED> By: Kishan Gudino MD 12/28/181715 15 15 Kishan Gudino MD /INF
--- NOTE | 2018-12-28 17:33 | NUR ---
PT ADMITED FROM NIGHT MONITOR. ADMISSION HX AND ASSESSMENT COMPLETED. ORDERS NOTED. RIGHT GROIN INCISION C/D/I. NO HEMATOMA NOTED. HIGH BP. SCHEDULED BP MEDS GIVEN. NO CONCERNS AT THIS TIME. WILL CONTINUE TO MONITOR.
[2018-12-29 00:15] VITALS: BP 148/55
[2018-12-29 04:43] VITALS: BP 122/63
[2018-12-29 05:34] LABS: ALBUMIN 3.5 g/dL (3.4-5.0); CALCIUM 9.6 mg/dL (8.5-10.1); CREATININE 1.6 mg/dL (0.7-1.3); POTASSIUM 4.3 mmol/L (3.5-5.1); TOTAL BILIRUBIN 0.4 mg/dL (<0.1-1.0); TOTAL PROTEIN 6.8 g/dL (6.4-8.2)
[2018-12-29 05:37] LABS: HEMATOCRIT 33.2 % (42.0-52.0); HEMOGLOBIN 11.1 gm/dL (14.0-18.0); MCH 30.9 pg (26.0-34.0); MCHC 33.4 g/dL (28.0-37.0); MCV 92.6 fL (80.0-100.0); RBC 3.58 mil/uL (4.50-6.00); RDW 15.4 % (10.5-14.5); WBC 8.1 thou/uL (4.0-11.0)
--- NOTE | 2018-12-29 06:07 | NUR ---
ASSUME CARE 1900. PT/VITALS STABLE. DENIES ANY PAIN. TOLERATES ACTIVITY WELL. UP TO BATHROOM WITH WALKER AND STB ASSIST. ASSESSMENT CHARTED. PROGRESSING WELL WITH POC. LEFT GROIN SITE CDI. NO BRUISING OR HEMATOMA NOTED. EXTREMITY IS PINK AND WARM. PT IN AFIB WITH HR IN THE 60s AND 80s WHEN AWAKE, AND 40s TO 50s, WITH SOMETIMES DEEPING DOWN TO THE 30s, DURING SLEEP. PLAN IS POSSIBLE DISCHARGE TODAY. WILL CONTINUE TO MONITOR AND FOLLOW WIHT POC
--- NOTE | 2018-12-29 07:22 | EKG ---
[address] [place] [address] ELECTROCARDIOGRAM REPORT Name: CATIA HARRSI Room #: 214-P [facility]#: [id number] Admission: 12/28/18 Attend Phys: Kishan Gudino MD Discharge: Date of : 40 Report #: [id number] THIS REPORT FOR: //name// [facility] Test Date: 2018-12-28 Test Time: 19:19:06 Pat Name: CATIA HARRIS Department: Room: Gender: M Overlock Collar Setter: Brent YOST : 1940 Requested By: Kishan Gudino Order Number: [id number] MD: Anibal Shea Measurements Intervals [place] Rate: 71 P: [place]: QRS: 83 QRSD: 116 T: -70 QT: 395 QTc: 430 Interpretive Statements Atrial fibrillation Ventricular premature complex Nonspecific ST segment abnormality Compared to ECG 12/28/2018 08:37:15 Ventricular premature complex(es) now present Electronically Signed On 12-29-2018 7:22:06 CDT by Anibal Shea [email or web address] <ELECTRONICALLY SIGNED> By: Anibal Shea MD, [facility] 12/29/18 0722 18 18 Anibal Shea MD, [facility]AC /EPI
[2018-12-29 08:00] VITALS: BP 142/61
[2018-12-29 10:40] VITALS: BP 142/61
[2018-12-29 12:00] VITALS: BP 102/35
--- NOTE | 2018-12-29 12:51 | NUR ---
ASSESSMENT CHARTED. PT ALERT AND ORIENTED. RECEIVED PRN PAIN MED WITH PARTIAL RELIEF. BRUISES NOTED ON THE RIGHT GROIN INCISION. SEEN BY DR. TATE. ORDERS GIVEN TO DISCHARGE PT TO HOME. DISCHARGE INSTRUCTIONS GIVEN TO PT. PT VERBERLIZED UNDERSTANDING.
--- NOTE | 2018-12-29 16:39 | EKG ---
[address] [place] [address] ELECTROCARDIOGRAM REPORT Name: CATIA HARRIS [id number] Admission: 12/28/18 Attend Phys: Kishan Gudino MD Discharge: 12/29/18 Date of : 40 Report #: [id number] THIS REPORT FOR: //name// [facility] Test Date: 2018-12-29 Test Time: 07:28:53 Pat Name: CATIA HARRIS Department: Room: 214 P Gender: M Agent Producer: SAMM : 1940 Requested By: Kishan Gudino Order Number: [id number] MD: Oscar Cueto Measurements Intervals [place] Rate: 44 P: [place]: QRS: 80 QRSD: 113 T: -65 QT: 437 QTc: 374 Interpretive Statements Atrial fibrillation Ventricular premature complex Probable left ventricular hypertrophy Nonspecific T abnormalities, inferior leads Electronically Signed On 12-29-2018 16:39:31 CDT by Oscar Cueto [email or web address] <ELECTRONICALLY SIGNED> By: Oscar Cueto MD 12/29/18 1639 0728 7 Oscar Cueto MD /MAYI
--- NOTE | 2019-01-02 08:04 | D ---
[facility] [place] [address] DISCHARGE SUMMARY Name: STEVEN,CATIA Romy Room #: DEP BELA Fuentes#: [id number] Admission: 12/28/18 Attend Phys: Kishan Gudino MD Discharge: 12/29/18 Date of : 40 Report #: [id number] THIS REPORT FOR: //name// CC: Thomas Gudino DATE OF SERVICE: 12/29/2018 FINAL DIAGNOSES: 1. Acute coronary syndrome, status post percutaneous coronary intervention. 2. History of coronary artery bypass grafting and multiple PCI procedures. 3. Diabetes mellitus. 4. Chronic atrial fibrillation. 5. Intracranial hemorrhage. 6. Chronic kidney disease. 7. Gait instability. 8. Hypertension. 9. Hypercholesterolemia. 10. Edema. HOSPITAL COURSE: Please see the original H and P for full details. He had just undergone laser atherectomy and stent placement to re-stenotic lesions in the saphenous vein graft to the PDA. He complained of recurrent chest pains. He underwent a cardiac catheterization, the saphenous vein graft to the PDA was patent. Both sites at the ostium and distal anastomoses were intact. There are overlapping stents in the proximal LAD, with severe restenosis. He underwent laser atherectomy, angioscope balloon dilatation and placement of one drug-eluting stent. He remained stable overnight. He has some atypical pains, not related to ischemia. He is stable for discharge. He will continue on his insulin regimen, metformin, Plavix 75 mg daily, aspirin once a day, Lipitor 40 mg daily, Coreg 25 mg twice a day, olmesartan, Imdur, Advair, amlodipine and aspirin. He will be given instructions for followup in the office. <ELECTRONICALLY SIGNED> By: Kishan Gudino MD 01/02/19 0804 [id number] 1341 Kishan Gudino MD /nt
== END 2018-12-29 13:15 | disposition home or self-care (01) ==
LOC: CATH 08:01 → 2N 16:36 → ENTRNSPT 12-29 12:58 → EDTRNSPTSTS 12-29 13:01 → CATH 12-29 13:15
PROVIDERS: Internal Medicine Cardiovascular Disease
DX: R07.9 Chest pain, unspecified (principal); T82.855A Stenosis of coronary artery stent, initial encounter; I20.0 Unstable angina; R06.00 Dyspnea, unspecified; E11.9 Type 2 diabetes mellitus without complications; N40.0 Benign prostatic hyperplasia without lower urinary tract symptoms; E78.5 Hyperlipidemia, unspecified; J44.9 Chronic obstructive pulmonary disease, unspecified; G47.30 Sleep apnea, unspecified; K21.9 Gastro-esophageal reflux disease without esophagitis; I48.91 Unspecified atrial fibrillation; I11.0 Hypertensive heart disease with heart failure; I50.9 Heart failure, unspecified; Z98.890 Other specified postprocedural states; Z95.1 Presence of aortocoronary bypass graft; Z95.5 Presence of coronary angioplasty implant and graft; Z90.49 Acquired absence of other specified parts of digestive tract; Z79.4 Long term (current) use of insulin; Z88.0 Allergy status to penicillin; Z88.8 Allergy status to other drugs, medicaments and biological substances; Z79.82 Long term (current) use of aspirin; Z79.899 Other long term (current) drug therapy
CPT/HCPCS: 10081

== ENCOUNTER 2019-02-20 09:37 | Observation (INO) | payer OTHER ==
[~2019-02-20] VITALS: Ht 180.3 cm; Wt 97.1 kg
[2019-02-20 10:23] VITALS: BP 159/82
[2019-02-20 10:25] LABS: HEMATOCRIT 33.9 % (42.0-52.0); MCH 29.3 pg (26.0-34.0); MCHC 32.4 g/dL (28.0-37.0); MCV 90.5 fL (80.0-100.0); PLATELET COUNT 216 thou/uL (150-400); RBC 3.75 mil/uL (4.50-6.00); WBC 7.2 thou/uL (4.0-11.0)
[2019-02-20 10:32] LABS: CALCIUM 10.3 mg/dL (8.5-10.1); CREATININE 1.2 mg/dL (0.7-1.3); POTASSIUM 4.3 mmol/L (3.5-5.1)
[2019-02-20 10:37] LABS: PROTIME 10.9 Seconds (9.3-11.4)
[2019-02-20 10:38] LABS: ALBUMIN 3.7 g/dL (3.4-5.0); TOTAL BILIRUBIN 0.5 mg/dL (<0.1-1.0); TOTAL PROTEIN 7.8 g/dL (6.4-8.2)
[2019-02-20 10:56] LABS: ABSOLUTE NEUTROPHILS 4.8 thou/uL (1.4-8.2); PLATELET ESTIMATE NORMAL
[2019-02-20 20:36] VITALS: BP 176/64
--- NOTE | 2019-02-20 21:15 | NUR ---
PATIENT ADMITTED TO 204 FROM TELEPHONE SWITCHBOARD OPERATOR POST INSERTION OF SINGLE CHAMBER VVIR PACEMAKER WITH THE RATE OF 70 AT 1640 FOR BRADYCARDIA WITH AFIB. PATIENT ATTACHED TO MONITORS, SHOWING AFIB AND SWELLING AT INSERTION SITE NOTED. ICE PACK APPLIED. PATIENT VOIDING WITHOUT DIFFICULTY. PAIN MED GIVEN FOR C/O INCISIONAL PAIN. PATIENT REMINDED NOT TO LIE ON SURGICAL SIDE. PATIENT UPDATED TO POC AND REASSURANCE GIVEN, VERBALIZED UNDERSTANDING.
[2019-02-21 00:12] VITALS: BP 155/68
--- NOTE | 2019-02-21 04:52 | NUR ---
pt resting quietly in bed incision cdi, vss, occasional paced beats, prn pain meds given for c/o oncisional pain in left shoulder, immobilizer on, will con't to monitor per ppoc.
[2019-02-21 05:50] VITALS: BP 147/59
[2019-02-21 08:40] VITALS: BP 158/57
--- NOTE | 2019-02-21 09:17 | NUR ---
Assess due to pt with 2 pt nutrition risk at admit. S/P pacemaker. Wt are actually above past usual wts of 200-210 lb. Diet newly advanced, but needs carb control added with hx DM. BG 180-208. Low nutrition risk
[2019-02-21] MEDS ORDERED: BENICAR40 MG PO (11:01)
[2019-02-21] MEDS ORDERED: COREG6.25 MG PO (11:11)
[2019-02-21 11:41] VITALS: BP 159/67
[2019-02-21 12:14] VITALS: BP 158/59
--- NOTE | 2019-02-21 13:34 | NUR ---
ASSUMED CARE AT SHIFT CHANGE, ALERT AND ORIENTED X4. VPACED ON THE MONITOR, AND VSS. LT UPPER CHEST INCISION WELL APPROXIMATED, AND DRY. DISCHARGE AND MEDICATION INSTRUCTIONS GIVEN TO PATIENT, AND PATIENT DISCHARGED HOME.
--- NOTE | 2019-03-13 14:08 | P ---
[facility] [place] [address] PROCEDURE REPORT Name: CATIA HARRIS Room #: 204-P [facility] M..#: [id number] Admission: 02/20/19 Attend Phys: Oscar Cueto MD Discharge: 02/21/19 Date of : 40 Report #: [id number] THIS REPORT FOR: //name// CC: Thomas Cueto PREOPERATIVE DIAGNOSIS: Bradycardia. POSTOPERATIVE DIAGNOSIS: Bradycardia. HISTORY: The patient is a patient with a history of permanent atrial fibrillation and a bradycardic ventricular response. He is here for pacemaker implantation. ANESTHESIA: The patient underwent MAC anesthesia with no anesthesia related complications. DESCRIPTION OF PROCEDURE: The patient underwent informed consent. We discussed the details of the procedure including the risks, which include but not limited to bleeding, infection, vascular damage, cardiac perforation, pneumothorax. He understood these risks and is willing to proceed. The patient was brought to EP laboratory in fasting and sedated state, prepped and draped in a sterile fashion. He received IV antibiotics and underwent a venogram showing patency of left axillary vein. Next, lidocaine was injected at the incision site. Incision was made, pocket was created over the prepectoral fascia. Access was obtained once the left axillary vein with sheaths positioned using the modified Seldinger technique. Next, a lead was positioned in the right ventricular apex with adequate pacing and sensing thresholds. Lead was sutured to prepectoral fascia. Device was connected. Pocket irrigated with vancomycin solution. The pocket was closed in 2 layers using 2-0 for the deep layer, 3-0 for the middle layer. Surgical glue was placed outer skin layer. The patient awoke neurologically and hemodynamically intact. No complications and no significant bleed. Implanted pacemaker is a [employer] model #1272, serial #[id number]. The ventricular lead is [employer] model #2088TC, 58 cm, serial #[id number]. The RV lead demonstrated R-wave of 11.3 millivolts, pacing impedance of 40 ohms, pacing threshold 0.5 volts at 0.4 milliseconds. The device was programmed to the VVIR 60-130 mode. CONCLUSIONS: Successful pacemaker implantation. <ELECTRONICALLY SIGNED> By: Oscar Cueto MD 03/13/19 1408 1340 1542 Oscar Cueto MD /nt
== END 2019-02-21 14:20 | disposition home or self-care (01) ==
LOC: CATH 09:37 → 2N 17:07 → CATH 17:08 → ENTRNSPT 02-21 13:46 → 2N 02-21 14:20
PROVIDERS: ADMIT Internal Medicine Cardiovascular Disease
DX: R00.1 Bradycardia, unspecified (principal); I25.10 Atherosclerotic heart disease of native coronary artery without angina pectoris; E11.9 Type 2 diabetes mellitus without complications; I10 Essential (primary) hypertension; E78.5 Hyperlipidemia, unspecified; I48.91 Unspecified atrial fibrillation; I35.0 Nonrheumatic aortic (valve) stenosis; J98.4 Other disorders of lung; I25.2 Old myocardial infarction; Z95.1 Presence of aortocoronary bypass graft; Z79.899 Other long term (current) drug therapy
CPT/HCPCS: 62110; 62900; 70005

== ENCOUNTER → 2019-05-23 | Outpatient (CLI) | payer OTHER ==
[~2019-05-23] MED LIST changes: +BENICAR40 MG PO; +COREG6.25 MG PO
== END ==
LOC: SJCVC 14:28
DX: Z45.018 Encounter for adjustment and management of other part of cardiac pacemaker (principal); R94.31 Abnormal electrocardiogram [ECG] [EKG]; I48.20 Chronic atrial fibrillation, unspecified; R00.1 Bradycardia, unspecified; I25.810 Atherosclerosis of coronary artery bypass graft(s) without angina pectoris; I48.0 Paroxysmal atrial fibrillation; I11.0 Hypertensive heart disease with heart failure; I50.9 Heart failure, unspecified; E78.5 Hyperlipidemia, unspecified; E11.40 Type 2 diabetes mellitus with diabetic neuropathy, unspecified; K21.9 Gastro-esophageal reflux disease without esophagitis; Z95.4 Presence of other heart-valve replacement; Z79.4 Long term (current) use of insulin; Z79.82 Long term (current) use of aspirin; Z79.899 Other long term (current) drug therapy; Z95.1 Presence of aortocoronary bypass graft

== ENCOUNTER → 2019-06-08 | Outpatient (CLI) | payer OTHER | LOC: SJCVC 16:15 | DX: I45.2 Bifascicular block (principal); R94.31 Abnormal electrocardiogram [ECG] [EKG]; I13.0 Hypertensive heart and chronic kidney disease with heart failure and stage 1 through stage 4 chronic kidney disease, or unspecified chronic kidney disease; I25.119 Atherosclerotic heart disease of native coronary artery with unspecified angina pectoris; I50.33 Acute on chronic diastolic (congestive) heart failure; R06.00 Dyspnea, unspecified; I48.91 Unspecified atrial fibrillation; E11.22 Type 2 diabetes mellitus with diabetic chronic kidney disease; N18.9 Chronic kidney disease, unspecified; E78.5 Hyperlipidemia, unspecified; M19.90 Unspecified osteoarthritis, unspecified site; Z79.01 Long term (current) use of anticoagulants; Z79.4 Long term (current) use of insulin; Z79.82 Long term (current) use of aspirin; Z79.899 Other long term (current) drug therapy; Z95.0 Presence of cardiac pacemaker; Z95.2 Presence of prosthetic heart valve; Z96.653 Presence of artificial knee joint, bilateral; Z96.642 Presence of left artificial hip joint; Z98.890 Other specified postprocedural states ==

== ENCOUNTER → 2019-06-15 | Outpatient (CLI) | payer OTHER | LOC: SJCVC 09:03 | DX: I11.0 Hypertensive heart disease with heart failure (principal); I50.32 Chronic diastolic (congestive) heart failure ==

== ENCOUNTER → 2019-09-07 | Outpatient (CLI) | payer OTHER | LOC: SJCVC 13:00 | DX: I11.0 Hypertensive heart disease with heart failure (principal); I50.33 Acute on chronic diastolic (congestive) heart failure; I25.10 Atherosclerotic heart disease of native coronary artery without angina pectoris; E78.00 Pure hypercholesterolemia, unspecified; E11.9 Type 2 diabetes mellitus without complications; K21.9 Gastro-esophageal reflux disease without esophagitis; M16.12 Unilateral primary osteoarthritis, left hip; Z95.0 Presence of cardiac pacemaker; Z79.82 Long term (current) use of aspirin; Z79.4 Long term (current) use of insulin; Z79.899 Other long term (current) drug therapy ==

== ENCOUNTER → 2019-09-29 | Outpatient (CLI) | payer OTHER | LOC: SJCVCIMAG 10:26 | PROVIDERS: ATTEND Internal Medicine Cardiovascular Disease | DX: I08.1 Rheumatic disorders of both mitral and tricuspid valves (principal); I25.810 Atherosclerosis of coronary artery bypass graft(s) without angina pectoris; I13.0 Hypertensive heart and chronic kidney disease with heart failure and stage 1 through stage 4 chronic kidney disease, or unspecified chronic kidney disease; E11.22 Type 2 diabetes mellitus with diabetic chronic kidney disease; N18.9 Chronic kidney disease, unspecified; I50.32 Chronic diastolic (congestive) heart failure; E11.40 Type 2 diabetes mellitus with diabetic neuropathy, unspecified; E78.00 Pure hypercholesterolemia, unspecified; K21.9 Gastro-esophageal reflux disease without esophagitis; Z95.1 Presence of aortocoronary bypass graft; Z95.0 Presence of cardiac pacemaker; Z98.61 Coronary angioplasty status; Z95.2 Presence of prosthetic heart valve; Z79.899 Other long term (current) drug therapy; Z79.4 Long term (current) use of insulin ==

== ENCOUNTER → 2019-12-22 | Outpatient (CLI) | payer OTHER | LOC: SJCVC 11:57 | PROVIDERS: ATTEND Internal Medicine Cardiovascular Disease | DX: I25.10 Atherosclerotic heart disease of native coronary artery without angina pectoris (principal); I48.91 Unspecified atrial fibrillation; I48.92 Unspecified atrial flutter; I13.0 Hypertensive heart and chronic kidney disease with heart failure and stage 1 through stage 4 chronic kidney disease, or unspecified chronic kidney disease; E11.22 Type 2 diabetes mellitus with diabetic chronic kidney disease; N18.9 Chronic kidney disease, unspecified; I50.32 Chronic diastolic (congestive) heart failure; E11.40 Type 2 diabetes mellitus with diabetic neuropathy, unspecified; E78.00 Pure hypercholesterolemia, unspecified; Z79.899 Other long term (current) drug therapy; Z95.0 Presence of cardiac pacemaker ==

== ENCOUNTER → 2020-03-05 | Outpatient (CLI) | payer OTHER | LOC: LAB 03-04 07:27 | PROVIDERS: ATTEND Internal Medicine Cardiovascular Disease | DX: Z01.812 Encounter for preprocedural laboratory examination (principal); Z20.828 Contact with and (suspected) exposure to other viral communicable diseases ==

== ENCOUNTER → 2020-03-15 | Outpatient (CLI) | payer OTHER ==
[~2020-03-15] MED LIST changes: +BENZONATATE200 MG PO; +CARVEDILOL6.25 M1 PO; +ISOSORBIDE MONO30 M1 PO; +LEVEMIR100 UNIT/1 SUBQ; +LIPITOR40 MG PO; +PROTONIX40 M2 PO; +TORSEMIDE20 MG PO; +VITAMIN B12-FO1 EAC1 PO
== END ==
LOC: LAB 10:00
PROVIDERS: ATTEND Podiatrist
DX: Z01.812 Encounter for preprocedural laboratory examination (principal); Z20.828 Contact with and (suspected) exposure to other viral communicable diseases

== ENCOUNTER 2020-03-20 10:47 | Day surgery (SDC) | payer OTHER ==
[~2020-03-20] VITALS: Ht 182.9 cm; Wt 87.5 kg
[2020-03-20 11:41] LABS: HEMATOCRIT 26.4 % (42.0-52.0); HEMOGLOBIN 8.4 gm/dL (14.0-18.0)
[2020-03-20 11:45] LABS: CALCIUM 9.3 mg/dL (8.5-10.1); CREATININE 2.4 mg/dL (0.7-1.3); POTASSIUM 5.2 mmol/L (3.5-5.1)
[2020-03-20 13:35] VITALS: BP 136/65
[2020-03-20 15:45] VITALS: BP 143/63
[2020-03-20 17:50] LABS: HEMATOCRIT 25.7 % (42.0-52.0); HEMOGLOBIN 8.2 gm/dL (14.0-18.0); MCH 28.3 pg (26.0-34.0); MCV 88.7 fL (80.0-100.0); RBC 2.9 mil/uL (4.50-6.00); RDW 17.3 % (10.5-14.5); WBC 5.4 thou/uL (4.0-11.0)
[2020-03-20 18:15] LABS: ALBUMIN 3.3 g/dL (3.4-5.0); CALCIUM 9.2 mg/dL (8.5-10.1); CREATININE 2.2 mg/dL (0.7-1.3); POTASSIUM 5.4 mmol/L (3.5-5.1); TOTAL BILIRUBIN 0.2 mg/dL (0.2-1.0); TOTAL PROTEIN 6.7 g/dL (6.4-8.2)
--- NOTE | 2020-03-20 18:18 | NUR ---
PT ARRIVED ON UNIT, RATES PAIN 8/10. NURSE GAVE MORPHINE 2MG IV, PT REPORTS PAIN IS BETTER. TOLERATING DIET WELL NO N/V NOTED. LEFT FOOT WRAPPED WITH CASSANDRA BANDAGE ELEVATED ON PILLOW. RIGHT HAND IV/SL. SKIN INTACT, FALL PRECAUTIONS IN PLACE. SCDS, ROSAURA APPLIED. WILL CONTINUE TO MONITOR.
[2020-03-20 19:10] VITALS: BP 135/62
--- NOTE | 2020-03-21 01:32 | NUR ---
ASSUMED PT CARE AT SHIFT CHANGE FROM RONNELL (SUNIL-RN). PT IV WAS INFILTRATED AT SHIFT CHANGE. NEW IV (22 G) PLACED IN PT'S RIGHT WRIST BY CHARGE (CLEMENTINE). PT HAS A DRESSING WITH CASSANDRA BANDAGE ON HIS FEET. DRESSING C/D/I. VSS. PT VOICES THAT [facility]SI PAIN IN AN . PAIN MANAGED BY ORAL HYDROCODONE AND IV MORPHINE. FALL BUNDLE IN PLACE. CALL LIGHT IN REACH. PT CALLS OUT APPROPRIATELY. PT IS RESTING IN HIS ROOM. WILL CONTINUE TO MONITOR.
[2020-03-21 04:13] VITALS: BP 148/72
--- NOTE | 2020-03-21 05:16 | NUR ---
I HAVE REVIEWED THE DOCUMENTATION BY TERRENCE LEWIS AND I CONCUR WITH THE REASSESSMENT.
[2020-03-21 05:46] LABS: HEMATOCRIT 27.5 % (42.0-52.0); HEMOGLOBIN 8.8 gm/dL (14.0-18.0); MCH 28.3 pg (26.0-34.0); MCV 88.5 fL (80.0-100.0); PLATELET COUNT 198 thou/uL (150-400); RBC 3.11 mil/uL (4.50-6.00); WBC 6.2 thou/uL (4.0-11.0)
[2020-03-21 05:55] LABS: CALCIUM 9.3 mg/dL (8.5-10.1); CREATININE 2.1 mg/dL (0.7-1.3); MAGNESIUM 2.1 mg/dL (1.8-2.4); POTASSIUM 5.6 mmol/L (3.5-5.1)
[2020-03-21 06:08] LABS: % SATURATION 13 % (20-39); IRON 34 ug/dL (65-175); TIBC 258 ug/dL (250-450)
[2020-03-21 06:37] LABS: FOLIC ACID 20.3 ng/mL (8.6-58.9)
[2020-03-21 08:00] VITALS: BP 160/63
[2020-03-21 09:14] LABS: ABSOLUTE NEUTROPHILS 4.7 thou/uL (1.4-8.2); PLATELET ESTIMATE NORMAL
--- NOTE | 2020-03-21 12:46 | NUR ---
ASSESSMENT: CM REVIEWED CHART. PT IS S/P AMPUTATION OF LEFT HALLUX. PT REPORTS LIVING AT HOME ALONE NOW THAT HIS BROTHER IS . PT REPORTS TAHT HE LIVES IN A HOUSE. PT REPORTS TWO STEPS TO ENTER THE HOME AND ABOUT 12-14 STEPS TO THE BASEMENT WHERE THE LAUNDRY IS. PT REPORTS THAT HE HAS A WALKER AT HOME FOR AMBULATION. PT ALSO HAS A GRAB BAR AND SHOWER CHAIR. PT STATES THAT HE HAS BEEN TO [facility] IN THE PAST AND STATES HE WOULD NOT MIND GOING BACK THERE. PT REPORTS HAVING [facility] IN THE PAST. [facility] HAS BEEN CONSULTED TO SEE PT. PT REPORTS HE WOULD PREFER [facility] AND IF NOT HE WANTS TO CONSIDER [facility]. CM NOTIFIED [facility]. PT REQUESTED CM CALL HIS COUSIN MELQUIADES TO UPDATE. CM SPOKE WITH MELQUIADES WHO IS REQUESTING PT GET REHAB SHE STATES HE IS NOW HOME ALONE AND THE FAMILY ALL LIVES ABOUT 1-2 HOURS AWAY. CM WILL CONTINUE TO FOLLOW TO ASSIST NEEDED.
[2020-03-21 16:13] VITALS: BP 163/75
--- NOTE | 2020-03-21 19:14 | NUR ---
PT IS AOX4, VSS, PAIN CONTROLLED WITH PAIN ANALGESIC. NO S/S OF DISTRESS. PT WORKING WITH PHYSICAL THERAPY. LEFT FOOT DRESSING CDI, CALL LIGHT IN REACH.
[2020-03-21 19:35] VITALS: BP 138/53
--- NOTE | 2020-03-22 03:09 | NUR ---
ASSUMED PT CARE FROM RONNELL DormanDAY-RN). PT IS A&OX4 WITH MOMENTS OF CONFUSION. PT IS RUNNING A LOW GRADE TEMP. RE CHECKED AND TEMP IS RESOLVED. PT HAS A LEFT WRIST IV WITH FLUIDS RUNNING. PT HAS REDNESS ON HIS LEFT LEG. DRESSING ON LEFT FOOT IS C/D/I. DR DELEON CHECKED ON PT AND STARTED AN ANTBX REGIMEN. PT VOICES HE IS IN PAIN AT A 8 OUT OF 10. ORAL AND IV PAIN MEDS GIVEN. PT IS NOW RESTING IN IN HIS ROOM. HOURLY ROUNDS PERFORMED. WILL CONTINUE TO MONITOR.
[2020-03-22 04:00] VITALS: BP 157/63
[2020-03-22 06:06] LABS: ABSOLUTE NEUTROPHILS 6.6 thou/uL (1.4-8.2); BASOPHILS 0.5 % (0.0-2.0); EOSINOPHILS 1.7 % (0.0-3.0); HEMATOCRIT 24.9 % (42.0-52.0); HEMOGLOBIN 8.2 gm/dL (14.0-18.0); LYMPHOCYTES 4.6 % (24.0-44.0); MCH 28.9 pg (26.0-34.0); MCHC 32.8 g/dL (28.0-37.0); MCV 88.1 fL (80.0-100.0); MONOCYTES 10.4 % (1.0-8.0); PLATELET COUNT 175 thou/uL (150-400); POLYS 82.8 % (36.0-66.0); RBC 2.83 mil/uL (4.50-6.00)
[2020-03-22 06:13] LABS: ALBUMIN 3.1 g/dL (3.4-5.0); CALCIUM 9.4 mg/dL (8.5-10.1); CREATININE 1.6 mg/dL (0.7-1.3); POTASSIUM 5.3 mmol/L (3.5-5.1); TOTAL BILIRUBIN 0.4 mg/dL (0.2-1.0); TOTAL PROTEIN 7.1 g/dL (6.4-8.2)
[2020-03-22 07:33] VITALS: BP 140/57
--- NOTE | 2020-03-22 11:36 | NUR ---
ON-GOING ASSESSMENT: BLANE REVIEWED CHART. [facility] LIASON STATING THEY CAN ACCEPT PT FOR ADMISSION TODAY. CM NOTIFIED BEDSIDE RN. CM ALSO SPOKE WITH PT TO NOTIFY HIM AND HIS COUSIN MELQUIADES. SHE IS AGREEABLE WITH THE PLAN WELL. PLANS FOR [facility] ONCE DISCHARGE ORDERS ARE IN.
[2020-03-22] MEDS ORDERED: AMLODIPINE BESY10 MG PO (12:58)
--- NOTE | 2020-03-22 14:15 | NUR ---
Assumed care of pt. at 0700. Pt. was calm and cooperative. Pt. was scheduled to DC to [facility], but DC orders had not been completed. Admitting Dr. Marie was contacted and made aware of the situation. Dr. Marie stated he would be able to come finish the orders around 3pm. [facility] notified.
[2020-03-22 15:40] VITALS: BP 136/58
[2020-03-22 18:09] VITALS: BP 136/58
--- NOTE | 2020-03-25 18:06 | PATH ---
[facility] [address] [place] [address] PATHOLOGY RPT PROCEDURE Name: NOEL HARRIS Room #: DEP SDC M.R.#: [id number] Admission: 03/20/20 Date of : 40 Discharge: 03/22/20 Report #: [id number] Path Case #: [id number] [facility] Accession Number: [id number] . 01 Material submitted: . hallux - LEFT HALLUX WITH NON VIABLE BONE AND TISSUE. Modifiers: left . 01 Clinical history: . LEFT HALLUX GANGRENE WITH EXPOSED RETAINED HARDWARE . 02 Diagnosis: Left hallux with non-viable bone and tissue, amputation: - Marked acute osteomyelitis along with osteonecrosis. - Overlying skin as well as subcutaneous tissue showing marked acute inflammation along with fibrinoid degeneration as well as gangrenous necrosis. - Separately received fragments showing unremarkable bone and soft tissue. (IUV/db; 03/25/2020) LBQ 03/25/2020 1457 Local . 02 Electronically signed: . Debbie Dominguez MD, Pathologist NPI- [id number] . 01 Gross description: . The specimen is received in formalin, labeled "Noel Harris, left hallux with non-viable bone and tissue" and consists of a disarticulated toe measuring 7.4 x 3.5 x 2.8 cm. The nail is absent. The skin is geronimo with extensive ulceration at the tip measuring 2.6 x 2.3 cm. There is a metallic screw embedded at the distal aspect. The proximal bone margin is a smooth concave articular surface. Sectioning reveals a markedly soft friable cut surfaces towards the tip. Also received in the container are multiple segments of soft tissue, tendon, and bone measuring 4.8 x 3.8 x 1.1 cm in aggregate. Customer Service Leader sections are submitted as follows: . A1-A3: Toe from proximal to distal following decalcification A4: Additional received tissue following decalcification (SDY; 03/22/2020) SYU/SYU 03/22/2020 1042 Local . 02 Pathologist provided ICD-10: M86.172, M87.872, L08.9, I96 . 02 CPT . 259689, [id number] Specimen Comment: A courtesy copy of this report has been sent to [phone], [phone] [address] PATHOLOGY RPT PROCEDURE Name: NOEL HARRIS Room #: DEP [facility] Brent.Sharyn#: [id number] Admission: 03/20/20 Date of : 40 Discharge: 03/22/20 Report #: [id number] Path Case #: [id number] Specimen Comment: [id number] Specimen Comment: Report sent to / DR BOYLE Performed at: [address], [place], [place] [id number] MD Brenton Hough MD Phone: [phone] Performed at: [address] [id number] MD Debbie Dominguez MD Phone: [phone]
== END 2020-03-22 18:35 | disposition designated cancer center or children's hospital (05) ==
LOC: 4S 10:47 → OR 10:47 → 4S 16:36 → OR 03-22 18:35
PROVIDERS: Nurse Practitioner; Specialist; ATTEND Podiatrist
DX: E11.69 Type 2 diabetes mellitus with other specified complication (principal); M86.172 Other acute osteomyelitis, left ankle and foot; M87.172 Osteonecrosis due to drugs, left ankle; T84.89XA Other specified complication of internal orthopedic prosthetic devices, implants and grafts, initial encounter; L08.9 Local infection of the skin and subcutaneous tissue, unspecified; I96 Gangrene, not elsewhere classified; I11.0 Hypertensive heart disease with heart failure; I50.9 Heart failure, unspecified; I25.10 Atherosclerotic heart disease of native coronary artery without angina pectoris; E11.40 Type 2 diabetes mellitus with diabetic neuropathy, unspecified; J43.9 Emphysema, unspecified; I48.0 Paroxysmal atrial fibrillation; N40.0 Benign prostatic hyperplasia without lower urinary tract symptoms; E78.5 Hyperlipidemia, unspecified; K21.9 Gastro-esophageal reflux disease without esophagitis; G47.30 Sleep apnea, unspecified; Z98.890 Other specified postprocedural states; Z79.899 Other long term (current) drug therapy; Z95.1 Presence of aortocoronary bypass graft; Z96.652 Presence of left artificial knee joint; Z96.641 Presence of right artificial hip joint; Z95.0 Presence of cardiac pacemaker; Z79.4 Long term (current) use of insulin; Z79.01 Long term (current) use of anticoagulants; Z95.2 Presence of prosthetic heart valve; Z88.0 Allergy status to penicillin; Y83.8 Other surgical procedures as the cause of abnormal reaction of the patient, or of later complication, without mention of misadventure at the time of the procedure
CPT/HCPCS: 10102; 50010; 50101; 50386; 50951; 56526; 57091; 62110; 62850; 70005

== ENCOUNTER 2020-03-22 08:54 | Inpatient (IN) | payer OTHER ==
[~2020-03-22] VITALS: Ht 182.9 cm; Wt 95.9 kg
--- NOTE | ~2020-03-22 | PLAN ---
[facility] [place] [address] REHAB UNIT PLAN OF CARE Name: CATIA HARRIS Room #: 516-1 ADM IN M.R.#: [id number] Admission: 03/22/20 Attend Phys: Nahum Bonilla MD Discharge: Date of : 40 Report #: [id number] THIS REPORT FOR: cc: Thomas Zuleta MD, Eric K. MD Smithson,Nahum Saavedra MD ~ DATE OF SERVICE: 03/25/2020 PROGRESS NOTE/OVERALL PLAN OF CARE SUBJECTIVE: The patient is seen today. He is pleasant, in good spirits. Temperature 36.6, pulse 70, respirations 18, blood pressure 143/67. He is alert and appropriate. His foot is dressed post the hallux amputation on the left. He is heel bearing only. He is being monitored regarding renal insufficiency. He has premorbid peripheral neuropathy. Functionally, he has been working in therapies with transfers, mod assist. He has ambulated 10 feet min assist with the four-wheeled walker. In occupational therapy, upper body dressing is supervision with lower body dressing, max assist. ASSESSMENT: 1. Left foot gangrene with osteomyelitis, status post left hallux amputation with hardware removal on 03/20/2020. He is allowed heel weightbearing only. 2. Left lower extremity cellulitis. 3. Acute renal insufficiency. 4. Hyponatremia. Last recorded sodium is 134. 5. Anemia. 6. Premorbid peripheral neuropathy. 7. Diabetes mellitus type 2. 8. Prior left total knee replacement. 9. Congestive heart failure with coronary artery disease, history of stents and permanent pacemaker in place. 10. Severe aortic stenosis with history of aortic valve replacement. 11. Obstructive sleep apnea. 12. Past history of a subdural hematoma and dysphagia. PLAN: The overall plan of care is based on the preadmission screen and information garnered from therapy assessments. 1. Estimated length of stay is probably at least 7-10 days. 2. Medical prognosis is reasonably good. 3. Anticipated interventions includes the interdisciplinary acute inpatient rehabilitation program. 4. Anticipated functional outcomes would be for the patient to become modified independent with transfers, mobility and ADLs that he can hopefully return back to his prior living situation. 5. Discharge destination would be back to the home setting where [place] [address] REHAB UNIT PLAN OF CARE Name: CATIA HARRIS Room #: 516-1 ADM IN [facility].#: [id number] Admission: 03/22/20 Attend Phys: Nahum Bonilla MD Discharge: Date of : 40 Report #: [id number] living at home alone. He has 2 steps. He has supportive neighbors that are noted. 6. Expected therapy by discipline includes PT and OT 1-1/2 hours per day ____ throughout the duration of the acute inpatient rehabilitation stay. The patient's prognosis for significant practical improvement within a reasonable period of time appears good. Given the patient's complex medical condition and risk of further medical complication, rehabilitation services could not be safely provided at a lower level of care such as a long-term facility. He has the multiple medical comorbidities and warrants closer medical followup and has the tolerance and meets criteria for acute in-hospital inpatient rehabilitation. By: 1045 [id number] Nahum Bonilla MD /nt
[2020-03-22] MEDS ORDERED: AMLODIPINE BESY10 MG PO (12:58)
--- NOTE | 2020-03-22 16:02 | NUR ---
chart review. pt going to acute rehab today. cm visited with him via phone . intro to cm, team meeting and dcp. he is able to make needs know. " live alone, 1.5 steps to enter. independent when feeling ok. have walker and cane. they in good condition. manage own medication. drive vehicle. pcp is dr murphy reaves"/lashonda. will cont following as needed for dc need. noted had olena in past and been to skilled rehab in past.
[2020-03-22 18:46] VITALS: BP 150/61
[2020-03-22 20:00] VITALS: BP 138/57
--- NOTE | 2020-03-22 20:00 | NUR ---
PATIENT HISTORY INTERVIEW DONE AND CONSENTS SIGNED. PATIENT IS LOOKING FORWARD TO THERAPIES STARTING WEDNESDAY MORNING.
--- NOTE | 2020-03-23 04:23 | NUR ---
SLEPT FOR A FEW HOURS BEFORE AND AFTER CPAP ON THEN STARTED USING URINAL FOR SMALL AMOUNTS, CLEANED OF INCONTINENT STOOL 4 TIMES AND INCONTINENT URINE ONCE THIS SHIFT. LEFT FOOT WRAPPED WITH CASSANDRA WRAP IS INTACT.
[2020-03-23 05:21] LABS: HEMATOCRIT 25.9 % (42.0-52.0); HEMOGLOBIN 8.4 gm/dL (14.0-18.0); MCH 28.3 pg (26.0-34.0); MCHC 32.3 g/dL (28.0-37.0); MCV 87.5 fL (80.0-100.0); RBC 2.95 mil/uL (4.50-6.00); RDW 17.5 % (10.5-14.5); WBC 8.3 thou/uL (4.0-11.0)
[2020-03-23 05:41] LABS: CALCIUM 9.3 mg/dL (8.5-10.1); CREATININE 1.7 mg/dL (0.7-1.3); POTASSIUM 4.9 mmol/L (3.5-5.1)
[2020-03-23 07:40] VITALS: BP 146/53
[2020-03-23 20:00] VITALS: BP 159/70
--- NOTE | 2020-03-24 03:07 | NUR ---
ASSUMED CARE APPROX 1900 EVENING 03/23. PT SITTING UP IN RECLINER AT CHANGE OF SHIFT DOZING OFF AND ON. PT TOOK HS MEDS WITH WATER TOLERATING WELL. PT IN BED NOW APPEARS TO BE SLEEPING SOUNDLY. CPAP MACHINE ON. BED ALARM ON AND CALL LIGHT IN REACH. WILL CONTINUE TO MONITOR.
[2020-03-24 05:36] LABS: GLYCOHEMOGLOBIN (HGB A1C) 6.9 % (4.8-5.6)
[2020-03-24 07:55] VITALS: BP 147/72
--- NOTE | 2020-03-24 12:43 | NUR ---
ASSUMED CARE AT 0700. SLEPT FAIRLY WELL. PAIN IS STABLE WITH TRAMADOL. APPETITE FAIRLY GOOD, NO BM TODAY. PT TOOK HIS STOOL REGIMEN. L STUMP DRESSING INTACT, PER REPORT AND PT, PODIATRY CHANGES DRESSING AND WILL DO ON WEDNESDAY. ACCUCHECKS DONE AND TREATED WITH INSULIN. DIURESING ADEQUATELY. NO OTHER CONCERNS, WILL CONT TO MONITOR.
[2020-03-24 20:00] VITALS: BP 135/56
--- NOTE | 2020-03-25 01:10 | NUR ---
ASSUMED CARE APPROX 1900 EVENING 03/24. PT AWAKE AND ALERT AT CHANGE OF SHIFT. PT SOMEWHAT FORGETFUL HOWEVER APPROPRIATE. PT TOOK HS MEDS WITH WATER TOLERATING WELL. PT SPILLED URINAL TONIGHT AND ASSIST WITH COMPLETE BED CHANGE. PT WEARING CPAP AT PRESENT. BED ALARM ON AND CALL LIGHT IN REACH. WILL CONTINUE TO MONITOR.
[2020-03-25 05:30] LABS: HEMATOCRIT 23.8 % (42.0-52.0); HEMOGLOBIN 7.8 gm/dL (14.0-18.0); MCH 28.6 pg (26.0-34.0); MCHC 32.8 g/dL (28.0-37.0); MCV 87.2 fL (80.0-100.0); PLATELET COUNT 162 thou/uL (150-400); RBC 2.73 mil/uL (4.50-6.00); RDW 17.6 % (10.5-14.5); WBC 7.4 thou/uL (4.0-11.0)
[2020-03-25 05:58] LABS: ALBUMIN 2.8 g/dL (3.4-5.0); CREATININE 1.7 mg/dL (0.7-1.3); MAGNESIUM 2.1 mg/dL (1.8-2.4); PHOSPHORUS 2.9 mg/dL (2.5-4.9); POTASSIUM 5.1 mmol/L (3.5-5.1); TOTAL BILIRUBIN 0.3 mg/dL (0.2-1.0); TOTAL PROTEIN 6.8 g/dL (6.4-8.2)
[2020-03-25 08:00] VITALS: BP 143/67
[2020-03-25 09:32] LABS: ABSOLUTE NEUTROPHILS 6.2 thou/uL (1.4-8.2); PLATELET ESTIMATE NORMAL
--- NOTE | 2020-03-25 10:15 | NUR ---
cm notified by [facility] that have orders from his ankle MD to do hh if needed at dc.
--- NOTE | 2020-03-25 12:38 | NUR ---
Nutrition: Pt admit to rehab unit S/P hallux amputation for left foot gangrene. Consult received due to wound. PMH: CABG, IDDM, HTN, CHF, peripheral neuropathy, AVR, subdural hematoma. Eating 75-100% of meals on Carb controlled diet. BG 141-277. A1C 6.9. On glargine, lispro, bowel regimen. Vitamin D level pending. Stable weights. RD encouraged adequate HBV protein foods for wound healing, will also offer Ensure max daily-pt agrees. Consider low nutrition risk.
--- NOTE | 2020-03-25 14:00 | NUR ---
ASSUMED CARE AT 0700. HAD AN UNEVENTFUL NIGHT AND SLEPT WELL. ALERT AND ORIENTATED. PAIN IS STABLE AND MANAGEABLE WITH TRAMADOL. APPETITE GOOD, ACCUCHECK WITHIN 150-200 AND TREATED WITH INSULIN. NO BM, STOOL REGIMEN GIVEN. DIURESING WELL. PARTICIPATING AND PROGRESSING WITH THERAPY. L FOOT DRESSING DRY AND INTACT. MESSAGE LEFT WITH PODIATRY CLINIC FOR WOUND CARE AND DR GONZALEZ DID THE WOUND CARE AT 1300 AND WILL CONT TO DO EVERY OTHER DAY. NO OTHER CONCERNS, WILL CONT TO MONITOR.
[2020-03-25 20:51] VITALS: BP 151/76
--- NOTE | 2020-03-26 01:20 | NUR ---
PT ALERT AND ORIENTED X 4. VOIDING ADEQUATE AMTS DARK YELLOW URINE PER URINAL. DRESSING TO LEFT FOOT C/D/I. PT C/O PAIN IN HIS LEFT FOOT. TRAMADOL GIVEN AT THIS TIME. CPAP ON DURING THE NIGHT. BED ALARM ON FOR SAFETY. PT CHECKED ON HOURLY ROUNDS.
[2020-03-26 08:00] VITALS: BP 182/76
--- NOTE | 2020-03-26 16:04 | NUR ---
Team: AT WITH ASSESS PT FOR COGNITIVE ABILITY, PT LIVING SITUATION CHANGED SINCE HIS BROTHER/ROOMMATE HAS PASSED AND NOW PT WILL BE LIVING ALONE. PT TO D/C W/HH: RN, PT, OT, SW. PT OR MELQUIADES DOES NOT HAVE PREFERENCE OF HH. . PT AND MELQUIADES NOTIFIED OF TENATIVE D/C DATE OF 04/02. MELQUIADES HAS SOME CONCERNS ABOUT PT LIVING ALONE, AND WILL TALK TO HIS SISTER AND NEPHEW IN [place] RE LTC PLACEMENT AND/OR HIRING C/G TO ASSIST PT. PT STATED HIS NEIGHBOR CAN PROVIDE FREQ CHECKS. MELQUIADES SAID THEY CAN CHECK ON PT "SOME."
--- NOTE | 2020-03-26 19:00 | NUR ---
PATIENT PARTICIPATED IN ALL THERAPIES, HAD NO C/O PAIN, AND WAS BOTH CONT AND INCONT OF BLADDER. PT WAS GIVEN 1 DOSE OF IV LASIX TODAY FOR INCREASED EDEMA TO LLE, AND LE WAS ELEVATED. CONSULT CALLED TO DR. PACKER, AND ORDERS RECEIVED FOR HOLDING HEPARIN AND MAKING PT NPO AFTER MIDNIGHT. THIS ALL GIVEN IN REPORT TO ONCOMING SHIFT RN.
[2020-03-26 20:17] VITALS: BP 143/68
--- NOTE | 2020-03-27 01:44 | NUR ---
PATIENT IS USING CPAP. HE IS AWARE THAT HE IS NPO SINCE MIDNIGHT AND THAT I HELD HIS HEPARIN TONIGHT AND WILL HOLD HEPARIN AND BREAKFAST ON THE CHANCE THAT HE CAN HAVE A PROCEDURE TO INCREASE CIRCULATION TO LEFT FOOT, IR DEPARTMENT WILL TALK TO HIM THIS MORNING. USING URINAL WITHOUT SPILLING TONIGHT. WAS ABLE TO GET IN BED FROM CHAIR WITH MIN ASSIST WHILE KEEPING WEIGHT ON HIS HEELS
[2020-03-27 06:32] LABS: HEMATOCRIT 22.9 % (42.0-52.0); HEMOGLOBIN 7.5 gm/dL (14.0-18.0); MCH 28.4 pg (26.0-34.0); MCHC 32.6 g/dL (28.0-37.0); MCV 87.1 fL (80.0-100.0); RBC 2.63 mil/uL (4.50-6.00); RDW 17.6 % (10.5-14.5)
[2020-03-27 08:00] VITALS: BP 150/55
[2020-03-27 08:02] LABS: CALCIUM 9.1 mg/dL (8.5-10.1); CREATININE 1.8 mg/dL (0.7-1.3); POTASSIUM 5.2 mmol/L (3.5-5.1)
[2020-03-27 09:07] VITALS: BP 150/55
--- NOTE | 2020-03-27 10:34 | NUR ---
ASSUMED CARES AT 0700. PT AWAKE, ALERT AND ORIENTED*4. DENIES PAIN AT THIS TIME. BP ELEVATED, BP LOWERING MEDS ADMINISTERED. BG 153, INSULIN WITHHELD R/T NPO STATUS. ALL OTHER VITALS REMAIN STABLE. LEFT FOOT DRESSING REMAINS DRY AND INTACT. LEFT FOREARM IV IS INTACT AND PATENT. PT TRANSFERED TO SURGERY FOR ARTERIOGRAM THEN TO TRANSFER TO CCU AFTER PROCEDURE. REPORT TO GIVE TO RECEIVING RN. UP WITH 1 MOD ASSIST, GB AND WALKER.
--- NOTE | 2020-03-27 11:08 | NUR ---
FAXED REFERRAL TO [facility] SPOKE WITH [place] IN INTAKE [place]EPT [place].
--- NOTE | 2020-03-27 12:15 | NUR ---
Pt dc'd back to acute care for arteriogram then tx to rm 206 CC. [facility] to reassess for return to acute rehab tomorrow. All parties are aware of the dc plan and [facility] is following along and have accepted for HH services when he is dc'd to home.
--- NOTE | 2020-04-01 07:54 | EKG ---
[place] [address] [facility] [place] [address] ELECTROCARDIOGRAM REPORT Name: CATIA HARRIS Room #: 516-1 DIS IN M.R.#: [id number] Admission: 03/22/20 Attend Phys: Nahum Bonilla MD Discharge: 03/27/20 Date of : 40 Report #: [id number] [facility] Test Date: 2020-03-24 Test Time: 11:10:11 Pat Name: CATIA HARRIS Department: Room: [employer] [facility] Gender: M Resolution Manager: SARAH : 1940 Requested By: vIeth Irving Order Number: [id number] MD: Frankie Girard Measurements Intervals Lyles Rate: 70 P: 0 CO: 156 QRS: -63 QRSD: 172 T: 96 QT: 449 QTc: 485 Interpretive Statements Ventricular-paced rhythm No further analysis attempted due to paced rhythm Compared to ECG 12/29/2018 07:28:53 Ventricularly paced rhythm dyspnea Electronically Signed On 03-24-2020 13:08:02 DRAFTING LAYOUT WORKER by Frankie Girard [email or web address] <ELECTRONICALLY SIGNED> By: Frankie Girard MD 03/24/20 1308 1110 Frankie Girard MD /EPI
== END 2020-03-27 11:00 | disposition short-term general hospital (02) | DRG 300 ==
PROVIDERS: Internal Medicine; Nurse Practitioner; Nurse Practitioner Family; ADMIT Physical Medicine & Rehabilitation; ATTEND Physical Medicine & Rehabilitation
DX: E11.52 Type 2 diabetes mellitus with diabetic peripheral angiopathy with gangrene (principal); M86.8X7 Other osteomyelitis, ankle and foot; E87.1 Hypo-osmolality and hyponatremia; L03.116 Cellulitis of left lower limb; G93.40 Encephalopathy, unspecified; N17.9 Acute kidney failure, unspecified; I13.0 Hypertensive heart and chronic kidney disease with heart failure and stage 1 through stage 4 chronic kidney disease, or unspecified chronic kidney disease; E11.69 Type 2 diabetes mellitus with other specified complication; M19.90 Unspecified osteoarthritis, unspecified site; Z96.652 Presence of left artificial knee joint; G47.33 Obstructive sleep apnea (adult) (pediatric); I35.0 Nonrheumatic aortic (valve) stenosis; E11.42 Type 2 diabetes mellitus with diabetic polyneuropathy; N40.0 Benign prostatic hyperplasia without lower urinary tract symptoms; Z96.641 Presence of right artificial hip joint; K21.9 Gastro-esophageal reflux disease without esophagitis; I25.10 Atherosclerotic heart disease of native coronary artery without angina pectoris; I48.0 Paroxysmal atrial fibrillation; E78.5 Hyperlipidemia, unspecified; I50.9 Heart failure, unspecified; D64.9 Anemia, unspecified; Z60.2 Problems related to living alone; E11.22 Type 2 diabetes mellitus with diabetic chronic kidney disease; R53.81 Other malaise; E87.5 Hyperkalemia; K59.00 Constipation, unspecified; N18.9 Chronic kidney disease, unspecified; Z88.0 Allergy status to penicillin; Z95.5 Presence of coronary angioplasty implant and graft; Z95.0 Presence of cardiac pacemaker; Z79.4 Long term (current) use of insulin; Z88.8 Allergy status to other drugs, medicaments and biological substances; Z80.6 Family history of leukemia; Z83.3 Family history of diabetes mellitus
CPT/HCPCS: 10112

== ENCOUNTER 2020-03-27 12:13 | Inpatient (IN) | payer OTHER ==
[2020-03-27] VITALS (45 sets, daily range): BP systolic 92–140; BP diastolic 44–63
[~2020-03-27] VITALS: Ht 182.9 cm; Wt 100.0 kg
--- NOTE | 2020-03-27 16:33 | NUR ---
LATE ENTRY 1545 PT TRANSFERRED TO ICU RM 250 AFTER LERO/CATH DONE IN STREET AND BUILDING DECORATOR PER COMFORT HIDALGO AND NIKOLAS. PT HAD EPISODE OF N/V BRIEFLY AFTER PROCEDURE. PT HAD EPISODE OF SUDDEN HYPOTENSION AND DECREASE O2 SATS DURING PROCEDURE. SEE STREET AND BUILDING DECORATOR PROCEDURE DOCUMENTATION. PT NOW STABLE UP0N TRANSFER. PACED RHYTHM ON MONITOR. PT AWAKE AND ALERT AND ORIENTED. BP AND O2 SAT STABLE. LEVOPHED STILL INFUSING AT 6MCG. AND O2 SAT 100% STILL ON NONREBREATHER. REPORT TO DALE IN ICU PER MEME. RT GROIN DRESSING CLEAN DRY INTACT. NO HEMATOMA.
--- NOTE | 2020-03-27 17:57 | NUR ---
PT ARRIVED TO THE UNIT VIA ONE DREDGE PUMPER LABORER POWERHOUSE, HEMOSTASIS BEGAN AT 1425 AND WAS ACHIEVE AT 1725. NO HEMATOMA/BLEEDING OF THE DRESSING UPON ARRIVAL. PT WAS SEEN BY . LEVOPHED WAS RUNNING AT 6, WITH NRB MASK AT 5L. LEVO GTT WAS TITRATED DOWN, NONE RUNNING AT THIS TIME PT'S MAP AT 80. NRB IS NO LONGER USED WAS TITRATED TO NC TO 2L, AND NOW NO SUPPLEMENTAL OXYGEN IS IN USE AND AT 99% NO COMPLAINTS FROM THE PATIENT AT THIS TIME BESIDES WANTING TO EAT. PT'S SISTER CALLED WHOM PT APPROVED OF RELEASING INFORMATION TO, CURRENT STATUS UPDATE WAS PROVIDED. CONTINUING TO MONITOR.
[2020-03-28] VITALS (31 sets, daily range): BP systolic 95–136; BP diastolic 42–67
[2020-03-28 05:44] LABS: ABSOLUTE NEUTROPHILS 7.4 thou/uL (1.4-8.2); BASOPHILS 0.4 % (0.0-2.0); EOSINOPHILS 3.4 % (0.0-3.0); HEMATOCRIT 21.9 % (42.0-52.0); HEMOGLOBIN 7.2 gm/dL (14.0-18.0); LYMPHOCYTES 2.5 % (24.0-44.0); MCH 28.8 pg (26.0-34.0); MCV 87.2 fL (80.0-100.0); MONOCYTES 7.4 % (1.0-8.0); PLATELET COUNT 148 thou/uL (150-400); POLYS 86.3 % (36.0-66.0); RBC 2.51 mil/uL (4.50-6.00); RDW 17.7 % (10.5-14.5); WBC 8.6 thou/uL (4.0-11.0)
[2020-03-28 06:02] LABS: CALCIUM 8.6 mg/dL (8.5-10.1); CREATININE 1.9 mg/dL (0.7-1.3); MAGNESIUM 2.1 mg/dL (1.8-2.4); POTASSIUM 5.2 mmol/L (3.5-5.1)
--- NOTE | 2020-03-28 06:43 | NUR ---
ASSESSMENT: PT REMAIN ALERT AND ORIENT TIMES THREE. FORGETFULA TIMES. C/O OF MINIMAL PAIN IN LEFT FOOT. PRN PAIN MEDS GIVEN WITH GOOD RESULTS, PT SLEEPING POST GIVEN PAIN MEDS. V-PACED PER MONITOR. AFEBRILE. UO ADEQUATE PER URINAL. NO BM THIS SHIFT. TOLERATED PO INTAKE, AND ATE HIS DINNER AT 95%. DRESSING ON LEFT FOOT C/D/I. PT TOLERATED PRAFO BOOT ALL NIGHT, REQUESTED TO REMOVE IT THIS MORNING FOR A WHILE. LEVO CONTINUES BE BE OFF SINCE APPROXIMATELY 1600 03/27/20. SLOW PROGRESS TOWARDS DC GOALS,. WILL CONTINUE TO MONITOR.
--- NOTE | 2020-03-28 07:02 | NUR ---
PATIENT TRANSFER TO ICU AFTER CINDER CRANE OPERATOR PROCEDURE. WILL NEED NEW ORDERS TO INITIATE OT EVAL WHEN APPROPRIATE.
--- NOTE | 2020-03-28 07:51 | NUR ---
ORDERS FOR EVAL AND TREAT HOWEVER Pt TRANSFERRED TO ICU. WILL PLACE ON HOLD AND AWAIT NEW ORDERS WHEN APPROPRIATE
--- NOTE | 2020-03-28 09:05 | 2DMMODE ---
[facility] [place] [address] 2 D/M-MODE ECHOCARDIOGRAM Name: CATIA HARRIS Room #: 250-P ADM IN M.R.#: [id number] Admission: 03/27/20 Attend Phys: Andry Zhang MD Discharge: Date of : 40 Report #: [id number] THIS REPORT FOR: cc: Thomas Zuleta MD, Eric K. MD Santiago, Patrick MD [facility] ~ APPROVED REPORT Study performed: 03/28/2020 08:16:34 EXAM: Comprehensive 2D, Doppler, and color-flow Echocardiogram Patient Location: ICU Room #: 250 Status: routine BSA: 2.14 HR: 70 bpm BP: 107/51 mmHg Rhythm: Pacemaker Indications Hypotension, Chronic CHF. Hx: CABG, AVR, PPM, PVD, HTN, DM. 2D Dimensions RVDd: 47.53 mm IVSd: 15.27 (7-11mm) LVDd: 54.77 mm PWd: 13.18 (7-11mm) Ascending Ao: 37.88 (22-36mm) LVDs: 39.09 (25-40mm) Aortic Root: 29.68 mm Volumes Left Atrial Volume (Systole) Single Plane 4CH: 108.75 mL Single Plane 2CH: 119.06 mL LA ESV Index: 56.00 mL/m2 Aortic Valve AoV Peak Yoel.: 2.99 m/s AO Peak Gr.: 35.83 mmHg LVOT Max P.95 mmHg AO Mean Gr.: 20.54 mmHg AO V2 Mean: 2.16 m/s LVOT Max V: 1.11 m/s AO V2 VTI: 62.71 cm Mitral Valve [facility] [address] [place] [address] 2 D/M-MODE ECHOCARDIOGRAM Name: CATIA HARRIS Room #: 250-P ADM IN M.R.#: [id number] Admission: 03/27/20 Attend Phys: Andry Zhang MD Discharge: Date of : 40 Report #: [id number] MV Decel. Time: 182.00 ms MV E Max Yoel.: 1.60 m/s Pulmonary Valve PV Peak Yoel.: 1.93 m/s PV Peak Gr.: 14.92 mmHg Tricuspid Valve TR Peak Yoel.: 3.13 m/s RAP Estimate: 15.00 mmHg TR Peak Gr.: 39.18 mmHg PA Pressure: 54.00 mmHg Left Ventricle The left ventricle is normal size. Mild to moderate concentric left ventricular hypertrophy. Left ventricular systolic function is normal. LVEF is 55%. This study is not technically sufficient to allow evaluation of the LV diastolic function. Right Ventricle Right ventricle is dilated. Right ventricle is mildly hypokinetic. Pacemaker lead is present in the right ventricle. Atria Left atrium is severely dilated. Right atrium is mildly dilated. Aortic Valve 23mm Durant bovine prosthetic valve is present. Peak pressure gradient through the valve is 36mmHg with a mean of 21mmHg. Trace aortic regurgitation. Mitral Valve Mitral valve leaflets are mildly thickened. Moderate mitral annular calcification. Moderate mitral regurgitation. No evidence of mitral valve stenosis. Tricuspid Valve The tricuspid valve is normal in structure. Moderate tricuspid regurgitation. Estimated PAP is 50-55mmHg. Pulmonic Valve The pulmonary valve is normal in structure. Mild pulmonic regurgitation. Great Vessels The aortic root is normal in size. The ascending aorta is borderline dilated. IVC is dilated and collapses <50% with [facility] [address] [place] [address] 2 D/M-MODE ECHOCARDIOGRAM Name: CATIA HARRIS Room #: 250-P ADM IN M.R.#: [id number] Admission: 03/27/20 Attend Phys: Andry Zhang MD Discharge: Date of : 40 Report #: [id number] inspiration. Pericardium There is no pericardial effusion. <Conclusion> Normal left ventricle size Moderate concentric hypertrophy EF 55% Right ventricle mildly enlarged with mild hypokineses Moderate/severe biatrial enlargement Bioprosthetic aortic valve, good cusp excursion, mean gradient of 21 mmHg Moderate mitral annular calcification, no stenosis Mild-Moderate/central mitral valve insufficiency Moderate tricuspid valve insufficiency Moderate to pulmonary hypertension, PA pressure systolic estimated at 55 mmHg No pericardial effusion <ELECTRONICALLY SIGNED> By: Arslan Christian MD, [facility] 03/28/20904 4 4 Arslan Christian MD, FAC /INF
--- NOTE | 2020-03-28 10:03 | NUR ---
Nutrition: Pt assessed due to consult received stating " DM diet needed". Familiar with pt as seen on rehab unit 03/25. Transferred to acute for arteriogram, developed hypotension during procedure. PMH: CABG, IDDM, HTN, CHF, peripheral neuropathy, AVR. Recent hallux amputation for left foot gangrene. Good appetite eats 100% of meals on heart healthy diet, will add Carb controlled. BG 117-215. A1C 6.9. Pt was drinking ensure max daily on rehab unit, re-ordered. Protein needs have been reviewed. Low nutrition risk.
--- NOTE | 2020-03-28 10:54 | NUR ---
Case opened to follow for dc back to acute rehab 5[facility] when medically stable. Pt is currently in ICU s/p IR procedure d/t hypotensive episodes during his procedure. [facility] acute rehab is following and can accept him again once medically stable.
--- NOTE | 2020-03-28 11:13 | NUR ---
PATIENT WAS ON 5[facility] FOR ACUTE REHAB PRIOR TO ADMISSION TO ACUTE HOSPITAL FOR STENT PLACEMENT. PLAN IS TO READMIT PATIENT TO ACUTE REHAB WHEN PATIENT IS MEDICALLY STABLE. ACUTE HOSPITAL DANCE HALL HOSTESS IS AWARE OF PLAN. PLEASE CONTACT CYBER DEFENSE INCIDENT RESPONDER WHEN PATIENT IS MEDICALLY STABLE AND READY FOR REHAB ADMISSION - [phone] OR [phone]
--- NOTE | 2020-03-28 17:04 | CATHLAB ---
[facility] [place] [address] INVASIVE PROCEDURE REPORT Name: CATIA HARRIS Room #: 250-P ADM IN M.R.#: [id number] Admission: 03/27/20 Attend Phys: Andry Zhang MD Discharge: Date of : 40 Report #: [id number] THIS REPORT FOR: cc: Thomas Zuleta MD, Eric K. MD Mancuso, Gerald M. MD [facility] ~ APPROVED REPORT Study performed: 03/27/2020 13:31:20 Patient Details Patient Status: In-Patient Room #: The patient is a 79 year-old male Event Personnel Daniel Diaz Liquid Chlorine Operator, Sunita Ramesh RN RN, Francine Arias RTR Monitor, Nash High RTR Scrub, Adrianne Potter RTR Monitor Procedures Performed Left Heart Cath Coronaries, Bypass Grafts [id number] LHCCORCABG , Right transradial approachLeft Heart Cath Coronaries, Bypass Grafts [id number] LHCCORCABG 69677 Initial Mod Sed Same Phys/QHP Gr5y 081691 80532 Mod Sed Same Phys/QHP Ea 898394 Hemostasis w/ Mynx Indication Chest pain Procedure Narrative A SHEATH BRITE-TIP 6F X 11CM ([id number]) sheath was inserted into the RFA^. Coronary angiography was performed using coronary diagnostic catheters. The right coronary system was accessed and visualized with a 6FR RCB #[id number] catheter. The left coronary system was accessed and visualized with a JL4 catheter. The left ventricle was accessed and visualized with a PIGTAIL catheter. Closure device was deployed with a 6 Fr MYNXGRIP 6/7F [id number]. The patient tolerated the procedure well and there were no complications associated with the procedure. There was no hematoma. Intraoperative Conscious Sedation Sedation start time: 1156 Case end Time: 1437 Fentanyl 100 mcg Versed 1.5 mg CONTRAST TOTALS, SEDATION AMOUNTS AND FLUORO DOSES ARE FROM A [employer] [facility] [place] [address] [place] [address] INVASIVE PROCEDURE REPORT Name: CATIA HARRIS Room #: 250-P [facility] IN M.R.#: [id number] Admission: 03/27/20 Attend Phys: Andry Zhang MD Discharge: Date of : 40 Report #: [id number] CASE WITH DR HIDALGO Fluoro Time: 23.13 minutes Dose: DAP 96514.40 cGycm2 1925 mGy Contrast Type and Amount: Visipaque 155 ml Hemodynamics The aortic pressure is 82/33 mmHg with a mean of 56 mmHg. The left ventricular pressure is 93/35 mmHg with a mean of mmHg. The left ventricular end diastolic pressure is 58 mmHg. PCI Technique Lesion Percutaneous coronary intervention was performed on the Superficial Femoral. Conclusion #1. Left main moderately disease giving rise to LAD and an occluded circumflex. #2 LAD is moderately diseased throughout previously placed stents moderate restenosis. No area for intervention. #3 [place] circumflex occluded off of the left main #4 a SALAZAR graft supplies the OM system widely patent with mild disease in the circumflex OM system. #5 [place] right coronary artery occluded proximal. #6 SVG to PDA intact with moderate disease small PDA system. No indication for intervention. Recommendations and plan: Continue aggressive risk factor modification. Low-dose pressor support. Patient is status post peripheral intervention with some hypotension. But no clear evidence for coronary intervention would benefit him at this time. Will transfer to CCU/ICU to continue to monitor. Prosthetic aortic valve intact. This valve was not crossed. <ELECTRONICALLY SIGNED> By: Daniel Diaz MD, FACC 03/28/201702 02 02 Daniel Diaz MD, FACC /INF
--- NOTE | 2020-03-28 18:51 | NUR ---
PATIENT CCU STATUS. PATIENT PROGRESSING TOWARDS DISMISSAL GOALS. PATIENT IS MOVING TO ROOM 203 CCU. TOLERATES EATING WELL. VOIDS PER URINAL. PT/OT CONSULTED. DENTURES FOUND IN PATIENT BELONGINGS BAG.
--- NOTE | 2020-03-28 21:08 | NUR ---
ASSUMED PT CARE AT 1899. VSS. PT A&0X4. NOC MEDS ADMINISTERED PER JUN. PT TRANSFERED OUT OF ICU TO CCU AT 2104. REPOT CALLED TO REUBEN FRAZIER
[2020-03-29 03:30] VITALS: BP 127/67
--- NOTE | 2020-03-29 06:25 | NUR ---
PATIENT ARRIVED TO THE UNIT FROM ICU AROUND 2114. PT SLEPT THROUGH MOST THE NIGHT. PT A&OX4. PT IS VPACED ON THE MONITOR. VOIDING PER URINAL. FALL PRECAUTIONS ARE IN PLACE. VSS. CONTINUING TO ASSESS ACCORDIN TO POC.
[2020-03-29 07:50] VITALS: BP 140/62
[2020-03-29 10:38] LABS: HEMATOCRIT 25.4 % (42.0-52.0); HEMOGLOBIN 8.1 gm/dL (14.0-18.0); MCH 28.3 pg (26.0-34.0); MCV 88.4 fL (80.0-100.0); RBC 2.87 mil/uL (4.50-6.00); RDW 18.1 % (10.5-14.5); WBC 8.8 thou/uL (4.0-11.0)
[2020-03-29 10:46] LABS: CALCIUM 9.4 mg/dL (8.5-10.1); CREATININE 2.2 mg/dL (0.7-1.3); POTASSIUM 5.8 mmol/L (3.5-5.1)
[2020-03-29 12:15] VITALS: BP 121/50
--- NOTE | 2020-03-29 15:50 | NUR ---
Pt's dentures were located late yesterday in his suitcase and he has them in today. Case discussed with the care team. Plan for readmission to acute rehab 5[facility] tomorrow.
[2020-03-29 16:05] VITALS: BP 136/60
[2020-03-29 19:20] VITALS: BP 147/67
--- NOTE | 2020-03-30 02:47 | NUR ---
CARE ASSUMED 1900. PT ALERT AND ORIENTED. VITALS STABLE. DENIES PAIN, CHEST DISCOMFORT NAUSEA OR VOMITING. PRN TURNS. RIGHT GROIN SITE S/P ANGIO C/D/I. WILL CONTINUE TO MONITOR AND FOLLOW POC.
[2020-03-30 03:12] LABS: HEMATOCRIT 22.7 % (42.0-52.0); HEMOGLOBIN 7.3 gm/dL (14.0-18.0); MCH 28.4 pg (26.0-34.0); MCHC 32.4 g/dL (28.0-37.0); MCV 87.7 fL (80.0-100.0); RBC 2.59 mil/uL (4.50-6.00); RDW 17.2 % (10.5-14.5); WBC 7.7 thou/uL (4.0-11.0)
[2020-03-30 03:23] LABS: CALCIUM 9.1 mg/dL (8.5-10.1); CREATININE 1.9 mg/dL (0.7-1.3); POTASSIUM 5.1 mmol/L (3.5-5.1)
[2020-03-30 04:00] VITALS: BP 139/59
[2020-03-30 07:50] VITALS: BP 145/67
[2020-03-30 08:15] VITALS: BP 145/67
[2020-03-30] MEDS ORDERED: IRON325 PO ×2 (10:25)
[2020-03-30] MEDS ORDERED: ASPIR 8181 MG PO ×2 (10:26)
[2020-03-30] MEDS ORDERED: LINEZOLID600 MG PO ×2 (10:27)
[2020-03-30] MEDS ORDERED: CEFEPIME 22 GM/100 M IV ×2 (10:28)
[2020-03-30 11:45] VITALS: BP 154/79
[2020-03-30 12:15] VITALS: BP 154/79
--- NOTE | 2020-03-30 13:16 | NUR ---
PT CARE ASSUMED AT 0700. ASSESSMENTS CHARTED. MEDICATIONS CHARTED. LFA IV. VENTRICULAR PACED. ACHS. ASSIST X 1. LT GREAT TOE AMPUTATION. WOUND CARE. PT DISCHARGED TO REHAB - 516.
--- NOTE | 2020-04-01 07:57 | HC ---
[facility] [place] [address] CONSULTATION Name: CATIA HARRIS Room #: 208-P [facility] IN M.R.#: [id number] Admission: 03/27/20 Attend Phys: Andry Zhang MD Discharge: 03/30/20 Date of : 40 Report #: [id number] THIS REPORT FOR: cc: Thomas Zuleta MD, Eric K. MD Althoff, Jeffrey R. MD ~ DATE OF SERVICE: 03/27/2020 CHIEF COMPLAINT: Left great toe amputation. HISTORY OF PRESENT ILLNESS: This is a 79-year-old male patient with a history of diabetes, hypertension, COPD, severe aortic stenosis, status post bioprosthetic aortic valve replacement, who was originally admitted to [facility] on 03/20/2020 with left foot gangrene and had failed outpatient treatment. He underwent elective left hallux amputation. He was discharged home. He was noted to be poorly healing, underwent arterial Doppler study on 03/26/2020, which had significant stenosis in the left popliteal artery. Interventional Radiology was consulted. The patient underwent left SFA atherectomy and stent placement, left popliteal artery atherectomy and stent graft placement and secondary thrombectomy of the left popliteal artery. I have been asked to see him with regard to wound care. The patient denies any pain at this point in time. ALLERGIES: ADHESIVE TAPE, PENICILLINS AND BEXTRA. PAST MEDICAL HISTORY: Positive for coronary artery disease, status post CABG, hypertension, diabetes mellitus, hyperlipidemia, coronary artery disease, history of subdural hematoma in 2017 after a fall, restrictive lung disease. SOCIAL HISTORY: Negative for alcohol or tobacco use. FAMILY HISTORY: Noncontributory. MEDICATIONS: Nitroglycerin, Humalog, Flomax, ProAir, Advair, Flonase, Ranexa, Aristocort, Colace, Lipitor, cyanocobalamin, insulin, Isordil, pantoprazole, carvedilol, Singulair. REVIEW OF SYSTEMS: CONSTITUTIONAL: The patient denies fever, chills or weight loss. NEUROLOGICAL: The patient denies focal weakness, numbness or tingling. EYES: The patient denies visual changes, redness, or drainage. ENT: The patient denies earache, nasal drainage or sore throat. CARDIOVASCULAR: The patient denies chest pain, palpitations or diaphoresis. PULMONARY: The patient denies cough or shortness of breath. GASTROINTESTINAL: The patient denies nausea, vomiting, diarrhea or abdominal [facility] [address] [place] [address] CONSULTATION Name: CATIA HARRIS Room #: 208-P DIS IN M.R.#: [id number] Admission: 03/27/20 Attend Phys: Andry Zhang MD Discharge: 03/30/20 Date of : 40 Report #: [id number] pain. ORTHOPEDIC: The patient notes the absence of his left great toe. Other systems in a 14-point review of systems are negative. PHYSICAL EXAMINATION: VITAL SIGNS: Include temperature 36.4, pulse 74, respiratory rate 16, blood pressure 138/54. GENERAL: Well-developed, well-nourished male patient who appears to be in no distress. HEENT: Head, normocephalic. Nose and throat clear. NECK: Supple. LUNGS: Diminished. HEART: Regular, without murmur. ABDOMEN: Soft. Bowel sounds are present. EXTREMITIES: Demonstrate feet appear to be relatively pink, warm and dry. There is an incision lines involving the amputation of his left great toe. There is some duskiness to the area with some crusting that appears to have dry stable eschar at the most lateral portion of the incision line. Once again, no separation, no overt cellulitis noted at this time. CLINICAL IMPRESSION: 1. Surgical wound following amputation of the left great toe. 2. Diabetes mellitus. 3. Peripheral vascular disease, status post percutaneous intervention as detailed above. 4. Coronary artery disease. 5. Congestive heart failure. RECOMMENDATIONS: At this point in time, we will recommend a simple Betadine paint to the incision line with a dry gauze secondary dressing is to preserve tissue and preserve the eschar. Once we may be worthwhile to do some gentle cleansing once things potentially improved following the angioplasty. The patient is agreeable to current plan. I appreciate being asked to see him in consultation. <ELECTRONICALLY SIGNED> By: Robin Lopez MD 04/01/20 [id number] Robin Lopez MD /nt
[2020-04-02] MEDS ORDERED: MIRALAX17 GM PO ×2 (10:36)
== END 2020-03-30 13:54 | DRG 270 ==
LOC: 2N 12:13 → ICU 12:15 → 2N 03-28 21:12
PROVIDERS: Nurse Practitioner; ADMIT Hospitalist; ATTEND Hospitalist
PROC: B211YZZ Fluoroscopy of Multiple Coronary Arteries using Other Contrast (ICD-10-PCS; principal; 2020-03-27)
PROC: 4A023N7 Measurement of Cardiac Sampling and Pressure, Left Heart, Percutaneous Approach (ICD-10-PCS; principal; 2020-03-27)
PROC: 05HY33Z Insertion of Infusion Device into Upper Vein, Percutaneous Approach (ICD-10-PCS; principal; 2020-03-27)
PROC: B215YZZ Fluoroscopy of Left Heart using Other Contrast (ICD-10-PCS; principal; 2020-03-27)
PROC: 047N3DZ Dilation of Left Popliteal Artery with Intraluminal Device, Percutaneous Approach (ICD-10-PCS; principal; 2020-03-27)
PROC: 5A09357 Assistance with Respiratory Ventilation, Less than 24 Consecutive Hours, Continuous Positive Airway Pressure (ICD-10-PCS; principal; 2020-03-27)
PROC: 04CL3ZZ Extirpation of Matter from Left Femoral Artery, Percutaneous Approach (ICD-10-PCS; principal; 2020-03-27)
PROC: B21FYZZ Fluoroscopy of Other Bypass Graft using Other Contrast (ICD-10-PCS; principal; 2020-03-27)
PROC: 047L3DZ Dilation of Left Femoral Artery with Intraluminal Device, Percutaneous Approach (ICD-10-PCS; principal; 2020-03-27)
PROC: 04CN3ZZ Extirpation of Matter from Left Popliteal Artery, Percutaneous Approach (ICD-10-PCS; principal; 2020-03-27)
PROC: 5A09357 Assistance with Respiratory Ventilation, Less than 24 Consecutive Hours, Continuous Positive Airway Pressure (ICD-10-PCS; 2020-03-28)
PROC: 5A09357 Assistance with Respiratory Ventilation, Less than 24 Consecutive Hours, Continuous Positive Airway Pressure (ICD-10-PCS; 2020-03-29)
DX: E11.52 Type 2 diabetes mellitus with diabetic peripheral angiopathy with gangrene (principal); N17.0 Acute kidney failure with tubular necrosis; E46 Unspecified protein-calorie malnutrition; E87.1 Hypo-osmolality and hyponatremia; L03.116 Cellulitis of left lower limb; I13.0 Hypertensive heart and chronic kidney disease with heart failure and stage 1 through stage 4 chronic kidney disease, or unspecified chronic kidney disease; I25.10 Atherosclerotic heart disease of native coronary artery without angina pectoris; J44.9 Chronic obstructive pulmonary disease, unspecified; E11.42 Type 2 diabetes mellitus with diabetic polyneuropathy; Z96.652 Presence of left artificial knee joint; Z96.641 Presence of right artificial hip joint; E78.5 Hyperlipidemia, unspecified; I48.0 Paroxysmal atrial fibrillation; E11.51 Type 2 diabetes mellitus with diabetic peripheral angiopathy without gangrene; E87.5 Hyperkalemia; I50.9 Heart failure, unspecified; E55.9 Vitamin D deficiency, unspecified; I95.9 Hypotension, unspecified; N18.9 Chronic kidney disease, unspecified; D50.9 Iron deficiency anemia, unspecified; G47.33 Obstructive sleep apnea (adult) (pediatric); E11.69 Type 2 diabetes mellitus with other specified complication; Z60.2 Problems related to living alone; Z95.2 Presence of prosthetic heart valve; Z95.5 Presence of coronary angioplasty implant and graft; Z95.1 Presence of aortocoronary bypass graft; Z88.0 Allergy status to penicillin; Z88.8 Allergy status to other drugs, medicaments and biological substances; Z79.4 Long term (current) use of insulin; Z90.49 Acquired absence of other specified parts of digestive tract; Z95.0 Presence of cardiac pacemaker; Z80.6 Family history of leukemia; Z83.3 Family history of diabetes mellitus; E11.22 Type 2 diabetes mellitus with diabetic chronic kidney disease
CPT/HCPCS: 10081; 10203

== ENCOUNTER 2020-03-29 14:39 | Inpatient (IN) | payer OTHER ==
[~2020-03-29] VITALS: Ht 167.6 cm; Wt 87.5 kg
--- NOTE | ~2020-03-29 | PLAN ---
[facility] [place] [address] REHAB UNIT PLAN OF CARE Name: CATIA HARRIS Room #: 516-1 ADM IN M.R.#: [id number] Admission: 03/30/20 Attend Phys: Nahum Bonilla MD Discharge: Date of : 40 Report #: [id number] THIS REPORT FOR: cc: Thomas Zuleta MD, Eric K. MD Smithson,Nahum Saavedra MD ~ DATE OF SERVICE: 04/01/2020 PROGRESS NOTE/OVERALL PLAN OF CARE SUBJECTIVE: The patient is seen today in followup. He has some nausea, had a small emesis. He notes he only had a small BM yesterday. Temperature 36.7, pulse 71, respirations 18, blood pressure 154/64. He is otherwise pleasant. Abdomen seems rather distended. Bowel sounds are decreased, but present, soft, no tenderness. No focal calf swelling. His left foot is dressed. He has been working in therapies with transfers at a contact guard assistance. Gait 130 feet with the four-wheeled walker, contact guard. Again, he has heel weightbearing, lower body dressing is max assist, upper body dressing is standby. Speech therapy is involved with moderate verbal deficits, [id number] cognitive deficits, and moderate memory deficits. ASSESSMENT: 1. Left foot gangrene with osteomyelitis, status post left hallux amputation and hardware removal 03/20/2020, heel weightbearing. 2. Peripheral vascular disease, status post atherectomy by Interventional Radiology on 03/27/2020. 3. Post-procedure hypotension that has resolved. 4. Nausea with some abdominal distention and apparent constipation, but will rule out obstruction. KUB ordered. Defer further management to the hospitalist service. 5. Left lower extremity cellulitis. 6. Renal insufficiency. 7. Hyponatremia. 8. Premorbid peripheral neuropathy. 9. Diabetes mellitus type 2. 10. Degenerative arthritis with prior history of total knee replacement. 11. Congestive heart failure. 12. History of coronary artery disease with history of stents and permanent pacemaker in place. 13. Severe aortic stenosis with history of aortic valve replacement. 14. Obstructive sleep apnea. 15. Dysphagia, on pureed diet. Speech therapy is involved and is to do a swallowing study. PLAN: The overall plan of care is based on the preadmission screen and [facility] [address] [place] [address] REHAB UNIT PLAN OF CARE Name: CATIA HARRIS Room #: 516-1 ADM IN M.R.#: [id number] Admission: 03/30/20 Attend Phys: Nahum Bonilla MD Discharge: Date of : 40 Report #: [id number] information garnered from therapy assessments. 1. Estimated length of stay is probably 10 days to 2 weeks pending progress. 2. Medical prognosis is reasonably good. 3. Anticipated interventions includes the interdisciplinary acute inpatient rehabilitation program. 4. Anticipated functional outcomes would be for the patient to become modified independent with transfers, mobility, ADLs and to improve as far as cognition, so that he can return back to the home setting. We are also assessing swallowing issues. 5. Discharge destination would be ideally back to the home setting. He lives alone, does have supportive neighbors. 6. Expected therapy by discipline includes PT, OT and speech 1 hour per day each five days a week throughout the duration of the acute inpatient rehabilitation stay. By: [id number] [id number] Nahum Bonilla MD /nt
--- NOTE | ~2020-03-29 | H ---
[facility] [place] [address] HISTORY AND PHYSICAL Name: CATIA HARRIS Room #: 516-1 ADM IN M.R.#: [id number] Admission: 03/30/20 Attend Phys: Nahum Bonilla MD Discharge: Date of : 40 Report #: [id number] THIS REPORT FOR: cc: Thomas Zuleta MD, Eric K. MD Smithson, David G. MD ~ DATE OF SERVICE: 03/30/2020 HISTORY OF PRESENT ILLNESS: The patient is being readmitted for acute in-hospital inpatient rehabilitation. Please see the most recent history and physical. He had underwent surgery, left hallux amputation by Podiatry on 03/20/2020 due to gangrene and failed outpatient treatment. He was noted to have acute renal insufficiency, hyponatremia and was followed regarding anemia. He was continued on IV antibiotics. After admission to the rehab [facility], there was concern regarding his residual limb and an arterial Doppler was obtained and Interventional Radiology consulted and the patient is being transferred back to acute care. On 03/27/2020, he underwent an aortogram with noted high-grade stenoses, left distal superficial femoral artery and distal left popliteal artery, which were treated with atherectomy with improvement in the patency. The patient was then monitored in the Intensive Care Unit post-procedure with some hypotension. He was started on a dopamine drip. He has since been further stabilized in that regard and was felt to be ready for transfer back to the acute inpatient rehab [facility]. PAST MEDICAL HISTORY: Please see the prior history and physical. SOCIAL HISTORY: Please see the prior history and physical. HABITS: Please see the prior history and physical. MEDICATIONS: Per JUN. ALLERGIES: ADHESIVE TAPE, PENICILLIN AND VALDECOXIB. REVIEW OF SYSTEMS: No complaints of chest pain, shortness of breath or abdominal discomfort. PHYSICAL EXAMINATION: GENERAL: The patient was seen on 03/30/2020. He was in no distress. VITAL SIGNS: Last recorded temperature 36.6, pulse 70, respirations 19, blood pressure 159/80. He was alert, no distress. HEENT: Appeared to be benign. CHEST: Clear to auscultation. CARDIOVASCULAR: Sounded regular rate and rhythm. ABDOMEN: Bowel sounds positive, nontender. [facility] [address] [place] [address] HISTORY AND PHYSICAL Name: CATIA HARRIS Room #: 516-1 ADM IN M.R.#: [id number] Admission: 03/30/20 Attend Phys: Nahum Bonilla MD Discharge: Date of : 40 Report #: [id number] GENITOURINARY AND RECTAL: Deferred. EXTREMITIES: He has functional range of motion of the upper extremities. Lower extremities: He has bilateral ortho boots in place. Surgical site is dressed. He is heel weightbearing on that left lower extremity. Strength is probably a grade 4- to 3+/5. He has been min assist with a gait belt walker present for basic transfers. ASSESSMENT: 1. Left foot gangrene/osteomyelitis, status post left hallux amputation and hardware removal, 03/20/2020, heel weightbearing. 2. Peripheral vascular disease, status post atherectomy by Interventional Radiology, 03/27/2020. 3. Post-procedure hypotension, warranting dopamine and ICU stay. 4. Left lower extremity cellulitis. 5. Acute renal insufficiency. 6. Hyponatremia. 7. Anemia. 8. Premorbid peripheral neuropathy. 9. Type 2 diabetes mellitus. 10. Degenerative arthritis with prior history of total knee replacement. 11. Congestive heart failure. 12. History of coronary artery disease with history of stents, permanent pacemaker in place. 13. Severe aortic stenosis with history of aortic valve replacement. 14. Obstructive sleep apnea. 15. History of subdural hematoma. 16. Dysphagia, ____ pureed diet. We will have speech therapy assess as well. PLAN: The patient has been admitted for acute in-hospital inpatient rehabilitation. Please see the previous and current functional status. As far as risk of complications, he has multiple medical comorbidities as noted above. Initial plan of care involves the interdisciplinary acute inpatient rehabilitation program with goal of maximizing his functional independence, so he can hopefully return back to his prior living situation. Measurable functional goals would be for him to go back to the home setting. We will need to assess his additional assistance as well. Prognosis is reasonably good with estimated length of stay probably at least 2 weeks. Potential barriers would include his multiple medical comorbidities and decreased functional status. The patient meets diagnostic criteria for an acute in-hospital inpatient rehabilitation stay. He meets the medical necessity criteria. We will have the [address] [address] HISTORY AND PHYSICAL Name: CATIA HARRIS Room #: 516-1 ADM IN M.R.#: [id number] Admission: 03/30/20 Attend Phys: Nahum Bonilla MD Discharge: Date of : 40 Report #: [id number] professional employer consultant physicians continue to follow. He does have the tolerance for therapies and has appropriate discharge goals back to the home setting. By: [id number] [id number] Nahum Bonilla MD /nt
[2020-03-30] MEDS ORDERED: IRON325 PO (10:25)
[2020-03-30] MEDS ORDERED: ASPIR 8181 MG PO (10:26)
[2020-03-30] MEDS ORDERED: LINEZOLID600 MG PO (10:27)
[2020-03-30] MEDS ORDERED: CEFEPIME 22 GM/100 M IV (10:28)
[2020-03-30 14:10] VITALS: BP 144/61
--- NOTE | 2020-03-30 14:52 | NUR ---
PT ARRIVED AT 1410 FROM CCU. ALERT AND ORIENTED *4. SLURRED SPEECH. DENIES PAIN AT THIS TIME. VITALS REMAIN STABLE. LEFT FOOT INCISION REMAINS INTACT, DRESSING CHANGED. LLE REMAIN HEEL WEIGHT BEARING. ORTHO BOOTS IN PLACE WITH ALL TRANSFERS. PT UP WITH 1 MIN ASSIST, GB AND WALKER, PIVOT TRANSFERS. Q1H VISUAL CHECKS. CALL LIGHT WITHIN REACH. FALL PRECAUTIONS IN PLACE
[2020-03-30 20:00] VITALS: BP 166/80
--- NOTE | 2020-03-31 03:49 | NUR ---
ALERT AND ORIENTED. R GROIN SITE WITH NO SX OF HEMATOMA. PT ON ROOM AIR, DENIES ANY SOA OR COUGH. AFEBRILE. USING CPAP AT [facility]. TOOK MEDS OKAY IN APPLE SAUCE. USING URINAL. CALLS WITH NEEDS.
[2020-03-31 06:02] LABS: HEMATOCRIT 24.3 % (42.0-52.0); HEMOGLOBIN 7.9 gm/dL (14.0-18.0); MCH 28.3 pg (26.0-34.0); MCHC 32.5 g/dL (28.0-37.0); MCV 87.1 fL (80.0-100.0); RBC 2.79 mil/uL (4.50-6.00); RDW 17.5 % (10.5-14.5); WBC 9.2 thou/uL (4.0-11.0)
[2020-03-31 06:09] LABS: CALCIUM 9.2 mg/dL (8.5-10.1); CREATININE 1.7 mg/dL (0.7-1.3)
[2020-03-31 07:45] VITALS: BP 159/80
--- NOTE | 2020-03-31 13:24 | NUR ---
ASSUMED CARES AT 0700. PT AWAKE, ALERT AND ORIENTED*4. VITALS REMAIN STABLE. PT DENIES PAIN AT THIS TIME. C/O NAUSEA WITH MEALS, STATED THAT HE DIDN'T FEEL LIKE EATING. ABDOMEN FIRM AND DISTENDED WITH HYPOACTIVE BS, LAST BM REPORTED 03/26. STOOL SOFTENORS AND DUCOLAX SUPPOSITORY ADMINISTERED, PT HAD *1 LG HARD STOOL. INCISION ON LEFT FOOT REMAINS DRY AND INTACT, HEEL WEIGHT BEARING BOOT IN PLACE WITH ALL TRANSFERS AND AMBULATION. UP WITH 1 MOD ASSIST, GB AND WALKER. Q1H VISUAL CHECKS. CALL LIGHT WITHIN REACH. FALL PRECAUTIONS IN PLACE.
[2020-03-31 19:43] VITALS: BP 145/73
--- NOTE | 2020-04-01 00:32 | NUR ---
PT ALERT AND ORIENTED X 4. TRANSFERRED TO BED AT START OF SHIFT FROM RECLINER WITH ASSIST X 1. DRESSING TO LEFT FOOT C/D/I. BLOOD SUGAR 220 AT HS. INSULIN GIVEN ORDERED. PT TOOK HS MEDS IN APPLESAUCE WITHOUT DIFFICULTY. PT C/O PAIN IN LEFT FOOT. TYLENOL GIVEN ORDERED. RIGHT GROIN DRESSING C/D/I. BED ALARM ON FOR SAFETY. PT APPEARS TO BE SLEEPING ON HOURLY ROUNDS.
[2020-04-01 08:00] VITALS: BP 154/64
--- NOTE | 2020-04-01 11:29 | NUR ---
ASSUMED CARES AT 0700. PT AWAKE, ALERT AND ORIENTED *4. PT HEAVING AND SPITTING UP LARGE AMOUNTS OF SPUTUM. ABDOMEN FIRM AND DISTENDED, PT CONSTIPATED, STOOL SOFTENORS AND LAXATIVES ADMINISTERED AND PROVIDER NOTIFIED, PT HAD A LARGE BM. RIGHT FOOT DRESSING LOOSE, WOUNDCARE WILL CHANGE THIS AM. INCISION REMAINS DRY AND STERI STRIPS ARE INTACT. LLE REMAINS HEEL WEIGHT BEARING. PT UP WITH 1 MOD ASSIST, GB AND WALKER AND TOLERATED WELL. VITALS ARE STABLE. PAIN MEDICATION ADMINISTERED NEEDED, PT RATED PAIN AT 9/10. Q1H VISUAL CHECKC. CALL LIGHT WITHIN REACH. FALL PRECAUTIONS IN PLACE.
--- NOTE | 2020-04-01 16:05 | NUR ---
ASSUMED CARE AT NOON. PT IS ALERT AND ORIENTATED. HAD COUPLE OF LARGE BOWEL MOVEMENTS THIS MORNING. PT REPORTED FEELING BETTER AND NOT FEELING NAUSEATED. HE TOOK ALL HIS AM MEDS AT 1100 ALONG WITH 2 PKTS OF MIRALAX. TOLERATED WELL WITH NO COMPLAINS. BS WAS 194, INSULIN 3 UNITS GIVEN. UNFORTUNATELY PT DRY HEAVED AGAIN WHEN FOOD ARRIVED AND COULD NOT EAT HIS LUNCH. HE DRANK MOST OF THE BINU. PARTICIPATING IN THERAPY. NO COMPLAINS OF DRY HEAVES WITH THERAPY. RESTING IN RECLINER. CONT TO MONITOR.
[2020-04-01 19:30] VITALS: BP 126/61
--- NOTE | 2020-04-02 00:02 | NUR ---
PT ALERT AND ORIENTED X 4. VOIDING ADEQUATE AMTS YELLOW URINE PER URINAL. PT TOOK HS MEDS IN APPLESAUCE WITHOUT DIFFICULTY. BLOOD SUGAR 227 AT HS. INSULIN GIVEN ORDERED. LEFT FOOT DRESSING C/D/I. PT C/O PAIN IN LEFT FOOT. HYDROCODONE GIVEN AT HS WITH PARTIAL PAIN RELIEF VERBALIZED. BED ALARM ON FOR SAFETY. PT APPEARS TO BE SLEEPING ON HOURLY ROUNDS.
--- NOTE | 2020-04-02 03:33 | NUR ---
CRITICAL LAB COVID POSITIVE. ARNALDO FRIAS NP NOTIFIED. GLADYS ROBERTSONTABLET COATER NOTIFIED. SHE WILL NOTIFY THIS NURSE WHERE TO TRANSFER PT.
[2020-04-02 07:49] VITALS: BP 154/70
[2020-04-02 08:52] VITALS: BP 154/70
--- NOTE | 2020-04-02 10:24 | NUR ---
PT ON SERVICE WITH [facility] PRIOR TO ADM FAXED CLINICAL UPDATE SPOKE WITH COLLETTE IN INTAKE SHE RECEIVED UPDATE.
[2020-04-02] MEDS ORDERED: MIRALAX17 GM PO (10:36)
--- NOTE | 2020-04-02 13:32 | NUR ---
pt d/c from ARU d/t covid positive dx.
--- NOTE | 2020-04-02 16:34 | NUR ---
ASSUMED CARE OF PT AT 0700. PT IS A&OX4 AND VITAL SIGNS ARE STABLE. PT DENIES PAIN. COVID POSITIVE RESULTS NOTED, PT PLACED ON PRECAUTIONS, DOOR TO ROOM CLOSED AND ORDERS TO MOVE PT TO ISOLATION UNIT. ORDERS FOR DISCHARGE, CALLED REPORT TO KARIN SMITH AND PT MOVED TO AT APPROXIMATLY 1300. FAMILY NOTIFIED OF THE RESULTS AND TRANSFER. ROOM CLOSED IMMEDIATELY AFTER AND IS NOW IN THE PROCESS OF BEING CLEANED.
== END 2020-04-02 13:47 | disposition home health service (06) | DRG 947 ==
PROVIDERS: ADMIT Physical Medicine & Rehabilitation; ATTEND Physical Medicine & Rehabilitation
DX: R53.81 Other malaise (principal); U07.1 COVID-19; E11.52 Type 2 diabetes mellitus with diabetic peripheral angiopathy with gangrene; M86.8X7 Other osteomyelitis, ankle and foot; L03.116 Cellulitis of left lower limb; E87.1 Hypo-osmolality and hyponatremia; N17.9 Acute kidney failure, unspecified; I13.0 Hypertensive heart and chronic kidney disease with heart failure and stage 1 through stage 4 chronic kidney disease, or unspecified chronic kidney disease; E44.0 Moderate protein-calorie malnutrition; E11.42 Type 2 diabetes mellitus with diabetic polyneuropathy; E11.69 Type 2 diabetes mellitus with other specified complication; I50.9 Heart failure, unspecified; I35.0 Nonrheumatic aortic (valve) stenosis; I25.10 Atherosclerotic heart disease of native coronary artery without angina pectoris; M19.90 Unspecified osteoarthritis, unspecified site; G47.33 Obstructive sleep apnea (adult) (pediatric); R13.10 Dysphagia, unspecified; K59.00 Constipation, unspecified; I95.9 Hypotension, unspecified; N18.9 Chronic kidney disease, unspecified; E11.22 Type 2 diabetes mellitus with diabetic chronic kidney disease; Z96.652 Presence of left artificial knee joint; D50.9 Iron deficiency anemia, unspecified; I48.0 Paroxysmal atrial fibrillation; Z96.641 Presence of right artificial hip joint; E78.5 Hyperlipidemia, unspecified; Z68.31 Body mass index [BMI] 31.0-31.9, adult; Z95.5 Presence of coronary angioplasty implant and graft; Z95.2 Presence of prosthetic heart valve; Z89.612 Acquired absence of left leg above knee; Z88.0 Allergy status to penicillin; Z88.8 Allergy status to other drugs, medicaments and biological substances; Z79.82 Long term (current) use of aspirin; Z79.899 Other long term (current) drug therapy; Z95.1 Presence of aortocoronary bypass graft; Z95.820 Peripheral vascular angioplasty status with implants and grafts; Z80.6 Family history of leukemia; Z83.3 Family history of diabetes mellitus; Z95.0 Presence of cardiac pacemaker
CPT/HCPCS: 10112

== ENCOUNTER 2020-04-02 15:54 | Inpatient (IN) | payer OTHER ==
[~2020-04-02] VITALS: Ht 210.8 cm; Wt 95.7 kg
[~2020-04-02 15:54] MED LIST changes: +CEFEPIME 22 GM/100 M IV; +IRON325 PO; +LINEZOLID600 MG PO; +MIRALAX17 GM PO
--- NOTE | 2020-04-02 18:51 | NUR ---
CRISTHIANBT ADMITTED TO UNIT. NOTED LEFT GREAT TOE AMPUTATION AND ALSO IV TO RIGHT FOREARM. HE IS ALERT ORIENTED X4. PLEASANT WITH CARE. WILL CONT WITH CARE.
[2020-04-02 19:38] VITALS: BP 154/75
--- NOTE | 2020-04-02 22:25 | NUR ---
PT WATCHING TV IN BED. LLE DRESSING INTACT. PT USING URINAL. PT PROVIDED HS SNACK. ABD DISTENDED, SKIN DUSKY, HR IRREG. BED ALARM ON.
[2020-04-03 00:05] VITALS: BP 138/73
[2020-04-03 04:22] VITALS: BP 133/66
[2020-04-03 05:59] LABS: HEMATOCRIT 23.7 % (42.0-52.0); HEMOGLOBIN 8.1 gm/dL (14.0-18.0); MCV 88.3 fL (80.0-100.0); PLATELET COUNT 160 thou/uL (150-400); RBC 2.68 mil/uL (4.50-6.00); RDW 17.8 % (10.5-14.5); WBC 7.1 thou/uL (4.0-11.0)
[2020-04-03 06:10] LABS: CALCIUM 9.3 mg/dL (8.5-10.1); CREATININE 1.6 mg/dL (0.7-1.3); POTASSIUM 5.2 mmol/L (3.5-5.1)
[2020-04-03 07:27] VITALS: BP 138/58
[2020-04-03 11:38] LABS: ABSOLUTE NEUTROPHILS 5.6 thou/uL (1.4-8.2); ANISOCYTOSIS 1+
[2020-04-03 11:39] LABS: OVALOCYTES FEW
--- NOTE | 2020-04-03 14:55 | NUR ---
INITIAL ASSESSMENT: SW reviewed chart and spoke with nursing and attending physician. Pt was admitted to 3W from due to having positive COVID test. Pt is a febrile and not requiring O2. Pt is on IV abx. SW placed call to pt's room. No answer. RAKESH spoke with pt's cousin, Rosio, who lives in . Pt is alert/orientated x 4 and lives at home alone. 2 steps to enter the home and 12 steps inside the home. Prior to admission, pt was independent with ADLs. Pt has a cane/walker. Pt has been to [facility] in the past and would like to go back to if possible. Consult ordered for to evaluate pt. Pt has been accepted by [facility] Pt's PCP is Dr. Thomas Zuleta. Pt's cousin asked about retesting for COVID. SW notified attending physician of request. Awaiting input from . RAKESH is following to assist as needed with discharge planning.
[2020-04-03 15:25] VITALS: BP 141/54
--- NOTE | 2020-04-03 15:34 | NUR ---
PATIENT HAS RESTED IN ROOM TODAY HAD A BOWEL MOVEMENT EARLIER. DENIES PAIN AT THIS TIME. WILL CONT WITH PLAN OF CARE.
[2020-04-03 19:15] VITALS: BP 153/60
--- NOTE | 2020-04-03 22:42 | NUR ---
PT UP IN CHAIR, ASSISTED TO BSC AND RETURNED TO BED. PT USES WALKER, LEANS FORWARD WHEN TRANSFERRING. REQUESTED PRN FOR BLE PAIN PRIOR TO SLEEP. PT DID HAVE TWO LARGE SOFT STOOLS, PT HAD KAYXELATE ON DAY SHIFT. PT PROVIDED HS SNACK. PT VERY TALKATIVE, BLUNTED AFFECT. O2 PERN NC. LLE EDEMA AND BANDAGE INTACT. WALKING BOOTS REMOVED FOR SLEEP. BED ALARM ON.
[2020-04-04 03:35] VITALS: BP 150/63
[2020-04-04 05:49] LABS: HEMATOCRIT 24.9 % (42.0-52.0); MCH 28.8 pg (26.0-34.0); MCHC 32.2 g/dL (28.0-37.0); MCV 89.5 fL (80.0-100.0); RBC 2.78 mil/uL (4.50-6.00); RDW 18.1 % (10.5-14.5); WBC 6.7 thou/uL (4.0-11.0)
[2020-04-04 06:01] LABS: CALCIUM 9.5 mg/dL (8.5-10.1); CREATININE 1.4 mg/dL (0.7-1.3); MAGNESIUM 1.9 mg/dL (1.8-2.4); POTASSIUM 4.8 mmol/L (3.5-5.1)
[2020-04-04 07:37] VITALS: BP 155/57
--- NOTE | 2020-04-04 13:19 | NUR ---
RAKESH reviewed chart and spoke with nursing and attending physician. Pt remains in Enhanced Isolation due to COVID-19. Pt is afebrile and on 3L of O2. Pt is on IV abx. Repeat COVID test completed this morning and is negative. ID physician to determine if isolation precautions can be discontinued. RAKESH discussed with rehab spec. If pt is cleared by ID, pt could be admitted to 5 tomorrow. RAKESH spoke with pt via phone. Pt is hopeful to be able to go to 5N and is agreeable with plan to d/c to 5N. SW is following to assist as needed with discharge planning.
[2020-04-04 15:04] VITALS: BP 139/53
[2020-04-04 19:35] VITALS: BP 149/68
--- NOTE | 2020-04-04 19:40 | NUR ---
PT ASSESSED AT START OF SHIFT. COVID TEST REDONE AND PT IS NEGATIVE. ISOLATION DC'D. PT WORKED W/ THERAPY THIS AM AND AMBULATING WELL. UP IN THE RECLINER ALL AFTERNOON. EATING AND DRINKING WELL. NO C/O PAIN.
--- NOTE | 2020-04-05 04:13 | NUR ---
Pt. rested quietly during the night when checked on during frequent rounds. He offers no c/o pain. Bed alarm is on.
[2020-04-05 04:15] VITALS: BP 168/81
[2020-04-05 06:18] LABS: HEMATOCRIT 26.1 % (42.0-52.0); HEMOGLOBIN 8.4 gm/dL (14.0-18.0); MCH 28.6 pg (26.0-34.0); MCHC 32.2 g/dL (28.0-37.0); MCV 88.9 fL (80.0-100.0); RBC 2.94 mil/uL (4.50-6.00); RDW 17.8 % (10.5-14.5); WBC 7.9 thou/uL (4.0-11.0)
[2020-04-05 06:49] LABS: CALCIUM 9.7 mg/dL (8.5-10.1); CREATININE 1.3 mg/dL (0.7-1.3); MAGNESIUM 1.9 mg/dL (1.8-2.4); POTASSIUM 4.9 mmol/L (3.5-5.1)
[2020-04-05 08:04] VITALS: BP 172/75
[2020-04-05 10:40] VITALS: BP 156/61
--- NOTE | 2020-04-05 11:15 | NUR ---
Received awake on bed. Due medications given as prescribed, able to swallow meds w/o difficulty. On room air. Vital signs stable, with BP elevation noted- AM scheduled meds given as prescribed. On MS, not on telemetry; no complains and signs of chest pain, crushing sensation and heaviness. On mechanically altered diet- tolerating well; no nausea, no vomiting and no abdominal pain noted. On blood sugar monitoring, taken and recorded accordingly; with sliding scale insulin ordered. Assisted in ADLs. Continent of bowel and bladder, able to use urinal- output measured and recorded accordingly. Falls bundle in place. With SL at L FA- intact and flushing well. With L big toe amputation- dressing C/D/I- kept elevated; no bleeding noted. To continue monitoring patient. No complains of pain made during assessment. Not on isolation anymore; a/w room for patient to be transferred out of covid floor.
[2020-04-05 16:30] VITALS: BP 123/62
[2020-04-05 19:35] VITALS: BP 154/57
[2020-04-06 03:56] VITALS: BP 143/62
[2020-04-06 04:46] LABS: CREATININE 1.3 mg/dL (0.7-1.3); MAGNESIUM 1.8 mg/dL (1.8-2.4); POTASSIUM 4.5 mmol/L (3.5-5.1)
[2020-04-06 04:47] LABS: HEMATOCRIT 23.1 % (42.0-52.0); HEMOGLOBIN 7.5 gm/dL (14.0-18.0); MCH 28.5 pg (26.0-34.0); MCHC 32.6 g/dL (28.0-37.0); MCV 87.6 fL (80.0-100.0); RBC 2.64 mil/uL (4.50-6.00); WBC 8.5 thou/uL (4.0-11.0)
--- NOTE | 2020-04-06 05:46 | NUR ---
patients cares were assumed at shift change. patient was assessed and meds were passed. patient did sleep most of this shift without request,however his main concern is getting off this floor since he is covid negative. this is a pleasent man. he is look forward [facility] patient does live at home by himself. the bed is in a low and locked position.
[2020-04-06 08:36] VITALS: BP 153/71
[2020-04-06 09:00] VITALS: BP 153/71
--- NOTE | 2020-04-06 15:21 | NUR ---
Received transferred pt. to the floor for roughly one hour. Pt. was placed in room at change of shift. No report was given. Had to call to 3W to receive report. Pt. was transferred to 5N after giving report to Dinora FRAZIER and speaking with Dr. Riggs. Pt. discharged from unit with all belongings.
== END 2020-04-06 10:47 | DRG 299 ==
LOC: 3W 15:54 → 4W 04-06 06:47
PROVIDERS: Internal Medicine; Nurse Practitioner; ADMIT Hospitalist; ATTEND Hospitalist
DX: E11.52 Type 2 diabetes mellitus with diabetic peripheral angiopathy with gangrene (principal); J18.9 Pneumonia, unspecified organism; N17.9 Acute kidney failure, unspecified; E87.1 Hypo-osmolality and hyponatremia; E46 Unspecified protein-calorie malnutrition; I96 Gangrene, not elsewhere classified; I13.0 Hypertensive heart and chronic kidney disease with heart failure and stage 1 through stage 4 chronic kidney disease, or unspecified chronic kidney disease; M86.8X7 Other osteomyelitis, ankle and foot; N18.30 Chronic kidney disease, stage 3 unspecified; E11.22 Type 2 diabetes mellitus with diabetic chronic kidney disease; E11.69 Type 2 diabetes mellitus with other specified complication; E11.42 Type 2 diabetes mellitus with diabetic polyneuropathy; Z96.652 Presence of left artificial knee joint; Z96.641 Presence of right artificial hip joint; I25.10 Atherosclerotic heart disease of native coronary artery without angina pectoris; I50.9 Heart failure, unspecified; D50.9 Iron deficiency anemia, unspecified; E66.9 Obesity, unspecified; I48.0 Paroxysmal atrial fibrillation; G47.33 Obstructive sleep apnea (adult) (pediatric); K59.00 Constipation, unspecified; E87.5 Hyperkalemia; Z20.828 Contact with and (suspected) exposure to other viral communicable diseases; K21.9 Gastro-esophageal reflux disease without esophagitis; Z95.5 Presence of coronary angioplasty implant and graft; Z79.82 Long term (current) use of aspirin; Z79.899 Other long term (current) drug therapy; Z95.820 Peripheral vascular angioplasty status with implants and grafts; Z89.422 Acquired absence of other left toe(s); Z95.1 Presence of aortocoronary bypass graft; Z88.0 Allergy status to penicillin; Z90.49 Acquired absence of other specified parts of digestive tract; Z79.4 Long term (current) use of insulin; Z95.0 Presence of cardiac pacemaker; Z68.21 Body mass index [BMI] 21.0-21.9, adult
CPT/HCPCS: 10779; 10879

== ENCOUNTER 2020-04-06 10:04 | Inpatient (IN) | payer OTHER ==
[~2020-04-06] VITALS: Ht 167.6 cm; Wt 86.8 kg
[2020-04-06 12:00] VITALS: BP 141/67
--- NOTE | 2020-04-06 13:29 | NUR ---
ASSUMED CARE OF PT AT 1100 WHEN PT BROUGHT TO UNIT. RECEIVED REPORT FROM KARIN PRETTY PRIOR TO TRANSFER. PT DENIES PAIN AT THIS TIME AND IS PARTICIPATING IN THERAPIES. ACCU CHECKS ACHS. ADMISSION VITAL SIGNS, HEIGHT AND WEIGHT, HX AND ASSESSMENT COMPLETED. CONSULTS CALLED. WOUND CHANGED PER ORDERS. FALL PRECAUTIONS IN PLACE AND NURSING WILL CONTINUE TO MONITOR.
[2020-04-06 20:05] VITALS: BP 146/63
--- NOTE | 2020-04-07 04:10 | NUR ---
PATIENT ALERT AND ORIENTED X4. PLEASANT AND COOPERATIVE WITH CARE. VOIDING ELIZABETH URINE PER URINAL. DRESSING TO LEFT FOOT DRY AND INTACT. PATIENT C/O PAIN TO THIS AREA AND WAS GIVEN VICODIN X1 WITH MUCH RELIEF. REPOSITIONED AND ELEVATED LEFT FOOT ON PILLOW DURING THE NIGHT. RECEIVED CLEARER ORDERS FOR INSULIN, BOTH LANTUS AND LISPRO. BS MONITORED PER ORDER. WILL MONITOR.
[2020-04-07 05:59] LABS: CALCIUM 9.5 mg/dL (8.5-10.1); CREATININE 1.3 mg/dL (0.7-1.3); POTASSIUM 4.9 mmol/L (3.5-5.1)
[2020-04-07 06:23] LABS: HEMATOCRIT 23.3 % (42.0-52.0); HEMOGLOBIN 7.7 gm/dL (14.0-18.0); MCHC 33.1 g/dL (28.0-37.0); MCV 87.6 fL (80.0-100.0); RBC 2.66 mil/uL (4.50-6.00); WBC 8.1 thou/uL (4.0-11.0)
[2020-04-07 07:45] VITALS: BP 172/61
--- NOTE | 2020-04-07 13:54 | NUR ---
ASSUMED CARES AT 0700. PT AWAKE, ALERT AND ORIENTED*4. C/O MILD LLE PAIN, TYLENOL ADMINISTERED PER ORDER. BP ELEVATED, BP LOWERING MEDS ADMINISTERED. ALL OTHER VITALS REMAIN STABLE. PT CONTINUES TO HAVE LEFT FACILAL DROOP, NO PROBLEM NOTED WITH MEALS. LEFT FOOT INCISION CLEANED AND DRESSING CHANGED PER ORDER, SMALL AMOUNT OF DRIED DRAINAGE NOTED. PT REMAINS HEEL WEIGHT BEARING ON LLE AND TOLERATED WELL. UP WITH MIN ASSIST, GB AND WALKER. Q1H VISUAL CHECKS. CALL LIGHT WITHIN REACH. FALL PRECAUTIONS IN PLACE
[2020-04-07 19:44] VITALS: BP 142/52
--- NOTE | 2020-04-07 22:30 | NUR ---
LANTUS 10 UNITS GIVEN, HS SSI DECLINED SINCE BLOOD SUGAR 124 AND WAS 70 AND 84 THIS MORNING AND WANTING NO BEDTIME SNACK UNLESS YOU COUNT THE 4 OUNCES OF APPLE JUICE THAT HIS MIRALAX WAS DISSOLVED IN.
--- NOTE | 2020-04-08 02:12 | NUR ---
PATIENT USING URINAL, TAKING MIRALAX IN APPLE JUICE SINCE BM 04/07 WAS SMALL. HYDROCODONE AND ELEVATION FOR FOOT PAIN UNRELIEVED WITH ROUTINE TYLENOL. IV ANTIBIOTIC TO LEFT FOREARM SALINE LOCK. PLEASANT AND DISCUSSING HIS MULTIPLE TRANSFERS THIS HOSPITAL VISIT AND THAT HE GETS BREATHING TREATMENTS APPROXIMATELY EVERY 6 HOURS
--- NOTE | 2020-04-08 12:41 | NUR ---
Nutrition: RD consulted for wt loss. Pt visited this pm while eating lunch. Pt states some meals are good, others are not. Eating 60-100% per art model. Pt notes his UBW was 194# prior to hospital stay, which is consistent with last wt taken 04/06. Pt with fair to good appetite, feels he is eating well. Last BM 04/08. No pressure ulcers noted. Pt is s/p L great toe amputation. Pt with no nutritional questions/concerns at this time. Pt is low nutritional risk.
--- NOTE | 2020-04-08 14:40 | NUR ---
INITIAL REHAB ASSESSMENT: SW reviewed chart. Pt was admitted to from 3 on 04/06. Pt had two negative COVID-19 PCR tests and was cleared by ID to have isolation precautions discontinued. SW spoke with pt via phone. Introduced role of SW. Pt is alert/orientated x 4 and lives at home alone. 2 steps to enter the home and 12 steps inside the home. Prior to admission, pt was independent with ADLs. Pt has a cane/walker. Pt has been to [facility] in the past. Pt has been accepted by [facility]. SW updated [facility] liaison. Pt's goal is to return home after rehab. Pt's cousin, Rosio, is supportive and assists pt if needed. Pt's PCP is Dr. Thomas Zuleta. Team conference to be held on Wednesday, 04/09. SW is following to assist as needed with discharge planning.
--- NOTE | 2020-04-08 14:57 | NUR ---
ASSUMED CARES AT 0700. PT AWAKE, ALERT AND ORIENTED*4. C/O MILD LLE PAIN, TYLENOL ADMINISTERED ORDERED. VITALS REMAIN STABLE. ABDOMEN DISTENDED, ACTIVE BS, PT HAD *4 BM TODAY. DENIES N&V. WOUNDCARE TO COMPLETE WOUNDCARE TO LLE THIS AFTERNOON. LEFT LE REMAINS HEEL WEIGHT BEARING AND PT TOLERATED WELL. UP WITH MIN ASSIST, GB AND WALKER. Q1H VISUAL CHECKS. CALL LIGHT WITHIN REACH. FALL PRECAUTIONS IN PLACE.
[2020-04-08 19:35] VITALS: BP 141/64
--- NOTE | 2020-04-09 03:21 | NUR ---
DECLINED HS COLACE AND MIRALAX DUE TO MULTIPLE BMs 04/08. LEFT FOOT ELEVATED, PAIN MED INSTEAD OF TYLENOL AT HS, TYLENOL ALSO TAKEN 90 MINUTES LATER. LEFT FOREARM PATENT FOR IV ANTIBIOTICS. USING URINAL 3 TIMES FOR SMALL AMOUNT SINCE 2199.
[2020-04-09 07:45] VITALS: BP 142/56
--- NOTE | 2020-04-09 09:55 | NUR ---
WOUND CONSULT; THE LEFT FOOT TOE AMPUTATION SITE IS UNSTABLE. IT IS DRAINING SEROSANGINOUS DRAINAGE AND IS MASCERATED. SUTURES REMAIN IN PLACE. NO TRAUMA WAS REPORTED. NO OTHER S/S OF INFECTION WAS SEEN OR REPORTED. THE PATIENT HAS AN APPETITE. RECOMMENDATION; 1- APPLY A TEMPORARY DRESSING AG FOAM,KERKIX AND A LOOSLY APPLIED CASSANDRA FOR NOW. 2-CONSULT DR NICOLE WARD FOR WOUND ASSESSMENT/ORDERS. DISCUSSED WITH KARIN
--- NOTE | 2020-04-09 12:56 | NUR ---
Team Conference: pt re-admitted to ARU from 3W, had 2x Covid negative PCR tests. Wound care consult. IV ABX. Mod-Severe cognitive deficit. Impaired memory, does better functionally. Needs assist w/bill and pills. [facility] soft diet. Discharge plan: Est. d/c 04/19/20. (next wednesday). Home w/hh. Acepted by [facility]. pt will need freq checks.
--- NOTE | 2020-04-09 15:10 | NUR ---
ASSUMED CARES AT 0700. PT AWAKE, ALERT AND ORIENTED*4. C/O MILD LEFT FOOT PAIN, TYLENOL ADMINISTERED SCHEDULED. VITALS REMAIN STABLE. LEFT TOE INCISION CLEANED AND DRESSING CHANGED BY WOUNDCARE, SEROUSANGUINOUS DRAINAGE NOTED, INCISION MACERATED, WOUND PHYSICIAN CONSULTED. LLE REMAINS HEEL WEIGHT BEARING, PT UP WITH 1 ASSIST AND TOLERATED WELL. PARTICIPATED WELL IN THERAPIES AND CONTINUES TO PROGRESS TOWARDS DC GOALS. Q1H VISUAL CHECKS. CALL LIGHT WITHIN REACH. FALL PRECAUTIONS IN PLACE
[2020-04-09 18:50] VITALS: BP 144/65
--- NOTE | 2020-04-10 02:58 | NUR ---
ASSUMED CARE OF PT AT 1900. PT IS A&OX4 AND VITAL SIGNS ARE STABLE. PT DENIES PAIN AND IS SLEEPING AT THIS TIME. IV ABX ADMINISTERD PER ORDERS. ACCU CHECKS ACHS. DRESSING TO THE LEFT FOOT IS C/D/I. FALL PRECAUTIONS IN PLACE AND NURSING WILL CONTINUE TO MONITOR.
[2020-04-10 07:20] VITALS: BP 153/65
--- NOTE | 2020-04-10 13:20 | NUR ---
ASSUMED CARE AT 0700. PATIENT IS ALERT AND ORIENTED X4. PATIENT MTZ'S, DEVELOPMENTAL MATHEMATICS INSTRUCTOR ARE EQUAL. LUNGS ARE CLEAR AND DEMINISHED. ABD IS SOFT WITH BSX4. PATIENT HAD BM TODAY. UP IN CHAIR FOR MEALS. PATIENT HAS S.L. IN HIS LEFT F.A. FALL AND SAFETY PROTOCOLS IN PLACE. DENIES PAIN AT THIS TIME. CONTINUES TO PROGRESS SLOWLY TOWARDS D/C GOALS. UP WITH WALKER AND GAIT BELT TO AMBULATE TO BATHROOM. WILL CONTINUE TO MONITER.
--- NOTE | 2020-04-10 14:53 | HC ---
[facility] [place] [address] CONSULTATION Name: CATIA HARRIS Room #: 516-1 ADM IN M.R.#: [id number] Admission: 04/06/20 Attend Phys: Nahum Bonilla MD Discharge: Date of : 40 Report #: [id number] THIS REPORT FOR: cc: Thomas Zuleta MD, Eric K. MD Stephens, Thad A. MD ~ DATE OF SERVICE: 04/09/2020 WOUND CARE CONSULTATION PERSONAL PHYSICIAN: Dr. Thomas Zuleta. CHIEF COMPLAINT: Left foot surgical wound. HISTORY OF PRESENT ILLNESS: This is a 79-year-old white male with history of diabetes, hypertension, and peripheral arterial disease, who was recently admitted to the rehab service for generalized debility, and we have been asked to see the patient in regards to a recent surgical wound, which was an amputation of his left great toe. The patient also had recent left popliteal artery stenting. The patient also developed cellulitis of the foot, which required the amputation. The patient denies any other associated wounds at this time. The patient states he is doing well with therapy. Nursing staff have no new wound care concerns. PAST MEDICAL HISTORY: Significant for coronary artery bypass grafting; previous aortic stenosis, status post aortic valve replacement in 2017; recent popliteal artery stenting, and recent cellulitis and left toe amputation. CURRENT MEDICATIONS: Multiple, I reviewed the patient's medication list. DRUG ALLERGIES: PENICILLIN, TAPE, AND BEXTRA. SOCIAL HISTORY: The patient denies smoking. Lives independently. FAMILY HISTORY: Not pertinent to current medical condition. REVIEW OF SYSTEMS: CONSTITUTIONAL: The patient denies fevers or chills. NEUROLOGIC: The patient has mild generalized weakness, but no isolated weakness in arms or legs. EYES: No complaints. ENT: No complaints. CARDIAC: The patient denies chest pain, palpitations, peripheral edema. RESPIRATORY: The patient denies shortness of breath, cough, or wheezes. GASTROINTESTINAL: The patient denies nausea, vomiting or abdominal pain. [facility] [address] [place] [address] CONSULTATION Name: CATIA HARRIS Room #: 516-1 ADM IN M.R.#: [id number] Admission: 04/06/20 Attend Phys: Nahum Bonilla MD Discharge: Date of : 40 Report #: [id number] GENITOURINARY: The patient denies urgency or frequency. MUSCULOSKELETAL: No complaints. SKIN: The patient has surgical wound of the left foot, status post great toe amputation. PHYSICAL EXAMINATION: VITAL SIGNS: Stable. The patient is afebrile. GENERAL: This is an alert and oriented x 3, pleasant white male who is in no acute distress. HEENT: Normocephalic, atraumatic. Mucous membranes are moist. Pupils are round. Sclerae white. NECK: Without JVD. LUNGS: Clear. HEART: Regular. ABDOMEN: Soft, nontender. EXTREMITIES: The patient moves all extremities without difficulty. Evaluation of left foot reveals a surgical wound, which is somewhat macerated. Sutures are still in place. There is some denuded tissue. However, the overall incision is still intact. There is minimal drainage, which is serosanguineous without significant odor. Distal pulses are 1+. Foot is otherwise warm. No signs of erythema or cellulitis. Rest of the toes are intact. Left heel is intact. NEUROLOGIC: Cranial nerves 2-12 are grossly intact. Motor and sensory grossly intact. LABORATORY DATA: White count 8.1, hemoglobin 7.7. Recent hemoglobin A1c was 6.9 and albumin was 2.8. IMPRESSION: 1. Surgical incisions left foot, status post left great toe amputation 03/20/2020. 2. Peripheral arterial disease, status post left popliteal artery stenting. 3. Peripheral neuropathy. 4. Diabetes mellitus type 2. 5. Hypertension. 6. History of congestive heart failure. 7. History of paroxysmal atrial fibrillation. 8. Protein-calorie malnutrition -- moderate albumin 2.8. 9. Generalized debility. PLAN: At this time, we will try to dry out the incision somewhat better with Betadine and dry gauze daily and p.r.n. We will elevate his foot as much as possible. He is not doing therapy. The patient is going to wear his postop shoe for ambulation. Make sure we maximize the patient's oral protein supplementation for healing. We will utilize physical and occupational therapy for strengthening. We will continue all other current medications. [address] [address] CONSULTATION Name: CATIA HARRIS Room #: 516-1 ADM IN M.R.#: [id number] Admission: 04/06/20 Attend Phys: Nahum Bonilla MD Discharge: Date of : 40 Report #: [id number] I appreciate the ability to consult. <ELECTRONICALLY SIGNED> By: Som Sales MD 04/10/20 1453 [id number] Som Sales MD /nt
[2020-04-10 20:08] VITALS: BP 151/68
[2020-04-11 07:45] VITALS: BP 154/54
--- NOTE | 2020-04-11 11:02 | NUR ---
ASSUMED CARE AT 0700. PATIENT IS ALERT AND ORIENTEDX4. PATIENT MTZ'S, WELL TESTING OPERATOR ARE EQUAL. LUNGS ARE CLEAR AND DEMINISHED. ABD IS SOFT WITH BSX4. UP TO THE BATHROOM TO VOID ELIZABETH COLORED URINE. FALL AND SAFETY PROTOCOLS IN PLACE. DENIES PAIN AT THIS TIME. CONTINUES TO PROGRESS TOWARDS D/C GOALS. LEFT CHEST PORTACATH DEACTIVATED. IV STARTED IN PATIENTS RIGHT UPPER ARM. IV VANCO STARTED PER DR. ANDERSON. DR. MCKAY RE-CONSULTED, DR. DELEON CONSULTED FOR IV ABT MANAGEMENT. PATIENT HAS +1 LOWER EXTREMITY EDEMA. VSS, NO TEMP. WILL CONTINUE TO MONITER.
--- NOTE | 2020-04-11 11:33 | NUR ---
ASSUMED CARE AT 0700. PATIENT IS ALERT AND ORIENTED X4. PATIENT MTZ'S, MARKETING PRODUCTION MANAGER ARE EQUAL. LUNGS ARE CLEAR AND DEMINISHED. ABD IS SOFT WITH BSX4. PATIENT VOIDS ELIZABETH COLORED URINE PER URINAL. UP IN CHAIR FOR MEALS. S.L. PATIENT IN PATIENTS LEFT WRIST. LEFT FOOT DRESSING CHANGED ACCORDING TO PROTOCOL. FALL AND SAFETY PROTOCOLS IN PLACE. DENIES PAIN AT THIS TIME. CONTINUES TO PROGRESS SLOWLY TOWARDS D/C GOALS. WILL CONTINUE TO MONITER.
--- NOTE | 2020-04-11 12:11 | NUR ---
Pending acceptance to Hospice today. Referral sent.
--- NOTE | 2020-04-11 12:11 | NUR ---
No anticipated d/c until 04/19/20 where CM has confirmed excelsior picker after 3:30 PM and will need mediation assistance upon discharge.
--- NOTE | 2020-04-11 12:15 | NUR ---
NOTE INCORRECT NOTE for this patient put in at 12:11
[2020-04-11 20:25] VITALS: BP 135/47
--- NOTE | 2020-04-11 21:00 | NUR ---
ASKED FOR MEDS
--- NOTE | 2020-04-11 22:30 | NUR ---
UP TO TOILET FOR BM ATTEMPT; SMEAR ONLY. OTHERWISE USING URINAL THIS EVENING. WAITING UP UNTI RESP THERAPY CAN GIVE HIM FINAL BREATHING TREATMENT OF THE DAY. LEFT FOOT DRESSING CDI, FOOT ELEVATED ON PILLOW, KEPT UNCOVERED BY HIS REQUEST. LANTUS GIVEN FOR BLOOD SUGAR = 159
[2020-04-12 07:21] VITALS: BP 146/57
--- NOTE | 2020-04-12 14:00 | NUR ---
ASSUMED CARE AT 0700. ALERT AND ORIENTATED. HAD AN UNEVENTFUL NIGHT AND SLEPT FAIRLY WELL. DENIES ANY PAIN. APPETITE FAIR. HAD A BM TODAY. PT UP WITH MIN ASSIST TO BATHROOM WITH HEEL WB ONLY TO L FOOT. AC BLOOD SUGAR CHECKED AND DID NOT NEED ANY INSULIN. PAIN IS STABLE WITH AARON TYELNOL. UP IN CHAIR WITH BLE ELEVATED. DRESSING TO L FOOT INTACT AND WAS CHANGED BY PATTERN CLEANER YESTERDAY. WILL CONT TO MONITOR.
[2020-04-13 07:09] VITALS: BP 154/72
[2020-04-13 11:46] LABS: ABSOLUTE NEUTROPHILS 6.3 thou/uL (1.4-8.2); EOSINOPHILS 3.5 % (0.0-3.0); HEMATOCRIT 26.5 % (42.0-52.0); HEMOGLOBIN 8.5 gm/dL (14.0-18.0); LYMPHOCYTES 4.1 % (24.0-44.0); MCHC 32.2 g/dL (28.0-37.0); MCV 90.2 fL (80.0-100.0); MONOCYTES 11.7 % (1.0-8.0); PLATELET COUNT 108 thou/uL (150-400); POLYS 79.7 % (36.0-66.0); RBC 2.94 mil/uL (4.50-6.00); RDW 18.5 % (10.5-14.5)
[2020-04-13 12:01] LABS: ALBUMIN 3.3 g/dL (3.4-5.0); CALCIUM 9.4 mg/dL (8.5-10.1); CREATININE 1.6 mg/dL (0.7-1.3); MAGNESIUM 1.8 mg/dL (1.8-2.4); TOTAL BILIRUBIN 0.6 mg/dL (0.2-1.0); TOTAL PROTEIN 7.1 g/dL (6.4-8.2)
--- NOTE | 2020-04-13 12:50 | NUR ---
ASSUMED CARE AT 0700. PT SLEPT WELL. ALERT AND ORIENATED. PAIN IS STABLE AND CONTROLLED. AARON TYLENOL GIVEN THIS MORNING. BLOOD SUGAR AT 68. DENIES ANY SIGNS OF HYPOGLYCEMIA. ATE 100% OF BREAKFAST. DR CROUCH NOTIFIED. HAD A BM TODAY. PARTICIPATING WITH THERAPY. L STUMP WOUND CARE DONE.
[2020-04-13 19:30] VITALS: BP 149/66
--- NOTE | 2020-04-14 00:50 | NUR ---
ASSUMED CARE OF PT AT 1915 ON 04/13/20. IS ON ROOM AIR DURING THE DAY & 2L AT HS. IS STABLE. DENIES PAIN IN LEFT FOOT. DRSG C/D/I. PT IS UP WITH 1 ASSIST, GB, WALKER. HAS ORTHO SHOES IN ROOM. REFUSED TO WEAR PRAFO BOOTS. HEELS OFF LOADED. FALL PRECAUTIONS & HOURLY ROUNDING CONTINUED THIS SHIFT. LABS REVIEWED. VITALS ASSESSED. PT IS CURRENTLY IN BED ASLEEP. CALL LIGHT WITHIN REACH. WILL CONTINUE TO MONITOR.
[2020-04-14 08:00] VITALS: BP 146/73
--- NOTE | 2020-04-14 10:40 | NUR ---
ASSUMED CARE AT 0700. PATIENT IS ALERT AND ORIENTED X4. PATIENT MTZ'S, FLUE GAS ANALYST ARE EQUAL. LUNGS ARE CLEAR AND DEMINISHED. ABD IS SOFT WITH BSX4. PATIENT VOIDS ELIZABETH COLORED URINE PER URINAL. UP IN THE CHAIR FOR MEALS. DRESSING CHANGED TO PATIENTS LEFT FOOT ACCORDING TO PROTOCOLS. FALL AND SAFETY PROTOCOLS IN PLACE. DENIES PAIN AT THIS TIME. CONTINUES TO PROGRESS TOWARDS D/C GOALS. WILL CONTINUE TO MONITER.
[2020-04-14 16:42] LABS: CALCIUM 8.9 mg/dL (8.5-10.1); CREATININE 1.4 mg/dL (0.7-1.3); POTASSIUM 4.8 mmol/L (3.5-5.1)
[2020-04-14 20:45] VITALS: BP 138/52
--- NOTE | 2020-04-15 00:26 | NUR ---
PT ALERT AND ORIENTED X 4. UP IN RECLINER ALL EVENING. ASSISTED TO BED AROUND 2200 WITH WALKER AND ASSIST X 1. LEFT FOOT DRESSING C/D/I. LW SALINE LOCK INTACT AND PATENT. PT C/O PAIN IN LEFT FOOT. HYDROCODONE GIVEN AT HS. PT CALLED AT THIS TIME WITH C/O PAIN IN LEFT FOOT STILL. CASSANDRA WRAP REMOVED AND REAPPLIED AND PT VERBALIZED RELIEF OF PAIN. PT TAKES MEDS IN APPLESAUCE WITHOUT DIFFICULTY. BLOOD SUGAR 144 AT HS. LANTUS INSULIN GIVEN ORDERED. BED ALARM ON FOR SAFETY. PT CHECKED ON HOURLY ROUNDS.
[2020-04-15 05:39] LABS: ABSOLUTE NEUTROPHILS 3.1 thou/uL (1.4-8.2); HEMOGLOBIN 7.2 gm/dL (14.0-18.0); RBC 2.46 mil/uL (4.50-6.00)
[2020-04-15 05:41] LABS: BASOPHILS 0.9 % (0.0-2.0); EOSINOPHILS 4.4 % (0.0-3.0); LYMPHOCYTES 9.2 % (24.0-44.0); MCH 29.4 pg (26.0-34.0); MCHC 32.9 g/dL (28.0-37.0); MCV 89.4 fL (80.0-100.0); PLATELET COUNT 63 thou/uL (150-400); POLYS 68.5 % (36.0-66.0); RDW 18.4 % (10.5-14.5); WBC 4.5 thou/uL (4.0-11.0)
[2020-04-15 06:06] LABS: ALBUMIN 2.8 g/dL (3.4-5.0); ANION GAP 12 mmol/L (7-16); BUN 18 mg/dL (7-18); CALCIUM 8.6 mg/dL (8.5-10.1); CHLORIDE 103 mmol/L (98-107); CO2 22 mmol/L (21-32); CREATININE 1.5 mg/dL (0.7-1.3); GLUCOSE 78 mg/dL (74-106); MAGNESIUM 1.8 mg/dL (1.8-2.4); POTASSIUM 4.5 mmol/L (3.5-5.1); SGOT 11 U/L (15-37); SGPT 15 U/L (30-65); SODIUM 137 mmol/L (136-145); TOTAL BILIRUBIN 0.4 mg/dL (0.2-1.0)
[2020-04-15 06:39] LABS: PLATELET ESTIMATE DECREASED
[2020-04-15 06:40] LABS: ANISOCYTOSIS 2+; OVALOCYTES OCCASIONAL; POLYCHROMASIA 1+
[2020-04-15 07:45] VITALS: BP 139/56
--- NOTE | 2020-04-15 10:21 | NUR ---
ASSUMED CARE AT 0700. PATIENT IS ALERT AND ORIENTEDX4. PATIENT MTZ'S, CRINKLING MACHINE OPERATOR ARE EQUAL. LUNGS ARE CLEAR AND DEMNISHED. PATIENT CONTINUES ON RESPIRATORY TX. ABD IS SOFT WITH BSX4. PATIENT UP TO THE BATHROOM WITH WALKER AND GAIT BELT TO VOID ELIZABETH COLORED URINE, AND HAVE A LARGE LOOSE BM. FALL AND SAFETY PROTOCOLS IN PLACE. DENIES PAIN IN HIS LEFT FOOT AT THIS TIME. FURNACE REPAIRER HELPER HERE TO CHANGE PATIENTS FOOT DRESSING. CONTINUES TO PROGRESS TOWARDS D/C GOALS. PATIENT HAS S.L. IN HIS LEFT FORARM. PATIENT CONTINUES ON IV ABT BID AND PO ABT WITHOUT ADVERSE AFFECTS. DR. DELEON NOTIFIED OF PATIENT D/C ON WEDNESDAY. HE WILL SEE PATIENT AND DECIDE HOW MANY DOSES OF ADDTIONAL ABT IV HE WILL NEED AND IF PICC SHOULD BE INSERTED. PATIENT HAD EPISODE OF CHOKING OVER THE WEEKEND WITH BLOOD IN HIS SPUTUM. UG DESIGNER NOTIFIED. PLAN IS TO HAVE G.I. SEE HIM TODAY AND HE IS TO HAVE A VIDEO SWALLOW AT 11:00-1130. WILL CONTINUE TO MONITER.
--- NOTE | 2020-04-15 12:41 | NUR ---
SW reviewed chart and spoke with nursing. Team conference to be held tomorrow. Discharge is anticipated on Wednesday, 04/19. [facility] following to provide HH services when discharged. Awaiting final recommendations from ID physician. RAKESH is following to assist as needed with discharge planning.
--- NOTE | 2020-04-15 12:44 | HC ---
[facility] [place] [address] CONSULTATION Name: CATIA HARRIS Room #: 516-1 ADM IN M.R.#: [id number] Admission: 04/06/20 Attend Phys: Nahum Bonilla MD Discharge: Date of : 40 Report #: [id number] THIS REPORT FOR: cc: Thomas Zuleta MD, Eric K. MD Deutch,Cristian Panda. PhD ~ DATE OF SERVICE: 04/13/2020 NEUROBEHAVIORAL STATUS EXAM ATTENDING PHYSICIAN: Nahum Bonilla MD PREP COOK: Cristian Mitchell, PhD CLINICAL PRESENTATION: The patient is a 79-year-old male, initially presenting to the hospital for Podiatry surgery for left toe amputation and removal of nonviable bone and tissue. Additionally, he had hardware removal of previous bunion repair due to gangrene and failed outpatient treatment. His assessment on admission to the rehabilitation unit included left foot gangrene, osteomyelitis, status post left hallux amputation and hardware removal on 03/20/2020, heel weightbearing only, LLE cellulitis, left lower extremity severe peripheral artery disease status post stent, [id number] amputation, hyponatremia, anemia, premorbid peripheral neuropathy, type 2 diabetes mellitus, DJD, history of left total knee replacement, CHF, CAD, history of stents, PPM in place, severe aortic stenosis, obstructive sleep apnea, history of subdural hematoma, and PAF that may need future Watchman. A complete description of his medical condition and history can be found in his medical record. Neuropsychological consultation was requested to provide assistance in the assessment of cognitive and emotional status and to provide recommendations and services. The patient was seen for previous neurobehavioral assessment on 12/13/2016. At that time, he was admitted to the hospital for an aortic valve replacement and redo of sternotomy on 12/01/2016. 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 The patient was driving; however, visual spatial functioning appeared very poor. It was recommended that deficits in visual spatial construction and attention/concentration along with executive functioning require a behind the wheel driving assessment to insure safety. The patient lives alone. He was living with his brother who last year. He was uncertain of his last grade completed in school, indicating it was either seventh or eighth. 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 The patient has never and does not have children. TECHNIQUES UTILIZED: Clinical interview, review of medical records, staff consultation and behavioral observation, mini mental status exam 2 standard version and clock drawing. EXAMINATION FINDINGS: The patient was alert and cooperative with the assessment. He accurately described events surrounding his admission. The patient does not present with an aphasia. Thoughts are logical and goal oriented. There is no evidence of thought disorder. He does not report auditory or visual hallucinations. He describes having decreased appetite. He does not report difficulty with memory, word finding, concentration, anxiety, depression, or sleep. No prior history of treatment for anxiety, depression or substance abuse is reported. Performance on the MMSE 2 brief version was within the low average, but within normal limit range with a raw score of 13/16. He was 3/3 for initial registration, 5/5 for orientation to time and place and 0/3 for immediate recall of 3 items after a brief time delay and distraction. Performance on the MMSE 2 standard version was in the borderline range with a raw score of 20/30. He was 1/5 for serial sevens, 2/2 for naming, 0/1 for repetition, 3/3 for auditory comprehension. The patient is unable to read or write. Visual spatial construction was severely impaired. The patient was unable to draw a clock and adequately place the hands on the clock. Multiple attempts were made suggesting difficulty with an apraxia. The patient is presenting with a pre-moribd functional level that suggests an intellectual disabilit. Current functioning is severely impaired for visual spatial construction indicating apraxia. DIAGNOSTIC IMPRESSION: Neurocognitive disorder (unspecified), without behavior disorder. 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 Behind the wheel driving evaluation is indicated. Most likely this level of functioning and apraxia is premorbid. However, given his current medical event, an additional learning curve may be very difficult for him to manage. Patient would benefit from additional assistance in the managment of his medical condition. I am uncertain about the extent of environmental support that he has available. [facility] [address] [place] [address] CONSULTATION Name: CATIA HARRIS Room #: 516-1 [facility] IN M.R.#: [id number] Admission: 04/06/20 Attend Phys: Nahum Bonilla MD Discharge: Date of : 40 Report #: [id number] Thank you very much for allowing me to provide the consultation on this patient. <ELECTRONICALLY SIGNED> By: Cristian Mitchell, PhD 04/15/20 [id number] [id number] Cristian Mitchell, PhD /nt
--- NOTE | 2020-04-15 14:02 | NUR ---
Nutrition followup: Pt eating fairly well, 50-100% of meals on pureed diet. Plan for EGD with dilation when off Plavix. ST following. S/P left great toe amputation and previously receiving ensure max. Would like to restart, will order daily at dinner. No new weight since 04/06. Prior weights stable. BG 78-183. Continue weekly followups.
[2020-04-15 19:55] VITALS: BP 141/50
--- NOTE | 2020-04-16 01:36 | NUR ---
PT ALERT AND ORIENTED X 4. UP IN RECLINER ALL EVENING. TRANSFERRED TO BED AT WITH ASSIST X 1. RIGHT FOOT DRESSING C/D/I. PT DENIES PAIN OR DISCOMFORT. BED ALARM ON FOR SAFETY. PT APPEARS TO BE SLEEPING ON HOURLY ROUNDS.
[2020-04-16 06:14] LABS: ABSOLUTE NEUTROPHILS 3.8 thou/uL (1.4-8.2); HEMATOCRIT 23.2 % (42.0-52.0); HEMOGLOBIN 7.6 gm/dL (14.0-18.0); LYMPHOCYTES 8.3 % (24.0-44.0); MCH 29.2 pg (26.0-34.0); MCHC 32.7 g/dL (28.0-37.0); MCV 89.1 fL (80.0-100.0); MONOCYTES 14.7 % (1.0-8.0); PLATELET COUNT 65 thou/uL (150-400); RDW 17.7 % (10.5-14.5); WBC 5.2 thou/uL (4.0-11.0)
[2020-04-16 07:58] VITALS: BP 150/66
[2020-04-16 10:31] LABS: CALCIUM 9.2 mg/dL (8.5-10.1); CREATININE 1.4 mg/dL (0.7-1.3); POTASSIUM 4.8 mmol/L (3.5-5.1)
--- NOTE | 2020-04-16 14:32 | NUR ---
team conference: pt admitted to rehab w/ dx of debil. pt is sched to have picc line placed today for IV ABX. EGD is scheduled for wednesday. pt had an episode where he was incontinent of bladder yesterday. pt is on a puree diet. pt will need assistance w/medication and finances. 24/7 assistance vs other option needed d/t function and memory deficit. pt target d/c moved to 04/22 d/t EGD and further eval needs from . pt agreeable to d/c plan. signed vendor form placed in pt chart. crispin notified and stated she is unable to provide 24/7 assistance. d/c senior planner to send referral to olena persaud and beata villalba.
--- NOTE | 2020-04-16 16:33 | NUR ---
vat consulted for picc placement. discussed benefits and risk with pt ,verbalized understanding. pt's labs,medsmhx order and consent reviewed. logan brachial widely patent with usg. 4fr sl power picc trimmed to 44cm inserted to 0cm. stat cxr ordered. pt tolerated well. wallet card given to pt.
--- NOTE | 2020-04-16 17:16 | NUR ---
CXR CONFIRMED PICC PLACEMENT. RELEASED FOR IMMEDIATE USE TO MARYSOL FRAZIER PER PROTOCOL
--- NOTE | 2020-04-16 19:22 | NUR ---
PT ALERT AND ORIENTED TIMES FOUR. VSS. PT DENIES PAIN/SOA. PT TOLERATES MEDS AND MEALS. PT WORKS WELL WITH PT/OT. DRESSING TO LEFT FOOT CHANGED. PT PROGRESSING TOWRADS POC GOALS
[2020-04-16 20:00] VITALS: BP 129/56
--- NOTE | 2020-04-17 02:48 | NUR ---
assumed care approx 0 evening 04/16. pt sitting up in recliner at change of shift alert and oriented x4, pleasant and cooperative. foot brace to left foot and foot boot/shoe to right foot. pt voiding per urinal. pt took hs meds with applesauce tolerating well. picc line to right upper arm intact. pt appears to be sleeping soundly off and on. bed alarm on and call light in reach. will continue to monitor.
[2020-04-17 08:00] VITALS: BP 157/50
--- NOTE | 2020-04-17 09:34 | NUR ---
ON-GOING ASSESSMENT: CM REVIEWED CHART AND SPOKE WITH LIASON FROM [facility] WHO REPORTS THEY CAN ACCEPT PT FOR SNF FOR TENTATIVE DATE OF 04/22. LIASON WAS GOING TO CONTACT PT TO NOTIFY HIM AND ASK IF HE HAD ANY QUESTIONS. CM CONTACTED PTS COUSIN CISCO TO NOTIFY HER AND SHE WAS HAPPY STATING THAT IS EXACTLY WHERE HE WANTS TO GO. CM WILL CONTINUE TO FOLLOW TO ASSIST NEEDED.
--- NOTE | 2020-04-17 15:07 | NUR ---
ASSUMED CARE AT 0700. PT HAD A GOOD NIGHT AND SLEPT FAIRLY WELL. DENIES ANY PAIN FOR NOW. WAS GIVEN SCHEDULED TYLENOL. APPETITE FAIRLY GOOD. TOOK ALL HIS MEDS WITHOUT ANY DIFFICULTY WITH APPLE SAUCE. PLAN FOR EGD ON WEDNESDAY AND WILL BE NPO AFTER MN ON WEDNESDAY. PARTICIPATING IN THERAPY AND PROGRESSING WELL. L FOOT WOUND CARE DONE. PICC LINE INTACT AND SCHEDULED IV CEFEPIME GIVEN. BLOOD SUGAR AND TREATED WITH SSI.
[2020-04-17 19:25] VITALS: BP 158/60
--- NOTE | 2020-04-18 03:46 | NUR ---
04-17-19 CARE TRANSFERRED 1914. PT AAOX2, VSS, RR EVEN AND NONLABORED ON RA. EMPTY URINAL OF 350ML DARK YELLOW URINE AND FOOT BRACES REMOVED AND PT GOWNED. PT ORTO BOOTS REMOVE AND DRESSING CLEAN, DRY AND INTACT. PT PICC LINE INTACT AND PARENT TRAINER PER HCP ORDERS AND PT TOLERATED WELL. ZERO S/S OF ACUTE DISTRESS NOTED, PT WILL CONTINUE TO BE MONITOR PER PROTOCOL.
[2020-04-18 08:00] VITALS: BP 169/40
--- NOTE | 2020-04-18 18:21 | NUR ---
ASSUMED CARE AT 0700. PT IS ALERT AND ORIENTATED. DENIES ANY PAIN. APPETITE GOOD. PARTICIPATES IN AARON THERAPIES AND PROGRESSING TOWARDS GOAL. WOUND CARE TO L FOOT DONE ORDERED. PT IS SBA WITH HIS L FOOT HEEL WEIGHT BEARING. BLOOD SUGAR CHECKED AND TREATED WITH INSULIN APPROPRIATELY. FOR EGD TOMORROW AND WILL BE NPO AT MIDNIGHT. PT EDUCATED AND VERBALIZES UNDERSTANDING.
[2020-04-18 19:58] VITALS: BP 126/57
--- NOTE | 2020-04-19 00:20 | NUR ---
PT ALERT AND ORIENTED X 4. UP IN RECLINER ALL EVENING. AMB TO BR WITH WALKER AND ASSIST X 1 AT HS. BILAT ORTHOPEDIC SHOES ON. DRESSING TO LEFT FOOT C/D/I. RIGHT PICC LINE INTACT AND PATENT. PT NPO AFTER MIDNIGHT FOR EGD. PT DENIES PAIN OR DISCOMFORT. BED ALARM ON FOR SAFETY. PT CHECKED ON HOURLY ROUNDS.
[2020-04-19 05:32] LABS: BASOPHILS 0.6 % (0.0-2.0); HEMOGLOBIN 6.5 gm/dL (14.0-18.0); PLATELET COUNT 48 thou/uL (150-400)
[2020-04-19 05:35] LABS: ABSOLUTE NEUTROPHILS 4.3 thou/uL (1.4-8.2); EOSINOPHILS 4.7 % (0.0-3.0); LYMPHOCYTES 7.8 % (24.0-44.0); MCH 29.8 pg (26.0-34.0); MCHC 33.3 g/dL (28.0-37.0); MCV 89.5 fL (80.0-100.0); MONOCYTES 14.9 % (1.0-8.0); RBC 2.16 mil/uL (4.50-6.00); RDW 18.1 % (10.5-14.5)
[2020-04-19 05:45] LABS: HEMATOCRIT 19.4 % (42.0-52.0)
[2020-04-19 06:06] LABS: CALCIUM 8.8 mg/dL (8.5-10.1); CREATININE 1.6 mg/dL (0.7-1.3); MAGNESIUM 1.9 mg/dL (1.8-2.4); POTASSIUM 4.3 mmol/L (3.5-5.1)
--- NOTE | 2020-04-19 06:39 | NUR ---
HCT CRITICAL 19.4 THIS MORNING. CALLED TO JANEL PILLAI WITH ORDERS RECEIVED. TYPE AND CROSS DRAWN FROM PICC LINE. CONSENT FOR BLOOD TRANSFUSION SIGNED.
[2020-04-19 09:15] VITALS: BP 146/69; BP 151/73; BP 152/73
--- NOTE | 2020-04-19 09:34 | NUR ---
PATIENT IS GETTING LEUKOCYTE REDUCED RED BLOOD CELLS CURRENTLY. PT IS ALERT AND ORIENTED AND WAS EDUCATED REGARDING BLOOD TRANSFUSION, VERBALIZED UNDERSTANDING OF ALL VIA TEACH-BACK METHOD. NS RAN IN TO PRIME VIA Y TUBING AND PICC LINE IN RT ARM IS PATENT WITH GOOD BLOOD RETURN AND INFUSING BLOOD STARTING AT 0925 AT 68CC/HR WITH NO EVIDENCE OF REACTION. SEE BLOOD ADMIN RECORD FOR ANY FURTHER DETAILS.
--- NOTE | 2020-04-19 09:51 | NUR ---
BLOOD TRANSFUSING WELL WITHOUT SIGNS OF TRANSFUSION REACTION. VSS, AND DRUG SAFETY ASSOCIATE IN TO SEE PATIENT. EARLIER TODAY, CLIF RN FROM GI LAB VERIFIED THAT THEY ARE COMFORTABLE WITH PATIENT GOING TO THE EGD WITH THE BLOOD HANGING, AND THEY WILL CONTINUE HOURLY VS AND DOCUMENTATION INDICATED IN THEIR PROTOCOLS. RATE OF BLOOD ADMINISTRATION HAS BEEN INCREASED TO 125CC/HR AND CONTINUING TO CLOSELY MONITOR. PT WAS ONLY GIVEN HIS AM CARVEDILOL AND OTHER MEDS WERE HELD PER RECOMMENDATIONS BY GI OPERATIONS RESEARCH DIRECTOR. WE WILL GIVE THESE AFTER PATIENT RETURNS IF INDICATED.
[2020-04-19 10:20] VITALS: BP 146/76
--- NOTE | 2020-04-19 11:05 | NUR ---
RAKESH reviewed chart and spoke with nursing. Pt to have EGD today. Discharge to [facility] is planned for Wednesday, 04/22. RAKESH spoke with Lexy in admissions at [facility] who confirmed they are able to accept pt on Wednesday. Request for repeat COVID test prior to pt's discharge. Facility will accept COVID test results if ordered today or over the weekend. RAKESH updated nursing. RAKESH is following to assist as needed with discharge planning.
--- NOTE | 2020-04-19 15:28 | NUR ---
TYPE AND CROSS MATCH COMPLETED FOR 1 UNIT LEUKOCYTE REDUCED RBC PER ORDER COMPLETED AT APPROX [id number] VS COMPLETED AT APPROX 0850 AND TRANSFUSION INITIATED AT APPROX 0925 PER PROTOCOL VS OBTAINED APPROX 15 MINUTES AT 0940 AND ARE WNL-NO VARIATIONS OR S/S OF REACTION NOTED-NURSING STAFF AT BEDSIDE SEE BLOOD ADMINISTRATION FLOW SHEET. TO EGD VIA BED AT APPROX 1045-IN NO APPARENT DISTRESS-DENIES PAIN/DISCOMFORT-ALERT AMD ORIENTED X4-BLOOD TRANFUSING PER RIGHT ANTICUBITAL PIC LINE UPON LEAVING FLOOR FOR PROCEDURE.
--- NOTE | 2020-04-19 19:35 | NUR ---
HAS BEEN RESTING IN BED MAJORITY OF PM SINCE RETURN TO FLOOR FROM EGD AT APPROX 1235-IV ABX GIVEN VIA RIGHT ANTICUBITAL PIC LINE PER ORDER-SITE FLUSHES WELL WITHOUT REDNESS,EDEMA OR REPORTED TENDERNESS. INCONTINET OF LARGE TARRY STOOL X2 THIS PM-DENIES STOMACH PAIN,CRAMPING,BARRIER CREAM APPLIED . SAT UP FOR PM MEAL HOWEVER REPORETS POOR APPETITE EATING APPROX 10 PERCENT WITH COAXING- DENIES PAIN-PLEASANT AND TALKATIVE WITH NURSING STAFF-ALERT AND ORIENTED X4.
[2020-04-19 20:00] VITALS: BP 152/74
--- NOTE | 2020-04-20 03:05 | NUR ---
ASSUMED CARE APPROX 1900 EVENING 04/19. PT ALERT AND ORIENTED X4, PLEASANT AND COOPERATIVE. PT STATED HE WAS TIRED FROM DAY. 02 AT 2L PER N/C. PT TOOK HS MEDS WITH APPLESAUCE TOLERATING WELL. PT APPEARS TO BE SLEEPING SOUNDLY WITH HOURLY ROUNDING CHECKS. BED ALARM ON AND CALL LIGHT IN REACH. WILL CONTINUE TO MONITOR.
[2020-04-20 06:09] LABS: HEMATOCRIT 24.1 % (42.0-52.0); HEMOGLOBIN 7.8 gm/dL (14.0-18.0)
[2020-04-20 08:00] VITALS: BP 143/65
[2020-04-20 08:06] VITALS: BP 143/65
--- NOTE | 2020-04-20 11:47 | NUR ---
ASSUMED CARE AT 0700. PT IS ALERT AND ORIENTATED. SLEPT WELL LAST NIGHT. HAD A UNIT OF PRBC YESTERDAY POST EGD. PT DENIES ANY SHORT OF AIR OR LETHARGY. UP WITH SBA TO BATHROOM. L FOOT WOUND CARE DONE. ACCUCHECK BLOOD SUGAR AND TREATED WITH INSULIN. PARTICIPATING IN THERAPY AND PROGRESSING TOWARDS GOAL. PLAN FOR DC TO [facility] ON WEDNESDAY. COVID TEST NEG. WILL CONT TO MONITOR.
[2020-04-20 20:00] VITALS: BP 137/56
--- NOTE | 2020-04-21 03:09 | NUR ---
assumed care approx 1900 evening 04/20. pt sitting up in recliner at change of shift, alert and oriented x4, pleasant and cooperative. pt voiding per urinal. pt took hs meds with applesauce tolerating well. pt appears to be sleeping soundly with hourly rounding checks. bed alarm on and call light in reach. will continue to monitor.
[2020-04-21 07:48] VITALS: BP 144/77
--- NOTE | 2020-04-21 14:39 | NUR ---
PT ALERT AND ORIENTED TIMES FOUR. VSS. PT DENIES PAIN/SOA. PT TOLERATES MEALS AND MEALS. PT UP TO CHAIR FOR MOST OF THE DAY. PT PROGRESSING TOWRADS POC GOALS.
[2020-04-21 20:32] VITALS: BP 150/72
--- NOTE | 2020-04-21 23:13 | NUR ---
PT ASSESSMENT COMPLETED AND VSS. MEDS GIVEN ORDERED AND WELL TOLERATED. FALL PRECAUTIONS IN PLACE. VOIDING MODERATE AMOUNT OF YELLOW URINE PER URINAL. ASST WITH REPOSITION FOR COMFORT. LATUS INSULIN GIVEN ORDERED. BG 202 AT HS. DRESSING ON LEFT FOOT DRY AND INTACT. FLOATED LEFT LEG AND FOOT ON PILLOW. PRN PAIN MEDICATION HELPFUL FOR LEFT FOOT DISCOMFORT. SLEEPING. SAT WNL ON 2L NC AT HS. WILL CONTINUE TO MONITOR FREQUENTLY.
[2020-04-22 07:45] VITALS: BP 139/62
--- NOTE | 2020-04-22 11:16 | NUR ---
ASSUMED CARE AT 0700. PATIENT IS ALERT AND ORIENTED X4. PATIENT MTZ'S, CLINICAL LAB ASSISTANT ARE EQUAL. LUNGS ARE CLEAR AND DEMINISHED. ABD IS SOFT WITH BSX4. PATIENT IS UP WITH 1 STAFF, GAIT BELT AND WALKER TO THE BATHROOM TO VOID ELIZABETH COLORED URINE. PATIENT HAS PICC LINE IN HIS RIGHT AC. PATIENT CONTINUES ON IV/PO ABT FOR FOOT WOUND without ADVERSE REACTION. FOOT DRESSNG CHANGED ACCORDING TO PROTOCOL. PATIENT 02 AT 91-93% PATIENT STATES DOESN'T FEEL GOOD TODAY. DISTRIBUTION DISTRICT SUPERVISOR HERE TO SEE PATIENT. CXR ORDERED, AND LABS. WILL AWAIT RESULTS. PLAN WAS FOR D/C LATER TODAY. D/C MAY BE HELD RELATED TO LABS AND XR'S IF ABNORMAL. FALL AND SAFETY PROTOCOLS IN PLACE. DENIES PAIN AT THIS TIME. WILL CONTINUE TO MONITER.
[2020-04-22 12:43] LABS: HEMATOCRIT 23.3 % (42.0-52.0); HEMOGLOBIN 7.5 gm/dL (14.0-18.0); MCH 30.1 pg (26.0-34.0); MCHC 32.2 g/dL (28.0-37.0); MCV 93.3 fL (80.0-100.0); PLATELET COUNT 81 thou/uL (150-400); RBC 2.49 mil/uL (4.50-6.00); RDW 22.9 % (10.5-14.5); WBC 8.3 thou/uL (4.0-11.0)
[2020-04-22 12:50] LABS: CALCIUM 9.7 mg/dL (8.5-10.1); CREATININE 1.6 mg/dL (0.7-1.3); POTASSIUM 4.1 mmol/L (3.5-5.1)
--- NOTE | 2020-04-22 13:12 | NUR ---
SW reviewed chart. Discharge orders/summary completed earlier today. Awaiting lab results and confirmation that pt is able to discharge to [facility] today. RAKESH updated Jose Guadalupe at [facility]. material planner faxed ppwk and COVID test results for review. Plan is for pt to discharge to the SNF when medically stable. RAKESH is following to assist as needed with discharge planning.
[2020-04-22 14:32] LABS: ABSOLUTE NEUTROPHILS 6.8 thou/uL (1.4-8.2)
[2020-04-22 14:33] LABS: ANISOCYTOSIS 3+; POLYCHROMASIA SLIGHT
--- NOTE | 2020-04-22 14:59 | NUR ---
PT WILL NOT DC TODAY TO [facility] SPOKE WITH FRIDA SCHMIDT THEY WILL KEEP PT ANOTHER DAY WILL DO AM LABS TOMORROW. NOTIFIED GERARD IN ADM AT [facility].
--- NOTE | 2020-04-22 15:08 | NUR ---
D/C CANCELED FOR TODAY. PLAN CONSULT WITH JAGJIT WILLARD OF CARDIOLOGY, R/T CHF EXACERBATION. LEFT MESSAGE WITH CLAYTON IN THE OFFICE. WILL CONTINUE TO MONITER.
[2020-04-22 20:32] VITALS: BP 148/66
--- NOTE | 2020-04-22 23:20 | NUR ---
ASSUMED CARE OF THE PT AT 1915. PT IS A&OX4. HAS REPORTED FORGETFULNESS AT TIMES. DENIES PAIN IN LEFT FOOT. DRSG C/D/I. IS STABLE. WEARS 2L OF O2/HS. PT IS UP WITH 1 ASSIST, GB, WALKER. FALL PRECAUTIONS & HOURLY ROUNDING CONTINUED THIS SHIFT. LABS & VITALS REVIEWED. PT IS STABLE. IS CURRENTLY SLEEPING. CALL LIGHT WITHIN REACH. WILL CONTINUE TO MONITOR.
[2020-04-23 08:00] VITALS: BP 153/72
[2020-04-23 08:16] LABS: CALCIUM 9.7 mg/dL (8.5-10.1); CREATININE 1.5 mg/dL (0.7-1.3); POTASSIUM 3.9 mmol/L (3.5-5.1)
[2020-04-23 09:40] LABS: CHOLESTEROL 117 mg/dL (<200); HDL CHOLESTEROL 48 mg/dL (>40); LDL CHOLESTEROL 45 mg/dL (<100); TC:HDL 2.4 Ratio (Not establshd); TRIGLYCERIDE 124 mg/dL (<150); VLDL 25 mg/dL (<40)
--- NOTE | 2020-04-23 11:34 | NUR ---
CM NOTIFIED MELQUIADES AND PT THAT D/C DELAYED D/T FLUID BUILDUP. MELQUIADES AGREEABLE TO PLAN, SHE STATED SHE SPK W/PT DOCTOR'S OFFICE AND STATED "THEY TOLD ME wednesday." RE D/C DATE. PT TO D/C TO [facility]. FACILITY WAS NOTIFIED BY D/C AERODYNAMIC CONSULTANTALE.
--- NOTE | 2020-04-23 13:03 | NUR ---
team conference: pt admitted to [facility] w/ debil dx. pt started on lasix d/t congestive heart failure. pt gait is 300ft. [facility] w/thin liquid. pt cont w/foot wound. pt has picc and will cont w/iv abx. d/c plan to [facility] target date is 04/24/20.
--- NOTE | 2020-04-23 13:21 | NUR ---
Nutrition followup: pt was set to D/C 04/22 however did not due to CHF exacerbation. Has been on low sodium diet. Previously pureed, now mech altered ground per ST. Continues to eat well, 50-100% of meals, 100% ensure max daily. Pt with lack of weights x 2 weeks. Current 197#. Now requiring lasix IV push. Plan D/C to [facility] when cleared by cardiology.
--- NOTE | 2020-04-23 16:05 | NUR ---
ASSUMED CARE AT 0700. PATIENT IS ALERT AND ORIENTED X4. PATIENT MTZ'S, COREMAKING MACHINE OPERATOR ARE EQUAL. LUNGS ARE DEMINISHED. ABD IS SOFT WITH BSX4. PATIENT HAS PICC LINE IN HIS RIGHT AC. PATIENT CONTINUES ON IVP LASIX ORDERED. PATIENT IS ON DAILY WEIGHTS. UP IN THE CHAIR FOR MEALS. PATIENT HAD DRESSING CHANGE TO HIS LEFT FOOT. FALL AND SAFETY PROTOCOLS IN PLACE. DENIES PAIN AT THIS TIME. CONTINUES TO PROGRESS SLOWLY TOWARDS D/C GOALS. UP WITH WALKER WITH GAIT BELT AND ASSIST OF 1 TO THE BATHROOM TO VOID ELIZABETH COLORED URINE. WILL CONTINUE TO MONITER.
[2020-04-23 19:33] VITALS: BP 118/49
--- NOTE | 2020-04-24 02:59 | NUR ---
assumed care approx 1900 evening 04/23. pt alert and oriented x4, appropriate and cooperative. pt voiding per urinal. pt fitted with cpap at hs and wore until approx 5 minutes ago and requested to take off. pt now on at 2L per n/c. bed alarm on and call light in reach. will continue to monitor.
[2020-04-24 06:42] LABS: CALCIUM 9.3 mg/dL (8.5-10.1); CREATININE 1.5 mg/dL (0.7-1.3); POTASSIUM 3.4 mmol/L (3.5-5.1)
[2020-04-24 08:00] VITALS: BP 140/65
--- NOTE | 2020-04-24 11:58 | NUR ---
Pt not dc ready today per Cardiolgy/IM. Pt continues to need iv lasix bid. Plan is to switch to po tomorrow and montior labs. All parties anticipating DC to SNF at [facility] on Wednesday04/26/20. Repeat covid test requested per [facility]; last one on 04/19/20. IM WRAPPER LEAF INSPECTOR to order tomorrow am. Dc cyber policy and strategy planner to fax needed updates to [facility]. Message left for his cousin Rosio.
--- NOTE | 2020-04-24 15:29 | PLAN ---
[facility] [place] [address] REHAB UNIT PLAN OF CARE Name: CATIA HARRIS Room #: 516-1 ADM IN M.R.#: [id number] Admission: 04/06/20 Attend Phys: Nahum Bonilla MD Discharge: Date of : 40 Report #: [id number] THIS REPORT FOR: cc: Thomas Zuleta MD, Eric K. MD Smithson,Nahum Saavedra MD ~ DATE OF SERVICE: 04/08/2020 PROGRESS NOTE AND OVERALL PLAN OF CARE SUBJECTIVE: The patient is seen back today in followup. He is in no distress. He is alert. Temperature 36.7, pulse 70, respirations 20, blood pressure 154/65. His foot is dressed and he has the heel bearing shoe in place. He is in good spirits. He has been working in therapies with transfers, contact guard assistance, gait 75 feet contact guard with a front-wheeled walker. He started to work on stairs, 4 steps, contact guard. In occupational therapy, lower body dressing is moderate assistance. He is being seen by Speech Therapy for dysphagia and has mechanical soft, thin liquid diet. He is also to be evaluated regarding cognitive and communication issues. ASSESSMENT: 1. Left foot gangrene with osteomyelitis, status post left hallux amputation with hardware removal 03/20/2020. Heel weightbearing only. 2. Left lower extremity cellulitis. 3. Left lower extremity severe peripheral arterial disease, status post stent, 03/27/2020. 4. Acute renal insufficiency. 5. Hyponatremia. 6. Premorbid peripheral neuropathy. 7. Diabetes mellitus type 2. 8. Degenerative arthritis with history of left total knee replacement. 9. Congestive heart failure. 10. History of coronary artery disease with stents, permanent pacemaker in place. 11. Severe aortic stenosis with a history of aortic valve replacement. 12. Obstructive sleep apnea. PLAN: The overall plan of care is based on the preadmission screen and information garnered from therapy assessments. 1. Estimated length of stay is probably at least 7-10 days and potentially longer as warranted. 2. Medical prognosis is reasonably good. 3. Anticipated interventions includes the interdisciplinary acute inpatient rehabilitation program. 4. Anticipated functional outcomes would be for the patient to become modified [facility] [address] [place] [address] REHAB UNIT PLAN OF CARE Name: CATIA HARRIS Room #: 516-1 ADM IN M.R.#: [id number] Admission: 04/06/20 Attend Phys: Nahum Bonilla MD Discharge: Date of : 40 Report #: [id number] independent with transfers, mobility and ADLs as well as swallowing and communication issues that he can return back to the home setting. 5. Discharge destination would be back to the home setting where he lives at home alone. He does have supportive neighbors. 6. Expected therapy by discipline includes PT, OT and speech 1 hour per day each five days a week throughout the duration of the acute inpatient rehabilitation stay. The patient's prognosis for significant practical improvement within a reasonable period of time appears good. Given the patient's complex medical condition and risk of further medical complications, rehabilitation services could not be safely provided at a lower level of care such as a [facility] facility. <ELECTRONICALLY SIGNED> By: Nahum Bonilla MD 04/24/20 1529 0829 0857 Nahum Bonilla MD /nt
--- NOTE | 2020-04-24 15:31 | NUR ---
ASSUMED CARE AT 0700. ALERT AND ORIENTATED. SLEPT WELL LAST NIGHT. DENIES ANY PAIN. ON AARON TYLENOL. UP WITH MIN ASSIST USING L FOOT HEEL WEIGHT BEARING ONLY USING LEFT FOOT WB BOOTS. WOUND CARE TO L FOOT DONE. IV CEFEPIME GIVEN. PT IS ON DAILY WEIGHT, WITH IV LASIX GIVEN. DENIES ANY SHORT OF AIR. PEDAL EDEMA TRACED. PT ENC TO ELEVATE BOTH LEGS. PARTICIPATING WITH THERAPY. PROGRESSING TOWARDS GOAL. PLAN TO TRANSITION IV LASIX TO PO TOMORROW. PLAN FOR DC TO [facility] (SKILLED) ON WEDNESDAY. POSSIBLY NEED ANOTHER COVID TEST TOMORROW.
[2020-04-24 19:55] VITALS: BP 127/63
--- NOTE | 2020-04-25 00:37 | NUR ---
PT ALERT AND ORIENTED X 4. UP IN RECLINER ALL EVENING. TRANSFERRED TO BED AT HS WITH ASSIST X 1. LEFT FOOT DRESSING C/D/I. RIGHT PICC LINE INTACT AND PATENT. PT TAKES MEDS IN APPLESAUCE WITHOUT DIFFICULTY. PT C/O PAIN IN LEFT FOOT. HYDROCODONE GIVEN AT HS. PT SLEEPING UPON REASSESSMENT. BED ALARM ON FOR SAFEY. PT APPEARS TO BE SLEEPING ON HOURLY ROUNDS.
[2020-04-25 06:14] LABS: HEMATOCRIT 24.1 % (42.0-52.0); HEMOGLOBIN 7.7 gm/dL (14.0-18.0); MCH 29.7 pg (26.0-34.0); MCHC 31.8 g/dL (28.0-37.0); MCV 93.5 fL (80.0-100.0); PLATELET COUNT 81 thou/uL (150-400); RBC 2.58 mil/uL (4.50-6.00); RDW 25.2 % (10.5-14.5); WBC 4.5 thou/uL (4.0-11.0)
[2020-04-25 06:26] LABS: CALCIUM 9.2 mg/dL (8.5-10.1); CREATININE 1.6 mg/dL (0.7-1.3); POTASSIUM 3.9 mmol/L (3.5-5.1)
--- NOTE | 2020-04-25 08:25 | NUR ---
cm informed pt's bedside rn, pt will need covid test done today, for anticipated d/c tomorrow, fri, 04/26/20.
[2020-04-25 08:27] VITALS: BP 121/59
[2020-04-25 09:48] LABS: ABSOLUTE NEUTROPHILS 3.3 thou/uL (1.4-8.2); NUCLEATED RBCS 1 /100WBC
[2020-04-25 09:49] LABS: ANISOCYTOSIS 2+; PLATELET ESTIMATE SLIGHTLY DECREASED
--- NOTE | 2020-04-25 11:32 | NUR ---
donna updated monica harris/cori curiel of [facility] d/c date of apr 26. cm informed pt beside rn that he will need an updated covid test today.
--- NOTE | 2020-04-25 13:22 | NUR ---
ASSUMED CARE AT 0700. ALERT AND ORIENTATED. SLEPT WELL. DENIES ANY PAIN. UP WITH MIN ASSIST. DIURESING WELL. HAD A COUPLE OF BM TODAY. DENIES ANY SHORT OF AIR. TRACED PEDAL EDEMA, ON PO LASIX. WOUND CARE TO L FOOT DONE. APPETITE GOOD. LUNGS CLEAR. PARTICIPATING WITH THERAPY AND PROGRESSING WELL. COVID TEST DONE, PT IS DC TO [facility] (SKILLED) TOMORROW.
[2020-04-25 20:38] VITALS: BP 137/65
--- NOTE | 2020-04-25 23:54 | NUR ---
PT ASSESSMENT COMPLETED AND VSS. MEDS GIVEN ORDERED AND WELL TOLERATED. UP TO THE BATHROOM WITH ASST/GAIT/WALKER/SPECIAL SHOES. STEADY. LARGE SOFT BROWN BM AT HS. VOIDING MODERATE AMOUNT OF YELLOW URINE IN URINAL. ASST WITH REPOSITION FOR COMFORT. CPAP ON AT HS. PRN PAIN MEDICATION WORKING WELL. SLEEPING. WILL CONTINUE TO MONITOR FREQUENTLY.
[2020-04-26 06:01] LABS: HEMATOCRIT 25.5 % (42.0-52.0); HEMOGLOBIN 8.1 gm/dL (14.0-18.0); MCHC 31.9 g/dL (28.0-37.0); MCV 94.3 fL (80.0-100.0); RBC 2.71 mil/uL (4.50-6.00); RDW 25.4 % (10.5-14.5); WBC 4.7 thou/uL (4.0-11.0)
[2020-04-26 06:29] LABS: CALCIUM 9.3 mg/dL (8.5-10.1); CREATININE 1.7 mg/dL (0.7-1.3); POTASSIUM 4.1 mmol/L (3.5-5.1)
[2020-04-26 07:30] VITALS: BP 137/64
[2020-04-26] MEDS ORDERED: MIRALAX17 GM PO (08:09)
[2020-04-26] MEDS ORDERED: TORSEMIDE20 MG PO (08:09)
[2020-04-26] MEDS ORDERED: PROBIOTIC1 EAC1 PO (08:09)
[2020-04-26] MEDS ORDERED: POTASSIUM20 PO (08:09)
[2020-04-26] MEDS ORDERED: AMLODIPINE BESY10 MG PO (08:09)
[2020-04-26] MEDS ORDERED: TYLENOL EXTRA500 MG PO (08:09)
[2020-04-26] MEDS ORDERED: SODIUM BICARBO650 M3 PO (08:09)
[2020-04-26] MEDS ORDERED: HYDROCODON-ACE1 EAC7 PO (08:15)
[2020-04-26 08:27] VITALS: BP 137/64
--- NOTE | 2020-04-26 11:47 | NUR ---
PT DISCHARGING TODAY TO [facility] SKILL[facility] FAXED DC ORDERS/SUMMARY TO FACILITY SPOKE WITH GERARD IN ADM SHE RECEIVED ORDERS AND ARRANGED TRANSPORT BY [facility] FOR 1400 TODAY. LEFT MSG WITH PT'S COUSIN (MELQUIADES) OF DN AND TIME OF TRANSPORT. UNIT NOTIFIED AND CHART COPY PER US. RN TO CALL REPORT TO [phone].
--- NOTE | 2020-04-26 15:20 | NUR ---
Alert and orientated X 4. Calm, cooperative and compliant. Breath sounds clear. Reg HR auscultated. Color pale pink with brisk capillary refill and palpable peripheral pulses. Able to stand with gait belt assist to urinate, concentrated yellow urine. Active bowel sounds over soft, rounded abdomen. PICC line per R upper arm soft and flat, withdraws and flushes without diff. Wound per L foot cleaned with NS, betadine applied. 4X4 gauze soaked in Dakin's solution, wrapped in ABD, kerlix and estelita. Speciality shoes applied prior to standing. Report given to Fátima Serrato at [facility]. Discharge instructions given to pt, verbalizes understanding. Discharged via WC with [facility]. No s/o distress.
== END 2020-04-26 14:30 | DRG 299 ==
PROVIDERS: Internal Medicine; Nurse Practitioner; Nurse Practitioner Family; Specialist; ADMIT Physical Medicine & Rehabilitation; ATTEND Physical Medicine & Rehabilitation
PROC: 05HY33Z Insertion of Infusion Device into Upper Vein, Percutaneous Approach (ICD-10-PCS; principal; 2020-04-11)
PROC: 30233N1 Transfusion of Nonautologous Red Blood Cells into Peripheral Vein, Percutaneous Approach (ICD-10-PCS; 2020-04-19)
PROC: 0D758ZZ Dilation of Esophagus, Via Natural or Artificial Opening Endoscopic (ICD-10-PCS; 2020-04-19)
DX: E11.52 Type 2 diabetes mellitus with diabetic peripheral angiopathy with gangrene (principal); J18.9 Pneumonia, unspecified organism; I50.33 Acute on chronic diastolic (congestive) heart failure; L03.116 Cellulitis of left lower limb; E87.1 Hypo-osmolality and hyponatremia; N17.9 Acute kidney failure, unspecified; I13.0 Hypertensive heart and chronic kidney disease with heart failure and stage 1 through stage 4 chronic kidney disease, or unspecified chronic kidney disease; M86.8X7 Other osteomyelitis, ankle and foot; J98.11 Atelectasis; E44.0 Moderate protein-calorie malnutrition; K92.0 Hematemesis; D62 Acute posthemorrhagic anemia; J44.0 Chronic obstructive pulmonary disease with (acute) lower respiratory infection; I96 Gangrene, not elsewhere classified; E11.42 Type 2 diabetes mellitus with diabetic polyneuropathy; Z96.652 Presence of left artificial knee joint; G47.33 Obstructive sleep apnea (adult) (pediatric); I48.0 Paroxysmal atrial fibrillation; R53.81 Other malaise; F79 Unspecified intellectual disabilities; R48.2 Apraxia; Z96.641 Presence of right artificial hip joint; N40.0 Benign prostatic hyperplasia without lower urinary tract symptoms; I25.10 Atherosclerotic heart disease of native coronary artery without angina pectoris; E78.5 Hyperlipidemia, unspecified; Z20.822 Contact with and (suspected) exposure to COVID-19; E87.5 Hyperkalemia; I35.0 Nonrheumatic aortic (valve) stenosis; R41.9 Unspecified symptoms and signs involving cognitive functions and awareness; D69.6 Thrombocytopenia, unspecified; K22.2 Esophageal obstruction; Z60.2 Problems related to living alone; K20.90 Esophagitis, unspecified without bleeding; E11.22 Type 2 diabetes mellitus with diabetic chronic kidney disease; K44.9 Diaphragmatic hernia without obstruction or gangrene; E87.6 Hypokalemia; R13.10 Dysphagia, unspecified; N18.30 Chronic kidney disease, stage 3 unspecified; E11.69 Type 2 diabetes mellitus with other specified complication; E55.9 Vitamin D deficiency, unspecified; Z95.2 Presence of prosthetic heart valve; Z79.82 Long term (current) use of aspirin; Z95.1 Presence of aortocoronary bypass graft; Z88.0 Allergy status to penicillin; Z91.048 Other nonmedicinal substance allergy status; Z88.8 Allergy status to other drugs, medicaments and biological substances; Z90.49 Acquired absence of other specified parts of digestive tract; Z91.81 History of falling; Z95.5 Presence of coronary angioplasty implant and graft; Z95.0 Presence of cardiac pacemaker; Z68.31 Body mass index [BMI] 31.0-31.9, adult; Z79.4 Long term (current) use of insulin; Z80.6 Family history of leukemia; Z83.3 Family history of diabetes mellitus; Z79.899 Other long term (current) drug therapy
CPT/HCPCS: 10112; 27000; 62110; 62900; 70005

== ENCOUNTER → 2020-07-09 | Outpatient (CLI) | payer OTHER ==
[~2020-07-09] MED LIST changes: +SODIUM BICARBO650 M3 PO; +TYLENOL EXTRA500 MG PO
== END ==
LOC: SJCVCIMAG 08:20
PROVIDERS: ATTEND Internal Medicine Cardiovascular Disease
DX: I70.203 Unspecified atherosclerosis of native arteries of extremities, bilateral legs (principal); E10.51 Type 1 diabetes mellitus with diabetic peripheral angiopathy without gangrene; I77.9 Disorder of arteries and arterioles, unspecified; E10.22 Type 1 diabetes mellitus with diabetic chronic kidney disease; I13.0 Hypertensive heart and chronic kidney disease with heart failure and stage 1 through stage 4 chronic kidney disease, or unspecified chronic kidney disease; I50.9 Heart failure, unspecified; N18.9 Chronic kidney disease, unspecified; I48.91 Unspecified atrial fibrillation; I35.0 Nonrheumatic aortic (valve) stenosis; I25.118 Atherosclerotic heart disease of native coronary artery with other forms of angina pectoris; E78.00 Pure hypercholesterolemia, unspecified; R60.9 Edema, unspecified; K21.9 Gastro-esophageal reflux disease without esophagitis; R26.9 Unspecified abnormalities of gait and mobility; Z95.1 Presence of aortocoronary bypass graft; Z79.899 Other long term (current) drug therapy; Z79.82 Long term (current) use of aspirin; Z88.0 Allergy status to penicillin; Z88.8 Allergy status to other drugs, medicaments and biological substances; Z95.820 Peripheral vascular angioplasty status with implants and grafts

== ENCOUNTER → 2020-08-15 | Outpatient (CLI) | payer OTHER | LOC: HYPER 07:50 | PROVIDERS: ATTEND Emergency Medicine | DX: T87.89 Other complications of amputation stump (principal); E11.621 Type 2 diabetes mellitus with foot ulcer; L97.522 Non-pressure chronic ulcer of other part of left foot with fat layer exposed; L84 Corns and callosities; E11.42 Type 2 diabetes mellitus with diabetic polyneuropathy; I70.262 Atherosclerosis of native arteries of extremities with gangrene, left leg; T84.7XXD Infection and inflammatory reaction due to other internal orthopedic prosthetic devices, implants and grafts, subsequent encounter; E11.69 Type 2 diabetes mellitus with other specified complication; M86.172 Other acute osteomyelitis, left ankle and foot; I11.0 Hypertensive heart disease with heart failure; I50.9 Heart failure, unspecified; I25.10 Atherosclerotic heart disease of native coronary artery without angina pectoris; I25.2 Old myocardial infarction; E44.0 Moderate protein-calorie malnutrition; R54 Age-related physical debility; J44.9 Chronic obstructive pulmonary disease, unspecified; G47.30 Sleep apnea, unspecified; F17.290 Nicotine dependence, other tobacco product, uncomplicated; Z68.24 Body mass index [BMI] 24.0-24.9, adult; Z79.4 Long term (current) use of insulin; Z79.2 Long term (current) use of antibiotics; Z79.82 Long term (current) use of aspirin; Z79.01 Long term (current) use of anticoagulants; Z96.641 Presence of right artificial hip joint; Z90.49 Acquired absence of other specified parts of digestive tract; Z96.652 Presence of left artificial knee joint; Z95.1 Presence of aortocoronary bypass graft; Y83.1 Surgical operation with implant of artificial internal device as the cause of abnormal reaction of the patient, or of later complication, without mention of misadventure at the time of the procedure; Y83.5 Amputation of limb(s) as the cause of abnormal reaction of the patient, or of later complication, without mention of misadventure at the time of the procedure ==

== ENCOUNTER → 2020-08-29 | Outpatient (CLI) | payer OTHER | LOC: HYPER 08:03 | PROVIDERS: ATTEND Emergency Medicine | DX: T87.89 Other complications of amputation stump (principal); E11.621 Type 2 diabetes mellitus with foot ulcer; L97.522 Non-pressure chronic ulcer of other part of left foot with fat layer exposed; L84 Corns and callosities; E11.42 Type 2 diabetes mellitus with diabetic polyneuropathy; I70.262 Atherosclerosis of native arteries of extremities with gangrene, left leg; T84.7XXD Infection and inflammatory reaction due to other internal orthopedic prosthetic devices, implants and grafts, subsequent encounter; E11.69 Type 2 diabetes mellitus with other specified complication; M86.172 Other acute osteomyelitis, left ankle and foot; I11.0 Hypertensive heart disease with heart failure; I50.9 Heart failure, unspecified; I25.10 Atherosclerotic heart disease of native coronary artery without angina pectoris; I25.2 Old myocardial infarction; E44.0 Moderate protein-calorie malnutrition; R54 Age-related physical debility; J44.9 Chronic obstructive pulmonary disease, unspecified; G47.30 Sleep apnea, unspecified; F17.290 Nicotine dependence, other tobacco product, uncomplicated; Z68.24 Body mass index [BMI] 24.0-24.9, adult; Z79.4 Long term (current) use of insulin; Z79.2 Long term (current) use of antibiotics; Z79.82 Long term (current) use of aspirin; Z79.01 Long term (current) use of anticoagulants; Z96.641 Presence of right artificial hip joint; Z90.49 Acquired absence of other specified parts of digestive tract; Z96.652 Presence of left artificial knee joint; Z95.1 Presence of aortocoronary bypass graft; Y83.1 Surgical operation with implant of artificial internal device as the cause of abnormal reaction of the patient, or of later complication, without mention of misadventure at the time of the procedure; Y83.5 Amputation of limb(s) as the cause of abnormal reaction of the patient, or of later complication, without mention of misadventure at the time of the procedure ==

== ENCOUNTER → 2020-09-12 | Outpatient (CLI) | payer OTHER | LOC: HYPER 07:49 | PROVIDERS: ATTEND Emergency Medicine | DX: T87.89 Other complications of amputation stump (principal); E11.621 Type 2 diabetes mellitus with foot ulcer; I70.245 Atherosclerosis of native arteries of left leg with ulceration of other part of foot; L97.522 Non-pressure chronic ulcer of other part of left foot with fat layer exposed; E11.52 Type 2 diabetes mellitus with diabetic peripheral angiopathy with gangrene; I96 Gangrene, not elsewhere classified; E11.42 Type 2 diabetes mellitus with diabetic polyneuropathy; E11.69 Type 2 diabetes mellitus with other specified complication; M86.172 Other acute osteomyelitis, left ankle and foot; T84.7XXD Infection and inflammatory reaction due to other internal orthopedic prosthetic devices, implants and grafts, subsequent encounter; L84 Corns and callosities; R54 Age-related physical debility; E44.0 Moderate protein-calorie malnutrition; M19.90 Unspecified osteoarthritis, unspecified site; J44.9 Chronic obstructive pulmonary disease, unspecified; I25.10 Atherosclerotic heart disease of native coronary artery without angina pectoris; I11.0 Hypertensive heart disease with heart failure; I50.9 Heart failure, unspecified; I25.2 Old myocardial infarction; G47.30 Sleep apnea, unspecified; F17.290 Nicotine dependence, other tobacco product, uncomplicated; Z68.24 Body mass index [BMI] 24.0-24.9, adult; Z79.4 Long term (current) use of insulin; Z79.2 Long term (current) use of antibiotics; Z79.01 Long term (current) use of anticoagulants; Z79.82 Long term (current) use of aspirin; Z96.652 Presence of left artificial knee joint; Z96.641 Presence of right artificial hip joint; Z95.1 Presence of aortocoronary bypass graft; Y83.1 Surgical operation with implant of artificial internal device as the cause of abnormal reaction of the patient, or of later complication, without mention of misadventure at the time of the procedure; Y83.5 Amputation of limb(s) as the cause of abnormal reaction of the patient, or of later complication, without mention of misadventure at the time of the procedure ==

== ENCOUNTER → 2020-09-26 | Outpatient (CLI) | payer OTHER | LOC: HYPER 10:05 | PROVIDERS: ATTEND Emergency Medicine Emergency Medical Services | DX: T87.89 Other complications of amputation stump (principal); E11.621 Type 2 diabetes mellitus with foot ulcer; L97.522 Non-pressure chronic ulcer of other part of left foot with fat layer exposed; E11.42 Type 2 diabetes mellitus with diabetic polyneuropathy; E11.69 Type 2 diabetes mellitus with other specified complication; M86.172 Other acute osteomyelitis, left ankle and foot; I70.262 Atherosclerosis of native arteries of extremities with gangrene, left leg; T84.7XXD Infection and inflammatory reaction due to other internal orthopedic prosthetic devices, implants and grafts, subsequent encounter; L84 Corns and callosities; R54 Age-related physical debility; E44.0 Moderate protein-calorie malnutrition; M19.90 Unspecified osteoarthritis, unspecified site; I25.10 Atherosclerotic heart disease of native coronary artery without angina pectoris; I11.0 Hypertensive heart disease with heart failure; I50.9 Heart failure, unspecified; I25.2 Old myocardial infarction; G47.30 Sleep apnea, unspecified; J44.9 Chronic obstructive pulmonary disease, unspecified; F17.290 Nicotine dependence, other tobacco product, uncomplicated; Z68.24 Body mass index [BMI] 24.0-24.9, adult; Z79.2 Long term (current) use of antibiotics; Z79.01 Long term (current) use of anticoagulants; Z79.82 Long term (current) use of aspirin; Z96.652 Presence of left artificial knee joint; Z96.641 Presence of right artificial hip joint; Z95.1 Presence of aortocoronary bypass graft; Z95.0 Presence of cardiac pacemaker; Y83.1 Surgical operation with implant of artificial internal device as the cause of abnormal reaction of the patient, or of later complication, without mention of misadventure at the time of the procedure; Y83.5 Amputation of limb(s) as the cause of abnormal reaction of the patient, or of later complication, without mention of misadventure at the time of the procedure ==

== ENCOUNTER → 2020-10-10 | Outpatient (CLI) | payer OTHER | LOC: HYPER 07:38 | PROVIDERS: ATTEND Emergency Medicine | DX: T87.89 Other complications of amputation stump (principal); E11.621 Type 2 diabetes mellitus with foot ulcer; L97.522 Non-pressure chronic ulcer of other part of left foot with fat layer exposed; T84.7XXD Infection and inflammatory reaction due to other internal orthopedic prosthetic devices, implants and grafts, subsequent encounter; I70.262 Atherosclerosis of native arteries of extremities with gangrene, left leg; E11.42 Type 2 diabetes mellitus with diabetic polyneuropathy; E11.69 Type 2 diabetes mellitus with other specified complication; M86.172 Other acute osteomyelitis, left ankle and foot; L84 Corns and callosities; E44.0 Moderate protein-calorie malnutrition; R54 Age-related physical debility; I25.10 Atherosclerotic heart disease of native coronary artery without angina pectoris; I11.0 Hypertensive heart disease with heart failure; I50.9 Heart failure, unspecified; I25.2 Old myocardial infarction; G47.30 Sleep apnea, unspecified; J44.9 Chronic obstructive pulmonary disease, unspecified; M19.90 Unspecified osteoarthritis, unspecified site; F17.290 Nicotine dependence, other tobacco product, uncomplicated; Z68.24 Body mass index [BMI] 24.0-24.9, adult; Z79.2 Long term (current) use of antibiotics; Z79.01 Long term (current) use of anticoagulants; Z79.82 Long term (current) use of aspirin; Z96.652 Presence of left artificial knee joint; Z96.641 Presence of right artificial hip joint; Z95.1 Presence of aortocoronary bypass graft; Z95.0 Presence of cardiac pacemaker; Z79.4 Long term (current) use of insulin; Y83.1 Surgical operation with implant of artificial internal device as the cause of abnormal reaction of the patient, or of later complication, without mention of misadventure at the time of the procedure; Y83.5 Amputation of limb(s) as the cause of abnormal reaction of the patient, or of later complication, without mention of misadventure at the time of the procedure ==

== ENCOUNTER → 2020-11-11 | Outpatient (CLI) | payer OTHER | LOC: HYPER 08:22 | PROVIDERS: ATTEND Emergency Medicine | DX: T84.7XXD Infection and inflammatory reaction due to other internal orthopedic prosthetic devices, implants and grafts, subsequent encounter (principal); E11.621 Type 2 diabetes mellitus with foot ulcer; L97.522 Non-pressure chronic ulcer of other part of left foot with fat layer exposed; I70.262 Atherosclerosis of native arteries of extremities with gangrene, left leg; E11.42 Type 2 diabetes mellitus with diabetic polyneuropathy; E11.69 Type 2 diabetes mellitus with other specified complication; M86.172 Other acute osteomyelitis, left ankle and foot; L84 Corns and callosities; E44.0 Moderate protein-calorie malnutrition; R54 Age-related physical debility; I25.10 Atherosclerotic heart disease of native coronary artery without angina pectoris; I11.0 Hypertensive heart disease with heart failure; I50.9 Heart failure, unspecified; I25.2 Old myocardial infarction; G47.30 Sleep apnea, unspecified; J44.9 Chronic obstructive pulmonary disease, unspecified; M19.90 Unspecified osteoarthritis, unspecified site; F17.290 Nicotine dependence, other tobacco product, uncomplicated; Z68.24 Body mass index [BMI] 24.0-24.9, adult; Z79.2 Long term (current) use of antibiotics; Z79.01 Long term (current) use of anticoagulants; Z79.82 Long term (current) use of aspirin; Z96.652 Presence of left artificial knee joint; Z96.641 Presence of right artificial hip joint; Z95.1 Presence of aortocoronary bypass graft; Z95.0 Presence of cardiac pacemaker; Z79.4 Long term (current) use of insulin; Y83.1 Surgical operation with implant of artificial internal device as the cause of abnormal reaction of the patient, or of later complication, without mention of misadventure at the time of the procedure ==

== ENCOUNTER → 2020-12-09 | Outpatient (CLI) | payer OTHER | LOC: HYPER 08:03 | PROVIDERS: ATTEND Emergency Medicine | DX: T84.7XXD Infection and inflammatory reaction due to other internal orthopedic prosthetic devices, implants and grafts, subsequent encounter (principal); E11.621 Type 2 diabetes mellitus with foot ulcer; L97.522 Non-pressure chronic ulcer of other part of left foot with fat layer exposed; I70.262 Atherosclerosis of native arteries of extremities with gangrene, left leg; E11.42 Type 2 diabetes mellitus with diabetic polyneuropathy; E11.69 Type 2 diabetes mellitus with other specified complication; M86.172 Other acute osteomyelitis, left ankle and foot; L84 Corns and callosities; E44.0 Moderate protein-calorie malnutrition; R54 Age-related physical debility; I25.10 Atherosclerotic heart disease of native coronary artery without angina pectoris; I11.0 Hypertensive heart disease with heart failure; I50.9 Heart failure, unspecified; I25.2 Old myocardial infarction; G47.30 Sleep apnea, unspecified; J44.9 Chronic obstructive pulmonary disease, unspecified; M19.90 Unspecified osteoarthritis, unspecified site; F17.290 Nicotine dependence, other tobacco product, uncomplicated; Z68.24 Body mass index [BMI] 24.0-24.9, adult; Z79.2 Long term (current) use of antibiotics; Z79.01 Long term (current) use of anticoagulants; Z79.82 Long term (current) use of aspirin; Z96.652 Presence of left artificial knee joint; Z96.641 Presence of right artificial hip joint; Z95.1 Presence of aortocoronary bypass graft; Z95.0 Presence of cardiac pacemaker; Z79.4 Long term (current) use of insulin; Y83.1 Surgical operation with implant of artificial internal device as the cause of abnormal reaction of the patient, or of later complication, without mention of misadventure at the time of the procedure ==

== ENCOUNTER → 2020-12-17 | Outpatient (CLI) | payer OTHER | LOC: SJCVC 15:27 | PROVIDERS: ATTEND Internal Medicine Cardiovascular Disease | DX: I25.118 Atherosclerotic heart disease of native coronary artery with other forms of angina pectoris (principal); I11.0 Hypertensive heart disease with heart failure; I50.32 Chronic diastolic (congestive) heart failure; I48.91 Unspecified atrial fibrillation; Z95.0 Presence of cardiac pacemaker; Z79.84 Long term (current) use of oral hypoglycemic drugs; Z88.0 Allergy status to penicillin; Z79.82 Long term (current) use of aspirin; Z79.4 Long term (current) use of insulin; Z79.899 Other long term (current) drug therapy ==

== ENCOUNTER → 2021-01-07 | Outpatient (CLI) | payer OTHER | LOC: SJCVC 09:21 | PROVIDERS: ATTEND Internal Medicine Cardiovascular Disease | DX: I11.0 Hypertensive heart disease with heart failure (principal); I50.32 Chronic diastolic (congestive) heart failure; I25.118 Atherosclerotic heart disease of native coronary artery with other forms of angina pectoris; E78.00 Pure hypercholesterolemia, unspecified; Z95.2 Presence of prosthetic heart valve; Z88.0 Allergy status to penicillin; Z88.8 Allergy status to other drugs, medicaments and biological substances; Z79.82 Long term (current) use of aspirin; Z79.899 Other long term (current) drug therapy; Z79.4 Long term (current) use of insulin ==

== ENCOUNTER → 2021-01-13 | Outpatient (CLI) | payer OTHER | LOC: HYPER 08:08 | PROVIDERS: ATTEND Emergency Medicine | DX: T84.7XXD Infection and inflammatory reaction due to other internal orthopedic prosthetic devices, implants and grafts, subsequent encounter (principal); E11.621 Type 2 diabetes mellitus with foot ulcer; L97.522 Non-pressure chronic ulcer of other part of left foot with fat layer exposed; L97.421 Non-pressure chronic ulcer of left heel and midfoot limited to breakdown of skin; I70.262 Atherosclerosis of native arteries of extremities with gangrene, left leg; E11.42 Type 2 diabetes mellitus with diabetic polyneuropathy; E11.69 Type 2 diabetes mellitus with other specified complication; M86.172 Other acute osteomyelitis, left ankle and foot; L84 Corns and callosities; E44.0 Moderate protein-calorie malnutrition; R54 Age-related physical debility; I25.10 Atherosclerotic heart disease of native coronary artery without angina pectoris; I11.0 Hypertensive heart disease with heart failure; I50.9 Heart failure, unspecified; I25.2 Old myocardial infarction; G47.30 Sleep apnea, unspecified; J44.9 Chronic obstructive pulmonary disease, unspecified; M19.90 Unspecified osteoarthritis, unspecified site; F17.290 Nicotine dependence, other tobacco product, uncomplicated; Z68.24 Body mass index [BMI] 24.0-24.9, adult; Z79.2 Long term (current) use of antibiotics; Z79.01 Long term (current) use of anticoagulants; Z79.82 Long term (current) use of aspirin; Z96.652 Presence of left artificial knee joint; Z96.641 Presence of right artificial hip joint; Z95.1 Presence of aortocoronary bypass graft; Z95.0 Presence of cardiac pacemaker; Z79.4 Long term (current) use of insulin; Y83.1 Surgical operation with implant of artificial internal device as the cause of abnormal reaction of the patient, or of later complication, without mention of misadventure at the time of the procedure ==

== ENCOUNTER → 2021-04-30 | Outpatient (CLI) | payer OTHER | LOC: SJCVC 13:14 | PROVIDERS: ATTEND Internal Medicine Cardiovascular Disease | DX: I25.118 Atherosclerotic heart disease of native coronary artery with other forms of angina pectoris (principal); I35.0 Nonrheumatic aortic (valve) stenosis; E78.00 Pure hypercholesterolemia, unspecified; I50.32 Chronic diastolic (congestive) heart failure; I13.0 Hypertensive heart and chronic kidney disease with heart failure and stage 1 through stage 4 chronic kidney disease, or unspecified chronic kidney disease; N18.9 Chronic kidney disease, unspecified; K21.9 Gastro-esophageal reflux disease without esophagitis; G47.33 Obstructive sleep apnea (adult) (pediatric); Z88.0 Allergy status to penicillin; Z95.818 Presence of other cardiac implants and grafts; Z88.8 Allergy status to other drugs, medicaments and biological substances; Z79.82 Long term (current) use of aspirin; Z79.4 Long term (current) use of insulin; Z79.899 Other long term (current) drug therapy; Z95.1 Presence of aortocoronary bypass graft ==

== ENCOUNTER → 2021-05-13 | Outpatient (CLI) | payer OTHER | LOC: SJCVCIMAG 06:52 | PROVIDERS: ATTEND Internal Medicine Cardiovascular Disease | DX: I25.118 Atherosclerotic heart disease of native coronary artery with other forms of angina pectoris (principal); E78.00 Pure hypercholesterolemia, unspecified; I50.32 Chronic diastolic (congestive) heart failure; I13.0 Hypertensive heart and chronic kidney disease with heart failure and stage 1 through stage 4 chronic kidney disease, or unspecified chronic kidney disease; N18.9 Chronic kidney disease, unspecified; E11.22 Type 2 diabetes mellitus with diabetic chronic kidney disease; K21.9 Gastro-esophageal reflux disease without esophagitis; E11.42 Type 2 diabetes mellitus with diabetic polyneuropathy; G47.33 Obstructive sleep apnea (adult) (pediatric); Z88.0 Allergy status to penicillin; Z88.8 Allergy status to other drugs, medicaments and biological substances; Z79.82 Long term (current) use of aspirin; Z79.4 Long term (current) use of insulin; Z79.899 Other long term (current) drug therapy; Z95.818 Presence of other cardiac implants and grafts; Z95.4 Presence of other heart-valve replacement; Z95.1 Presence of aortocoronary bypass graft ==

== ENCOUNTER → 2021-05-22 | Outpatient (CLI) | payer OTHER | LOC: SJCVC 12:57 | PROVIDERS: ATTEND Internal Medicine Cardiovascular Disease | DX: I25.118 Atherosclerotic heart disease of native coronary artery with other forms of angina pectoris (principal); I48.91 Unspecified atrial fibrillation; I13.0 Hypertensive heart and chronic kidney disease with heart failure and stage 1 through stage 4 chronic kidney disease, or unspecified chronic kidney disease; I50.32 Chronic diastolic (congestive) heart failure; N18.9 Chronic kidney disease, unspecified; E11.22 Type 2 diabetes mellitus with diabetic chronic kidney disease; E11.42 Type 2 diabetes mellitus with diabetic polyneuropathy; K21.9 Gastro-esophageal reflux disease without esophagitis; G47.33 Obstructive sleep apnea (adult) (pediatric); R60.9 Edema, unspecified; Z95.0 Presence of cardiac pacemaker; Z88.0 Allergy status to penicillin; Z88.8 Allergy status to other drugs, medicaments and biological substances; Z79.82 Long term (current) use of aspirin; Z79.4 Long term (current) use of insulin; Z79.899 Other long term (current) drug therapy; Z95.1 Presence of aortocoronary bypass graft; Z95.818 Presence of other cardiac implants and grafts ==

== ENCOUNTER 2021-05-28 07:28 | Inpatient (IN) | payer OTHER ==
[~2021-05-28] VITALS: Ht 167.6 cm; Wt 83.9 kg
[2021-05-28 08:38] VITALS: BP 138/64
[2021-05-28 08:57] LABS: HEMATOCRIT 33.6 % (42.0-52.0); HEMOGLOBIN 11.4 gm/dL (14.0-18.0); MCH 30.8 pg (26.0-34.0); MCHC 33.8 g/dL (28.0-37.0); MCV 91.1 fL (80.0-100.0); RBC 3.69 mil/uL (4.50-6.00); RDW 15.2 % (10.5-14.5); WBC 6.1 thou/uL (4.0-11.0)
[2021-05-28 09:01] LABS: CALCIUM 9.6 mg/dL (8.5-10.1); CREATININE 1.5 mg/dL (0.7-1.3); POTASSIUM 4.9 mmol/L (3.5-5.1)
[2021-05-28] MEDS ORDERED: BENICAR40 MG PO (09:20)
--- NOTE | 2021-05-28 11:57 | EKG ---
[place] [address] [facility] [place] [address] ELECTROCARDIOGRAM REPORT Name: CATIA HARRIS Romy Room #: REG [facility]#: [id number] Admission: 05/28/21 Attend Phys: Kishan Gudino MD Discharge: Date of : 40 Report #: [id number] [facility] Test Date: 2021-05-28 Test Time: 08:45:40 Pat Name: CATIA HARRIS Department: Room: Gender: M Caramel Cutter Machine: : 1940 Requested By: Kishan Gudino Order Number: [id number] MD: Arslan Christian Measurements Intervals [place] Rate: 70 P: 0 VT: 69 QRS: -74 QRSD: 193 T: 102 QT: 479 QTc: 517 Interpretive Statements Ventricular-paced rhythm No further analysis attempted due to paced rhythm Compared to ECG 03/24/2020 11:10:11 No significant changes Electronically Signed On 05-28-2021 11:57:36 EXTERMINATOR TERMITE by Arslan Christian [email or web address] <ELECTRONICALLY SIGNED> By: Arslan Christian MD, [facility] 05/28/21 1157 0845 0845 Arslan Christian MD, FACC /EPI
--- NOTE | 2021-05-28 14:44 | NUR ---
WITH PTS VERBAL PERMISSION HIS NEIGHBOR CHOCO WAS CONTACTED VIA PHONE AND UPDATED ON PTS STATUS. CHOCO REQEUST TO BE NOTIFIED TOMORROW WHEN PT IS DISMISSED SO HE CAN PICK HIM UP. PHONE CALL TO TRISTAN FRAZIER WITH UPDATE ON DEOANTONINA REQUEST.
--- NOTE | 2021-05-28 15:16 | EKG ---
[address] [email or web address] [address] ELECTROCARDIOGRAM REPORT Name: CATIA HARRIS Room #: 208-P [facility]..#: [id number] Admission: 05/28/21 Attend Phys: Kishan Gudino MD Discharge: Date of : 40 Report #: [id number] [facility] Test Date: 2021-05-28 Test Time: 14:55:09 Pat Name: CATIA HARRIS Department: Room: 208 Gender: M Sock Drier: : 1940 Requested By: Kishan Gudino Order Number: [id number] MD: Arslan Christian Measurements Intervals [place] Rate: 70 P: 0 [place]: 71 QRS: -72 QRSD: 192 T: 99 QT: 501 QTc: 541 Interpretive Statements Ventricular-paced rhythm No further analysis attempted due to paced rhythm Compared to ECG 05/28/2021 08:45:40 No significant changes Electronically Signed On 05-28-2021 15:16:08 INSURANCE ACCOUNT MANAGER by Arslan Christian [email or web address] <ELECTRONICALLY SIGNED> By: Arslan Christian MD, [facility] 05/28/21 1516 1455 145 Arslan Christian MD, FACC /EPI
--- NOTE | 2021-05-28 15:48 | CATHLAB ---
[facility] [address] [address] INVASIVE PROCEDURE REPORT Name: CATIA HARRIS Room #: 208-P [facility] M.RDimas#: [id number] Admission: 05/28/21 Attend Phys: Kisahn Gudino MD Discharge: Date of : 40 Report #: [id number] THIS REPORT FOR: cc: Thomas Zuleta MD, Eric K. MD Park, Jin S. MD ~ APPROVED REPORT Study performed: 05/28/2021 11:47:11 Patient Details Patient Status: Out-Patient Room #: The patient is a 81 year-old male Event Personnel Kishan Gudino Senior Analyst, Popeye Drew RN RN, Steven Morales RN RN, Kyara Ng RTR Monitor, Francisca Berumen RTR Monitor, Priti Schwartz RTR, MAGAZINE WORKER Scrub, Kaushik Palma, MAGAZINE WORKER, Scrub Procedures Performed Art Access - R femoral artery* Coronaries/Graft/LIMADES Place w/wo Plasty Single RCA 599009 Atherectomy w/wo Plasty Sgl RCA 9120415 ATHSINGLE Hemostasis w/ Mynx 42239 Initial Mod Sed Same Phys/QHP Gr5y 988040 95449 Mod Sed Same Phys/QHP Ea 910761 Indication Dyspnea, Unstable angina , Positive stress test, Chest pain Risk Factors Cerebrovascular DiseasePeripheral Vascular Disease, Chronic Lung DiseaseHypercholesterolemiaPhysical Activity, Coronary Artery DiseaseHypertension, Diabetes Previous Procedures/Diagnoses Previous CABGPrevious CVAPrevious PCI, Previous Femoral ProcedurePrevious Valve Surgery, Previous CHFPrevious DC Procedure Narrative The Right Groin^ was infiltrated with 1% Lidocaine subcutaneous anesthesia. A PINNACLE 5FR Sheath #[id number] sheath was inserted into the RFA^. Coronary angiography was performed using coronary diagnostic catheters. The right coronary system was accessed and [facility] [place] [place] [address] INVASIVE PROCEDURE REPORT Name: SETVENCATIA GONCALVES Room #: 208-P [facility] IN M.R.#: [id number] Admission: 05/28/21 Attend Phys: Kishan Gudino MD Discharge: Date of : 40 Report #: [id number] visualized with a 5FR AR MOD #[id number] catheter. The left coronary system was accessed and visualized with a 5FR JL4 #[id number] catheter. Pre-demployment femoral angiogram was performed . Closure device was deployed with a 6 Fr MYNXGRIP 6/7F #[id number]. The patient tolerated the procedure well and there were no complications associated with the procedure. There was no hematoma. Intraoperative Conscious Sedation Sedation start time: 12:15 Case end Time: 14:12 Fentanyl 200 mcg Versed 2 mg Fluoro Time: 40.40 minutes Dose: DAP 08006.56 cGycm2 4433 mGy Contrast Type and Amount: Visipaque 350 ml Coronary Angiography The patient's coronary anatomy is right dominant. Diagnostic Cath LAD There are overlapping stents in the proximal LAD, patent with mild restenosis, 20 to 30%. There is a patent stent in the mid LAD segment with mild restenosis. Just before the stent, there is a moderate lesion of 50%. The distal LAD wraps around the apex. Circumflex The left circumflex artery is totally occluded at the proximal segment. OM1 There is a patent SALAZAR graft with an end-to-side anastomosis to a moderate-sized first OM vessel. Right Coronary The RCA is a dominant vessel, total occlusion in the proximal segment. R PDA There is a saphenous vein graft with an end-to-side anastomosis to the PDA. There are multiple stents in the proximal, mid and distal segments of the vein graft. There are 3 severe stenotic areas within the mid and distal segments of the vein graft. The first lesion is a de kimani lesion and the next 2 lesions are restenotic lesions. Left Ventriculography Left Ventriculography was not performed. Ejection Fraction was 55-60% based off patient's Nuclear Cardiac Stress Test. Hemodynamics The aortic pressure is 151/57 mmHg with a mean of [address] [facility] [address] [place] [address] INVASIVE PROCEDURE REPORT Name: CATIA HARRIS Room #: 208-P [facility] IN M.R.#: [id number] Admission: 05/28/21 Attend Phys: Kishan Gudino MD Discharge: Date of : 40 Report #: [id number] PCI Technique Lesion Percutaneous coronary intervention was performed on the SVG to the PDA. The lesion stenosis prior to intervention was 80% with STUART 3 flow. A LAUNCHER 6FR AL75 #[id number] Guide Catheter was used to engage the ostium. A Luge Wire .014 x 182CM #[id number] Interventional Guidewire was used to cross the lesion. BALLOON DILATION A Balloon catheter Euphora NC RX 3.0 x 15 #[id number] was inserted and inflated up to 14.00atm for 9seconds. Additional Inflation: 18.00atm for 11seconds. A second balloon catheter NC Euphora RX 3.5 x 15 was inserted and inflated up to 14 luis felipe for10 seconds. Additional inflation: 18 luis felipe for 18 seconds. STENT DEPLOYMENT A drug-eluting stent RESOLUTE BERTIN RX 4.0 X 15 #[id number] was inserted and inflated up to 14.00atm for 8seconds. POST STENT DEPLOYMENT BALLOON DILATION A Balloon catheter Euphora NC RX 4.0 x 12 #[id number] was inserted and inflated up to 18.00atm for 12seconds. Additional Inflation: 18.00atm for 6seconds. Additional Inflation: 18.00atm for 17seconds. Additional Inflation: 18 luis felipe for 14 seconds Final angiography reveals 5 % stenosis with STUART 3 flow. COMMENTS There are 3 discrete lesions in the mid and distal segments of the SVGRCA. The first lesion was a de kimani lesion and the next 2 were restenotic areas. The 0.9mm coronary laser catheter was used in the mid and distal segments of the SVG-RCA for a total of 5 passes. 60mj/mm2 60pulses/sec x 3 and 80mj/mm2 80pulses/sec x 2. After the laser atherectomy catheter was utilized in all 3 stenotic areas, balloon angioplasty with a 2.5 mm, 3.0 mm, 3.5 mm and 4.0 mm noncompliant balloons were inflated at their respective sites. At several intervals, there was evidence for "slow flow" phenomenon within the vein graft. Intracoronary nitroglycerin was administered on 2 separate occasions. In one instance a 2.0 mm acqo-itn-rpxq balloon was placed into the PDA and the wire was removed. 200 mcg of adenosine was administered. The flow return to STUART-3. The patient tolerated the procedure and remained hemodynamically stable. PCI Technique Lesion 2 Percutaneous Coronary Intervention was performed on the mid right [facility] [address] [place] [address] INVASIVE PROCEDURE REPORT Name: STEVENCATIA GONCALVES Room #: 208-P [facility] IN ..#: [id number] Admission: 05/28/21 Attend Phys: Kishan Gudino MD Discharge: Date of : 40 Report #: [id number] coronary artery. A LAUNCHER 6FR AL75 #[id number] Guide Catheter was used to engage the ostium. A Luge Wire .014 x 182CM #[id number] Interventional Guidewire was used to cross the lesion. Balloon Dilation A Balloon catheter Euphora NC RX 2.5 x 12 #[id number] was inserted and inflated up to 14.00atm for 12seconds. Additional Inflation: 12.00atm for 9seconds. A second Euphora NC RX 3.0 x 15 was inserted and inflated up to 20 luis felipe for 28 seconds. Additional Inflation: 18 luis felipe for 25 seconds A third balloon catheter Euphora NC 3.5 x 15 was inserted and inflated up to 22 luis felipe for 16 seconds. A fourth balloon catheter Euphora NC 4.0 x 12 was inserted and inflated up to 18 luis felipe for 23 seconds. Comments The 0.9mm coronary laser catheter was used in the mid SVG RCA for a total of 2 passes. 80mj/mm2 80pulses/sec x 2 PCI Technique Lesion 3 Percutaneous Coronary Intervention was performed on the distal right coronary artery. A LAUNCHER 6FR AL75 #997362 Guide Catheter was used to engage the ostium. A Luge Wire .014 x 182CM #[id number] Interventional Guidewire was used to cross the lesion. Balloon Dilation A Balloon catheter Euphora NC RX 2.5 x 12 #[id number] was inserted and inflated up to 14.00atm for 19seconds. Additional Inflation: 18.00atm for 35seconds. Additional Inflation: 18.00atm for 30seconds. Comments The 0.9mm coronary laser catheter was used in the distal SVG RCA for a total of 2 passes. 80mj/mm2 80pulses/sec x 2 Conclusion 1. PCI performed including laser atherectomy, dilatation with noncompliant balloons and placement of a drug-eluting stent into 3 separate stenotic areas within the SVG to the PDA. 2. There is a patent SALAZAR graft with an end-to-side anastomosis to a moderate-sized first obtuse marginal artery. 3. The qawalangin LAD system is patent with mild restenosis in the proximal and mid LAD stents. There is a moderate de kimani lesion in the midsegment. 4. There is normal LV systolic function. [facility] [address] [place] [address] INVASIVE PROCEDURE REPORT Name: CATIA HARRIS Room #: 208-P [facility] IN .R.#: [id number] Admission: 05/28/21 Attend Phys: Kishan Gudino MD Discharge: Date of : 40 Report #: [id number] 5. Recommend dual antiplatelet therapy and aggressive risk factor management. <ELECTRONICALLY SIGNED> By: Kishan Gudino MD 05/28/21 1548 1548 1548 Kishan Gudino MD /INF
[2021-05-28] MEDS ORDERED: ROSUVASTATIN CA40 MG PO (16:03)
--- NOTE | 2021-05-28 16:12 | NUR ---
ASSUMED CARE OF PATIENT AT 1430 FROM SUPERVISOR [employer] DIV[employer]. PATIENT ON FLAT TIME UNTIL 1830. VS CYCLING THROUGH. PATIENT HAD C/O STERNAL PAIN OF 5/10, HYDROCODONE GIVEN, EKG OBTAINED. ADMISSION COMPLETED. PATIENT RESTING WITH EYES CLOSED. TM
[2021-05-28 19:41] VITALS: BP 147/71
--- NOTE | 2021-05-29 03:36 | NUR ---
Assumed pt care at 1900. Pt is alert and oriented. No sign of distress noted in pt. Denies asencio. Right groin site is intact, no hematoma noted. Fall precaution in place. Assessment completed and docjmented. Scheduled meds administered to pt. Continue to monitor, no further needs at this time.
[2021-05-29 03:47] VITALS: BP 128/62
[2021-05-29 05:15] LABS: HEMOGLOBIN 10.8 gm/dL (14.0-18.0); MCH 30.6 pg (26.0-34.0); MCHC 33.7 g/dL (28.0-37.0); MCV 90.7 fL (80.0-100.0); RBC 3.53 mil/uL (4.50-6.00); RDW 15.7 % (10.5-14.5); WBC 6.8 thou/uL (4.0-11.0)
[2021-05-29 05:18] LABS: ALBUMIN 3.4 g/dL (3.4-5.0); CALCIUM 8.7 mg/dL (8.5-10.1); CREATININE 1.5 mg/dL (0.7-1.3); POTASSIUM 5.3 mmol/L (3.5-5.1); TOTAL BILIRUBIN 0.5 mg/dL (0.2-1.0); TOTAL PROTEIN 6.1 g/dL (6.4-8.2)
--- NOTE | 2021-05-29 07:08 | EKG ---
[place] [address] [facility] [place] [address] ELECTROCARDIOGRAM REPORT Name: CATIA HARRIS Room #: 208-P [facility]..#: [id number] Admission: 05/28/21 Attend Phys: Kishan Gudino MD Discharge: Date of : 40 Report #: [id number] [facility] Test Date: 2021-05-29 Test Time: 07:01:49 Pat Name: CATIA HARRIS Department: Room: 208 P Gender: M Workers' Compensation Magistrate: SAMM : 1940 Requested By: Kishan Gudino Order Number: [id number] MD: Arslan Christian Measurements Intervals [place] Rate: 70 P: 0 AR: 37 QRS: -79 QRSD: 195 T: 102 QT: 491 QTc: 530 Interpretive Statements Ventricular-paced rhythm No further analysis attempted due to paced rhythm Compared to ECG 05/28/2021 14:55:09 No significant changes Electronically Signed On 05-29-2021 7:08:08 SOCIAL MEDIA SPECIALIST by Arslan Christian [email or web address] <ELECTRONICALLY SIGNED> By: Arslan Christian MD, [facility] 05/29/21 0708 07 0 Arslan Christian MD, FACC /EPI
[2021-05-29 07:14] VITALS: BP 136/61
[2021-05-29 11:00] VITALS: BP 106/56
[2021-05-29 16:15] VITALS: BP 107/51
--- NOTE | 2021-05-29 17:33 | NUR ---
ASSUMED CARE OF PATIENT AT 0700. PATIENT REMAINS A&OX4, ON RA, VPACED ON TELE AND NO C/O PAIN. PATIENT POST DAY 1 FROM HEART CATH. PATIENT WALKED HALLS WITH TOOLER TODAY AND IS UP IN CHAIR. PATIENT WILL DC HOME TOMORROW. PATIENT PROGRESSING TOWARD POC.
[2021-05-29 20:19] VITALS: BP 119/59
[2021-05-30 03:11] VITALS: BP 118/63
[2021-05-30 05:53] LABS: CALCIUM 8.5 mg/dL (8.5-10.1); CREATININE 1.8 mg/dL (0.7-1.3); POTASSIUM 4.7 mmol/L (3.5-5.1)
--- NOTE | 2021-05-30 06:55 | NUR ---
[facility] 1900. PT/VITALS STABLE DENIES ANY PAIN. MODERATE TOLERANCE TO ACTIVITY. A/O X 4. ASSESSMENT CHARTED, PROGRESSING WELL WITH POC. NO DISTRESS NOTED. VPACED ON MONITOR. NO ARRHYTHMIA NOTED. RIGHT GROIN SITE C/D/I. NO BRUSIING OR HEMATOMA. PLAN IS POSSIBLE DISCHARGE HOME TODAY. WILL CONTINUE TO MONITOR AND FOLLOW WITH POC
[2021-05-30 07:55] VITALS: BP 119/58
[2021-05-30 10:20] VITALS: BP 119/58
[2021-05-30 10:47] VITALS: BP 119/58
--- NOTE | 2021-05-30 12:04 | NUR ---
PATIENT DISCHARGED HOME, DISCHARGE EDUCATION DONE NO QUESTIONS OR CONCERNS AT TIME OF EDUCATION. IV AND TELE REMOVED. TAKEN OUT BY STAFF IN WHEELCHAIR TO PRIVATE VEHICLE THAT AWAITS.
== END 2021-05-30 13:46 | disposition home or self-care (01) | DRG 247 ==
LOC: CATH 07:28 → 2N 14:52
PROVIDERS: ADMIT Internal Medicine Cardiovascular Disease; ATTEND Internal Medicine Cardiovascular Disease
DX: T82.858A Stenosis of other vascular prosthetic devices, implants and grafts, initial encounter (principal); I25.110 Atherosclerotic heart disease of native coronary artery with unstable angina pectoris; I13.0 Hypertensive heart and chronic kidney disease with heart failure and stage 1 through stage 4 chronic kidney disease, or unspecified chronic kidney disease; I50.32 Chronic diastolic (congestive) heart failure; T82.855A Stenosis of coronary artery stent, initial encounter; J44.9 Chronic obstructive pulmonary disease, unspecified; I49.5 Sick sinus syndrome; E87.5 Hyperkalemia; E87.70 Fluid overload, unspecified; E11.51 Type 2 diabetes mellitus with diabetic peripheral angiopathy without gangrene; E11.22 Type 2 diabetes mellitus with diabetic chronic kidney disease; I48.0 Paroxysmal atrial fibrillation; I35.0 Nonrheumatic aortic (valve) stenosis; E78.5 Hyperlipidemia, unspecified; G47.33 Obstructive sleep apnea (adult) (pediatric); E78.00 Pure hypercholesterolemia, unspecified; Z96.642 Presence of left artificial hip joint; Z96.653 Presence of artificial knee joint, bilateral; N18.9 Chronic kidney disease, unspecified; K21.9 Gastro-esophageal reflux disease without esophagitis; E11.42 Type 2 diabetes mellitus with diabetic polyneuropathy; Y83.8 Other surgical procedures as the cause of abnormal reaction of the patient, or of later complication, without mention of misadventure at the time of the procedure; Y92.89 Other specified places as the place of occurrence of the external cause; Z79.899 Other long term (current) drug therapy; Z95.5 Presence of coronary angioplasty implant and graft; Z95.0 Presence of cardiac pacemaker; Z79.4 Long term (current) use of insulin; Z79.02 Long term (current) use of antithrombotics/antiplatelets; Z79.82 Long term (current) use of aspirin; Z79.51 Long term (current) use of inhaled steroids; Z95.1 Presence of aortocoronary bypass graft; Z88.6 Allergy status to analgesic agent; Z88.0 Allergy status to penicillin; Z88.8 Allergy status to other drugs, medicaments and biological substances; Z91.048 Other nonmedicinal substance allergy status; Z95.2 Presence of prosthetic heart valve; Z80.6 Family history of leukemia; Z89.429 Acquired absence of other toe(s), unspecified side
CPT/HCPCS: 10081